=== PATIENT | female | born 1950 | race Caucasian/White ===

== ENCOUNTER → 2017-08-24 | Day surgery (SDC) | payer OTHER ==
[2017-07-20 13:09] VITALS: Ht 154.9 cm; Wt 139.1 kg
[~2017-08-24] VITALS: Ht 154.9 cm; Wt 139.1 kg
[~2017-08-24] MED LIST: 500ML BSS 0.3ML EPI 1:1000PF IRRIG ONE; ACETAMINOPHEN 325 MG TAB PO PRN; AMVISC PLUS 0.8ML SYRINGE INT OCU ONE; ASPI-589 PO; ATOR-54 PO; ATROPINE SULFATE 0.1 MG/ML 5ML SYR IV PRN; BSS FLUSH ONE; CHOL100010 PO; CRG625 PO; EpHEDrine SULFATE INJ 50 MG/ML AMP IV PRN; EpINEphrine INJ 1MG/ML AMP 1 MG/ML AMP ONE; FAMO-103 PO; FENO134C PO; GABA-1219 PO; LACTATED RINGER'S 1000ML 500 ML IV SCH; LEVO100T PO; LIDOCAINE 3.5% OPH GEL PER APPLICATION CHARGE ONE; LIDOCAINE HCL 1% MPF 2 ML VIAL ONE; LISI-461 PO; METF850T10 PO; MIDAZOLAM HCL 1 MG/ML 2ML VIAL ONE; NRV/5 PO; NTRGSL/4 SL; OCUCOAT 1 ML SOLN IO ONE; OXGN; PHENYLEPHRINE HCL 10% OP SOLN PER DROP CHARGE OPL SCH; PIOG1TAB23 PO; POLY150C4 PO; POVIDONE-IODINE OP SOLN 30 ML BTL ONE; PROPARACAINE 0.5% OP SOLN PER DROP CHARGE OPL SCH; TOBRAMYCIN/DEXAMETHASONE OPH OINT PER APPLN CHARGE ONE; TOLT4CAP PO; ZLF/100 PO
[2017-08-24] MEDS: PHENYLEPHRINE HCL 2.5% OP SOLN PER DROP CHARGE OPL SCH ×2 (08:37→08:42)
[2017-08-24] MEDS: TROPICAMIDE 1% OP SOLN PER DROP CHARGE OPL SCH ×2 (08:38→08:43)
[2017-08-24] MEDS: CYCLOPENTOLATE HCL 1% OP SOLN PER DROP CHARGE OPL SCH ×2 (08:39→08:44)
[2017-08-24] MEDS: KETOROLAC 0.5% OP SOLN PER DROP CHARGE OPL SCH ×2 (08:40→08:45)
[2017-08-24] MEDS: GATIFLOXACIN OP SOLN PER DROP CHARGE OPL SCH ×2 (08:41→08:52)
--- NOTE | 2017-08-24 09:04 | History & Physical Bridge - [place] ---
H&P Re-Evaluation Bridge Note: I have examined the patient, reviewed the History & Physical and in the interval since the performance of the History & Physical I have noted the following changes of clinical significance: No changes noted
--- NOTE | 2017-08-24 09:45 | [facility] Operative Report ---
Operative Report Date of Service Aug 24, 2017. Operative Report 1. PREOPERATIVE DIAGNOSIS: Cataract of the left eye. 2. POSTOPERATIVE DIAGNOSIS: Same. 3. PROCEDURE: Phacoemulsification with intraocular lens implantation of the left eye. SURGEON: Dr. Nasir Thomas. ANESTHESIA: Topical Lidocaine gel, 1% Non- Preserved intracameral Lidocaine, and monitored intravenous sedation. INDICATIONS FOR THE PROCEDURE: The patient is a 67 - year-old female with a history of cataract of the left eye causing significant visual impairment. The details of the proposed procedure were explained to the patient who asked appropriate questions and following discussion of all risks, benefits and alternatives agreed to have the procedure done. 4. OPERATION AND FINDINGS: DESCRIPTION OF PROCEDURE: After informed consent was obtained, the patient was brought to the Operating Room at the [facility]. The patient was placed in a supine position and then the left eye was prepped and draped in the usual sterile fashion for intraocular surgery. A drop of topical Lidocaine gel was placed in the operative eye. A wire lid speculum was then placed in the fornices. A corneal paracentesis was then created temporally. The Non-Preserved Lidocaine was then instilled into the anterior chamber. The anterior chamber was then pressurized with viscoelastic. A 2.0 mm clear corneal incision was then created temporally. A cystotome was inserted into the anterior chamber and used to create a tear in the anterior lens capsule. This capsular tear was then used to create a small flap and the flap was dragged in a counterclockwise direction in order to create a continuous curvilinear capsulorrhexis. Hydrodissection was accomplished with balanced salt solution. Phacoemulsification of the lens nucleus was then performed in a standard [id number] technique. The phaco time was 22 seconds with an average power of 12 %. The remaining cortical material was removed using irrigation aspiration. The capsular bag was then filled with viscoelastic. A B[employer]ch [employer] Lomb MI60L +20.5 diopters lens was then loaded into the injector and injected into the capsular bag. The remaining viscoelastic was removed with the irrigation aspiration handpiece. The wound was hydrated and then checked and found to be watertight. The intraocular pressure was checked and found to be adequate. The wire lid speculum was removed and the patient's face was cleaned and dried. TobraDex ointment was placed in the inferior fornix. The patient was discharged to the Recovery Room having tolerated the procedure well. There were no complications. The patient will be seen tomorrow in the office for follow-up. I attest to the content of the Intraoperative Record and any orders documented therein. Any exceptions are noted below.
--- NOTE | 2017-08-24 09:46 | Discharge Instructions-SurgCtr ---
Discharge Instructions Date of Service Aug 24, 2017. Visit Reason for Visit: Cataract Left Eye Discharge Discharge Diagnosis / Problem: cataract Discharge Goals Goal(s): Improve function Medications Stopped Medications Name(s): metformin stopped 2 days ago. Activity Recommendations Activity Limitations: per Instructions/Follow-up section Anesthesia . Post Anesthesia Instructions: If you have had General Anesthesia or IV Sedation: * Do not drive today. * Resume driving when surgeon permits. * Do not make important decisions or sign legal documents today. * Call surgeon for: 1. Temperature elevations greater than 101 degrees F. 2. Uncontrollable pain. 3. Excessive bleeding. 4. Persistent nausea and vomiting. 5. Medication intolerance (nausea, vomiting or rash). * For nausea and vomiting use only clear liquids such as: tea, soda, bouillon until nausea subsides, then gradually increase diet as tolerated. * If you have any concerns or questions, call your surgeon's office. If physician is unavailable and it is an emergency, call 911 or go to the nearest emergency room. . Diet Recommendations Home Diet: resume previous diet Procedures Procedures Performed: Left Cataract Phacoemulsification With Intraocular Lens Implant Pending Studies Studies pending at discharge: no Medical Emergencies . Who to Call and When: Medical Emergencies: If at any time you feel your situation is an emergency, please call 911 immediately. . Non-Emergent Contact Non-Emergency issues call your: Metal Patternmaker . . "Provider Documentation" section prepared by Nasir Thoams. .
[2017-08-24 09:48] VITALS: TEMP 36.6
[2017-08-24 10:11] VITALS: BP 142/84; PULSE 78; O2SAT 96
--- NOTE | 2017-08-24 10:25 | Anesthesiology Progress Note ---
Anesthesia Post Op Note Date & Time Aug 24, 2017 at 10:25 Vital Signs Pain Intensity: 0 Vital Signs Past 12 Hours Date Time Temp Pulse Resp B/P (MAP) Pulse Ox O2 Delivery O2 Flow Rate FiO2 08/24/17 10:11 78 14 142/84 (103) 96 Room Air 08/24/17 09:48 36.6 85 18 144/73 (96) 96 Room Air 08/24/17 08:25 37.0 68 18 170/82 (111) 95 Room Air Notes Mental Status: alert / awake / arousable, participated in evaluation Nausea / Vomiting: adequately controlled Pain: adequately controlled Airway Patency, RR, SpO2: stable & adequate BP & HR: stable & adequate Hydration State: stable & adequate Anesthetic Complications: no major complications apparent
== END | disposition home or self-care (01) ==
LOC: X.SURG 07:42
PROVIDERS: ATTEND Ophthalmology
DX: H25.13 Age-related nuclear cataract, bilateral (principal); I12.9 Hypertensive chronic kidney disease with stage 1 through stage 4 chronic kidney disease, or unspecified chronic kidney disease; N18.3 Chronic kidney disease, stage 3 (moderate); Z68.44 Body mass index [BMI] 60.0-69.9, adult; I25.10 Atherosclerotic heart disease of native coronary artery without angina pectoris; I25.2 Old myocardial infarction; F32.9 Major depressive disorder, single episode, unspecified; E03.9 Hypothyroidism, unspecified; E66.9 Obesity, unspecified; E11.42 Type 2 diabetes mellitus with diabetic polyneuropathy; K21.9 Gastro-esophageal reflux disease without esophagitis; G47.33 Obstructive sleep apnea (adult) (pediatric); Z88.1 Allergy status to other antibiotic agents; Z88.2 Allergy status to sulfonamides; Z87.891 Personal history of nicotine dependence; Z79.82 Long term (current) use of aspirin; Z79.899 Other long term (current) drug therapy; Z79.84 Long term (current) use of oral hypoglycemic drugs; Z97.2 Presence of dental prosthetic device (complete) (partial); Z88.8 Allergy status to other drugs, medicaments and biological substances; Z99.89 Dependence on other enabling machines and devices; Z86.19 Personal history of other infectious and parasitic diseases; Z90.89 Acquired absence of other organs; Z91.041 Radiographic dye allergy status

== ENCOUNTER → 2017-09-21 | Day surgery (SDC) | payer OTHER ==
[2017-09-05 11:10] VITALS: Ht 154.9 cm; Wt 139.1 kg
[~2017-09-21] VITALS: Ht 154.9 cm; Wt 139.1 kg
[~2017-09-21] MED LIST changes: -EpHEDrine SULFATE INJ 50 MG/ML AMP IV PRN; -PHENYLEPHRINE HCL 10% OP SOLN PER DROP CHARGE OPL SCH; +PHENYLEPHRINE HCL 10% OP SOLN PER DROP CHARGE OPR SCH; -PROPARACAINE 0.5% OP SOLN PER DROP CHARGE OPL SCH; +PROPARACAINE 0.5% OP SOLN PER DROP CHARGE OPR SCH
[2017-09-21] MEDS: PHENYLEPHRINE HCL 2.5% OP SOLN PER DROP CHARGE OPR SCH ×2 (08:01→08:07)
[2017-09-21] MEDS: TROPICAMIDE 1% OP SOLN PER DROP CHARGE OPR SCH ×2 (08:02→08:07)
[2017-09-21] MEDS: CYCLOPENTOLATE HCL 1% OP SOLN PER DROP CHARGE OPR SCH ×2 (08:03→08:08)
[2017-09-21] MEDS: KETOROLAC 0.5% OP SOLN PER DROP CHARGE OPR SCH ×2 (08:04→08:09)
[2017-09-21] MEDS: GATIFLOXACIN OP SOLN PER DROP CHARGE OPR SCH ×2 (08:05→08:19)
--- NOTE | 2017-09-21 08:59 | [facility] Operative Report ---
Operative Report Date of Service September 21, 2017. Operative Report 1. PREOPERATIVE DIAGNOSIS: Cataract of the right eye. 2. POSTOPERATIVE DIAGNOSIS: Same. 3. PROCEDURE: Phacoemulsification with intraocular lens implantation of the right eye. SURGEON: Dr. Nasir Thomas. ANESTHESIA: Topical Lidocaine gel, 1% Non- Preserved intracameral Lidocaine, and monitored intravenous sedation. INDICATIONS FOR THE PROCEDURE: The patient is a 67 - year-old female with a history of cataract of the right eye causing significant visual impairment. The details of the proposed procedure were explained to the patient who asked appropriate questions and following discussion of all risks, benefits and alternatives agreed to have the procedure done. 4. OPERATION AND FINDINGS: DESCRIPTION OF PROCEDURE: After informed consent was obtained, the patient was brought to the Operating Room at the [facility]. The patient was placed in a supine position and then the right eye was prepped and draped in the usual sterile fashion for intraocular surgery. A drop of topical Lidocaine gel was placed in the operative eye. A wire lid speculum was then placed in the fornices. A corneal paracentesis was then created temporally. The Non-Preserved Lidocaine was then instilled into the anterior chamber. The anterior chamber was then pressurized with viscoelastic. A 2.0 mm clear corneal incision was then created temporally. A cystotome was inserted into the anterior chamber and used to create a tear in the anterior lens capsule. This capsular tear was then used to create a small flap and the flap was dragged in a counterclockwise direction in order to create a continuous curvilinear capsulorrhexis. Hydrodissection was accomplished with balanced salt solution. Phacoemulsification of the lens nucleus was then performed in a standard nakqry-[id number]-[id number] technique. The phaco time was 26 seconds with an average power of 16 %. The remaining cortical material was removed using irrigation aspiration. The capsular bag was then filled with viscoelastic. A Bausch & Lomb MI60L +21.0 diopters lens was then loaded into the injector and injected into the capsular bag. The remaining viscoelastic was removed with the irrigation aspiration handpiece. The wound was hydrated and then checked and found to be watertight. The intraocular pressure was checked and found to be adequate. The wire lid speculum was removed and the patient's face was cleaned and dried. TobraDex ointment was placed in the inferior fornix. The patient was discharged to the Recovery Room having tolerated the procedure well. There were no complications. The patient will be seen tomorrow in the office for follow-up. I attest to the content of the Intraoperative Record and any orders documented therein. Any exceptions are noted below.
--- NOTE | 2017-09-21 09:00 | Discharge Instructions-SurgCtr ---
Discharge Instructions Date of Service September 21, 2017. Visit Reason for Visit: Cataract Right Eye Discharge Discharge Diagnosis / Problem: cataract Discharge Goals Goal(s): Improve function Medications Stopped Medications Name(s): Metformin Activity Recommendations Activity Limitations: per Instructions/Follow-up section Anesthesia . Post Anesthesia Instructions: If you have had General Anesthesia or IV Sedation: * Do not drive today. * Resume driving when surgeon permits. * Do not make important decisions or sign legal documents today. * Call surgeon for: 1. Temperature elevations greater than 101 degrees F. 2. Uncontrollable pain. 3. Excessive bleeding. 4. Persistent nausea and vomiting. 5. Medication intolerance (nausea, vomiting or rash). * For nausea and vomiting use only clear liquids such as: tea, soda, bouillon until nausea subsides, then gradually increase diet as tolerated. * If you have any concerns or questions, call your surgeon's office. If physician is unavailable and it is an emergency, call 911 or go to the nearest emergency room. . Diet Recommendations Home Diet: resume previous diet Procedures Procedures Performed: Right Cataract Phacoemulsification With Intraocular Lens Implant Pending Studies Studies pending at discharge: no Medical Emergencies . Who to Call and When: Medical Emergencies: If at any time you feel your situation is an emergency, please call 911 immediately. . Non-Emergent Contact Non-Emergency issues call your: Security Flex Utility Officer . . "Provider Documentation" section prepared by Nasir Thomas. .
[2017-09-21 09:01] VITALS: TEMP 36.4
[2017-09-21 09:23] VITALS: BP 132/74; PULSE 76; O2SAT 93
--- NOTE | 2017-09-21 09:48 | Anesthesia Progress Nt - [facility] ---
Anesthesia Post Op Note Date & Time September 21, 2017 at 09:47 Vital Signs Pain Intensity: 0 Vital Signs Past 12 Hours Date Time Temp Pulse Resp B/P (MAP) Pulse Ox O2 Delivery O2 Flow Rate FiO2 09/21/17 09:23 76 18 132/74 (93) 93 Room Air 09/21/17 09:01 36.4 90 16 154/83 (106) 95 Room Air 09/21/17 07:34 37.1 68 18 129/73 (91) 96 Room Air Notes Mental Status: alert / awake / arousable, participated in evaluation Pt Amnestic to Procedure: Yes Nausea / Vomiting: adequately controlled Pain: adequately controlled Airway Patency, RR, SpO2: stable & adequate BP & HR: stable & adequate Hydration State: stable & adequate Anesthetic Complications: no major complications apparent
== END | disposition home or self-care (01) ==
LOC: X.SURG 07:21
PROVIDERS: ATTEND Ophthalmology
DX: H26.9 Unspecified cataract (principal); I12.9 Hypertensive chronic kidney disease with stage 1 through stage 4 chronic kidney disease, or unspecified chronic kidney disease; E11.9 Type 2 diabetes mellitus without complications; N18.3 Chronic kidney disease, stage 3 (moderate); I25.2 Old myocardial infarction; G47.33 Obstructive sleep apnea (adult) (pediatric); I25.10 Atherosclerotic heart disease of native coronary artery without angina pectoris; I10 Essential (primary) hypertension; I50.9 Heart failure, unspecified; E78.5 Hyperlipidemia, unspecified; K21.9 Gastro-esophageal reflux disease without esophagitis; K44.9 Diaphragmatic hernia without obstruction or gangrene; M19.90 Unspecified osteoarthritis, unspecified site; E66.9 Obesity, unspecified; F41.9 Anxiety disorder, unspecified; F32.9 Major depressive disorder, single episode, unspecified; Z91.041 Radiographic dye allergy status; Z88.1 Allergy status to other antibiotic agents; Z99.89 Dependence on other enabling machines and devices; Z88.2 Allergy status to sulfonamides; Z87.891 Personal history of nicotine dependence

== ENCOUNTER 2018-07-05 16:51 | Inpatient (IN) ==
[2018-07-05] MEDS ORDERED: ONDANSETRON INJ 2 MG/ML 2 ML VIAL IV STA (17:02)
[2018-07-05] MEDS ORDERED: GI COCKTAIL ED USE PO ONE (17:02)
[2018-07-05] MEDS ORDERED: SODIUM CHLORIDE 0.9% 1000ML 1,000 ML IV SCH (17:15)
--- NOTE | 2018-07-05 17:26 | XRay Report ---
XR chest 1V portable CLINICAL HISTORY: Atypical chest pain COMPARISON STUDY: 09/16/2014 FINDINGS: The heart is enlarged. There is mild central vascular prominence without evidence of overt failure. There is no lobar consolidation. There are no pleural effusions. Slight haziness of the left lung base remains unchanged and is likely chronic.[ IMPRESSION: 1. Mild cardiomegaly 2. Mild central vascular prominence without evidence of overt failure 3. No evidence of lobar consolidation 4. Slight haziness at the left lung base, a finding which is felt to be chronic Electronically signed by: Prince Reilly M.D. 07/05/2018 5:25 PM
[2018-07-05 17:27] LABS: Basophils # (auto) 0.01 K/uL (0-0.2); Basophils % (auto) 0.1 %; Eosinophils # (auto) 0.16 K/uL (0-0.5); Eosinophils % (auto) 1.5 %; Hematocrit (blood only) 37.3 % (37-47); Hemoglobin 12.1 g/dL (12.0-16.0); Immature Granulocytes # (auto) 0.03 K/uL (0.00-0.02); Immature Granulocytes % (auto) 0.3 %; Lymphocytes # (auto) 1.78 K/uL (1.2-3.4); Lymphocytes % (auto) 16.9 %; Mean Corpuscular Hgb Conc 32.4 g/dL (32-36); Mean Corpuscular Volume 90.8 fL (80-100); Mean Platelet Volume 10.5 fL (7.4-10.4); Monocytes # (auto) 1.03 K/uL (0.11-0.59); Monocytes % (auto) 9.8 %; Neutrophils % (auto) 71.4 %; Platelet Count 220 K/uL (130-400); RDW Coefficient of Variation 14.5 % (11.5-14.5); RDW Standard Deviation 48.4 fL (36.4-46.3); Red Blood Count 4.11 M/uL (4.2-5.4); White Blood Count 10.51 K/uL (4.8-10.8)
[2018-07-05 17:58] LABS: Alanine Aminotransferase 22 U/L (12-78); Albumin Globulin Ratio 0.9 (0.9-2); Albumin Level 3.4 gm/dl (3.4-5.0); Alkaline Phosphatase 36 U/L (45-117); BUN Creatinine Ratio 17.5 (10-20); Bilirubin,Total 0.4 mg/dl (0.2-1); Blood Urea Nitrogen 21 mg/dl (7-18); Calcium 8.7 mg/dl (8.5-10.1); Carbon Dioxide 28 mmol/L (21-32); Chloride 104 mmol/L (98-107); Creatinine Clr Calc Pharmacy 58.6 ml/min; Est GFR (African American) 52.9; Est GFR (Non-African American) 45.6; Glucose 111 mg/dl (70-99); Sodium 137 mmol/L (136-145); Total Protein 7.4 gm/dl (6.4-8.2); Troponin I < 0.015 ng/ml (0-0.045)
--- NOTE | 2018-07-05 18:20 | CT Scan Report ---
ABDOMEN AND PELVIS CT WITHOUT CONTRAST CT DOSE: 1529.68 mGy.cm HISTORY: Acute generalized abdominal pain, most present within the epigastric region. abd pain diffu se epigastric TECHNIQUE: Multiaxial CT images of the abdomen and pelvis were performed without contrast. A dose lo wering technique was utilized adhering to the principles of ALARA. COMPARISON STUDY: CT abdomen and pelvis 02/07/2014. FINDINGS: Pleural thickening with pleural calcifications about the left lung base, unchanged. Mild pleural pare nchymal scarring of left lung base also noted. No pneumatosis or pneumoperitoneum. Imaged inferior ca rdiac chambers are upper limits of normal in size. Coronary arterial calcifications are noted along w ith trace pericardial effusion. Prior cholecystectomy. Mild dilation of the common bile duct likely on a postsurgical basis. The unen hanced liver, spleen, pancreas and adrenal glands appear unremarkable. Kidneys, ureters and urinary b ladder also within normal limits. Air is noted within the vagina and cervix. Uterus and adnexa appear unremarkable. Extensive calcification of the abdominal aorta without aneurysm. IVC is unremarkable. Mildly prominent periaortic and aortocaval lymph nodes measure up to 6 mm in short axis, generally un changed likely benign. Enlarged right inguinal lymph nodes are seen, measuring up to 2.6 x 3.3 cm on image 381 series 3, previously measuring up to 2.6 x 2.2 cm. Mild generalized body wall edema. There is a large duodenal diverticulum. No small bowel obstruction. Scattered air-fluid levels are no felipa throughout mildly dilated loops of small bowel measuring up to 3.6 cm transversely. Extensive col onic diverticulosis without CT evidence of acute diverticulitis. Appendix appears normal. No ascites or mesenteric inflammation. Bones appear to be intact. Multilevel spondylitic spurring with facet art hrosis and intervertebral disc space narrowing. Partial bony fusion of the SI joints. IMPRESSION: 1. No bowel obstruction, pneumatosis or pneumoperitoneum. 2. Mildly dilated loops of small bowel with associated air-fluid levels suggest enteritis or ileus. N o associated bowel wall thickening identified. 3. Extensive colonic diverticulosis without acute diverticulitis. 4. Prior cholecystectomy. 5. Indeterminate enlarged right inguinal lymph node, mildly increased in size from 02/07/2014. 6. Additional findings as above. Electronically signed by: Matti Cerda M.D. 07/05/2018 6:18 PM
[2018-07-05 18:47] LABS: Potassium 3.6 mmol/L (3.5-5.1)
[2018-07-05 18:49] LABS: INR 1.1 (0.9-1.1); Prothrombin Time 11.2 Seconds (9.0-12.0)
--- NOTE | 2018-07-05 19:42 | History & Physical Report ---
Date of Service July 05, 2018 Assessment & Plan (1) Diabetes 1.5, managed as type 2: holding home po meds metformin and actos. Will place on lantus and ISS and monitor. Will Follow hba1c levels (2) Dyslipidemia: on stain and fenofibrate. will follow fasting lipid profile Present on Admission?: Yes (3) Hypothyroidism: on synthyroid. Present on Admission?: Yes (4) Stress incontinence: on detrol LA. Present on Admission?: Yes (5) Chest pain: Hx of CAD s/p stents to LCX and RCA.Recent Lexiscan nuclear stress test in the end of may was abnormal and seen by cardiology on Jun 18 .Discussed medical management vs diagnositic cardiac cath. Currently on medical management. Patient describes pain in epigastric region radiating to throat. sharp pain. Nitro and Gi cocktail didnot relived the pain. EKG shows junctional rhytm but poor quality. Troponin negative. Will place on nitro paste, repeat ekg, serial CE and consult cardiology in am. Close monitor in tele floor. (6) Hypertension: on imdur, coreg, lisinopril,amlodipine. will monitor BP. Present on Admission?: Yes (7) Kidney disease: stage 3.Baseline cr 1.2 to 1.3. Will follow labs Present on Admission?: Yes (8) History of heart artery stent: continue aspirin, coreg,imdur,lipitor Present on Admission?: Yes History of Present Illness Chief Complaint: Chest pain Primary Care Provider: Junior Treadwell MD 67-year-old female with past medical history significant for diabetes type 2 diabetic polyneuropathy, dyslipidemia, hypothyroidism, nocturnal hypoxia, CAD CKD stage III, chronic diastolic dysfunction, hypertension, venous insufficiency , morbid obesity, reflux esophagitis, stress incontinence, arthritis," ankylosing spondylitis, adjustment disorder with depressed mood, presents with chest pain. Patient states that today after taking a bath around noontime she noticed pain in the lower part of the chest radiating to her throat about 6 x 10 in severity, sharp type pain also felt somewhat dizzy. Not associated with any shortness of breath or sweating. Patient took 2 nitros at home without any relief. She also got nitro spray without any relief. Patient also received GI cocktail in the ER which also did not helped. She still has some chest pain somewhat better than in the morning. Patient says recently in the [employer] while climbing steps she needed some help and might haved pulled muscle. No headache. No runny nose. No sore throat. No feeling of hot or cold. No burning micturition or hematuria. Normal bowel movements. Use oxygen while sleeping 3lts. Currently resting comfortably. Recently saw cardiology for chest pain she was status post echocardiogram and Lexiscan nuclear stress testing. Echo showed EF of 50-54%. Lexiscan nuclear stress test was abnormal with moderate size infarct of the inferior lateral myocardium with mild luis- infarct ischemia cardiology discussed about medical management and diagnostic cardiac catheterization. and she was supposed to make a decision. Allergies Allergy/AdvReac Type Severity Reaction Status Date / Time cephalexin Allergy Severe SHORTNESS Verified 07/05/18 17:22 OF BREATH Corticosteroids Allergy Severe "can't Verified 07/05/18 17:22 (Glucocorticoids) breathe" Iodinated Contrast- Oral and Allergy Severe GI Verified 07/05/18 17:22 IV Dye SYMPTOMS/SOB Sulfa (Sulfonamide AdvReac Mild VOMITING Verified 07/05/18 17:22 Antibiotics) Home Medications Home Medications Medication Instructions Recorded Confirmed Type amlodipine 5 mg PO DAILY 07/05/18 07/05/18 History aspirin [Aspirin Low Dose] 81 mg PO DAILY 07/05/18 07/05/18 History atorvastatin 20 mg PO DAILY 07/05/18 07/05/18 History carvedilol 6.25 mg PO BID 07/05/18 07/05/18 History cholecalciferol (vitamin D3) 1,000 unit PO DAILY 07/05/18 07/05/18 History [Vitamin D3] fenofibrate micronized 134 mg PO DAILY 07/05/18 07/05/18 History fluticasone [Flonase Allergy 1 spray INTRANASAL DAILY 07/05/18 07/05/18 History Relief] gabapentin 300 mg PO BID 07/05/18 07/05/18 History iron aspgl,ps complex-vit C-sa 1 tab PO DAILY 07/05/18 07/05/18 History [Ferrex 150 Plus] isosorbide mononitrate 60 mg PO DAILY 07/05/18 07/05/18 History levothyroxine 100 mg PO DAILY 07/05/18 07/05/18 History lisinopril 10 mg PO DAILY 07/05/18 07/05/18 History metformin 850 mg PO BID 07/05/18 07/05/18 History nitroglycerin 0.4 mg SUBLINGUAL DIRECTED 07/05/18 07/05/18 History nystatin 1 applic TOPICAL BID 07/05/18 07/05/18 History nystatin [Nystop] 1 applic TOPICAL TID 07/05/18 07/05/18 History pantoprazole 40 mg PO DAILY 07/05/18 07/05/18 History pioglitazone 30 mg PO DAILY 07/05/18 07/05/18 History sertraline 100 mg PO DAILY 07/05/18 07/05/18 History tolterodine 4 mg PO DAILY 07/05/18 07/05/18 History Past Med/Surg History Social History Current Living Situation: Alone Other Information That Helps Us Care for You: No Feels Safe at Home: Yes Safety Concerns: Feels Safe At This Time Smoking Status: Former smoker Hx Alcohol Use: No Hx Substance Use: No Beliefs That Will Affect Care: None Communication Ability: Effective Review of Systems Constitutional- no fever; no weight loss Eyes- no acute visual changes ENT- no sinus drainage; no pharyngitis Pulmonary- no cough, no shortness of breath Cardiac- no chest pain, no palpitations GI- no nausea, no vomiting, no diarrhea, no melena, no hematochezia - no dysuria, no hematuria Derm- no rashes, Hematologic- no unusual bruising, no unusual bleeding Lymphatics- no adenopathy Endocrine- no heat or cold intolerance Neuro- no headaches, Physical Exam 2 Vital Signs (Past 24 Hours): Last Vital Signs Temp 36.5 C 07/05/18 17:19 Pulse 107 H 07/05/18 18:20 Resp 19 07/05/18 18:20 BP 164/95 H 07/05/18 18:20 Pulse Ox 92 07/05/18 18:20 Physical Exam: General- Not in distress Head- atraumatic Eyes- PERRL, no palor, anicteric ENT- oropharynx clear Neck- supple, no JVD, no adenopathy, carotids, no bruits appreciated Lungs- clear to auscultation and percussion Heart- regular rate and rhythm; no murmur, no gallop, Abdomen- normal bowel sounds, soft, nontender, no masses no distension Extremities- pretibial edema present, No erythema seen Neuro- alert, oriented x 3; PERRL, no facial palsy; no dysarthria; Non focal Skin- warm & dry Results & Data Laboratory Results Laboratory Results - last 24 hr 07/05/18 07/05/18 07/05/18 17:10 17:10 17:10 WBC 10.51 RBC 4.11 L Hgb 12.1 Hct 37.3 MCV 90.8 MCH 29.4 MCHC 32.4 RDW Std Deviation 48.4 H RDW Coeff of Ezequiel 14.5 Plt Count 220 MPV 10.5 H Immature Gran % (Auto) 0.3 Neut % (Auto) 71.4 Lymph % (Auto) 16.9 [place] % (Auto) 9.8 Eos % (Auto) 1.5 Baso % (Auto) 0.1 Immature Gran # (Auto) 0.03 H Neut # (Auto) 7.50 H Lymph # (Auto) 1.78 [place] # (Auto) 1.03 H Eos # (Auto) 0.16 Baso # (Auto) 0.01 PT Cancelled INR Cancelled Sodium 137 Potassium Chloride 104 Carbon Dioxide 28 Anion Gap 5.0 BUN 21 H Creatinine 1.21 H Est Cr Clr Drug Dosing 58.6 Est GFR ( Amer) 52.9 Est GFR (Non-Af Amer) 45.6 BUN/Creatinine Ratio 17.5 Glucose 111 H POC Glucose Calcium 8.7 Total Bilirubin 0.4 AST ALT 22 Alkaline Phosphatase 36 L Troponin I < 0.015 Total Protein 7.4 Albumin 3.4 Globulin 4.0 Albumin/Globulin Ratio 0.9 Lipase 144 Hepatitis C Ab Screen 07/05/18 07/05/18 07/05/18 17:10 18:25 18:25 WBC RBC Hgb Hct MCV MCH MCHC RDW Std Deviation RDW Coeff of Ezequiel Plt Count MPV Immature Gran % (Auto) Neut % (Auto) Lymph % (Auto) [place] % (Auto) Eos % (Auto) Baso % (Auto) Immature Gran # (Auto) Neut # (Auto) Lymph # (Auto) [place] # (Auto) Eos # (Auto) Baso # (Auto) PT 11.2 INR 1.1 Sodium Potassium 3.6 Chloride Carbon Dioxide Anion Gap BUN Creatinine Est Cr Clr Drug Dosing Est GFR ( Amer) Est GFR (Non-Af Amer) BUN/Creatinine Ratio Glucose POC Glucose Calcium Total Bilirubin AST 21 ALT Alkaline Phosphatase Troponin I Total Protein Albumin Globulin Albumin/Globulin Ratio Lipase Hepatitis C Ab Screen Neg 07/05/18 07/05/18 21:43 21:44 WBC RBC Hgb Hct MCV MCH MCHC RDW Std Deviation RDW Coeff of Ezeuqiel Plt Count MPV Immature Gran % (Auto) Neut % (Auto) Lymph % (Auto) [place] % (Auto) Eos % (Auto) Baso % (Auto) Immature Gran # (Auto) Neut # (Auto) Lymph # (Auto) [place] # (Auto) Eos # (Auto) Baso # (Auto) PT INR Sodium Potassium Chloride Carbon Dioxide Anion Gap BUN Creatinine Est Cr Clr Drug Dosing Est GFR ( Amer) Est GFR (Non-Af Amer) BUN/Creatinine Ratio Glucose POC Glucose 140 H Calcium Total Bilirubin AST ALT Alkaline Phosphatase Troponin I < 0.015 Total Protein Albumin Globulin Albumin/Globulin Ratio Lipase Hepatitis C Ab Screen Diagnostic Findings Chest xray: 1. Mild cardiomegaly 2. Mild central vascular prominence without evidence of overt failure 3. No evidence of lobar consolidation 4. Slight haziness at the left lung base, a finding which is felt to be chronic ct abd/pelvis: 1. No bowel obstruction, pneumatosis or pneumoperitoneum. 2. Mildly dilated loops of small bowel with associated air-fluid levels suggest enteritis or ileus. No associated bowel wall thickening identified. 3. Extensive colonic diverticulosis without acute diverticulitis. 4. Prior cholecystectomy. 5. Indeterminate enlarged right inguinal lymph node, mildly increased in size from 02/07/2014. ECG Additional Comments: EKG:Junctional ryhthm? poor quality. QTC 584. Code Status & VTE Plan Code Status full code VTE Prophylaxis Plan VTE Prophylaxis will be ordered: Yes _ (1) Chest pain Chest pain type: Ischemic chest pain type:
[2018-07-05] MEDS ORDERED: ACETAMINOPHEN 325 MG TAB PO PRN (21:35)
[2018-07-05] MEDS ORDERED: NITROGLYCERIN SL 0.4 MG/TAB TAB SL SCH (21:35)
[2018-07-05] MEDS ORDERED: MoRPHine SULFATE 2 MG/ML CARP IV STA (21:35)
[2018-07-05] MEDS ORDERED: ONDANSETRON INJ 2 MG/ML 2 ML VIAL IV PRN (21:35)
[2018-07-05] MEDS ORDERED: NITROGLYCERIN SL 0.4 MG/TAB TAB SL PRN (21:35)
[2018-07-05] MEDS ORDERED: POLYETHYLENE (MIRALAX) 17 GM PACK PO PRN (21:35)
[2018-07-05] MEDS ORDERED: ALUMINUM/MAGNESIUM SUSP 30 ML UDC PO PRN (21:35)
[2018-07-05] MEDS ORDERED: DEXTROSE 50% 50 ML SYRINGE IV PRN (21:44)
[2018-07-05] MEDS ORDERED: CARBOHYDRATES FOR HYPOGLYCEMIA PO PRN (21:44)
[2018-07-05] MEDS ORDERED: GLUCOSE 10 TABS/TUBE PO PRN (21:44)
[2018-07-05] MEDS ORDERED: GLUCAGON FOR INJ 1 MG VIAL IM PRN (21:44)
[2018-07-05] MEDS ORDERED: GLUCOSE 40% GEL 15 GM TUBE PO PRN (21:44)
[2018-07-05] MEDS: INSULIN ASPART 100 UNITS/ML 3 ML PEN SC SCH (22:01)
[2018-07-05] MEDS: NYSTATIN POWDER 15GM BTL EXT SCH (23:09)
[2018-07-05] MEDS: CARVEDILOL 6.25 MG TAB PO SCH (23:09)
[2018-07-05] MEDS: INSULIN GLARGINE SOLOSTAR 100 UNITS/ML 3 ML PEN SC SCH (23:10)
[2018-07-05] MEDS: GABAPENTIN 300 MG CAP PO SCH (23:10)
[2018-07-05] MEDS ORDERED: MoRPHine SULFATE 4 MG/ML 1 ML CARP\\VIAL ONE (23:13)
--- NOTE | 2018-07-06 00:02 | Emergency Department Note ---
Entered by Stefania Cope acting as a scribe for History of Present Illness General Chief complaint: Chest Pain Time Seen by Provider: 07/05/18 16:52 Source: patient Mode of arrival: EMS Limitations: no limitations History of Present Illness Onset (ago): hour(s) 3 Location: abdomen (epigastric) Radiation: other (chest) Pain Consistency: + constant Relieved By: + medication Exacerbated By: + none Associated symptoms: + other (-urinary symptoms, -jaw pain, -shoulder pain); no nausea/vomiting and no shortness of breath Treatments prior to arrival: aspirin and other (Nitro) The patient is a 67 year old female who presents to the Emergency Room with complaints of epigastric abdominal pain that radiates up into her chest. She was brought to the ED via EMS. She states the pain started around 1400 today after she had finished showering. She denies any recent nausea, vomiting or urinary symptoms. She does have a history of previous MN's but states her current pain does not feel similar to her MN's. She was given 4 Aspirin and Nitro in the field and states it provided some relief. She denies any recent shortness of breath, jaw pain or shoulder pain. No other exacerbating or remitting factors. Home Medications Home Medications Medication Instructions Recorded Confirmed Type amlodipine 5 mg PO DAILY 07/05/18 07/05/18 History aspirin [Aspirin Low Dose] 81 mg PO DAILY 07/05/18 07/05/18 History atorvastatin 20 mg PO DAILY 07/05/18 07/05/18 History carvedilol 6.25 mg PO BID 07/05/18 07/05/18 History cholecalciferol (vitamin D3) 1,000 unit PO DAILY 07/05/18 07/05/18 History [Vitamin D3] fenofibrate micronized 134 mg PO DAILY 07/05/18 07/05/18 History fluticasone [Flonase Allergy 1 spray INTRANASAL DAILY 07/05/18 07/05/18 History Relief] gabapentin 300 mg PO BID 07/05/18 07/05/18 History iron aspgl,ps complex-vit C-sa 1 tab PO DAILY 07/05/18 07/05/18 History [Ferrex 150 Plus] isosorbide mononitrate 60 mg PO DAILY 07/05/18 07/05/18 History levothyroxine 100 mg PO DAILY 07/05/18 07/05/18 History lisinopril 10 mg PO DAILY 07/05/18 07/05/18 History metformin 850 mg PO BID 07/05/18 07/05/18 History nitroglycerin 0.4 mg SUBLINGUAL DIRECTED 07/05/18 07/05/18 History nystatin 1 applic TOPICAL BID 07/05/18 07/05/18 History nystatin [Nystop] 1 applic TOPICAL TID 07/05/18 07/05/18 History pantoprazole 40 mg PO DAILY 07/05/18 07/05/18 History pioglitazone 30 mg PO DAILY 07/05/18 07/05/18 History sertraline 100 mg PO DAILY 07/05/18 07/05/18 History tolterodine 4 mg PO DAILY 07/05/18 07/05/18 History Allergies Allergy/AdvReac Type Severity Reaction Status Date / Time cephalexin Allergy Severe SHORTNESS Verified 07/05/18 17:22 OF BREATH Corticosteroids Allergy Severe "can't Verified 07/05/18 17:22 (Glucocorticoids) breathe" Iodinated Contrast- Oral and Allergy Severe GI Verified 07/05/18 17:22 IV Dye SYMPTOMS/SOB Sulfa (Sulfonamide AdvReac Mild VOMITING Verified 07/05/18 17:22 Antibiotics) Past Med/Surg History Medical History Myocardial infarction Social History Current Living Situation: Alone Other Information That Helps Us Care for You: No Feels Safe at Home: Yes Safety Concerns: Feels Safe At This Time Smoking Status: Former smoker Hx Alcohol Use: No Hx Substance Use: No Beliefs That Will Affect Care: None Communication Ability: Effective Review of Systems See HPI for pertinent positives & negatives. and A total of 10 systems reviewed and were otherwise negative Physical Exam Vital Signs Vital Signs - 24 hr 07/05/18 17:19 07/05/18 18:20 07/05/18 19:51 Temperature 36.5 C Temperature Source Oral Sepsis Recent Fever Within 48 Hours No Sepsis Action Taken by Nursing No Action Required Pulse Rate 109 H Pulse Rate [Right Finger] 107 H 109 H Pulse Rhythm Regular Pulse Rhythm [Right Finger] Regular Pulse Strength Normal Pulse Strength [Right Finger] Normal Respiratory Rate 19 Respiratory Effort / Characteristics Non-Labored Respiratory Depth Normal Respiratory Pattern Regular Blood Pressure 162/100 H Blood Pressure [Left Arm] 164/95 H 147/84 H Blood Pressure Mean 120 Blood Pressure Mean [Left Arm] 118 105 Blood Pressure Position Lying Blood Pressure Position [Left Arm] Lying Lying Pulse Oximetry 95 92 90 Oxygen Delivery Method Room Air Room Air Oxygen Flow Rate 07/05/18 21:06 07/05/18 21:25 07/05/18 23:23 Temperature 37.0 C 37.5 C Temperature Source Oral Oral Sepsis Recent Fever Within 48 Hours Sepsis Action Taken by Nursing Pulse Rate 79 Pulse Rate [Right Finger] 85 92 H Pulse Rhythm Pulse Rhythm [Right Finger] Pulse Strength Pulse Strength [Right Finger] Respiratory Rate 19 20 20 Respiratory Effort / Characteristics Respiratory Depth Normal Respiratory Pattern Blood Pressure 166/89 H Blood Pressure [Left Arm] 172/87 H 154/89 H Blood Pressure Mean Blood Pressure Mean [Left Arm] 115 110 Blood Pressure Position Blood Pressure Position [Left Arm] Lying Pulse Oximetry 98 91 96 Oxygen Delivery Method Room Air Nasal Cannula Nasal Cannula Oxygen Flow Rate 2 2 07/05/18 23:39 Temperature Temperature Source Sepsis Recent Fever Within 48 Hours Sepsis Action Taken by Nursing Pulse Rate Pulse Rate [Right Finger] Pulse Rhythm Pulse Rhythm [Right Finger] Pulse Strength Pulse Strength [Right Finger] Respiratory Rate Respiratory Effort / Characteristics Respiratory Depth Normal Respiratory Pattern Blood Pressure Blood Pressure [Left Arm] Blood Pressure Mean Blood Pressure Mean [Left Arm] Blood Pressure Position Blood Pressure Position [Left Arm] Pulse Oximetry Oxygen Delivery Method Nasal Cannula Oxygen Flow Rate 2 GENERAL: Sitting up in bed, alert, well appearing, morbidly obese, no distress, non-toxic EYE EXAM: normal conjunctiva. OROPHARYNX: no exudate, no erythema, lips, buccal mucosa, and tongue normal and mucous membranes are moist NECK: supple, no nuchal rigidity, no adenopathy, non-tender LUNGS: Clear to auscultation. Normal chest wall mechanics HEART: Tachycardic, S1 normal and S2 normal ABDOMEN: abdomen soft, minimal tenderness in the epigastric region, normo- active bowel, sounds, no masses, no rebound or guarding. BACK: Back is symmetrical on inspection and there is no deformity, no midline tenderness, no CVA tenderness. SKIN: no rashes and no bruising UPPER EXTREMITIES: upper extremities are grossly normal. LOWER EXTREMITIES: No pitting edema. NEURO EXAM: Normal sensorium, cranial nerves II-XII grossly intact, normal speech, no gross weakness of arms, no gross weakness of legs. Gross sensation intact. Course ED COURSE: Vital signs were reviewed and showed the patient is hypertensive. The patients medical record was reviewed The above diagnostic studies were performed and reviewed. ED treatments and interventions as stated above. 1658: The patient was evaluated in room C1. A complete history and physical examination was performed. 1720: I reevaluated the patient. She is doing OK. 1900: [facility] The patient will be further evaluated. 190: Upon reevaluation, the patient is resting comfortably. I discussed my findings with the patient and she understands and agrees with the treatment plan. Based on the patients age, coexisting illnesses, exam and lab findings the decision to treat as an inpatient was made. The patient remained stable while under my care. The patient will be evaluated for further management. Consultations Consultation #1: I discussed the patients case with Dr. Dinh [facility]. The patient will be further evaluated. Time: 19:00 Administered Medications Carvedilol (Coreg) 6.25 mg PO BID JEREMY Stop: 08/04/18 21:34 Last Admin: 07/05/18 23:09 Dose: 6.25 mg Gabapentin (Neurontin) 300 mg PO BID JEREMY Stop: 08/04/18 21:34 Last Admin: 07/05/18 23:10 Dose: 300 mg Insulin Aspart (Novolog Flexpen) 0 units SC ACHS JEREMY Stop: 08/04/18 21:34 Last Admin: 07/05/18 22:01 Dose: Not Given Insulin Glargine (Lantus Solostar Pen) 5 units SC HS JEREMY Stop: 08/04/18 21:59 Last Admin: 07/05/18 23:10 Dose: 5 units Nystatin (Mycostatin) 1 appln EXT TID JEREMY Stop: 08/04/18 21:34 Last Admin: 07/05/18 23:09 Dose: 1 appln Discontinued Medications Al Hydrox/Mg Hydrox/Simethicone () 1 dose PO ONE ONE Stop: 07/05/18 17:03 Last Admin: 07/05/18 17:26 Dose: 1 dose Sodium Chloride (Nss 1000ml) 1,000 mls @ 999 mls/hr IV .Q1H1M JEREMY Stop: 07/05/18 18:15 Last Infusion: 07/05/18 18:53 Dose: 0 mls/hr Admin: 07/05/18 17:26 Dose: 999 mls/hr Morphine Sulfate (Morphine Sulfate) 1 mg IV NOW STA Stop: 07/05/18 21:36 Last Admin: 07/05/18 23:17 Dose: Not Given Morphine Sulfate (Morphine Sulfate) Confirm Administered Dose 4 mg .ROUTE .STK- MED ONE Stop: 07/05/18 23:14 Last Admin: 07/05/18 23:17 Dose: 1 mg Ondansetron HCl (Zofran) 4 mg IV NOW STA Stop: 07/05/18 17:03 Last Admin: 07/05/18 17:26 Dose: 4 mg Medical Decision Making Differential Diagnosis Differential diagnoses includes but is not limited to acute coronary syndrome, myocardial infarction, pericarditis, pulmonary embolus, aortic dissection, pneumonia, pneumothorax, musculoskeletal, shingles, esophageal. Medical Records Attestation: I reviewed the patient's medical records. Home Medications Current Medication List: was personally reviewed by me Laboratory Data Attestation: I reviewed the patient's lab results. Result diagrams: 07/05/18 17:10 07/05/18 17:10 Lab Results 07/05/18 07/05/18 07/05/18 Range/Units 17:10 17:10 17:10 WBC 10.51 (4.8-10.8) K/uL RBC 4.11 L (4.2-5.4) M/uL Hgb 12.1 (12.0-16.0) g/dL Hct 37.3 (37-47) % MCV 90.8 (80-100) fL MCH 29.4 (25-34) pg MCHC 32.4 (32-36) g/dL RDW Std Deviation 48.4 H (36.4-46.3) fL RDW Coeff of Ezequiel 14.5 (11.5-14.5) % Plt Count 220 (130-400) K/uL MPV 10.5 H (7.4-10.4) fL Immature Gran % (Auto) 0.3 % Neut % (Auto) 71.4 % Lymph % (Auto) 16.9 % [place] % (Auto) 9.8 % Eos % (Auto) 1.5 % Baso % (Auto) 0.1 % Immature Gran # (Auto) 0.03 H (0.00-0.02) K/uL Neut # (Auto) 7.50 H (1.4-6.5) K/uL Lymph # (Auto) 1.78 (1.2-3.4) K/uL [place] # (Auto) 1.03 H (0.11-0.59) K/uL Eos # (Auto) 0.16 (0-0.5) K/uL Baso # (Auto) 0.01 (0-0.2) K/uL PT Cancelled INR Cancelled Sodium 137 (136-145) mmol/L Potassium (3.5-5.1) mmol/L Chloride 104 (98-107) mmol/L Carbon Dioxide 28 (21-32) mmol/L Anion Gap 5.0 (3-11) BUN 21 H (7-18) mg/dl Creatinine 1.21 H (0.6-1.2) mg/dl Est Cr Clr Drug Dosing 58.6 ml/min Est GFR ( Amer) 52.9 Est GFR (Non-Af Amer) 45.6 BUN/Creatinine Ratio 17.5 (10-20) Glucose 111 H (70-99) mg/dl POC Glucose (70-99) Calcium 8.7 (8.5-10.1) mg/dl Total Bilirubin 0.4 (0.2-1) mg/dl AST (15-37) U/L ALT 22 (12-78) U/L Alkaline Phosphatase 36 L (45-117) U/L Troponin I < 0.015 (0-0.045) ng/ml Total Protein 7.4 (6.4-8.2) gm/dl Albumin 3.4 (3.4-5.0) gm/dl Globulin 4.0 (2.5-4.0) gm/dl Albumin/Globulin Ratio 0.9 (0.9-2) Lipase 144 (73-393) U/L Hepatitis C Ab Screen (Neg) 07/05/18 07/05/18 07/05/18 Range/Units 17:10 18:25 18:25 WBC (4.8-10.8) K/uL RBC (4.2-5.4) M/uL Hgb (12.0-16.0) g/dL Hct (37-47) % MCV (80-100) fL MCH (25-34) pg MCHC (32-36) g/dL RDW Std Deviation (36.4-46.3) fL RDW Coeff of Ezequiel (11.5-14.5) % Plt Count (130-400) K/uL MPV (7.4-10.4) fL Immature Gran % (Auto) % Neut % (Auto) % Lymph % (Auto) % [place] % (Auto) % Eos % (Auto) % Baso % (Auto) % Immature Gran # (Auto) (0.00-0.02) K/uL Neut # (Auto) (1.4-6.5) K/uL Lymph # (Auto) (1.2-3.4) K/uL [place] # (Auto) (0.11-0.59) K/uL Eos # (Auto) (0-0.5) K/uL Baso # (Auto) (0-0.2) K/uL PT 11.2 INR 1.1 Sodium (136-145) mmol/L Potassium 3.6 (3.5-5.1) mmol/L Chloride (98-107) mmol/L Carbon Dioxide (21-32) mmol/L Anion Gap (3-11) BUN (7-18) mg/dl Creatinine (0.6-1.2) mg/dl Est Cr Clr Drug Dosing ml/min Est GFR ( Amer) Est GFR (Non-Af Amer) BUN/Creatinine Ratio (10-20) Glucose (70-99) mg/dl POC Glucose (70-99) Calcium (8.5-10.1) mg/dl Total Bilirubin (0.2-1) mg/dl AST 21 (15-37) U/L ALT (12-78) U/L Alkaline Phosphatase (45-117) U/L Troponin I (0-0.045) ng/ml Total Protein (6.4-8.2) gm/dl Albumin (3.4-5.0) gm/dl Globulin (2.5-4.0) gm/dl Albumin/Globulin Ratio (0.9-2) Lipase (73-393) U/L Hepatitis C Ab Screen Neg (Neg) 07/05/18 07/05/18 Range/Units 21:43 21:44 WBC (4.8-10.8) K/uL RBC (4.2-5.4) M/uL Hgb (12.0-16.0) g/dL Hct (37-47) % MCV (80-100) fL MCH (25-34) pg MCHC (32-36) g/dL RDW Std Deviation (36.4-46.3) fL RDW Coeff of Ezequiel (11.5-14.5) % Plt Count (130-400) K/uL MPV (7.4-10.4) fL Immature Gran % (Auto) % Neut % (Auto) % Lymph % (Auto) % [place] % (Auto) % Eos % (Auto) % Baso % (Auto) % Immature Gran # (Auto) (0.00-0.02) K/uL Neut # (Auto) (1.4-6.5) K/uL Lymph # (Auto) (1.2-3.4) K/uL [place] # (Auto) (0.11-0.59) K/uL Eos # (Auto) (0-0.5) K/uL Baso # (Auto) (0-0.2) K/uL PT INR Sodium (136-145) mmol/L Potassium (3.5-5.1) mmol/L Chloride (98-107) mmol/L Carbon Dioxide (21-32) mmol/L Anion Gap (3-11) BUN (7-18) mg/dl Creatinine (0.6-1.2) mg/dl Est Cr Clr Drug Dosing ml/min Est GFR ( Amer) Est GFR (Non-Af Amer) BUN/Creatinine Ratio (10-20) Glucose (70-99) mg/dl POC Glucose 140 H (70-99) Calcium (8.5-10.1) mg/dl Total Bilirubin (0.2-1) mg/dl AST (15-37) U/L ALT (12-78) U/L Alkaline Phosphatase (45-117) U/L Troponin I < 0.015 (0-0.045) ng/ml Total Protein (6.4-8.2) gm/dl Albumin (3.4-5.0) gm/dl Globulin (2.5-4.0) gm/dl Albumin/Globulin Ratio (0.9-2) Lipase (73-393) U/L Hepatitis C Ab Screen (Neg) Imaging Data Radiologist's Impression: Radiology results as stated below per my review and the radiologist's interpretation: XR chest 1V portable CLINICAL HISTORY: Atypical chest pain COMPARISON STUDY: 09/16/2014 FINDINGS: The heart is enlarged. There is mild central vascular prominence without evidence of overt failure. There is no lobar consolidation. There are no pleural effusions. Slight haziness of the left lung base remains unchanged and is likely chronic. IMPRESSION: 1. Mild cardiomegaly 2. Mild central vascular prominence without evidence of overt failure 3. No evidence of lobar consolidation 4. Slight haziness at the left lung base, a finding which is felt to be chronic Electronically signed by: Prince Reilly M.D. 07/05/2018 5:25 PM ABDOMEN AND PELVIS CT WITHOUT CONTRAST CT DOSE: 1529.68 mGy.cm HISTORY: Acute generalized abdominal pain, most present within the epigastric region. abd pain diffuse epigastric TECHNIQUE: Multiaxial CT images of the abdomen and pelvis were performed without contrast. A dose lowering technique was utilized adhering to the principles of ALARA. COMPARISON STUDY: CT abdomen and pelvis 02/07/2014. FINDINGS: Pleural thickening with pleural calcifications about the left lung base, unchanged. Mild pleural parenchymal scarring of left lung base also noted. No pneumatosis or pneumoperitoneum. Imaged inferior cardiac chambers are upper limits of normal in size. Coronary arterial calcifications are noted along with trace pericardial effusion. Prior cholecystectomy. Mild dilation of the common bile duct likely on a postsurgical basis. The unenhanced liver, spleen, pancreas and adrenal glands appear unremarkable. Kidneys, ureters and urinary bladder also within normal limits. Air is noted within the vagina and cervix. Uterus and adnexa appear unremarkable. Extensive calcification of the abdominal aorta without aneurysm. IVC is unremarkable. Mildly prominent periaortic and aortocaval lymph nodes measure up to 6 mm in short axis, generally unchanged likely benign. Enlarged right inguinal lymph nodes are seen, measuring up to 2.6 x 3.3 cm on image 381 series 3, previously measuring up to 2.6 x 2.2 cm. Mild generalized body wall edema. There is a large duodenal diverticulum. No small bowel obstruction. Scattered air-fluid levels are noted throughout mildly dilated loops of small bowel measuring up to 3.6 cm transversely. Extensive colonic diverticulosis without CT evidence of acute diverticulitis. Appendix appears normal. No ascites or mesenteric inflammation. Bones appear to be intact. Multilevel spondylitic spurring with facet arthrosis and intervertebral disc space narrowing. Partial bony fusion of the SI joints. IMPRESSION: 1. No bowel obstruction, pneumatosis or pneumoperitoneum. 2. Mildly dilated loops of small bowel with associated air-fluid levels suggest enteritis or ileus. No associated bowel wall thickening identified. 3. Extensive colonic diverticulosis without acute diverticulitis. 4. Prior cholecystectomy. 5. Indeterminate enlarged right inguinal lymph node, mildly increased in size from 02/07/2014. 6. Additional findings as above. Electronically signed by: Matti Cerda M.D. 07/05/2018 6:18 PM ECG Data Attestation: I personally reviewed and interpreted this ECG as follows: Indication: chest pain Rate (beats per minute): 80 Rhythm: atrial fibrillation Findings: + other (normal axis, poor baseline); no PVC Additional Comments: 2nd EKG on 07/05/18: Accelerated junctional rhythm, rate of 111, normal axis, no PVC Blood Pressure Blood Pressure Findings: Elevated blood pressure Blood Pressure Disposition: further management by hospitalist MDM Narrative Patient is a 67-year-old female who presents the ER via EMS for chest pain which is been present since around 2 PM. Pain radiates from the epigastric region and under the left breast of the mid sternum. She was given aspirin and nitro. She was hypertensive. Labs show no significant leukocytosis or anemia. INR was unremarkable. BMP with LFTs bilirubin and troponin was negative. Lipase was normal. CT abdomen pelvis shows no acute pathology. Chest x-ray was unremarkable. EKG initially showed A. fib and repeat was regular but difficult to interpret whether there is actually P waves if this is sinus. Patient was given IV fluids and morphine along with a GI cocktail. She had resolution of her symptoms. She was updated bedside discussed with the hospitalist for further observation. Impression & Plan Chest pain, Atrial fibrillation Discharge Plan Visit Data *Final* Discharge Date/Time: 07/05/18 21:06 Chief Complaint: Chest Pain ED Provider: Tono Haji Discharge Problem: Chest pain, Atrial fibrillation Patient Disposition: Admitted As Inpatient Discharge Instructions Interventions: ED Discharge Assessment Last Done: 07/05/18 21:06 The scribe's documentation has been prepared under my direction and personally reviewed by me in its entirety. I confirm that the note above accurately reflects all work, treatment, procedures, and medical decision making performed by me.
[2018-07-06] MEDS: NITROGLYCERIN 2% OINTMENT 30GM TUBE EXT SCH ×4 (00:42→19:20)
[2018-07-06 04:19] LABS: Basophils # (auto) 0.02 K/uL (0-0.2); Basophils % (auto) 0.2 %; Eosinophils # (auto) 0.08 K/uL (0-0.5); Eosinophils % (auto) 0.8 %; Hemoglobin 11.3 g/dL (12.0-16.0); Immature Granulocytes # (auto) 0.02 K/uL (0.00-0.02); Immature Granulocytes % (auto) 0.2 %; Lymphocytes % (auto) 16.5 %; Mean Corpuscular Hgb Conc 32.3 g/dL (32-36); Mean Corpuscular Volume 90.9 fL (80-100); Mean Platelet Volume 9.6 fL (7.4-10.4); Monocytes # (auto) 1.34 K/uL (0.11-0.59); Neutrophils # (auto) 7.14 K/uL (1.4-6.5); Neutrophils % (auto) 69.3 %; Platelet Count 219 K/uL (130-400); RDW Coefficient of Variation 14.4 % (11.5-14.5); RDW Standard Deviation 48.2 fL (36.4-46.3); Red Blood Count 3.85 M/uL (4.2-5.4)
[2018-07-06 04:40] LABS: BUN Creatinine Ratio 16.9 (10-20); Blood Urea Nitrogen 21 mg/dl (7-18); Calcium 8.2 mg/dl (8.5-10.1); Carbon Dioxide 31 mmol/L (21-32); Chloride 108 mmol/L (98-107); Creatinine Clr Calc Pharmacy 57.1 ml/min; Est GFR (African American) 52.3; Est GFR (Non-African American) 45.2; Glucose 119 mg/dl (70-99); Magnesium 1.1 mg/dl (1.8-2.4); Potassium 3.7 mmol/L (3.5-5.1); Sodium 140 mmol/L (136-145)
[2018-07-06 04:45] LABS: Chol HDL Ratio 2; Cholesterol 82 mg/dl (0-200); HDL Cholesterol 34 mg/dl; LDL Cholesterol Calculated 28 mg/dl; Triglycerides 100 mg/dl (0-150); Troponin I < 0.015 ng/ml (0-0.045); VLDL Cholesterol 20 mg/dl
[2018-07-06] MEDS: LEVOTHYROXINE SODIUM 100 MCG TABLET PO SCH (05:51)
[2018-07-06 06:20] LABS: Estimated Average Glucose 128 mg/dl
--- NOTE | 2018-07-06 08:15 | XRay Report ---
XR KUB CLINICAL HISTORY: ileus COMPARISON STUDY: CT scan dated 07/05/2018 FINDINGS: There are surgical clips within the right upper quadrant. There is gas present within colon and small bowel loops. Small bowel loops are the upper limits of normal in size. There is no radiogr aphic evidence of obstruction. There is ankylosis of the spine. IMPRESSION: 1. No evidence of bowel obstruction 2. Ankylosis of the spine. Electronically signed by: Prince Reilly M.D. 07/06/2018 8:14 AM
[2018-07-06] MEDS: INSULIN ASPART 100 UNITS/ML 3 ML PEN SC SCH ×4 (08:55→21:00)
[2018-07-06] MEDS: AMLODIPINE BESYLATE 5 MG TAB PO SCH (08:59)
[2018-07-06] MEDS: CARVEDILOL 6.25 MG TAB PO SCH ×2 (08:59→21:03)
[2018-07-06] MEDS: PANTOprazole 40 MG TAB PO SCH (08:59)
[2018-07-06] MEDS: SERTRALINE HCL 100 MG TABLET PO SCH (08:59)
[2018-07-06] MEDS: ISOSORBIDE MONO EXTENDED REL 60 MG TABCR PO SCH (08:59)
[2018-07-06] MEDS: GABAPENTIN 300 MG CAP PO SCH ×2 (08:59→21:03)
[2018-07-06] MEDS: MAGNESIUM SULFATE / D5W 1 GM/100 ML BAG IV SCH ×4 (08:59→13:05)
[2018-07-06] MEDS: FLUTICASONE PROPIONATE NA SPR 16 GM BTL SCH (12:51)
--- NOTE | 2018-07-06 15:18 | Cardiology Consultation ---
Date of Consultation July 06, 2018 Assessment & Plan (1) Chest pain: The patient had a heart catheterization at [facility] in 2013 which revealed moderate nonobstructive coronary disease. She had a recent pharmacologic nuclear stress test in our office which I read, it indicated an inferior infarct with some luis-infarct ischemia. Her symptoms however, would not correlate with angina or acute coronary syndrome. There is a pleuritic component to them. No imaging study was performed in the emergency department. I will order a d-dimer. Wait for additional cardiac markers. (2) Diabetes 1.5, managed as type 2: (3) Dyslipidemia: History of Present Illness Attending Physician: Fanta Henley, History of Present Illness This is a 67-year-old obese female who was most recently seen in our practice by Heri Bullard. In 2013 she had a cardiac catheterization that was completed at [facility] that showed moderate nonobstructive disease. She has been having atypical chest pain for several months. She had a recent pharmacologic nuclear stress test that revealed a moderate sized infarct of the inferior myocardium with mild luis-infarct ischemia. At the same time that this study was ordered she was switched from Pepcid to Protonix. That resolved the majority of her discomfort and it was decided that she would be treated medically. On the day of admission she had just finished taking a shower. She began to have some left upper quadrant abdominal discomfort which eventually radiated up through her chest to her neck. She describes the discomfort as occurring when she takes a deep breath. It is not reproducible by movements of her upper body. She denies shortness of breath. Cardiac markers after admission have been negative thus far. Allergies Allergy/AdvReac Type Severity Reaction Status Date / Time cephalexin Allergy Severe SHORTNESS Verified 07/05/18 17:22 OF BREATH Corticosteroids Allergy Severe "can't Verified 07/05/18 17:22 (Glucocorticoids) breathe" Iodinated Contrast- Oral and Allergy Severe GI Verified 07/05/18 17:22 IV Dye SYMPTOMS/SOB Sulfa (Sulfonamide AdvReac Mild VOMITING Verified 07/05/18 17:22 Antibiotics) Home Medications Home Medications Medication Instructions Recorded Confirmed Type amlodipine 5 mg PO DAILY 07/05/18 07/05/18 History aspirin [Aspirin Low Dose] 81 mg PO DAILY 07/05/18 07/05/18 History atorvastatin 20 mg PO DAILY 07/05/18 07/05/18 History carvedilol 6.25 mg PO BID 07/05/18 07/05/18 History cholecalciferol (vitamin D3) 1,000 unit PO DAILY 07/05/18 07/05/18 History [Vitamin D3] fenofibrate micronized 134 mg PO DAILY 07/05/18 07/05/18 History fluticasone [Flonase Allergy 1 spray INTRANASAL DAILY 07/05/18 07/05/18 History Relief] gabapentin 300 mg PO BID 07/05/18 07/05/18 History iron aspgl,ps complex-vit C-sa 1 tab PO DAILY 07/05/18 07/05/18 History [Ferrex 150 Plus] isosorbide mononitrate 60 mg PO DAILY 07/05/18 07/05/18 History levothyroxine 100 mg PO DAILY 07/05/18 07/05/18 History lisinopril 10 mg PO DAILY 07/05/18 07/05/18 History metformin 850 mg PO BID 07/05/18 07/05/18 History nitroglycerin 0.4 mg SUBLINGUAL DIRECTED 07/05/18 07/05/18 History nystatin 1 applic TOPICAL BID 07/05/18 07/05/18 History nystatin [Nystop] 1 applic TOPICAL TID 07/05/18 07/05/18 History pantoprazole 40 mg PO DAILY 07/05/18 07/05/18 History pioglitazone 30 mg PO DAILY 07/05/18 07/05/18 History sertraline 100 mg PO DAILY 07/05/18 07/05/18 History tolterodine 4 mg PO DAILY 07/05/18 07/05/18 History Patient History Social History Current Living Situation: Alone Other Information That Helps Us Care for You: No Feels Safe at Home: Yes Safety Concerns: Feels Safe At This Time Smoking Status: Former smoker Hx Alcohol Use: No Hx Substance Use: No Beliefs That Will Affect Care: None Communication Ability: Effective Review of Systems Review of Systems: See HPI for pertinent positives. All other 10 point review of systems are negative. Physical Exam 2 Vital Signs (Past 24 Hours): Last Vital Signs Temp 36.9 C 07/06/18 15:04 Pulse 70 07/06/18 15:04 Resp 19 07/06/18 15:04 BP 108/69 07/06/18 15:04 Pulse Ox 96 07/06/18 15:04 Physical Exam: General: no acute distress and stated age Head: normocephalic, no masses, lesions, tenderness or abnormalities Eyes: conjunctiva are pink and non-injected, sclera clear Neck: supple, no adenopathy, no bruits, normal jugular venous pulse, no hepatojugular reflux Chest: normal shape and normal respiratory effort Lungs: clear to auscultation and percussion Cardiac Exam: - regular rate & rhythm, no murmurs gallops or rubs - normal S1, normal S2 Pulses: 2(+) throughout Abdomen: abdomen soft, non-tender, no abnormal masses and no hepatosplenomegaly Musculoskeletal: no gait disturbance, no joint inflammation, no deforming arthritis Extremities: no edema and no cyanosis Neuro: grossly normal exam Results & Data Laboratory Results Laboratory Results - last 24 hr 07/05/18 07/05/18 07/05/18 17:10 17:10 17:10 WBC 10.51 RBC 4.11 L Hgb 12.1 Hct 37.3 MCV 90.8 MCH 29.4 MCHC 32.4 RDW Std Deviation 48.4 H RDW Coeff of Ezequiel 14.5 Plt Count 220 MPV 10.5 H Immature Gran % (Auto) 0.3 Neut % (Auto) 71.4 Lymph % (Auto) 16.9 York % (Auto) 9.8 Eos % (Auto) 1.5 Baso % (Auto) 0.1 Immature Gran # (Auto) 0.03 H Neut # (Auto) 7.50 H Lymph # (Auto) 1.78 York # (Auto) 1.03 H Eos # (Auto) 0.16 Baso # (Auto) 0.01 PT Cancelled INR Cancelled Sodium 137 Potassium Chloride 104 Carbon Dioxide 28 Anion Gap 5.0 BUN 21 H Creatinine 1.21 H Est Cr Clr Drug Dosing 58.6 Est GFR ( Amer) 52.9 Est GFR (Non-Af Amer) 45.6 BUN/Creatinine Ratio 17.5 Glucose 111 H POC Glucose Estimat Average Glucose Hemoglobin A1c Calcium 8.7 Magnesium Total Bilirubin 0.4 AST ALT 22 Alkaline Phosphatase 36 L Troponin I < 0.015 Total Protein 7.4 Albumin 3.4 Globulin 4.0 Albumin/Globulin Ratio 0.9 Triglycerides Cholesterol LDL Cholesterol, Calc VLDL Cholesterol, Calc HDL Cholesterol Cholesterol/HDL Ratio Lipase 144 Hepatitis C Ab Screen 07/05/18 07/05/18 07/05/18 17:10 18:25 18:25 WBC RBC Hgb Hct MCV MCH MCHC RDW Std Deviation RDW Coeff of Ezequiel Plt Count MPV Immature Gran % (Auto) Neut % (Auto) Lymph % (Auto) York % (Auto) Eos % (Auto) Baso % (Auto) Immature Gran # (Auto) Neut # (Auto) Lymph # (Auto) York # (Auto) Eos # (Auto) Baso # (Auto) PT 11.2 INR 1.1 Sodium Potassium 3.6 Chloride Carbon Dioxide Anion Gap BUN Creatinine Est Cr Clr Drug Dosing Est GFR ( Amer) Est GFR (Non-Af Amer) BUN/Creatinine Ratio Glucose POC Glucose Estimat Average Glucose Hemoglobin A1c Calcium Magnesium Total Bilirubin AST 21 ALT Alkaline Phosphatase Troponin I Total Protein Albumin Globulin Albumin/Globulin Ratio Triglycerides Cholesterol LDL Cholesterol, Calc VLDL Cholesterol, Calc HDL Cholesterol Cholesterol/HDL Ratio Lipase Hepatitis C Ab Screen Neg 07/05/18 07/05/18 07/06/18 21:43 21:44 03:39 WBC 10.30 RBC 3.85 L Hgb 11.3 L Hct 35.0 L MCV 90.9 MCH 29.4 MCHC 32.3 RDW Std Deviation 48.2 H RDW Coeff of Ezequiel 14.4 Plt Count 219 MPV 9.6 Immature Gran % (Auto) 0.2 Neut % (Auto) 69.3 Lymph % (Auto) 16.5 York % (Auto) 13.0 Eos % (Auto) 0.8 Baso % (Auto) 0.2 Immature Gran # (Auto) 0.02 Neut # (Auto) 7.14 H Lymph # (Auto) 1.70 York # (Auto) 1.34 H Eos # (Auto) 0.08 Baso # (Auto) 0.02 PT INR Sodium Potassium Chloride Carbon Dioxide Anion Gap BUN Creatinine Est Cr Clr Drug Dosing Est GFR ( Amer) Est GFR (Non-Af Amer) BUN/Creatinine Ratio Glucose POC Glucose 140 H Estimat Average Glucose Hemoglobin A1c Calcium Magnesium Total Bilirubin AST ALT Alkaline Phosphatase Troponin I < 0.015 Total Protein Albumin Globulin Albumin/Globulin Ratio Triglycerides Cholesterol LDL Cholesterol, Calc VLDL Cholesterol, Calc HDL Cholesterol Cholesterol/HDL Ratio Lipase Hepatitis C Ab Screen 07/06/18 07/06/18 07/06/18 03:39 03:39 07:21 WBC RBC Hgb Hct MCV MCH MCHC RDW Std Deviation RDW Coeff of Ezequiel Plt Count MPV Immature Gran % (Auto) Neut % (Auto) Lymph % (Auto) York % (Auto) Eos % (Auto) Baso % (Auto) Immature Gran # (Auto) Neut # (Auto) Lymph # (Auto) York # (Auto) Eos # (Auto) Baso # (Auto) PT INR Sodium 140 Potassium 3.7 Chloride 108 H Carbon Dioxide 31 Anion Gap 1.0 L BUN 21 H Creatinine 1.22 H Est Cr Clr Drug Dosing 57.1 Est GFR ( Amer) 52.3 Est GFR (Non-Af Amer) 45.2 BUN/Creatinine Ratio 16.9 Glucose 119 H POC Glucose 117 H Estimat Average Glucose 128 Hemoglobin A1c 6.1 H Calcium 8.2 L Magnesium 1.1 L Total Bilirubin AST ALT Alkaline Phosphatase Troponin I < 0.015 Total Protein Albumin Globulin Albumin/Globulin Ratio Triglycerides 100 Cholesterol 82 LDL Cholesterol, Calc 28 VLDL Cholesterol, Calc 20 HDL Cholesterol 34 Cholesterol/HDL Ratio 2 Lipase Hepatitis C Ab Screen 07/06/18 07/06/18 09:49 11:28 WBC RBC Hgb Hct MCV MCH MCHC RDW Std Deviation RDW Coeff of Ezequiel Plt Count MPV Immature Gran % (Auto) Neut % (Auto) Lymph % (Auto) York % (Auto) Eos % (Auto) Baso % (Auto) Immature Gran # (Auto) Neut # (Auto) Lymph # (Auto) York # (Auto) Eos # (Auto) Baso # (Auto) PT INR Sodium Potassium Chloride Carbon Dioxide Anion Gap BUN Creatinine Est Cr Clr Drug Dosing Est GFR ( Amer) Est GFR (Non-Af Amer) BUN/Creatinine Ratio Glucose POC Glucose 131 H Estimat Average Glucose Hemoglobin A1c Calcium Magnesium Total Bilirubin AST ALT Alkaline Phosphatase Troponin I < 0.015 Total Protein Albumin Globulin Albumin/Globulin Ratio Triglycerides Cholesterol LDL Cholesterol, Calc VLDL Cholesterol, Calc HDL Cholesterol Cholesterol/HDL Ratio Lipase Hepatitis C Ab Screen Medications Administered Current Inpatient Medications Acetaminophen (Tylenol) 650 mg PO Q4H PRN PRN Reason: Pain or Fever Stop: 08/04/18 21:34 Al Hydrox/Mg Hydrox/Simethicone (Maalox) 15 ml PO Q4H PRN PRN Reason: Dyspepsia Stop: 08/04/18 21:34 Amlodipine Besylate (Norvasc) 5 mg PO DAILY [facility] Stop: 08/05/18 08:59 Last Admin: 07/06/18 08:59 Dose: 5 mg Aspirin (Ecotrin Ectab) 81 mg PO DAILY [facility] Stop: 08/05/18 08:59 Atorvastatin Calcium (Lipitor) 20 mg PO DAILY [facility] Stop: 08/05/18 08:59 Carvedilol (Coreg) 6.25 mg PO BID [facility] Stop: 08/04/18 21:34 Last Admin: 07/06/18 08:59 Dose: 6.25 mg Dextrose (Dextrose 50%) 25 - 50 ml IV UD PRN; Protocol PRN Reason: Hypoglycemia Protocol Stop: 08/04/18 21:43 Fenofibrate (Fenofibrate) 144 mg PO DAILY [facility] Stop: 08/05/18 08:59 Fluticasone Propionate (Flonase) 1 sprays NA DAILY [facility] Stop: 08/05/18 08:59 Last Admin: 07/06/18 12:51 Dose: Not Given Gabapentin (Neurontin) 300 mg PO BID [facility] Stop: 08/04/18 21:34 Last Admin: 07/06/18 08:59 Dose: 300 mg Glucagon (Glucagen) 1 mg IM UD PRN; Protocol PRN Reason: Hypoglycemia Protocol Stop: 08/04/18 21:43 Glucose (Glucose 40%) 15 - 30 gm PO UD PRN; Protocol PRN Reason: Hypoglycemia Protocol Stop: 08/04/18 21:43 Glucose (Dex4 Glucose) 4 - 8 tabs PO UD PRN; Protocol PRN Reason: Hypoglycemia Protocol Stop: 08/04/18 21:43 Insulin Aspart (Novolog Flexpen) 0 units SC ACHS [facility] Stop: 08/04/18 21:34 Last Admin: 07/06/18 08:55 Dose: Not Given Insulin Glargine (Lantus Solostar Pen) 5 units SC HS [facility] Stop: 08/04/18 21:59 Last Admin: 07/05/18 23:10 Dose: 5 units Isosorbide Mononitrate (Imdur Extended Rel) 60 mg PO DAILY [facility] Stop: 08/05/18 08:59 Last Admin: 07/06/18 08:59 Dose: 60 mg Levothyroxine Sodium (Synthroid) 100 mcg PO DAILYBB [facility] Stop: 08/05/18 06:29 Last Admin: 07/06/18 05:51 Dose: 100 mcg Lisinopril (Zestril) 10 mg PO DAILY [facility] Stop: 08/05/18 08:59 Miscellaneous (Carbohydrates For Hypoglycemia) 15 - 30 gm PO UD PRN PRN Reason: Hypoglycemia Treatment Stop: 08/04/18 21:43 Nitroglycerin (Nitro-Bid 2%) 1 inch EXT Q6 [facility] Stop: 08/05/18 00:00 Last Admin: 07/06/18 05:50 Dose: 1 inch Nitroglycerin (Nitrostat) 0.4 mg SL UD PRN PRN Reason: Chest Pain Stop: 08/04/18 21:34 Nystatin (Mycostatin) 1 appln EXT TID [facility] Stop: 08/04/18 21:34 Last Admin: 07/05/18 23:09 Dose: 1 appln Ondansetron HCl (Zofran) 4 mg IV Q6H PRN PRN Reason: Nausea Stop: 08/04/18 21:34 Pantoprazole Sodium (Protonix) 40 mg PO DAILY [facility] Stop: 08/05/18 08:59 Last Admin: 07/06/18 08:59 Dose: 40 mg Polyethylene Glycol (Miralax Powder Packet) 17 gm PO DAILY PRN PRN Reason: Constipation Stop: 08/04/18 21:34 Sertraline HCl (Zoloft) 100 mg PO DAILY [facility] Stop: 08/05/18 08:59 Last Admin: 07/06/18 08:59 Dose: 100 mg Tolterodine Tartrate (Detrol La) 4 mg PO DAILY [facility] Stop: 08/05/18 08:59 Vitamin D (Vitamin D3) 1,000 units PO DAILY [facility] Stop: 08/05/18 08:59 _ (1) Chest pain Chest pain type: Ischemic chest pain type:
[2018-07-06 16:32] LABS: D Dimer 790 ug/L FEU (0-500)
--- NOTE | 2018-07-06 16:56 | Hospitalist Progress Note ---
Date of Service July 06, 2018 Assessment & Plan (1) Chest pain: History of CAD status post stent to left circumflex and RCA. Recent workup in cardiac clinic revealed an abnormal Lexiscan nuclear stress test. Medical management versus diagnostic cardiac cath was discussed and patient opted for medical management. She has not had a recurrence of her anginal type pain. Current pain is different than this and is centrally located and radiating into her throat, with a pleuritic component, worse with deep breathing. A GI cocktail reportedly relieved her pain and she has been pain- free since admission. Cardiology was consulted and is concerned for PE as opposed to ACS. D-dimer was pulled and is positive. Will plan for CT chest to rule out PE, but will need to prepare her with prednisone and Benadryl for contrast allergy. (2) Diabetes 1.5, managed as type 2: Controlled on Lantus and insulin sliding scale with carb coverage. (3) Hypothyroidism: Continue home Synthroid. (4) Hypertension: At goal. Continue Imdur, Coreg, lisinopril, amlodipine. (5) CKD (chronic kidney disease) stage 3, GFR 30-59 ml/min: At baseline. (6) DVT prophylaxis: Start Lovenox Full Code Dispo-likely to home in 1-2 days. PT/OT consults. Fanta Henley DO [facility] Hospitalist Subjective 67-year-old female with known coronary disease presents with chest pain. Troponins negative serially overnight. She remained chest pain-free after GI cocktail. Pain is not provoked by exertion or with food. She reports this pain is different than her recent anginal pain, for which she was seen as an outpatient in the cardiology clinic recently. Physical Exam 2 Vital Signs (Past 24 Hours): Last Vital Signs Temp 36.9 C 07/06/18 15:04 Pulse 68 07/06/18 16:00 Resp 19 07/06/18 15:04 BP 108/69 07/06/18 15:04 Pulse Ox 96 07/06/18 15:04 CONSTITUTIONAL: obese, vitals as above, generally well-appearing EYES: normal conjuctivae, no scleral icterus ENT: MMM RESPIRATORY: clear to auscultation bilaterally, no crackles, rales or wheezes, normal respiratory effort CARDIOVASCULAR: regular rate and rhythm, S1 and 2 heard without murmurs, gallops or rubs, no JVD, no peripheral edema GASTROINTESTINAL: soft, nontender, nondistended MUSCULOSKELETAL: strength 5/5 throughout, head is normocephalic and atraumatic , neck supple, normal palpation of chest wall without tenderness SKIN: warm and dry NEUROLOGIC: CN 2-12 grossly intact, no gross focal deficit. PSYCHIATRIC: alert cooperative and oriented to person, place and time. Results & Data Laboratory Results Short CBC 07/06/18 Range/Units 03:39 WBC 10.30 (4.8-10.8) K/uL Hgb 11.3 L (12.0-16.0) g/dL Hct 35.0 L (37-47) % Plt Count 219 (130-400) K/uL BMP 07/05/18 07/06/18 18:25 03:39 Sodium 140 Potassium 3.6 3.7 Chloride 108 H Carbon Dioxide 31 BUN 21 H Creatinine 1.22 H Glucose 119 H Calcium 8.2 L Cardiac Enzymes 07/05/18 07/06/18 07/06/18 Range/Units 21:43 03:39 09:49 Troponin I < 0.015 < 0.015 < 0.015 (0-0.045) ng/ml Liver Function 07/05/18 Range/Units 18:25 AST 21 (15-37) U/L Medications Administered Current Inpatient Medications Acetaminophen (Tylenol) 650 mg PO Q4H PRN PRN Reason: Pain or Fever Stop: 08/04/18 21:34 Al Hydrox/Mg Hydrox/Simethicone (Maalox) 15 ml PO Q4H PRN PRN Reason: Dyspepsia Stop: 08/04/18 21:34 Amlodipine Besylate (Norvasc) 5 mg PO DAILY [facility] Stop: 08/05/18 08:59 Last Admin: 07/06/18 08:59 Dose: 5 mg Aspirin (Ecotrin Ectab) 81 mg PO DAILY [facility] Stop: 08/05/18 08:59 Last Admin: 07/06/18 17:58 Dose: 81 mg Atorvastatin Calcium (Lipitor) 20 mg PO DAILY [facility] Stop: 08/05/18 08:59 Last Admin: 07/06/18 17:58 Dose: 20 mg Carvedilol (Coreg) 6.25 mg PO BID [facility] Stop: 08/04/18 21:34 Last Admin: 07/06/18 08:59 Dose: 6.25 mg Dextrose (Dextrose 50%) 25 - 50 ml IV UD PRN; Protocol PRN Reason: Hypoglycemia Protocol Stop: 08/04/18 21:43 Diphenhydramine HCl (Benadryl Capsule) 50 mg PO TODAY@0600 [facility] Stop: 07/07/18 12:00 Enoxaparin Sodium (Lovenox) 40 mg SQ Q24H [facility] Stop: 08/05/18 18:29 Fenofibrate (Fenofibrate) 144 mg PO DAILY [facility] Stop: 08/05/18 08:59 Last Admin: 07/06/18 17:58 Dose: 144 mg Fluticasone Propionate (Flonase) 1 sprays NA DAILY [facility] Stop: 08/05/18 08:59 Last Admin: 07/06/18 12:51 Dose: Not Given Gabapentin (Neurontin) 300 mg PO BID [facility] Stop: 08/04/18 21:34 Last Admin: 07/06/18 08:59 Dose: 300 mg Glucagon (Glucagen) 1 mg IM UD PRN; Protocol PRN Reason: Hypoglycemia Protocol Stop: 08/04/18 21:43 Glucose (Glucose 40%) 15 - 30 gm PO UD PRN; Protocol PRN Reason: Hypoglycemia Protocol Stop: 08/04/18 21:43 Glucose (Dex4 Glucose) 4 - 8 tabs PO UD PRN; Protocol PRN Reason: Hypoglycemia Protocol Stop: 08/04/18 21:43 Insulin Aspart (Novolog Flexpen) 0 units SC ACHS [facility] Stop: 08/04/18 21:34 Last Admin: 07/06/18 18:03 Dose: 3 units Insulin Glargine (Lantus Solostar Pen) 5 units SC HS [facility] Stop: 08/04/18 21:59 Last Admin: 07/05/18 23:10 Dose: 5 units Isosorbide Mononitrate (Imdur Extended Rel) 60 mg PO DAILY [facility] Stop: 08/05/18 08:59 Last Admin: 07/06/18 08:59 Dose: 60 mg Levothyroxine Sodium (Synthroid) 100 mcg PO DAILYBB [facility] Stop: 08/05/18 06:29 Last Admin: 07/06/18 05:51 Dose: 100 mcg Lisinopril (Zestril) 10 mg PO DAILY [facility] Stop: 08/05/18 08:59 Last Admin: 07/06/18 17:58 Dose: 10 mg Miscellaneous (Carbohydrates For Hypoglycemia) 15 - 30 gm PO UD PRN PRN Reason: Hypoglycemia Treatment Stop: 08/04/18 21:43 Nitroglycerin (Nitro-Bid 2%) 1 inch EXT Q6 [facility] Stop: 08/05/18 00:00 Last Admin: 07/06/18 18:00 Dose: Not Given Nitroglycerin (Nitrostat) 0.4 mg SL UD PRN PRN Reason: Chest Pain Stop: 08/04/18 21:34 Nystatin (Mycostatin) 1 appln EXT TID [facility] Stop: 08/04/18 21:34 Last Admin: 07/06/18 17:59 Dose: 1 appln Ondansetron HCl (Zofran) 4 mg IV Q6H PRN PRN Reason: Nausea Stop: 08/04/18 21:34 Pantoprazole Sodium (Protonix) 40 mg PO DAILY [facility] Stop: 08/05/18 08:59 Last Admin: 07/06/18 08:59 Dose: 40 mg Polyethylene Glycol (Miralax Powder Packet) 17 gm PO DAILY PRN PRN Reason: Constipation Stop: 08/04/18 21:34 Prednisone (Prednisone) 50 mg PO DAILY@0000,0600,1800 [facility] Stop: 07/07/18 08:00 Sertraline HCl (Zoloft) 100 mg PO DAILY [facility] Stop: 08/05/18 08:59 Last Admin: 07/06/18 08:59 Dose: 100 mg Tolterodine Tartrate (Detrol La) 4 mg PO DAILY [facility] Stop: 08/05/18 08:59 Last Admin: 07/06/18 17:58 Dose: 4 mg Vitamin D (Vitamin D3) 1,000 units PO DAILY [facility] Stop: 08/05/18 08:59 Last Admin: 07/06/18 17:58 Dose: 1,000 units _ (1) Chest pain Chest pain type: Ischemic chest pain type:
[2018-07-06] MEDS: ASPIRIN 81 MG ECTAB PO SCH (17:58)
[2018-07-06] MEDS: TOLTERODINE TARTRATE LA 4 MG CAPCR PO SCH (17:58)
[2018-07-06] MEDS: FENOFIBRATE NANOCRYSTALLIZED 48 MG TABLET PO SCH (17:58)
[2018-07-06] MEDS: ATORVASTATIN 20 MG TAB PO SCH (17:58)
[2018-07-06] MEDS: CHOLECALCIFEROL 1,000 UNITS TAB PO SCH (17:58)
[2018-07-06] MEDS: LISINOPRIL 10 MG TAB PO SCH (17:58)
[2018-07-06] MEDS: NYSTATIN POWDER 15GM BTL EXT SCH ×3 (17:59→21:03)
[2018-07-06] MEDS ORDERED: ENOXAPARIN INJ 40 MG/0.4 ML SYR SQ SCH (18:30)
[2018-07-06] MEDS: predniSONE 50 MG TAB PO SCH (21:02)
[2018-07-06] MEDS: INSULIN GLARGINE SOLOSTAR 100 UNITS/ML 3 ML PEN SC SCH (21:03)
[2018-07-07] MEDS: NITROGLYCERIN 2% OINTMENT 30GM TUBE EXT SCH ×2 (00:31→05:38)
[2018-07-07] MEDS: predniSONE 50 MG TAB PO SCH ×2 (00:34→06:00)
[2018-07-07] MEDS: LEVOTHYROXINE SODIUM 100 MCG TABLET PO SCH (06:01)
[2018-07-07] MEDS ORDERED: OPTIRAY 320 125ml IV PRN (07:25)
--- NOTE | 2018-07-07 07:56 | CT Scan Report ---
CT angio chest PE protocol CT DOSE: 1367.33 mGy.cm HISTORY: 67 years-old Female with PE. Acute chest pain with shortness of breath TECHNIQUE: Multiple CTA images of the chest were obtained after the intravenous administration of 120 ml Optiray 320. Coronal and sagittal MIPS were obtained from the axial data set and were submitted for review. All measurements were obtained according to NASCET criteria. A dose lowering technique w as utilized adhering to the principles of ALARA. COMPARISON: Chest radiograph 07/05/2018. FINDINGS: CTA: Mild multichamber cardiac enlargement with coronary arterial calcifications. Trace pericardial effusi on. No thoracic aortic aneurysm or dissection. Patency of the imaged great vessels. High-grade stenos is about the right subclavian vein, image 199 series 4 with opacification of multiple collateral veno us structures about the right upper thorax and right shoulder. There is suboptimal opacification of t he pulmonary arterial tree secondary to contrast bolus timing. The segmental and subsegmental branche s are not well opacified. No evidence of central pulmonary thromboembolic disease. Respiratory motion also limits evaluation of the pulmonary arterial tree. CT CHEST: No dominant thyroid nodule or adenopathy by CT size criteria. Multifocal pleural thickening with pleu ral calcifications and trace left pleural effusion. Trace right pleural effusion also noted. There is no pneumothorax. Subsegmental left basilar opacities are suggestive of atelectasis/scarring. Respira tory motion limits evaluation of the lung parenchyma. Central airways appear patent. Mild circumferential wall thickening about the distal esophagus with suggestion of a small sliding-ty pe hiatal hernia. Mild generalized body wall edema. Prior cholecystectomy. Breast parenchyma and soft tissues appear unremarkable. Degenerative changes of the spine. IMPRESSION: 1. Limited evaluation of the pulmonary arterial tree as above. No evidence of central pulmonary embol i. 2. Cardiomegaly with coronary arterial calcifications. 3. Trace pleural effusions. 4. Multifocal pleural thickening with pleural calcifications about the left hemithorax. 5. High-grade stenosis about the right subclavian vein with multiple opacified venous collaterals of the right upper hemithorax. The above report was generated using voice recognition software. It may contain grammatical, syntax o r spelling errors. Electronically signed by: Matti Cerda M.D. 07/07/2018 7:55 AM
[2018-07-07] MEDS: PANTOprazole 40 MG TAB PO SCH (08:01)
[2018-07-07] MEDS: ISOSORBIDE MONO EXTENDED REL 60 MG TABCR PO SCH (08:01)
[2018-07-07] MEDS: CARVEDILOL 6.25 MG TAB PO SCH (08:02)
[2018-07-07] MEDS: FENOFIBRATE NANOCRYSTALLIZED 48 MG TABLET PO SCH (08:02)
[2018-07-07] MEDS: TOLTERODINE TARTRATE LA 4 MG CAPCR PO SCH (08:02)
[2018-07-07] MEDS: LISINOPRIL 10 MG TAB PO SCH (08:02)
[2018-07-07] MEDS: CHOLECALCIFEROL 1,000 UNITS TAB PO SCH (08:02)
[2018-07-07] MEDS: ATORVASTATIN 20 MG TAB PO SCH (08:02)
[2018-07-07] MEDS: ASPIRIN 81 MG ECTAB PO SCH (08:02)
[2018-07-07] MEDS: GABAPENTIN 300 MG CAP PO SCH (08:02)
[2018-07-07] MEDS: SERTRALINE HCL 100 MG TABLET PO SCH (08:02)
[2018-07-07] MEDS: AMLODIPINE BESYLATE 5 MG TAB PO SCH (08:03)
[2018-07-07] MEDS: NYSTATIN POWDER 15GM BTL EXT SCH ×2 (08:03→15:47)
[2018-07-07] MEDS: INSULIN ASPART 100 UNITS/ML 3 ML PEN SC SCH ×2 (08:05→12:13)
[2018-07-07] MEDS: FLUTICASONE PROPIONATE NA SPR 16 GM BTL SCH (08:06)
[2018-07-07 08:57] LABS: Hematocrit (blood only) 37.5 % (37-47); Hemoglobin 12.1 g/dL (12.0-16.0); Mean Corpuscular Hgb Conc 32.3 g/dL (32-36); Mean Corpuscular Volume 90.8 fL (80-100); Mean Platelet Volume 10.1 fL (7.4-10.4); Platelet Count 236 K/uL (130-400); RDW Coefficient of Variation 13.9 % (11.5-14.5); RDW Standard Deviation 46.3 fL (36.4-46.3); Red Blood Count 4.13 M/uL (4.2-5.4); White Blood Count 8.23 K/uL (4.8-10.8)
[2018-07-07 09:38] LABS: BUN Creatinine Ratio 18.1 (10-20); Calcium 8.5 mg/dl (8.5-10.1); Creatinine Clr Calc Pharmacy 46.2 ml/min; Est GFR (African American) 40.8; Est GFR (Non-African American) 35.2; Potassium 4.4 mmol/L (3.5-5.1)
--- NOTE | 2018-07-07 13:28 | Cardiology Progress Note ---
Date of Service July 07, 2018 Assessment & Plan (1) Chest pain: The patient's chest discomfort is atypical for angina. Although she does have a history of underlying coronary heart disease, her EKG tracings have been stable on a serial basis this admission and serial troponin I levels have been negative. Her discomfort had been pleuritic, and radiated to her neck, without aerobic exertion, and also there is a component that is suggestive of GERD. Telemetry reveals stable sinus rhythm in the range of 60-70 bpm with brief episodes of asymptomatic SVT that lasted a few seconds. The patient does not feel these. At present, I believe she is stable from a cardiac perspective for discharge on her prior to hospital regimen. She was found to have hypomagnesemia with magnesium level of 1.1, she received IV magnesium replacement. I discussed this with Dr. Henley and a repeat magnesium level is going to be obtained prior to consideration of discharge. Subjective Chief complaint: Follow-up chest discomfort Subjective: Patient seen and examined with initial consultation having been performed by Dr. Weinstein of our practice yesterday. Her daughters are in the room with her. She feels comfortable, with no additional pleuritic chest discomfort radiating to her neck. She tolerated her a.m. meal today. Since her visit yesterday her d-dimer was elevated and a follow-up CT scan revealed no large vessel central pulmonary artery, the peripheral pulmonary circulation was not well visualized due to motion artifact. Physical Exam 2 Vital Signs (Past 24 Hours): Last Vital Signs Temp 36.3 C L 07/07/18 10:50 Pulse 67 07/07/18 10:50 Resp 19 07/07/18 10:50 BP 119/60 07/07/18 10:50 Pulse Ox 96 07/07/18 10:50 Physical Exam: General: no acute distress and stated age Eyes: conjunctiva are pink and non-injected, sclera clear Neck: normal jugular venous pulse, no hepatojugular reflux Chest: normal shape and normal respiratory effort Lungs: clear to auscultation and percussion Cardiac Exam: - regular heart sounds, no murmurs, rubs, or gallops, no jugular venous distention Abdomen: abdomen soft, non-tender, no abnormal masses and no hepatosplenomegaly Extremities: no edema and no cyanosis Neuro:awake, coversant, follows commands, no focal motor deficits Results & Data Diagnostic Findings EKG performed today 07/07/18 and reviewed independently revealed normal sinus rhythm at 74 bpm with occasional PACs otherwise normal. Medications Administered Current Inpatient Medications Acetaminophen (Tylenol) 650 mg PO Q4H PRN PRN Reason: Pain or Fever Stop: 08/04/18 21:34 Al Hydrox/Mg Hydrox/Simethicone (Maalox) 15 ml PO Q4H PRN PRN Reason: Dyspepsia Stop: 08/04/18 21:34 Amlodipine Besylate (Norvasc) 5 mg PO DAILY JEREMY Stop: 08/05/18 08:59 Last Admin: 07/07/18 08:03 Dose: 5 mg Aspirin (Ecotrin Ectab) 81 mg PO DAILY JEREMY Stop: 08/05/18 08:59 Last Admin: 07/07/18 08:02 Dose: 81 mg Atorvastatin Calcium (Lipitor) 20 mg PO DAILY JEREMY Stop: 08/05/18 08:59 Last Admin: 07/07/18 08:02 Dose: 20 mg Carvedilol (Coreg) 6.25 mg PO BID JEREMY Stop: 08/04/18 21:34 Last Admin: 07/07/18 08:02 Dose: 6.25 mg Dextrose (Dextrose 50%) 25 - 50 ml IV UD PRN; Protocol PRN Reason: Hypoglycemia Protocol Stop: 08/04/18 21:43 Enoxaparin Sodium (Lovenox) 40 mg SQ QPM JEREMY Stop: 08/05/18 18:29 Last Admin: 07/06/18 21:02 Dose: 40 mg Fenofibrate (Fenofibrate) 144 mg PO DAILY JEREMY Stop: 08/05/18 08:59 Last Admin: 07/07/18 08:02 Dose: 144 mg Fluticasone Propionate (Flonase) 1 sprays NA DAILY JEREMY Stop: 08/05/18 08:59 Last Admin: 07/07/18 08:06 Dose: Not Given Gabapentin (Neurontin) 300 mg PO BID JEREMY Stop: 08/04/18 21:34 Last Admin: 07/07/18 08:02 Dose: 300 mg Glucagon (Glucagen) 1 mg IM UD PRN; Protocol PRN Reason: Hypoglycemia Protocol Stop: 08/04/18 21:43 Glucose (Glucose 40%) 15 - 30 gm PO UD PRN; Protocol PRN Reason: Hypoglycemia Protocol Stop: 08/04/18 21:43 Glucose (Dex4 Glucose) 4 - 8 tabs PO UD PRN; Protocol PRN Reason: Hypoglycemia Protocol Stop: 08/04/18 21:43 Insulin Aspart (Novolog Flexpen) 0 units SC ACHS [facility] Stop: 08/04/18 21:34 Last Admin: 07/07/18 12:13 Dose: 6 units Insulin Glargine (Lantus Solostar Pen) 5 units SC HS [facility] Stop: 08/04/18 21:59 Last Admin: 07/06/18 21:03 Dose: 5 units Ioversol (Optiray 320 125ml) 120 ml IV ONCE PRN PRN Reason: Interaction Checking Stop: 07/11/18 07:24 Last Admin: 07/07/18 07:25 Dose: 120 ml Isosorbide Mononitrate (Imdur Extended Rel) 60 mg PO DAILY [facility] Stop: 08/05/18 08:59 Last Admin: 07/07/18 08:01 Dose: 60 mg Levothyroxine Sodium (Synthroid) 100 mcg PO DAILYBB [facility] Stop: 08/05/18 06:29 Last Admin: 07/07/18 06:01 Dose: 100 mcg Lisinopril (Zestril) 10 mg PO DAILY [facility] Stop: 08/05/18 08:59 Last Admin: 07/07/18 08:02 Dose: 10 mg Miscellaneous (Carbohydrates For Hypoglycemia) 15 - 30 gm PO UD PRN PRN Reason: Hypoglycemia Treatment Stop: 08/04/18 21:43 Nitroglycerin (Nitrostat) 0.4 mg SL UD PRN PRN Reason: Chest Pain Stop: 08/04/18 21:34 Nystatin (Mycostatin) 1 appln EXT TID [facility] Stop: 08/04/18 21:34 Last Admin: 07/07/18 08:03 Dose: 1 appln Ondansetron HCl (Zofran) 4 mg IV Q6H PRN PRN Reason: Nausea Stop: 08/04/18 21:34 Pantoprazole Sodium (Protonix) 40 mg PO DAILY [facility] Stop: 08/05/18 08:59 Last Admin: 07/07/18 08:01 Dose: 40 mg Polyethylene Glycol (Miralax Powder Packet) 17 gm PO DAILY PRN PRN Reason: Constipation Stop: 08/04/18 21:34 Sertraline HCl (Zoloft) 100 mg PO DAILY [facility] Stop: 08/05/18 08:59 Last Admin: 07/07/18 08:02 Dose: 100 mg Tolterodine Tartrate (Detrol La) 4 mg PO DAILY [facility] Stop: 08/05/18 08:59 Last Admin: 07/07/18 08:02 Dose: 4 mg Vitamin D (Vitamin D3) 1,000 units PO DAILY [facility] Stop: 08/05/18 08:59 Last Admin: 07/07/18 08:02 Dose: 1,000 units
--- NOTE | 2018-07-07 15:48 | Discharge Summary ---
Date of Service July 07, 2018 Admission HPI Per Admitting Provider 67-year-old female with past medical history significant for diabetes type 2 diabetic polyneuropathy, dyslipidemia, hypothyroidism, nocturnal hypoxia, CAD CKD stage III, chronic diastolic dysfunction, hypertension, venous insufficiency, morbid obesity, reflux esophagitis, stress incontinence, arthritis," ankylosing spondylitis, adjustment disorder with depressed mood, presents with chest pain. Patient states that today after taking a bath around noontime she noticed pain in the lower part of the chest radiating to her throat about 6 x 10 in severity, sharp type pain also felt somewhat dizzy. Not associated with any shortness of breath or sweating. Patient took 2 nitros at home without any relief. She also got nitro spray without any relief. Patient also received GI cocktail in the ER which also did not helped. She still has some chest pain somewhat better than in the morning. Patient says recently in the [place] while climbing steps she needed some help and might haved pulled muscle. No headache. No runny nose. No sore throat. No feeling of hot or cold. No burning micturition or hematuria. Normal bowel movements. Use oxygen while sleeping 3lts. Currently resting comfortably. Recently saw cardiology for chest pain she was status post echocardiogram and Lexiscan nuclear stress testing. Echo showed EF of 50-54%. Lexiscan nuclear stress test was abnormal with moderate size infarct of the inferior lateral myocardium with mild luis- infarct ischemia cardiology discussed about medical management and diagnostic cardiac catheterization. and she was supposed to make a decision. Admission Exam Per Admitting Provider General- Not in distress Head- atraumatic Eyes- PERRL, no palor, anicteric ENT- oropharynx clear Neck- supple, no JVD, no adenopathy, carotids, no bruits appreciated Lungs- clear to auscultation and percussion Heart- regular rate and rhythm; no murmur, no gallop, Abdomen- normal bowel sounds, soft, nontender, no masses no distension Extremities- pretibial edema present, No erythema seen Neuro- alert, oriented x 3; PERRL, no facial palsy; no dysarthria; Non focal Skin- warm & dry Principal Diagnosis Atypical chest pain likely 2/2 GERD Discharge Data Allergies Allergy/AdvReac Type Severity Reaction Status Date / Time cephalexin Allergy Severe SHORTNESS Verified 07/05/18 17:22 OF BREATH Corticosteroids Allergy Severe "can't Verified 07/05/18 17:22 (Glucocorticoids) breathe" Iodinated Contrast- Oral and Allergy Severe GI Verified 07/05/18 17:22 IV Dye SYMPTOMS/SOB Sulfa (Sulfonamide AdvReac Mild VOMITING Verified 07/05/18 17:22 Antibiotics) Consultations 07/05/18 19:01 ED Decision to Admit Stat 07/05/18 21:35 Consult Case Management - Discharge Planning Routine 07/06/18 08:00 Consult Cardiology Routine Ordered Studies 07/05/18 17:02 CT abd pelvis wo con Stat 07/07/18 07:00 CT angio chest PE protocol Routine Hospital Course (1) Chest pain: (2) Diabetes 1.5, managed as type 2: (3) Hypothyroidism: (4) Hypertension: (5) CKD (chronic kidney disease) stage 3, GFR 30-59 ml/min: 67-year-old obese female recently seen in [facility] as [facility] for chronic angina presented to the ER with chest pain. In 2013 she had undergone a cardiac catheterization completed at [facility] revealing moderate nonobstructive disease. She had been having atypical chest pain for se veral months and had a recent pharmacologic nuclear stress test that revealed a moderate-sized infarct in the inferior myocardium with mild luis-infarct ischemia. At the time the study was ordered she had switched from Pepcid to Protonix for acid reflux. That resolved the majority of her discomfort and it was decided she would be treated medically. She was admitted to the hospital and serial cardiac enzymes were negative. Cardiology was consulted, and felt there was a pleuritic component to her pain. A d-dimer was ordered and was elevated. Further investigation with a CT angiogram of the chest revealed no evidence of pulmonary embolus with coronary arterial calcifications. Her chest discomfort was atypical for angina. Although she was noted to have an underlying history of coronary disease, her EKG tracings were stable on a serial basis and there was a component suggestive of GERD. She did improve with a GI cocktail. Telemetry revealed a stable sinus rhythm in the range of 60-70 bpm with brief episodes of asymptomatic SVT that lasted a few seconds. On discharge, she was given Zantac to take for breakthrough heartburn in addition to her Protonix. Physical exam at time of discharge was unremarkable. She was tolerating p.o., mentating and ambulating at baseline. She was hemodynamically stable and afebrile. She was oxygenating well on room air. She was considered stable from a cardiac perspective and after receiving some IV magnesium for a mag level of 1.1 she was discharged in stable condition with close primary care follow-up recommended. Total Time Total Time Spent Total Time Spent (In Minutes): 60 Total Time Includes: Examination of the Patient, Discharge Planning, Medication Reconciliation and Communication With Other Providers Discharge Plan Discharge Items Patient Disposition: Home - Self-Care Reason For Visit: CHEST PAIN Discharge Diagnosis: Atypical chest pain likely 2/2 GERD Condition: Good Discharge Goals: Improve disease control Activity: Resume your previous activity Non-emergency contact: Primary Care Provider Call non-emergency contact if: you have any medication questions, your symptoms worsen, your pain is not controlled, your pain is worsening, your pain is unusual for you, your pain is concerning for you and you have a fever Follow-up/Referrals: Junior Treadwell MD [Primary Care Provider] - Diet: Carb Consistent or DM2 and Heart Healthy Addtl Provider Instructions: Please take all medications as prescribed on discharge list below. It is likely that heartburn was causing your symptoms. Please continue taking the Protonix daily, and you are being given Zantac (ranitidine) to take up to twice daily only if you have breakthorugh heartburn. You do not need to take the ranitidine scheduled, only as needed. Please hold off on taking metformin until (07/10) as you recently had IV contrast and there may be a interaction between these. Restart Metformin on . It is recommended that you follow-up with your primary care physician within one week of discharge. Someone from our staff will contact you on Monday to set up an appointment time and date. It was a pleasure taking care of you! Please call if you have any questions or problems. You can reach a [facility] hospitalist on duty at [facility] 24 hours a day by calling [phone]. Take care of yourself. Fanta Henley, [facility] Hospitalist Prescriptions: New ranitidine HCl 150 mg capsule 150 mg PO BID PRN (Reason: heartburn) Qty: 60 RF: 1 Continued carvedilol 6.25 mg tablet 6.25 mg PO BID RF: 0 atorvastatin 20 mg tablet 20 mg PO DAILY RF: 0 tolterodine 4 mg Capsule,Extended Release 24hr 4 mg PO DAILY RF: 0 sertraline 100 mg tablet 100 mg PO DAILY RF: 0 metformin 850 mg tablet 850 mg PO BID RF: 0 amlodipine 5 mg tablet 5 mg PO DAILY RF: 0 aspirin [Aspirin Low Dose] 81 mg Tablet,Delayed Release (Dr/Ec) 81 mg PO DAILY RF: 0 fenofibrate micronized 134 mg capsule 134 mg PO DAILY RF: 0 levothyroxine 100 mcg tablet 100 mg PO DAILY RF: 0 isosorbide mononitrate 60 mg tablet extended release 24 hr 60 mg PO DAILY RF: 0 pantoprazole 40 mg tablet,delayed release (DR/EC) 40 mg PO DAILY RF: 0 nystatin 100,000 unit/gram Cream 1 applic TOPICAL BID RF: 0 lisinopril 10 mg tablet 10 mg PO DAILY RF: 0 nitroglycerin 0.4 mg Tablet, Sublingual 0.4 mg Sublingual DIRECTED RF: 0 gabapentin 300 mg Capsule 300 mg PO BID RF: 0 nystatin [Nystop] 100,000 unit/gram Powder 1 applic TOPICAL TID RF: 0 pioglitazone 30 mg Tablet 30 mg PO DAILY RF: 0 fluticasone [Flonase Allergy Relief] 50 mcg/actuation [place],Suspension 1 spray INTRANASAL DAILY RF: 0 cholecalciferol (vitamin D3) [Vitamin D3] 1,000 unit Capsule 1,000 unit PO DAILY RF: 0 iron aspgl,ps complex-vit C-sa 150-50-50 mg capsule 1 tab PO DAILY RF: 0 Stand-Alone Forms: Replaced By [facility] Discharge Orders: Discharge Order (Routine); Ordered 07/07/18 Ordered By: Fanta Henley Admission Data Admit Date/Time: 07/06/18 16:54 Attending Provider: Fanta Henley Admit Provider: Damon Dinh Primary Care Provider: Junior Treadwell Other Providers: Jeremiah Weinstein Service: Telemetry Other Interventions: Discharge Summary Assessment (RN) Last Done: 07/07/18 16:43 DC Date/Time DO NOT enter until pt leaves facility: 07/07/18 16:53
== END 2018-07-07 16:53 | disposition home or self-care (01) | DRG 392 ==
LOC: ED 16:51 → 2S 16:51
DX: N18.3 Chronic kidney disease, stage 3 (moderate); Z79.899 Other long term (current) drug therapy; E11.22 Type 2 diabetes mellitus with diabetic chronic kidney disease; E11.42 Type 2 diabetes mellitus with diabetic polyneuropathy; I12.9 Hypertensive chronic kidney disease with stage 1 through stage 4 chronic kidney disease, or unspecified chronic kidney disease; Z79.82 Long term (current) use of aspirin; E03.9 Hypothyroidism, unspecified; E66.01 Morbid (severe) obesity due to excess calories; K21.9 Gastro-esophageal reflux disease without esophagitis; E78.5 Hyperlipidemia, unspecified; Z68.43 Body mass index [BMI] 50.0-59.9, adult; Z79.84 Long term (current) use of oral hypoglycemic drugs

== ENCOUNTER 2018-08-25 20:42 | Inpatient (IN) ==
[2018-08-25 22:29] LABS: Basophils # (auto) 0.01 K/uL (0-0.2); Basophils % (auto) 0.1 %; Eosinophils # (auto) 0.11 K/uL (0-0.5); Eosinophils % (auto) 1.1 %; Hematocrit (blood only) 30.5 % (37-47); Hemoglobin 10.2 g/dL (12.0-16.0); Immature Granulocytes # (auto) 0.02 K/uL (0.00-0.02); Immature Granulocytes % (auto) 0.2 %; Lymphocytes # (auto) 1.07 K/uL (1.2-3.4); Lymphocytes % (auto) 10.3 %; Mean Corpuscular Hgb Conc 33.4 g/dL (32-36); Mean Corpuscular Volume 87.1 fL (80-100); Mean Platelet Volume 9.2 fL (7.4-10.4); Monocytes # (auto) 1.44 K/uL (0.11-0.59); Monocytes % (auto) 13.8 %; Neutrophils # (auto) 7.78 K/uL (1.4-6.5); Neutrophils % (auto) 74.5 %; Platelet Count 329 K/uL (130-400); RDW Coefficient of Variation 13.4 % (11.5-14.5); White Blood Count 10.43 K/uL (4.8-10.8)
[2018-08-25 22:36] LABS: BUN Creatinine Ratio 20.6 (10-20); Blood Urea Nitrogen 31 mg/dl (7-18); Calcium 8.9 mg/dl (8.5-10.1); Carbon Dioxide 28 mmol/L (21-32); Chloride 90 mmol/L (98-107); Creatinine Clr Calc Pharmacy 45.9 ml/min; Est GFR (African American) 40.5; Est GFR (Non-African American) 34.9; Glucose 122 mg/dl (70-99); Potassium 3.8 mmol/L (3.5-5.1); Sodium 127 mmol/L (136-145)
[2018-08-25 22:41] LABS: Alanine Aminotransferase 15 U/L (12-78); Albumin Globulin Ratio 0.7 (0.9-2); Alkaline Phosphatase 41 U/L (45-117); Aspartate Aminotransferase 16 U/L (15-37); Bilirubin,Total 0.6 mg/dl (0.2-1); NT Pro B Type Natriuretic Pept 1627 pg/ml (0-900); Troponin I < 0.015 ng/ml (0-0.045)
[2018-08-25 22:44] LABS: INR 1.3 (0.9-1.1); Partial Thromboplastin Ratio 1.1; Partial Thromboplastin Time 29.9 Seconds (21.0-31.0); Prothrombin Time 13.2 Seconds (9.0-12.0)
[2018-08-25 23:01] LABS: Appearance Urine Clear (Clear); Bacteria Urine Automated Negative (Negative); Bilirubin Urine Negative (Negative); Color Urine Yellow; Glucose Urine UA Negative (Negative); Ketones Urine Negative (Negative); Leukocyte Esterase Urine 1+ (Negative); Nitrite Urine Negative (Negative); Protein Urine Negative (Negative); Specific Gravity Urine 1.015 (1.000-1.030); Urobilinogen Urine Negative (Negative)
--- NOTE | 2018-08-25 23:12 | XRay Report ---
SINGLE VIEW CHEST CLINICAL HISTORY: Dyspnea. FINDINGS: An AP, portable, upright chest radiograph is compared to study dated 07/05/2018 and correlat ed with chest CT dated 07/07/2018. The examination is degraded by portable technique, large body habit us, and patient rotation. The heart is enlarged. The pulmonary vasculature is noncongested. There is increasing consolidation at the left lung base as compared to previous. Small pleural effusions are noted. No pneumothorax is seen. The skeletal structures are osteopenic. The bony thorax is grossly in tact. IMPRESSION: 1. Cardiomegaly without radiographic evidence of congestive failure. 2. Small pleural effusions. 3. There is increasing left basilar airspace consolidation from previous. This could represent worsen ing atelectasis versus pneumonia/aspiration pneumonitis. Clinical correlation will be required. Electronically signed by: Syd Klein M.D. 08/25/2018 11:10 PM
[2018-08-25 23:27] LABS: Influenza A virus by PCR Neg for Influ A (Neg); Influenza B virus by PCR Neg for Influ B (Neg)
[2018-08-25] MEDS ORDERED: VANCOMYCIN HCL 2,750 MG in SODIUM CHLORIDE 0.9% 500 ML IV ONE (23:40)
[2018-08-25] MEDS ORDERED: VANCOMYCIN CONSULT ACTIVE PRN (23:40)
[2018-08-25] MEDS ORDERED: AZTREONAM 2,000 MG in DEXTROSE 5% 100 ML IV STA (23:40)
[2018-08-25] MEDS ORDERED: SODIUM CHLORIDE 0.9% 500 ML IV ONE (23:59)
[2018-08-26] MEDS ORDERED: ALBUT/IPRATROP 3MG/0.5MG NEB 3 ML VIAL NEB STA (00:52)
--- NOTE | 2018-08-26 00:52 | History & Physical Report ---
Date of Service August 26, 2018 Assessment & Plan (1) Acute hypoxemic respiratory failure: Secondary to bronchopneumonia left Failed outpatient treatment Possible aspiration given dry heaving symptoms No sepsis chronic diastolic heart failure EF (50-54%, TTE 2019), patient on the dry side CAD status post stent hypertension, slightly elevated DM 2 on oral meds, well controlled as of recent outpatient hemoglobin A1c of 5.3 Hyponatremia, ARF on CRI secondary to illness, recent increase in diuretic frequency, poor p.o. intake chronic anemia, hemoglobin at new baseline past tobacco abuse Bilateral leg swelling rule DVT Medical telemetry Supplemental O2 Baseline ABG Unasyn, nebs Solu-Medrol 1 dose Monitor creatinine response to gentle IV hydration, appropriate to hold home diuretics for now Careful correction of sodium hyponatremia workup Nephrology consultation if without improvement. ISS BG goal 140-180 PT OT eval DVT prophylaxis. Heparin subcu Full code History of Present Illness Chief Complaint: Cough, S OB Primary Care Provider: Junior Treadwell MD History obtained from patient, family, and records. Medical history significant for chronic diastolic heart failure EF (50-54%, TTE 2019), CAD status post stent, hypertension, hyperlipidemia, mild aortic stenosis, DM 2 on oral meds, CRI baseline creatinine 1.2, chronic anemia (new baseline hemoglobin of 10), past tobacco abuse, nocturnal hypoxemia on home O2 at night. Recent confinement June 2018 for atypical chest pain. Last week patient noted dry cough, S OB, sore throat symptoms. Patient seen at PCPs office. Azithromycin course prescribed for possible bronchitis. No improvement. Diuretic Rx changed to daily dosing by PCP with outpatient BNP elevation, serum crea 1.1 (08/20/18). Patient noted dry heaving symptoms, no belly pain. Worsening shortness of breath on exertion, poor appetite. Achy central chest pain from coughing. Legs more swollen than usual. Outpatient CXR 2 days ago showed pneumonia left. Outpatient Levaquin prescribed. Patient sicker after 1 dose of Levaquin at home. 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 Allergies Allergy/AdvReac Type Severity Reaction Status Date / Time cephalexin Allergy Severe SHORTNESS Verified 08/25/18 21:41 OF BREATH Iodinated Contrast- Oral and Allergy Severe GI Verified 08/25/18 21:41 IV Dye SYMPTOMS/SOB prednisone AdvReac Intermediate chest Verified 08/26/18 00:51 heaviness Sulfa (Sulfonamide AdvReac Mild VOMITING Verified 08/25/18 21:41 Antibiotics) Home Medications Home Medications Medication Instructions Recorded Confirmed Type amlodipine 5 mg PO DAILY 07/05/18 08/25/18 History aspirin [Aspirin Low Dose] 81 mg PO DAILY 07/05/18 08/25/18 History atorvastatin 20 mg PO DAILY 07/05/18 08/25/18 History carvedilol 6.25 mg PO BID 07/05/18 08/25/18 History cholecalciferol (vitamin D3) 1,000 unit PO DAILY 07/05/18 08/25/18 History [Vitamin D3] fenofibrate micronized 134 mg PO DAILY 07/05/18 08/25/18 History fluticasone propionate [Flonase 1 spray INTRANASAL DAILY 07/05/18 08/25/18 History Allergy Relief] gabapentin 300 mg PO BID 07/05/18 08/25/18 History iron aspgl,ps complex-vit C-sa 1 tab PO DAILY 07/05/18 08/25/18 History isosorbide mononitrate 60 mg PO DAILY 07/05/18 08/25/18 History levothyroxine 100 mg PO DAILY 07/05/18 08/25/18 History lisinopril 10 mg PO DAILY 07/05/18 08/25/18 History metformin 850 mg PO BID 07/05/18 08/25/18 History nitroglycerin 0.4 mg SUBLINGUAL DIRECTED 07/05/18 08/25/18 History nystatin 1 applic TOPICAL BID 07/05/18 08/25/18 History nystatin [Nystop] 1 applic TOPICAL TID 07/05/18 08/25/18 History pantoprazole 40 mg PO DAILY 07/05/18 08/25/18 History pioglitazone 30 mg PO DAILY 07/05/18 08/25/18 History sertraline 100 mg PO DAILY 07/05/18 08/25/18 History tolterodine 4 mg PO DAILY 07/05/18 08/25/18 History ranitidine HCl 150 mg PO BID PRN #60 cap 07/07/18 08/25/18 Rx albuterol sulfate 2 puff INHALATION Q4H PRN 08/25/18 08/25/18 History azithromycin 250 mg PO DIRECTED 08/25/18 08/25/18 History levofloxacin 750 mg PO DIRECTED 08/25/18 08/25/18 History ondansetron HCl 4 mg PO Q6H PRN 08/25/18 08/25/18 History torsemide 20 mg PO DIRECTED 08/25/18 08/25/18 History Past Med/Surg History Medical History Heart disease (Chronic) Hypertension (Chronic) on imdur, coreg, lisinopril,amlodipine. will monitor BP. Kidney disease (Chronic) stage 3.Baseline cr 1.2 to 1.3. Will follow labs Surgical History History of cholecystectomy (Resolved) History of tonsillectomy (Resolved) History of heart artery stent (Resolved) continue aspirin, coreg,imdur,lipitor Social History Communication Ability: Effective Beliefs That Will Affect Care: None marital status: / Current Living Situation: Alone Other Information That Helps Us Care for You: No Feels Safe at Home: Yes Safety Concerns: Feels Safe At This Time Smoking Status: Former smoker Hx Alcohol Use: Yes Hx Substance Use: No Review of Systems As per HPI, all 10 systems reviewed, all other ROS negative Physical Exam Vital Signs (Past 24 Hours): Last Vital Signs Temp 37 C 08/25/18 20:45 Pulse 72 08/25/18 22:49 Resp 18 08/25/18 22:49 BP 152/59 H 08/25/18 22:49 Pulse Ox 97 08/25/18 22:49 Physical Exam: GENERAL: Slightly uncomfortable, no respiratory distress, obese SKIN: Pallor, warm HEENT: Bespectacled, pale palpebral conjunctivae, no ptosis, dry buccal mucosa NECK : Supple, short, no tenderness CHEST : Decreased breath sounds, no tenderness HEART : RRR, systolic murmur ABDOMEN: distention, nontender EXTREMITIES : Bilateral LE swelling, no tenderness, no other conspicuous deformities noted NEUROLOGIC : Coherent, no facial asymmetry, no other gross focality Results & Data Laboratory Results Laboratory Results WBC 10.43 K/uL (4.8-10.8) 08/25/18 21:48 RBC 3.50 M/uL (4.2-5.4) L 08/25/18 21:48 Hgb 10.2 g/dL (12.0-16.0) L 08/25/18 21:48 Hct 30.5 % (37-47) L 08/25/18 21:48 MCV 87.1 fL (80-100) 08/25/18 21:48 MCH 29.1 pg (25-34) 08/25/18 21:48 MCHC 33.4 g/dL (32-36) 08/25/18 21:48 RDW Std Deviation 43.0 fL (36.4-46.3) 08/25/18 21:48 RDW Coeff of Ezequiel 13.4 % (11.5-14.5) 08/25/18 21:48 Plt Count 329 K/uL (130-400) 08/25/18 21:48 MPV 9.2 fL (7.4-10.4) 08/25/18 21:48 Immature Gran % (Auto) 0.2 % 08/25/18 21:48 Neut % (Auto) 74.5 % 08/25/18 21:48 Lymph % (Auto) 10.3 % 08/25/18 21:48 [place] % (Auto) 13.8 % 08/25/18 21:48 Eos % (Auto) 1.1 % 08/25/18 21:48 Baso % (Auto) 0.1 % 08/25/18 21:48 Immature Gran # (Auto) 0.02 K/uL (0.00-0.02) 08/25/18 21:48 Neut # (Auto) 7.78 K/uL (1.4-6.5) H 08/25/18 21:48 Lymph # (Auto) 1.07 K/uL (1.2-3.4) L 08/25/18 21:48 [place] # (Auto) 1.44 K/uL (0.11-0.59) H 08/25/18 21:48 Eos # (Auto) 0.11 K/uL (0-0.5) 08/25/18 21:48 Baso # (Auto) 0.01 K/uL (0-0.2) 08/25/18 21:48 PT 13.2 Seconds (9.0-12.0) H 08/25/18 21:48 INR 1.3 (0.9-1.1) H 08/25/18 21:48 APTT 29.9 Seconds (21.0-31.0) 08/25/18 21:48 PTT Ratio 1.1 08/25/18 21:48 Sodium 127 mmol/L (136-145) L 08/25/18 21:48 Potassium 3.8 mmol/L (3.5-5.1) 08/25/18 21:48 Chloride 90 mmol/L (98-107) L 08/25/18 21:48 Carbon Dioxide 28 mmol/L (21-32) 08/25/18 21:48 Anion Gap 9.0 (3-11) 08/25/18 21:48 BUN 31 mg/dl (7-18) H 08/25/18 21:48 Creatinine 1.50 mg/dl (0.6-1.2) H 08/25/18 21:48 Est Cr Clr Drug Dosing 45.9 ml/min 08/25/18 21:48 Est GFR ( Amer) 40.5 08/25/18 21:48 Est GFR (Non-Af Amer) 34.9 08/25/18 21:48 BUN/Creatinine Ratio 20.6 (10-20) H 08/25/18 21:48 Glucose 122 mg/dl (70-99) H 08/25/18 21:48 Osmolality 273 mOsm/kg (280-300) L 08/25/18 21:48 POC Lactic Acid Anthony 1.11 mmol/L (0.90-1.70) 08/25/18 23:34 Calcium 8.9 mg/dl (8.5-10.1) 08/25/18 21:48 Total Bilirubin 0.6 mg/dl (0.2-1) 08/25/18 21:48 AST 16 U/L (15-37) 08/25/18 21:48 ALT 15 U/L (12-78) 08/25/18 21:48 Alkaline Phosphatase 41 U/L (45-117) L 08/25/18 21:48 Troponin I < 0.015 ng/ml (0-0.045) 08/25/18 21:48 NT-Pro-B Natriuret Pep 1627 pg/ml (0-900) H 08/25/18 21:48 Total Protein 7.0 gm/dl (6.4-8.2) 08/25/18 21:48 Albumin 3.0 gm/dl (3.4-5.0) L 08/25/18 21:48 Globulin 4.0 gm/dl (2.5-4.0) 08/25/18 21:48 Albumin/Globulin Ratio 0.7 (0.9-2) L 08/25/18 21:48 TSH 3.260 uIu/ml (0.300-4.500) 08/25/18 21:48 Urine Color Yellow 08/25/18 22:34 Urine Appearance Clear (Clear) 08/25/18 22:34 Urine pH 5.0 (4.5-7.5) 08/25/18 22:34 Ur Specific [place] 1.015 (1.000-1.030) 08/25/18 22:34 Urine Protein Negative (Negative) 08/25/18 22:34 Urine Glucose (UA) Negative (Negative) 08/25/18 22:34 Urine Ketones Negative (Negative) 08/25/18 22:34 Urine Blood Negative (Negative) 08/25/18 22:34 Urine Nitrite Negative (Negative) 08/25/18 22:34 Urine Bilirubin Negative (Negative) 08/25/18 22:34 Urine Urobilinogen Negative (Negative) 08/25/18 22:34 Ur Leukocyte Esterase 1+ (Negative) H 08/25/18 22:34 Urine WBC (Auto) 1-5 /hpf (0-5) 08/25/18 22:34 Urine RBC (Auto) 0-4 /hpf (0-4) 08/25/18 22:34 U Hyaline Cast (Auto) 1-5 /lpf (0-5) 08/25/18 22:34 U Epithel Cells (Auto) 10-20 /lpf (0-5) H 08/25/18 22:34 Urine Bacteria (Auto) Negative (Negative) 08/25/18 22:34 Influenza Type A (PCR) Neg for Influ A (Neg) 08/25/18 21:15 Influenza Type B (PCR) Neg for Influ B (Neg) 08/25/18 21:15 Diagnostic Findings Chest x-ray : 1. Cardiomegaly without radiographic evidence of congestive failure. 2. Small pleural effusions. 3. There is increasing left basilar airspace consolidation from previous. This could represent worsening atelectasis versus pneumonia/aspiration pneumonitis. Clinical correlation will be required. EKG as per my interpretation : Rate 70, NSR, PVCs, low voltage
[2018-08-26] MEDS ORDERED: AMPICILLIN/SULBACTAM SOD 3,000 MG in 0.9 % SODIUM CHLORIDE 100 ML IV STA (00:56)
[2018-08-26] MEDS: guaiFENesin 600 MG TABCR PO SCH ×3 (01:06→20:03)
--- NOTE | 2018-08-26 01:11 | Emergency Department Note ---
Entered by Maile Tejada acting as a scribe for Ruiz Moreno M.D. History of Present Illness General Chief complaint: Respiratory Problems Stated complaint: TROUBLE BREATHING,FEET SWELLING Source: patient and family History of Present Illness Onset (ago): week(s) 1 Location: chest (shortness of breath) Pain Consistency: + other (worsening) Relieved By: + none Associated symptoms: + denies other symptoms (urination problems), + chest pain (intermittent), + nausea/vomiting (positive nausea, negative vomiting) and + other (leg swelling); no cough The patient is a 68 year old F who presents to the Emergency Room with complaints of worsening shortness of breath that started 1 week ago. The majority of the HPI was provided by the patients family. They state that the patient had a cold last week on . They note that the patients breathing problems worsened on Monday. They add that the patient was seen by her PCP on Monday and was given Lasiks for her leg swelling. They state that the Lasiks has not relieved the patients leg swelling. They note that they were called by another doctor yesterday for possible congestive heart failure. They add that the patient was taken to the hospital for follow-up. They note that a chest X-ray was done which discovered that the patient was actually dealing with pneumonia. The patient states that she is currently experiencing nausea and intermittent chest pain. She denies experiencing coughing and urination problem s. The patient notes that she has had a history of CHF in the past. She adds that nobody around her has been sick. Home Medications Home Medications Medication Instructions Recorded Confirmed Type amlodipine 5 mg PO DAILY 07/05/18 08/25/18 History aspirin [Aspirin Low Dose] 81 mg PO DAILY 07/05/18 08/25/18 History atorvastatin 20 mg PO DAILY 07/05/18 08/25/18 History carvedilol 6.25 mg PO BID 07/05/18 08/25/18 History cholecalciferol (vitamin D3) 1,000 unit PO DAILY 07/05/18 08/25/18 History [Vitamin D3] fenofibrate micronized 134 mg PO DAILY 07/05/18 08/25/18 History fluticasone propionate [Flonase 1 spray INTRANASAL DAILY 07/05/18 08/25/18 History Allergy Relief] gabapentin 300 mg PO BID 07/05/18 08/25/18 History iron aspgl,ps complex-vit C-sa 1 tab PO DAILY 07/05/18 08/25/18 History isosorbide mononitrate 60 mg PO DAILY 07/05/18 08/25/18 History levothyroxine 100 mg PO DAILY 07/05/18 08/25/18 History lisinopril 10 mg PO DAILY 07/05/18 08/25/18 History metformin 850 mg PO BID 07/05/18 08/25/18 History nitroglycerin 0.4 mg SUBLINGUAL DIRECTED 07/05/18 08/25/18 History nystatin 1 applic TOPICAL BID 07/05/18 08/25/18 History nystatin [Nystop] 1 applic TOPICAL TID 07/05/18 08/25/18 History pantoprazole 40 mg PO DAILY 07/05/18 08/25/18 History pioglitazone 30 mg PO DAILY 07/05/18 08/25/18 History sertraline 100 mg PO DAILY 07/05/18 08/25/18 History tolterodine 4 mg PO DAILY 07/05/18 08/25/18 History ranitidine HCl 150 mg PO BID PRN #60 cap 07/07/18 08/25/18 Rx albuterol sulfate 2 puff INHALATION Q4H PRN 08/25/18 08/25/18 History azithromycin 250 mg PO DIRECTED 08/25/18 08/25/18 History levofloxacin 750 mg PO DIRECTED 08/25/18 08/25/18 History ondansetron HCl 4 mg PO Q6H PRN 08/25/18 08/25/18 History torsemide 20 mg PO DIRECTED 08/25/18 08/25/18 History Allergies Allergy/AdvReac Type Severity Reaction Status Date / Time cephalexin Allergy Severe SHORTNESS Verified 08/25/18 21:41 OF BREATH Iodinated Contrast- Oral and Allergy Severe GI Verified 08/25/18 21:41 IV Dye SYMPTOMS/SOB prednisone AdvReac Intermediate chest Verified 08/26/18 00:51 heaviness Sulfa (Sulfonamide AdvReac Mild VOMITING Verified 08/25/18 21:41 Antibiotics) Past Med/Surg History Medical History Heart disease (Chronic) Hypertension (Chronic) on imdur, coreg, lisinopril,amlodipine. will monitor BP. Kidney disease (Chronic) stage 3.Baseline cr 1.2 to 1.3. Will follow labs Surgical History History of cholecystectomy (Resolved) History of tonsillectomy (Resolved) History of heart artery stent (Resolved) continue aspirin, coreg,imdur,lipitor Social History Preferred Language: Malian Beliefs That Will Affect Care: None Current Living Situation: Alone Feels Safe at Home: Yes Smoking Status: Former smoker Hx Alcohol Use: No Hx Substance Use: No Review of Systems See HPI for pertinent positives & negatives. and A total of 10 systems reviewed and were otherwise negative Physical Exam Vital Signs Vital Signs - 24 hr 08/25/18 20:45 08/25/18 21:09 08/25/18 22:34 Temperature 37 C Temperature Source Oral Sepsis Recent Fever Within 48 Hours No Sepsis New/Unexplained Change in Mental Status No Sepsis Action Taken by Nursing No Action Required Pulse Rate 77 70 Pulse Rate [Apical] Pulse Rhythm Regular Pulse Strength Normal Respiratory Rate 22 Respiratory Effort / Characteristics Non-Labored Spontaneous Respiratory Depth Normal Respiratory Pattern Regular Blood Pressure 141/79 H Blood Pressure [Right Arm] Blood Pressure Mean 99 Blood Pressure Mean [Right Arm] Blood Pressure Position Sitting Pulse Oximetry 89 L 85 L 98 Oxygen Delivery Method Room Air Room Air Nasal Cannula Oxygen Flow Rate 3 08/25/18 22:49 Temperature Temperature Source Sepsis Recent Fever Within 48 Hours Sepsis New/Unexplained Change in Mental Status Sepsis Action Taken by Nursing Pulse Rate Pulse Rate [Apical] 72 Pulse Rhythm Pulse Strength Respiratory Rate 18 Respiratory Effort / Characteristics Non-Labored Spontaneous Respiratory Depth Normal Respiratory Pattern Blood Pressure Blood Pressure [Right Arm] 152/59 H Blood Pressure Mean Blood Pressure Mean [Right Arm] 90 Blood Pressure Position Pulse Oximetry 97 Oxygen Delivery Method Nasal Cannula Oxygen Flow Rate 3 GENERAL: Awake, alert, fatigued HENT: Normocephalic, atraumatic. Oropharynx unremarkable. EYES: Normal conjunctiva. Sclera non-icteric. NECK: Supple. No nuchal rigidity. RESPIRATORY: Diminished bases. No wheezes. Increased work of breathing. Diminished breath sounds. CARDIAC: Normal rate. Normal rhythm. Extremities warm and well perfused. GI: Soft, non-distended. No tenderness to palpation. No rebound or guarding. No masses. RECTAL: Deferred. MUSCULOSKELETAL: Atraumatic. Chest examination reveals no tenderness. LOWER EXTREMITIES: Calves are equal size bilaterally and non-tender. 1+ bilat eral lower extremity edema. NEURO: Normal sensorium. No sensory or motor deficits noted. No facial droop. SKIN: Warm and dry. No rash or jaundice noted. Course 2206: The patient was evaluated in room B12B, and a complete history and physical examination were performed. 2327: I reviewed the patient's case with Dr. Laci Ruggiero. He will evaluate the patient for further management. Consultations Consultation #1: I reviewed the patient's case with Dr. Laci Ruggiero. He will evaluate the patient for further management. Time: 23:27 Administered Medications Guaifenesin (Mucinex) 600 mg PO Q12 JEREMY Stop: 09/25/18 00:54 Last Admin: 08/26/18 01:06 Dose: 600 mg Documented by: [id number] Discontinued Medications Albuterol (Duoneb) 3 ml NEB NOW STA Stop: 08/26/18 00:53 Last Admin: 08/26/18 01:06 Dose: 3 ml Documented by: [id number] Aztreonam 2,000 mg/ Dextrose 120 mls @ 100 mls/hr IV NOW STA Stop: 08/26/18 00:51 Last Admin: 08/26/18 00:23 Dose: 100 mls/hr Documented by: [id number] Vancomycin HCl 2,750 mg/ (Sodium Chloride) 555 mls @ 200 mls/hr IV NOW ONE Stop: 08/26/18 02:26 Last Admin: 08/26/18 00:58 Dose: Not Given Documented by: [id number] Sodium Chloride (Nss) 500 mls @ 500 mls/hr IV .Q1H ONE Stop: 08/26/18 00:58 Last Admin: 08/26/18 01:06 Dose: 500 mls/hr Documented by: [id number] Methylprednisolone (Solumedrol) 20 mg IV NOW STA Stop: 08/26/18 00:49 Last Admin: 08/26/18 01:06 Dose: 20 mg Documented by: [id number] Medical Decision Making Differential Diagnosis Differential Diagnosis includes: Etiologies such as infections, reactive airway disease, pneumonia, pneumothorax, COPD, CHF, cardiac ischemia, pulmonary embo lism, musculoskeletal, gastrointestinal, as well as others were entertained. Medical Records Attestation: I reviewed the patient's medical records. Home Medications Current Medication List: was personally reviewed by nm Laboratory Data Attestation: I reviewed the patient's lab results. Result diagrams: 08/25/18 21:48 08/25/18 21:48 Lab Results 08/25/18 08/25/18 08/25/18 Range/Units 21:15 21:48 21:48 WBC 10.43 (4.8-10.8) K/uL RBC 3.50 L (4.2-5.4) M/uL Hgb 10.2 L (12.0-16.0) g/dL Hct 30.5 L (37-47) % MCV 87.1 (80-100) fL MCH 29.1 (25-34) pg MCHC 33.4 (32-36) g/dL RDW Std Deviation 43.0 (36.4-46.3) fL RDW Coeff of Ezequiel 13.4 (11.5-14.5) % Plt Count 329 (130-400) K/uL MPV 9.2 (7.4-10.4) fL Immature Gran % (Auto) 0.2 % Neut % (Auto) 74.5 % Lymph % (Auto) 10.3 % [place] % (Auto) 13.8 % Eos % (Auto) 1.1 % Baso % (Auto) 0.1 % Immature Gran # (Auto) 0.02 (0.00-0.02) K/uL Neut # (Auto) 7.78 H (1.4-6.5) K/uL Lymph # (Auto) 1.07 L (1.2-3.4) K/uL [place] # (Auto) 1.44 H (0.11-0.59) K/uL Eos # (Auto) 0.11 (0-0.5) K/uL Baso # (Auto) 0.01 (0-0.2) K/uL PT 13.2 H (9.0-12.0) Seconds INR 1.3 H (0.9-1.1) APTT 29.9 (21.0-31.0) Seconds PTT Ratio 1.1 Sodium (136-145) mmol/L Potassium (3.5-5.1) mmol/L Chloride (98-107) mmol/L Carbon Dioxide (21-32) mmol/L Anion Gap (3-11) BUN (7-18) mg/dl Creatinine (0.6-1.2) mg/dl Est Cr Clr Drug Dosing ml/min Est GFR ( Amer) Est GFR (Non-Af Amer) BUN/Creatinine Ratio (10-20) Glucose (70-99) mg/dl Osmolality (280-300) mOsm/kg POC Lactic Acid Anthony (0.90-1.70) mmol/L Calcium (8.5-10.1) mg/dl Total Bilirubin (0.2-1) mg/dl AST (15-37) U/L ALT (12-78) U/L Alkaline Phosphatase (45-117) U/L Troponin I (0-0.045) ng/ml NT-Pro-B Natriuret Pep (0-900) pg/ml Total Protein (6.4-8.2) gm/dl Albumin (3.4-5.0) gm/dl Globulin (2.5-4.0) gm/dl Albumin/Globulin Ratio (0.9-2) TSH (0.300-4.500) uIu/ml Urine Color Urine Appearance (Clear) Urine pH (4.5-7.5) Ur Specific [place] (1.000-1.030) Urine Protein (Negative) Urine Glucose (UA) (Negative) Urine Ketones (Negative) Urine Blood (Negative) Urine Nitrite (Negative) Urine Bilirubin (Negative) Urine Urobilinogen (Negative) Ur Leukocyte Esterase (Negative) Urine WBC (Auto) (0-5) /hpf Urine RBC (Auto) (0-4) /hpf U Hyaline Cast (Auto) (0-5) /lpf U Epithel Cells (Auto) (0-5) /lpf Urine Bacteria (Auto) (Negative) Influenza Type A (PCR) Neg for Influ A (Neg) Influenza Type B (PCR) Neg for Influ B (Neg) 08/25/18 08/25/18 08/25/18 Range/Units 21:48 21:48 22:34 WBC (4.8-10.8) K/uL RBC (4.2-5.4) M/uL Hgb (12.0-16.0) g/dL Hct (37-47) % MCV (80-100) fL MCH (25-34) pg MCHC (32-36) g/dL RDW Std Deviation (36.4-46.3) fL RDW Coeff of Ezequiel (11.5-14.5) % Plt Count (130-400) K/uL MPV (7.4-10.4) fL Immature Gran % (Auto) % Neut % (Auto) % Lymph % (Auto) % [place] % (Auto) % Eos % (Auto) % Baso % (Auto) % Immature Gran # (Auto) (0.00-0.02) K/uL Neut # (Auto) (1.4-6.5) K/uL Lymph # (Auto) (1.2-3.4) K/uL [place] # (Auto) (0.11-0.59) K/uL Eos # (Auto) (0-0.5) K/uL Baso # (Auto) (0-0.2) K/uL PT (9.0-12.0) Seconds INR (0.9-1.1) APTT (21.0-31.0) Seconds PTT Ratio Sodium 127 L (136-145) mmol/L Potassium 3.8 (3.5-5.1) mmol/L Chloride 90 L (98-107) mmol/L Carbon Dioxide 28 (21-32) mmol/L Anion Gap 9.0 (3-11) BUN 31 H (7-18) mg/dl Creatinine 1.50 H (0.6-1.2) mg/dl Est Cr Clr Drug Dosing 45.9 ml/min Est GFR ( Amer) 40.5 Est GFR (Non-Af Amer) 34.9 BUN/Creatinine Ratio 20.6 H (10-20) Glucose 122 H (70-99) mg/dl Osmolality 273 L (280-300) mOsm/kg POC Lactic Acid Anthony (0.90-1.70) mmol/L Calcium 8.9 (8.5-10.1) mg/dl Total Bilirubin 0.6 (0.2-1) mg/dl AST 16 (15-37) U/L ALT 15 (12-78) U/L Alkaline Phosphatase 41 L (45-117) U/L Troponin I < 0.015 (0-0.045) ng/ml NT-Pro-B Natriuret Pep 1627 H (0-900) pg/ml Total Protein 7.0 (6.4-8.2) gm/dl Albumin 3.0 L (3.4-5.0) gm/dl Globulin 4.0 (2.5-4.0) gm/dl Albumin/Globulin Ratio 0.7 L (0.9-2) TSH 3.260 (0.300-4.500) uIu/ml Urine Color Yellow Urine Appearance Clear (Clear) Urine pH 5.0 (4.5-7.5) Ur Specific [place] 1.015 (1.000-1.030) Urine Protein Negative (Negative) Urine Glucose (UA) Negative (Negative) Urine Ketones Negative (Negative) Urine Blood Negative (Negative) Urine Nitrite Negative (Negative) Urine Bilirubin Negative (Negative) Urine Urobilinogen Negative (Negative) Ur Leukocyte Esterase 1+ H (Negative) Urine WBC (Auto) 1-5 (0-5) /hpf Urine RBC (Auto) 0-4 (0-4) /hpf U Hyaline Cast (Auto) 1-5 (0-5) /lpf U Epithel Cells (Auto) 10-20 H (0-5) /lpf Urine Bacteria (Auto) Negative (Negative) Influenza Type A (PCR) (Neg) Influenza Type B (PCR) (Neg) 08/25/18 Range/Units 23:34 WBC (4.8-10.8) K/uL RBC (4.2-5.4) M/uL Hgb (12.0-16.0) g/dL Hct (37-47) % MCV (80-100) fL MCH (25-34) pg MCHC (32-36) g/dL RDW Std Deviation (36.4-46.3) fL RDW Coeff of Ezequiel (11.5-14.5) % Plt Count (130-400) K/uL MPV (7.4-10.4) fL Immature Gran % (Auto) % Neut % (Auto) % Lymph % (Auto) % [place] % (Auto) % Eos % (Auto) % Baso % (Auto) % Immature Gran # (Auto) (0.00-0.02) K/uL Neut # (Auto) (1.4-6.5) K/uL Lymph # (Auto) (1.2-3.4) K/uL [place] # (Auto) (0.11-0.59) K/uL Eos # (Auto) (0-0.5) K/uL Baso # (Auto) (0-0.2) K/uL PT (9.0-12.0) Seconds INR (0.9-1.1) APTT (21.0-31.0) Seconds PTT Ratio Sodium (136-145) mmol/L Potassium (3.5-5.1) mmol/L Chloride (98-107) mmol/L Carbon Dioxide (21-32) mmol/L Anion Gap (3-11) BUN (7-18) mg/dl Creatinine (0.6-1.2) mg/dl Est Cr Clr Drug Dosing ml/min Est GFR ( Amer) Est GFR (Non-Af Amer) BUN/Creatinine Ratio (10-20) Glucose (70-99) mg/dl Osmolality (280-300) mOsm/kg POC Lactic Acid Anthony 1.11 (0.90-1.70) mmol/L Calcium (8.5-10.1) mg/dl Total Bilirubin (0.2-1) mg/dl AST (15-37) U/L ALT (12-78) U/L Alkaline Phosphatase (45-117) U/L Troponin I (0-0.045) ng/ml NT-Pro-B Natriuret Pep (0-900) pg/ml Total Protein (6.4-8.2) gm/dl Albumin (3.4-5.0) gm/dl Globulin (2.5-4.0) gm/dl Albumin/Globulin Ratio (0.9-2) TSH (0.300-4.500) uIu/ml Urine Color Urine Appearance (Clear) Urine pH (4.5-7.5) Ur Specific [place] (1.000-1.030) Urine Protein (Negative) Urine Glucose (UA) (Negative) Urine Ketones (Negative) Urine Blood (Negative) Urine Nitrite (Negative) Urine Bilirubin (Negative) Urine Urobilinogen (Negative) Ur Leukocyte Esterase (Negative) Urine WBC (Auto) (0-5) /hpf Urine RBC (Auto) (0-4) /hpf U Hyaline Cast (Auto) (0-5) /lpf U Epithel Cells (Auto) (0-5) /lpf Urine Bacteria (Auto) (Negative) Influenza Type A (PCR) (Neg) Influenza Type B (PCR) (Neg) Imaging Data Radiologist's Impression: Radiology results as stated below per my review and the radiologist's interpretation: SINGLE VIEW CHEST CLINICAL HISTORY: Dyspnea. FINDINGS: An AP, portable, upright chest radiograph is compared to study dated 07/05/2018 and correlated with chest CT dated 07/07/2018. The examination is degraded by portable technique, large body habitus, and patient rotation. The heart is enlarged. The pulmonary vasculature is noncongested. There is increasing consolidation at the left lung base as compared to previous. Small pleural effusions are noted. No pneumothorax is seen. The skeletal structures are osteopenic. The bony thorax is grossly intact. IMPRESSION: 1. Cardiomegaly without radiographic evidence of congestive failure. 2. Small pleural effusions. 3. There is increasing left basilar airspace consolidation from previous. This could represent worsening atelectasis versus pneumonia/aspiration pneumonitis. Clinical correlation will be required. Electronically signed by: Syd Klein M.D. 08/25/2018 11:10 PM ECG Data Attestation: I personally reviewed and interpreted this ECG as follows: Indication: SOB/dyspnea Rate (beats per minute): 71 Rhythm: normal sinus Findings: + other (normal intervals); no PVC, no ST depression and no ST elevation Blood Pressure Blood Pressure Findings: Elevated blood pressure Blood Pressure Disposition: further management by hospitalist JEFF Narrative Patient is a 68-year-old female with a past medical history significant for CHF, kidney dysfunction, atrial fibrillation, diabetes presented today complaining of a week of worsening respiratory symptoms. Seen by her outpatient doctor multiple times. Several days of azithromycin and just started Levaquin yesterday. Also started on torsemide for some diuresis. Worsening today now hypoxic on room air. Occasionally wears oxygen at night but not during the day. Patient has evidence of a left basilar consolidation concerning for pneumonia. Laboratory studies here do show slightly elevated proBNP. No significant leukocytosis. I doubt this is acute sepsis. Seems more infectious and lower acute suspicion for PE nicolette will defer testing for this at this time. Influenza testing is negative. Negative troponin I doubt this acute ACS. Her history of azithromycin and Levaquin in the outpatient setting discussed with hospitalist and pharmacy ordered vancomycin and aztreonam. Hospitalist later decided on Unasyn.. Patient also does have some evidence of new hyponatremia. Did not aggressively fluid rehydrate at this juncture. Believe is likely related to her illness. Given that she is failed outpatient treatment discussed with hospitalist for admission. Impression & Plan Pneumonia, Hypoxia Discharge Plan Visit Data Chief Complaint: Respiratory Problems Stated Complaint: TROUBLE BREATHING,FEET SWELLING ED Provider: Ruiz Moreno Discharge Problem: Pneumonia, Hypoxia Patient Disposition: Admitted As Inpatient Forms Stand Alone Forms: [facility] Prescriptions Prescriptions: No Action carvedilol 6.25 mg tablet 6.25 mg PO BID RF: 0 atorvastatin 20 mg tablet 20 mg PO DAILY RF: 0 tolterodine 4 mg Capsule,Extended Release 24hr 4 mg PO DAILY RF: 0 sertraline 100 mg tablet 100 mg PO DAILY RF: 0 metformin 850 mg tablet 850 mg PO BID RF: 0 amlodipine 5 mg tablet 5 mg PO DAILY RF: 0 aspirin [Aspirin Low Dose] 81 mg Tablet,Delayed Release (Dr/Ec) 81 mg PO DAILY RF: 0 fenofibrate micronized 134 mg capsule 134 mg PO DAILY RF: 0 levothyroxine 100 mcg tablet 100 mg PO DAILY RF: 0 isosorbide mononitrate 60 mg tablet extended release 24 hr 60 mg PO DAILY RF: 0 pantoprazole 40 mg tablet,delayed release (DR/EC) 40 mg PO DAILY RF: 0 nystatin 100,000 unit/gram Cream 1 applic TOPICAL BID RF: 0 lisinopril 10 mg tablet 10 mg PO DAILY RF: 0 nitroglycerin 0.4 mg Tablet, Sublingual 0.4 mg Sublingual DIRECTED RF: 0 gabapentin 300 mg Capsule 300 mg PO BID RF: 0 nystatin [Nystop] 100,000 unit/gram Powder 1 applic TOPICAL TID RF: 0 pioglitazone 30 mg Tablet 30 mg PO DAILY RF: 0 fluticasone propionate [Flonase Allergy Relief] 50 mcg/actuation [place],Suspension 1 spray INTRANASAL DAILY RF: 0 cholecalciferol (vitamin D3) [Vitamin D3] 1,000 unit Capsule 1,000 unit PO DAILY RF: 0 iron aspgl,ps complex-vit C-sa 150-50-50 mg capsule 1 tab PO DAILY RF: 0 ranitidine HCl 150 mg capsule 150 mg PO BID PRN (Reason: heartburn) Qty: 60 RF: 1 torsemide 20 mg tablet 20 mg PO DIRECTED RF: 0 azithromycin 250 mg tablet 250 mg PO DIRECTED RF: 0 ondansetron HCl 4 mg tablet 4 mg PO Q6H PRN (Reason: Nausea) RF: 0 levofloxacin 750 mg Tablet 750 mg PO DIRECTED RF: 0 albuterol sulfate 90 mcg/actuation Hfa Aerosol Inhaler 2 puff INHALATION Q4H PRN (Reason: Shortness Of Breath) RF: 0 Referrals Referrals: Junior Treadwell MD [Primary Care Provider] - Discharge Problem: Pneumonia Qualifiers: Pneumonia type: due to unspecified organism Laterality: left Lung location: lower lobe of lung Qualified Code(s): J18.1 - Lobar pneumonia, unspecified organism The scribe's documentation has been prepared under my direction and personally reviewed by me in its entirety. I confirm that the note above accurately reflects all work, treatment, procedures, and medical decision making performed by me.
[2018-08-26 01:25] LABS: Allen Test POS (Pos); HCO3 ABG 27 mmol/L (19-24); Oxygen Saturation ABG 95.8 % (90-95); PCO2 ABG 48 mmHg (35-46); PO2 ABG 88 mm/Hg (80-95); pH ABG 7.38 (7.35-7.45)
[2018-08-26 01:35] LABS: Magnesium 0.8 mg/dl (1.8-2.4)
[2018-08-26] MEDS ORDERED: GLUCAGON FOR INJ 1 MG VIAL SQ PRN (02:11)
[2018-08-26] MEDS ORDERED: NITROGLYCERIN SL 0.4 MG/TAB TAB SL PRN (02:11)
[2018-08-26] MEDS ORDERED: OXYCODONE HCL IR 5 MG TAB (IMMEDIATE RELEASE) PO PRN (02:11)
[2018-08-26] MEDS ORDERED: GLUCOSE 40% GEL 15 GM TUBE PO PRN (02:11)
[2018-08-26] MEDS ORDERED: GLUCOSE 10 TABS/TUBE PO PRN (02:11)
[2018-08-26] MEDS ORDERED: DEXTROSE 50% 50 ML SYRINGE IV PRN (02:11)
[2018-08-26] MEDS ORDERED: PROCHLORPERAZINE 5 MG in SYRINGE 4 ML IV PRN (02:11)
[2018-08-26] MEDS ORDERED: CARBOHYDRATES FOR HYPOGLYCEMIA PO PRN (02:11)
[2018-08-26] MEDS ORDERED: BENZONATATE 100 MG CAPSULE PO PRN (02:11)
[2018-08-26] MEDS ORDERED: AMPICILLIN/SULBACTAM CONSULT ACTIVE PRN (02:36)
[2018-08-26] MEDS: INSULIN ASPART 100 UNITS/ML 3 ML PEN SC SCH ×5 (02:55→21:08)
[2018-08-26] MEDS: ATORVASTATIN 20 MG TAB PO SCH ×2 (03:08→20:03)
[2018-08-26] MEDS: SERTRALINE HCL 100 MG TABLET PO SCH ×2 (03:08→20:02)
[2018-08-26] MEDS: MAGNESIUM SULFATE / D5W 1 GM/100 ML BAG IV SCH ×5 (03:08→08:12)
[2018-08-26] MEDS ORDERED: HEPARIN SOD 5,000 UNIT/0.5 ML VIAL SQ SCH (06:00)
[2018-08-26] MEDS: LEVOTHYROXINE SODIUM 100 MCG TABLET PO SCH (06:14)
[2018-08-26] MEDS: HEPARIN SOD 5,000 UNIT/0.5 ML VIAL SQ SCH ×3 (06:15→21:08)
--- NOTE | 2018-08-26 06:27 | Ultrasound Report ---
US venous doppler LE BI HISTORY: Pain. Edema. leg swelling COMPARISON STUDY: None. FINDINGS: There is normal compressibility, flow, and augmentation within the bilateral lower extremit y deep venous systems. IMPRESSION: No DVT within the right or left lower extremity. The above report was generated using voice recognition software. It may contain grammatical, syntax or spelling errors. Electronically signed by: Heri Lima M.D. 08/26/2018 6:25 AM
[2018-08-26 06:46] LABS: Eosinophils # (auto) 0.02 K/uL (0-0.5); Eosinophils % (auto) 0.2 %; Hematocrit (blood only) 31.8 % (37-47); Hemoglobin 10.8 g/dL (12.0-16.0); Immature Granulocytes # (auto) 0.02 K/uL (0.00-0.02); Immature Granulocytes % (auto) 0.2 %; Lymphocytes # (auto) 0.56 K/uL (1.2-3.4); Lymphocytes % (auto) 6.3 %; Mean Platelet Volume 9.3 fL (7.4-10.4); Monocytes # (auto) 0.54 K/uL (0.11-0.59); Monocytes % (auto) 6.1 %; Neutrophils # (auto) 7.77 K/uL (1.4-6.5); Neutrophils % (auto) 87.2 %; Platelet Count 331 K/uL (130-400); RDW Coefficient of Variation 13.3 % (11.5-14.5); RDW Standard Deviation 41.2 fL (36.4-46.3); Red Blood Count 3.74 M/uL (4.2-5.4); White Blood Count 8.91 K/uL (4.8-10.8)
[2018-08-26 07:03] LABS: Partial Thromboplastin Ratio 1.2; Partial Thromboplastin Time 33.8 Seconds (21.0-31.0)
[2018-08-26] MEDS: LEVALBUTEROL 1.25MG/0.5ML NEB INH SCH ×3 (07:21→19:00)
[2018-08-26 07:22] LABS: BUN Creatinine Ratio 19.7 (10-20); Blood Urea Nitrogen 29 mg/dl (7-18); Calcium 8.8 mg/dl (8.5-10.1); Carbon Dioxide 29 mmol/L (21-32); Chloride 90 mmol/L (98-107); Creatinine Clr Calc Pharmacy 47.1 ml/min; Est GFR (African American) 41.8; Est GFR (Non-African American) 36.1; Glucose 183 mg/dl (70-99); Potassium 4.1 mmol/L (3.5-5.1); Sodium 123 mmol/L (136-145); Troponin I < 0.015 ng/ml (0-0.045)
[2018-08-26] MEDS: IPRATROPIUM BROMIDE NEB SOLN 0.02% 2.5 ML VIAL INH SCH ×3 (07:22→19:00)
[2018-08-26] MEDS ORDERED: XOPENEX/ATROVENT 1.25mg/0.5MG NEB COMBO NEB SCH (08:00)
[2018-08-26] MEDS: FENOFIBRATE~ORDER AWAITING ACTION SCH ×3 (08:13→23:52)
[2018-08-26] MEDS: FLUTICASONE PROPIONATE NA SPR 16 GM BTL NAE SCH (08:24)
[2018-08-26] MEDS: TOLTERODINE TARTRATE LA 4 MG CAPCR PO SCH (08:25)
[2018-08-26] MEDS: CARVEDILOL 6.25 MG TAB PO SCH ×2 (08:25→20:04)
[2018-08-26] MEDS: ISOSORBIDE MONO EXTENDED REL 60 MG TABCR PO SCH (08:25)
[2018-08-26] MEDS: PANTOprazole 40 MG TAB PO SCH (08:25)
[2018-08-26] MEDS: GABAPENTIN 300 MG CAP PO SCH ×2 (08:25→20:02)
[2018-08-26] MEDS: AMLODIPINE BESYLATE 5 MG TAB PO SCH (08:25)
[2018-08-26] MEDS: ASPIRIN 81 MG ECTAB PO SCH (08:25)
[2018-08-26] MEDS: AMPICILLIN/SULBACTAM SOD 3,000 MG in 0.9 % SODIUM CHLORIDE 100 ML IV SCH ×3 (09:19→19:58)
[2018-08-26 12:17] LABS: Magnesium 2.2 mg/dl (1.8-2.4)
[2018-08-26] MEDS ORDERED: SODIUM CHLORIDE 0.9% 1000ML 1,000 ML IV ONE (20:00)
[2018-08-27] MEDS: LEVALBUTEROL 1.25MG/0.5ML NEB INH SCH ×4 (02:06→19:50)
[2018-08-27] MEDS: IPRATROPIUM BROMIDE NEB SOLN 0.02% 2.5 ML VIAL INH SCH ×4 (02:06→19:49)
[2018-08-27] MEDS: AMPICILLIN/SULBACTAM SOD 3,000 MG in 0.9 % SODIUM CHLORIDE 100 ML IV SCH ×4 (02:12→21:39)
[2018-08-27 06:07] LABS: Creatinine Clr Calc Pharmacy 53.8 ml/min; Est GFR (Non-African American) 42.3
[2018-08-27] MEDS: HEPARIN SOD 5,000 UNIT/0.5 ML VIAL SQ SCH ×3 (06:12→21:40)
[2018-08-27] MEDS: LEVOTHYROXINE SODIUM 100 MCG TABLET PO SCH (06:12)
[2018-08-27] MEDS: GABAPENTIN 300 MG CAP PO SCH ×2 (08:40→21:42)
[2018-08-27] MEDS: ASPIRIN 81 MG ECTAB PO SCH (08:40)
[2018-08-27] MEDS: TOLTERODINE TARTRATE LA 4 MG CAPCR PO SCH (08:40)
[2018-08-27] MEDS: CARVEDILOL 6.25 MG TAB PO SCH ×2 (08:41→21:41)
[2018-08-27] MEDS: guaiFENesin 600 MG TABCR PO SCH ×2 (08:41→21:42)
[2018-08-27] MEDS: FENOFIBRATE~ORDER AWAITING ACTION SCH ×3 (08:41→23:38)
[2018-08-27] MEDS: AMLODIPINE BESYLATE 5 MG TAB PO SCH (08:41)
[2018-08-27] MEDS: PANTOprazole 40 MG TAB PO SCH (08:41)
[2018-08-27] MEDS: ISOSORBIDE MONO EXTENDED REL 60 MG TABCR PO SCH (08:41)
[2018-08-27] MEDS: FLUTICASONE PROPIONATE NA SPR 16 GM BTL NAE SCH (08:41)
[2018-08-27] MEDS: INSULIN ASPART 100 UNITS/ML 3 ML PEN SC SCH ×4 (08:57→21:40)
--- NOTE | 2018-08-27 18:02 | Hospitalist Progress Note ---
Date of Service August 27, 2018 Assessment & Plan (1) Acute hypoxemic respiratory failure: resent on admission with worsening SOB associated with dry heaving CXR showed increasing left basilar airspace consolidation from previous Continue Unasyn IV Continue oxygen supplement and neb treatment Blood showed no growth Continue monitor Chronic diastolic heart failure CXR showed cardiomegaly without radiographic evidence of congestive failure. ECHO done in 2019 showed EF 50-54% Continue monitor CAD S/P stent Continue atorvastatin, aspirin and carvedilol Satble Hypertension, BP stable Continue amlodipine and nitrate and carvedilol DM Type 2 Hba1c 5.3 Well controlled Hyponatremia Possible related to diuretic Na on dropped to 123, improved to 129 Monitor BMP Acute on CKD stage 3 Creatinine on admission 1.4 Received IVF Creatinine 1.2 today Avoid nephrotoxic agents Monitor BMP Bilateral leg swelling Doppler of LE showed no evidence for DVT DVT px on heparin subq CODE status Full code Subjective Pt was seen and examined Sitting in chair with no distress Pt said that breathing feels much better She said that cough improves Denies any chest pain, palpitation and fever Physical Exam Vital Signs (Past 24 Hours): Last Vital Signs Temp 36.6 C 08/27/18 14:44 Pulse 83 08/27/18 16:00 Resp 20 08/27/18 14:44 BP 121/69 08/27/18 14:44 Pulse Ox 98 08/27/18 13:40 Physical Exam: General- No acute distress Head- atraumatic Eyes- PERRL, EOMI, ENT- oropharynx clear Neck- supple, no JVD Lungs- Coarse BS Heart- regular rhythm; +murmur Abdomen- normal bowel sounds, soft, nontender Extremities- no calf tenderness Neuro- alert, oriented x 3; PERRL, EOMI; no facial palsy; no dysarthria Skin- warm & dry
[2018-08-27] MEDS: ATORVASTATIN 20 MG TAB PO SCH (21:41)
[2018-08-27] MEDS: SERTRALINE HCL 100 MG TABLET PO SCH (21:43)
[2018-08-27] MEDS: ACETAMINOPHEN 325 MG TAB PO PRN (23:51)
[2018-08-28] MEDS: AMPICILLIN/SULBACTAM SOD 3,000 MG in 0.9 % SODIUM CHLORIDE 100 ML IV SCH ×3 (01:37→13:47)
[2018-08-28] MEDS: LEVALBUTEROL 1.25MG/0.5ML NEB INH SCH ×2 (02:00→07:56)
[2018-08-28] MEDS: IPRATROPIUM BROMIDE NEB SOLN 0.02% 2.5 ML VIAL INH SCH ×2 (02:00→07:56)
[2018-08-28] MEDS: LEVOTHYROXINE SODIUM 100 MCG TABLET PO SCH (06:11)
[2018-08-28] MEDS: HEPARIN SOD 5,000 UNIT/0.5 ML VIAL SQ SCH ×3 (06:12→22:21)
[2018-08-28] MEDS: FENOFIBRATE~ORDER AWAITING ACTION SCH ×2 (07:46→16:33)
[2018-08-28] MEDS: FLUTICASONE PROPIONATE NA SPR 16 GM BTL NAE SCH (07:52)
[2018-08-28] MEDS: PANTOprazole 40 MG TAB PO SCH (07:53)
[2018-08-28] MEDS: TOLTERODINE TARTRATE LA 4 MG CAPCR PO SCH (07:53)
[2018-08-28] MEDS: AMLODIPINE BESYLATE 5 MG TAB PO SCH (07:53)
[2018-08-28] MEDS: ASPIRIN 81 MG ECTAB PO SCH (07:53)
[2018-08-28] MEDS: GABAPENTIN 300 MG CAP PO SCH ×2 (07:54→20:32)
[2018-08-28] MEDS: CARVEDILOL 6.25 MG TAB PO SCH ×2 (07:54→20:32)
[2018-08-28] MEDS: guaiFENesin 600 MG TABCR PO SCH ×2 (07:54→20:32)
[2018-08-28] MEDS: ISOSORBIDE MONO EXTENDED REL 60 MG TABCR PO SCH (07:54)
[2018-08-28] MEDS: INSULIN ASPART 100 UNITS/ML 3 ML PEN SC SCH ×4 (07:55→20:30)
[2018-08-28] MEDS ORDERED: COUGH DROP (SUGAR FREE) LOZ 24 LOZ/1 BOX BUCCAL PRN (08:00)
[2018-08-28 08:43] LABS: Creatinine Clr Calc Pharmacy 51.6 ml/min; Est GFR (Non-African American) 39.7
[2018-08-28 08:56] LABS: BUN Creatinine Ratio 18.2 (10-20); Creatinine Clr Calc Pharmacy 53.6 ml/min; Est GFR (African American) 48.1; Est GFR (Non-African American) 41.5; Potassium 3.8 mmol/L (3.5-5.1)
--- NOTE | 2018-08-28 18:25 | Hospitalist Progress Note ---
Date of Service August 28, 2018 Assessment & Plan (1) Acute hypoxemic respiratory failure: Possible aspiration pneumonia present on admission with worsening SOB associated with dry heaving CXR showed increasing left basilar airspace consolidation from previous On Unasyn IV, will transition to augmentin BID Continue oxygen supplement and neb treatment Blood showed no growth Continue monitor Chronic diastolic heart failure CXR showed cardiomegaly without radiographic evidence of congestive failure. ECHO done in 2019 showed EF 50-54% Continue monitor CAD S/P stent Continue atorvastatin, aspirin and carvedilol Satble Hypertension, BP stable Continue amlodipine and nitrate and carvedilol DM Type 2 Hba1c 5.3 Well controlled Hyponatremia Possible related to diuretic Na on dropped to 123, improved to 129 Monitor BMP Acute on CKD stage 3 Creatinine on admission 1.4 Received IVF Creatinine 1.3 today Avoid nephrotoxic agents Monitor BMP Bilateral leg swelling Doppler of LE showed no evidence for DVT DVT px on heparin subq CODE status Full code Disposition Waiting for placement to rehab Subjective Pt was seen and examined Lying in bed with no distress Pt said that her breathing is much better Denies any chest pain, palpitation, dizziness and SOB Physical Exam Vital Signs (Past 24 Hours): Last Vital Signs Temp 36.7 C 08/28/18 14:51 Pulse 70 08/28/18 15:28 Resp 16 08/28/18 14:51 BP 122/60 08/28/18 14:51 Pulse Ox 98 08/28/18 14:51 Physical Exam: General- No acute distress Head- atraumatic Eyes- PERRL, EOMI, ENT- oropharynx clear Neck- supple, no JVD Lungs-Diminished BS, No wheezing Heart- regular rhythm; +murmur Abdomen- normal bowel sounds, soft, nontender Extremities- no calf tenderness Neuro- alert, oriented x 3; PERRL, EOMI; no facial palsy; no dysarthria Skin- warm & dry
[2018-08-28] MEDS: SERTRALINE HCL 100 MG TABLET PO SCH (20:31)
[2018-08-28] MEDS: AMOXICILLIN/CLAVULANATE 875 MG TAB PO SCH (20:31)
[2018-08-28] MEDS: ATORVASTATIN 20 MG TAB PO SCH (20:32)
[2018-08-28] MEDS: ACETAMINOPHEN 325 MG TAB PO PRN (22:22)
[2018-08-29] MEDS: FENOFIBRATE~ORDER AWAITING ACTION SCH ×4 (00:13→23:22)
[2018-08-29] MEDS: HEPARIN SOD 5,000 UNIT/0.5 ML VIAL SQ SCH ×3 (06:26→21:26)
[2018-08-29] MEDS: LEVOTHYROXINE SODIUM 100 MCG TABLET PO SCH (06:27)
[2018-08-29 07:13] LABS: BUN Creatinine Ratio 19.5 (10-20); Calcium 9.4 mg/dl (8.5-10.1); Creatinine Clr Calc Pharmacy 52.8 ml/min; Est GFR (African American) 46.8; Est GFR (Non-African American) 40.4; Potassium 3.9 mmol/L (3.5-5.1)
[2018-08-29] MEDS: PANTOprazole 40 MG TAB PO SCH (07:45)
[2018-08-29] MEDS: GABAPENTIN 300 MG CAP PO SCH ×2 (07:45→20:31)
[2018-08-29] MEDS: ISOSORBIDE MONO EXTENDED REL 60 MG TABCR PO SCH (07:45)
[2018-08-29] MEDS: TOLTERODINE TARTRATE LA 4 MG CAPCR PO SCH (07:45)
[2018-08-29] MEDS: guaiFENesin 600 MG TABCR PO SCH ×2 (07:45→20:31)
[2018-08-29] MEDS: AMLODIPINE BESYLATE 5 MG TAB PO SCH (07:46)
[2018-08-29] MEDS: INSULIN ASPART 100 UNITS/ML 3 ML PEN SC SCH ×4 (07:46→21:25)
[2018-08-29] MEDS: AMOXICILLIN/CLAVULANATE 875 MG TAB PO SCH ×2 (07:46→20:31)
[2018-08-29] MEDS: ASPIRIN 81 MG ECTAB PO SCH (07:46)
[2018-08-29] MEDS: CARVEDILOL 6.25 MG TAB PO SCH ×2 (07:46→20:31)
[2018-08-29] MEDS: FLUTICASONE PROPIONATE NA SPR 16 GM BTL NAE SCH (07:46)
[2018-08-29] MEDS ORDERED: TORSEMIDE 10 MG TAB PO ONE (11:25)
[2018-08-29] MEDS ORDERED: FUROSEMIDE 40 MG/4 ML VIAL IV ONE (11:25)
[2018-08-29] MEDS ORDERED: FUROSEMIDE 40 MG in SYRINGE 0 ML IV STA (11:59)
--- NOTE | 2018-08-29 18:27 | Hospitalist Progress Note ---
Date of Service August 29, 2018 Assessment & Plan (1) Acute hypoxemic respiratory failure: Possible aspiration pneumonia present on admission with worsening SOB associated with dry heaving CXR showed increasing left basilar airspace consolidation from previous On Unasyn IV, will transition to augmentin BID Continue oxygen supplement and neb treatment Blood showed no growth Continue monitor Chronic diastolic heart failure CXR showed cardiomegaly without radiographic evidence of congestive failure. ECHO done in 2019 showed EF 50-54% Lasix IV 40mg given Continue monitor CAD S/P stent Continue atorvastatin, aspirin and carvedilol Satble Hypertension, BP stable Continue amlodipine and nitrate and carvedilol DM Type 2 Hba1c 5.3 Well controlled Hyponatremia Possible related to diuretic Na on dropped to 127 today Monitor BMP Acute on CKD stage 3 Creatinine on admission 1.4 Received IVF Creatinine 1.3 today Avoid nephrotoxic agents Monitor BMP Bilateral leg swelling Doppler of LE showed no evidence for DVT DVT px on heparin subq CODE status Full code Disposition Waiting for placement to rehab Subjective Pt was seen and examined Sitting in chair with no acute distress Pt said that last she had orthopnea while lying in bed She said that she gained about 8 lbs since admitted Pt said that she takes torsemide daily Torsemide was not given in the last few during admission Her Na continue to drop Denies any chest pain, palpitation and fever Physical Exam Physical Exam: General- No acute distress Head- atraumatic Eyes- PERRL, EOMI, ENT- oropharynx clear Neck- supple, no JVD Lungs-Diminished BS, No wheezing Heart- regular rhythm; +murmur Abdomen- normal bowel sounds, soft, nontender Extremities- no calf tenderness, +edema Neuro- alert, oriented x 3; PERRL, EOMI; no facial palsy; no dysarthria Skin- warm & dry Results & Data Vital Signs (Past 12 Hours) Vital Signs Temp Pulse Pulse Resp BP BP Pulse Ox 08/29/18 16:53 72 08/29/18 15:35 37.1 C 66 18 139/73 95 08/29/18 12:06 72 116/72 08/29/18 11:02 36.8 C 60 20 122/76 97 08/29/18 09:56 97 08/29/18 07:48 63 111/63 08/29/18 07:15 62 08/29/18 07:13 36.9 C 72 18 151/72 H 96
[2018-08-29] MEDS: SERTRALINE HCL 100 MG TABLET PO SCH (20:31)
[2018-08-29] MEDS: ATORVASTATIN 20 MG TAB PO SCH (20:31)
[2018-08-29] MEDS: MICONAZOLE NITRATE POWDER 43 GM EXT PRN (21:35)
[2018-08-29] MEDS: ACETAMINOPHEN 325 MG TAB PO PRN (23:22)
[2018-08-30] MEDS: HEPARIN SOD 5,000 UNIT/0.5 ML VIAL SQ SCH ×3 (05:50→21:12)
[2018-08-30] MEDS: LEVOTHYROXINE SODIUM 100 MCG TABLET PO SCH (05:50)
[2018-08-30] MEDS: INSULIN ASPART 100 UNITS/ML 3 ML PEN SC SCH ×4 (08:08→21:19)
[2018-08-30] MEDS: PANTOprazole 40 MG TAB PO SCH (08:45)
[2018-08-30] MEDS: CARVEDILOL 6.25 MG TAB PO SCH ×2 (08:45→21:12)
[2018-08-30] MEDS: GABAPENTIN 300 MG CAP PO SCH ×2 (08:45→21:12)
[2018-08-30] MEDS: AMLODIPINE BESYLATE 5 MG TAB PO SCH (08:45)
[2018-08-30] MEDS: guaiFENesin 600 MG TABCR PO SCH ×2 (08:45→21:12)
[2018-08-30] MEDS: ISOSORBIDE MONO EXTENDED REL 60 MG TABCR PO SCH (08:45)
[2018-08-30] MEDS: TOLTERODINE TARTRATE LA 4 MG CAPCR PO SCH (08:46)
[2018-08-30] MEDS: ASPIRIN 81 MG ECTAB PO SCH (08:46)
[2018-08-30] MEDS: AMOXICILLIN/CLAVULANATE 875 MG TAB PO SCH ×2 (08:46→21:12)
[2018-08-30] MEDS: FENOFIBRATE~ORDER AWAITING ACTION SCH ×2 (08:47→16:55)
[2018-08-30] MEDS: FLUTICASONE PROPIONATE NA SPR 16 GM BTL NAE SCH (08:47)
[2018-08-30 10:30] LABS: BUN Creatinine Ratio 20.7 (10-20); Calcium 9.5 mg/dl (8.5-10.1); Est GFR (African American) 44.8; Est GFR (Non-African American) 38.6; Potassium 4.1 mmol/L (3.5-5.1)
--- NOTE | 2018-08-30 17:14 | Nephrology Consultation ---
Date of Consultation August 30, 2018 Assessment & Plan (1) Hyponatremia: acute worsening of chronic hypoosmolar hypervolemic hyponatremia w/ value this am of 124; osmolality 275 in serum; BG reasonably controlled; just about a 5 kg wt gain since admission on standing scales -cont daily standing wt -await urine studies > urine osms, urine sodium -given N this evenign and crackles on exam > recheck cxr and repeat bmp ordered; give 20 mg IV lasix x 1 now -limit po fluids to 1.5L and ordered low Na diet Present on Admission?: Yes History of Present Illness Reason for Consultation: hyponatremia Requesting Physician: dr schultz Attending Physician: Luis A Schultz MD History of Present Illness 68 y/o F whom I'm asked to see for hyponatremia w/ sodium today 124. other PMH includes chronic diastolic HF, CAD, DM, ckd3, class 3 obesity. She was admitted here 08/26 w/ acute hypoxic respiratory failure from L bronchopneumonia w/ presenting sNa 127; it dropped as low as 123 in first hours of admission; then had been trending up to peak at129. however past 2 days has been dropping. creatinine 1.4 today and appears to run 1.2-1.5. she has had one dose of IV lasix yesterday at midday 40 mg iv. her wt today is 139.5, w/ steady uptrend since admission from 134.7 all standing scale. urine studies are pending. of note takes no diuretics as OP except prn torsemide which she uses rarely. has N this evening, new for her. Allergies Allergy/AdvReac Type Severity Reaction Status Date / Time cephalexin Allergy Severe SHORTNESS Verified 08/25/18 21:41 OF BREATH Iodinated Contrast- Oral and Allergy Severe GI Verified 08/25/18 21:41 IV Dye SYMPTOMS/SOB prednisone AdvReac Intermediate chest Verified 08/26/18 00:51 heaviness Sulfa (Sulfonamide AdvReac Mild VOMITING Verified 08/25/18 21:41 Antibiotics) Home Medications Home Medications Medication Instructions Recorded Confirmed Type amlodipine 5 mg PO DAILY 07/05/18 08/25/18 History aspirin [Aspirin Low Dose] 81 mg PO DAILY 07/05/18 08/25/18 History atorvastatin 20 mg PO DAILY 07/05/18 08/25/18 History carvedilol 6.25 mg PO BID 07/05/18 08/25/18 History cholecalciferol (vitamin D3) 1,000 unit PO DAILY 07/05/18 08/25/18 History [Vitamin D3] fenofibrate micronized 134 mg PO DAILY 07/05/18 08/25/18 History fluticasone propionate [Flonase 1 spray INTRANASAL DAILY 07/05/18 08/25/18 History Allergy Relief] gabapentin 300 mg PO BID 07/05/18 08/25/18 History iron aspgl,ps complex-vit C-sa 1 tab PO DAILY 07/05/18 08/25/18 History isosorbide mononitrate 60 mg PO DAILY 07/05/18 08/25/18 History levothyroxine 100 mg PO DAILY 07/05/18 08/25/18 History lisinopril 10 mg PO DAILY 07/05/18 08/25/18 History metformin 850 mg PO BID 07/05/18 08/25/18 History nitroglycerin 0.4 mg SUBLINGUAL DIRECTED 07/05/18 08/25/18 History nystatin 1 applic TOPICAL BID 07/05/18 08/25/18 History nystatin [Nystop] 1 applic TOPICAL TID 07/05/18 08/25/18 History pantoprazole 40 mg PO DAILY 07/05/18 08/25/18 History pioglitazone 30 mg PO DAILY 07/05/18 08/25/18 History sertraline 100 mg PO DAILY 07/05/18 08/25/18 History tolterodine 4 mg PO DAILY 07/05/18 08/25/18 History ranitidine HCl 150 mg PO BID PRN #60 cap 07/07/18 08/25/18 Rx albuterol sulfate 2 puff INHALATION Q4H PRN 08/25/18 08/25/18 History azithromycin 250 mg PO DIRECTED 08/25/18 08/25/18 History levofloxacin 750 mg PO DIRECTED 08/25/18 08/25/18 History ondansetron HCl 4 mg PO Q6H PRN 08/25/18 08/25/18 History torsemide 20 mg PO DIRECTED 08/25/18 08/25/18 History Patient History Medical History Heart disease (Chronic) Hypertension (Chronic) on imdur, coreg, lisinopril,amlodipine. will monitor BP. Kidney disease (Chronic) stage 3.Baseline cr 1.2 to 1.3. Will follow labs Surgical History History of cholecystectomy (Resolved) History of tonsillectomy (Resolved) History of heart artery stent (Resolved) continue aspirin, coreg,imdur,lipitor Social History Preferred Language: Upper Sorbian Communication Ability: Effective Beliefs That Will Affect Care: None marital status: / Current Living Situation: Alone Other Information That Helps Us Care for You: No Feels Safe at Home: Yes Safety Concerns: Feels Safe At This Time Smoking Status: Former smoker Do You Dip or Chew Tobacco: No Second Hand Exposure: No Tobacco Cessation Education Requested by Patient: No Hx Alcohol Use: Yes Hx Substance Use: No Review of Systems Review of Systems: All systems reviewed & are unremarkable except as noted in HPI & below Constitutional: + weight gain; no fever and no body aches Respiratory: no cough and no dyspnea Cardiovascular: + dyspnea on exertion and + edema Gastrointestinal: + nausea; no vomiting Genitourinary: no dysuria, no difficulty urinating, no urinary frequency, no urinary hesitancy and no urinary incontinence Musculoskeletal: + swelling and + muscle weakness Physical Exam Constitutional: well developed and well nourished up in chair on 02nc w/ cane bedside, obese Eyes: EOM intact bilaterally ENMT: Ears: no external ear abnormality Nose: no external nose abnormality Mouth: + dry oral mucous membranes Neck: no nuchal rigidity Respiratory: normal respiratory effort Auscultation: + diminished lung sounds and + crackles (bibasilar barney L) Cardiovascular: Rate/Rhythm: regular rate and regular rhythm Extremities: + edema (2+) Gastrointestinal (Abdomen): Inspection/Auscultation: normal bowel sounds Percussion/Palpation: abdomen soft; abdomen nontender Musculoskeletal: Extremities: strength 5/5 throughout Skin: no rashes, warm and dry + skin tightening Neurologic: nielsen, fluent speech, no tremor Psychiatric: A+Ox3, euthymic affect Insight: good insight Judgement: good judgement Results & Data Vital Signs (Past 12 Hours) Vital Signs Temp Pulse Pulse Pulse Resp BP BP 08/30/18 16:00 37.7 C H 75 20 133/74 08/30/18 11:30 37.0 C 67 16 114/64 08/30/18 07:31 69 04/18/19 07:19 36.8 C 62 16 114/68 Pulse Ox 08/30/18 16:00 96 08/30/18 11:30 98 08/30/18 07:31 08/30/18 07:19 95 Laboratory Results Abnormal lab results 08/29/18 08/29/18 08/30/18 Range/Units 16:53 20:31 07:32 Sodium (136-145) mmol/L Chloride (98-107) mmol/L BUN (7-18) mg/dl Creatinine (0.6-1.2) mg/dl BUN/Creatinine Ratio (10-20) Glucose (70-99) mg/dl POC Glucose 118 H 164 H 134 H (70-99) Osmolality (280-300) mOsm/kg 08/30/18 08/30/18 08/30/18 Range/Units 09:23 11:56 12:27 Sodium 124 L (136-145) mmol/L Chloride 90 L (98-107) mmol/L BUN 29 H (7-18) mg/dl Creatinine 1.38 H (0.6-1.2) mg/dl BUN/Creatinine Ratio 20.7 H (10-20) Glucose 190 H (70-99) mg/dl POC Glucose 173 H (70-99) Osmolality 275 L (280-300) mOsm/kg 08/30/18 Range/Units 16:46 Sodium (136-145) mmol/L Chloride (98-107) mmol/L BUN (7-18) mg/dl Creatinine (0.6-1.2) mg/dl BUN/Creatinine Ratio (10-20) Glucose (70-99) mg/dl POC Glucose 160 H (70-99) Osmolality (280-300) mOsm/kg Diagnostic Findings cxr 08/25 1. Cardiomegaly without radiographic evidence of congestive failure. 2. Small pleural effusions. 3. There is increasing left basilar airspace consolidation from previous. This could represent worsening atelectasis versus pneumonia/aspiration pneumonitis. Clinical correlation will be required.
--- NOTE | 2018-08-30 18:59 | XRay Report ---
XR chest 1V portable CLINICAL HISTORY: 10 kg wt gain > bibasilar crackles; suspected volume overload COMPARISON STUDY: 08/25/2018 FINDINGS: The heart remains enlarged. There is radiographic evidence of pulmonary vascular congestion /fluid overload. There is persistent left basilar consolidation with air bronchograms. Small effusion s are suspected.[ IMPRESSION: 1. Persistent cardiomegaly and radiographic evidence of congestive failure/fluid overload 2. Persistent left lower lung zone parenchymal consolidation 3. Small pleural effusions Electronically signed by: Prince Reilly M.D. 08/30/2018 6:58 PM
[2018-08-30] MEDS ORDERED: FUROSEMIDE 20 MG in SYRINGE 0 ML IV ONE (19:00)
[2018-08-30 19:08] LABS: BUN Creatinine Ratio 21.1 (10-20); Calcium 9.7 mg/dl (8.5-10.1); Creatinine Clr Calc Pharmacy 51.8 ml/min; Est GFR (African American) 45.6; Est GFR (Non-African American) 39.3; Potassium 4.6 mmol/L (3.5-5.1)
--- NOTE | 2018-08-30 20:56 | Hospitalist Progress Note ---
Date of Service August 30, 2018 Assessment & Plan (1) Acute hypoxemic respiratory failure: Possible aspiration pneumonia present on admission with worsening SOB associated with dry heaving CXR showed increasing left basilar airspace consolidation from previous On Unasyn IV, will transition to augmentin BID Continue augmentin Continue oxygen supplement and neb treatment Blood showed no growth Continue monitor Chronic diastolic heart failure CXR showed cardiomegaly without radiographic evidence of congestive failure. ECHO done in 2019 showed EF 50-54% Continue monitor CAD S/P stent Continue atorvastatin, aspirin and carvedilol Satble Hypertension, BP stable Continue amlodipine and nitrate and carvedilol DM Type 2 Hba1c 5.3 Well controlled Hyponatremia Possible related to diuretic Na on dropped to 124 Will consult nephrology Check Serum and urine osmolarity and urine Na Monitor BMP Acute on CKD stage 3 Creatinine on admission 1.4 Received IVF Creatinine 1.3 today Avoid nephrotoxic agents Monitor BMP Bilateral leg swelling Doppler of LE showed no evidence for DVT DVT px on heparin subq CODE status Full code Disposition Waiting for placement to rehab Subjective Pt was seen and examined Sitting in chair with no distress Denies any new symptoms Physical Exam Physical Exam: General- No acute distress Head- atraumatic Eyes- PERRL, EOMI, ENT- oropharynx clear Neck- supple, no JVD Lungs-Diminished BS, No wheezing Heart- regular rhythm; +murmur Abdomen- normal bowel sounds, soft, nontender Extremities- no calf tenderness, +edema Neuro- alert, oriented x 3; PERRL, EOMI; no facial palsy; no dysarthria Skin- warm & dry Results & Data Vital Signs (Past 12 Hours) Vital Signs Temp Pulse Pulse Pulse Resp BP BP 08/30/18 20:00 37.3 C 93 H 21 117/60 08/30/18 18:54 79 08/30/18 16:00 37.7 C H 75 20 133/74 08/30/18 11:30 37.0 C 67 16 114/64 Pulse Ox 08/30/18 20:00 95 08/30/18 18:54 08/30/18 16:00 96 08/30/18 11:30 98
[2018-08-30] MEDS: ATORVASTATIN 20 MG TAB PO SCH (21:12)
[2018-08-30] MEDS: SERTRALINE HCL 100 MG TABLET PO SCH (21:12)
[2018-08-30] MEDS: MICONAZOLE NITRATE POWDER 43 GM EXT PRN (21:32)
[2018-08-30] MEDS: ACETAMINOPHEN 325 MG TAB PO PRN (22:07)
[2018-08-31] MEDS: FENOFIBRATE~ORDER AWAITING ACTION SCH ×3 (01:24→16:39)
[2018-08-31] MEDS: LEVOTHYROXINE SODIUM 100 MCG TABLET PO SCH (06:03)
[2018-08-31] MEDS: HEPARIN SOD 5,000 UNIT/0.5 ML VIAL SQ SCH ×3 (06:04→21:30)
[2018-08-31] MEDS: GABAPENTIN 300 MG CAP PO SCH ×2 (08:03→21:09)
[2018-08-31] MEDS: CARVEDILOL 6.25 MG TAB PO SCH ×2 (08:04→21:09)
[2018-08-31] MEDS: PANTOprazole 40 MG TAB PO SCH (08:04)
[2018-08-31] MEDS: AMLODIPINE BESYLATE 5 MG TAB PO SCH (08:04)
[2018-08-31] MEDS: guaiFENesin 600 MG TABCR PO SCH ×2 (08:04→21:09)
[2018-08-31] MEDS: TOLTERODINE TARTRATE LA 4 MG CAPCR PO SCH (08:04)
[2018-08-31] MEDS: ASPIRIN 81 MG ECTAB PO SCH (08:04)
[2018-08-31] MEDS: FLUTICASONE PROPIONATE NA SPR 16 GM BTL NAE SCH (08:05)
[2018-08-31] MEDS: AMOXICILLIN/CLAVULANATE 875 MG TAB PO SCH ×2 (08:05→21:09)
[2018-08-31] MEDS: ISOSORBIDE MONO EXTENDED REL 60 MG TABCR PO SCH (08:05)
[2018-08-31] MEDS: INSULIN ASPART 100 UNITS/ML 3 ML PEN SC SCH ×4 (08:07→21:30)
[2018-08-31] MEDS ORDERED: FUROSEMIDE 20 MG in SYRINGE 0 ML IV SCH (09:00)
[2018-08-31 09:28] LABS: BUN Creatinine Ratio 23.1 (10-20); Creatinine Clr Calc Pharmacy 53.9 ml/min; Est GFR (African American) 47.7; Est GFR (Non-African American) 41.1; Potassium 4.2 mmol/L (3.5-5.1)
--- NOTE | 2018-08-31 10:19 | Nephrology Progress Note ---
Date of Service August 31, 2018 Assessment & Plan (1) Hyponatremia: acute worsening of chronic hypoosmolar hypervolemic hyponatremia w/ value this am of 124; osmolality 275 in serum; BG reasonably controlled; just about a 5 kg wt gain since admission on standing scales -cont daily standing wt -I have increased his Lasix to 40 mg IV twice daily. Monitor input output. -limit po fluids to 1L and ordered low Na diet (2) CKD (chronic kidney disease) stage 3, GFR 30-59 ml/min: Patient with the CKD stage III likely due to diabetic nephropathy. Baseline creatinine between 1.2-1.5. Renal function appears to be at baseline. Will monitor renal function closely in setting of escalating diuresis. Avoid nephrotoxins unless lifesaving. And renally dose medications for current GFR. Subjective Patient seen in follow-up for hyponatremia. She is complaining of shortness of breath especially when she walks to the bathroom. She reports lower extremity swelling. No vomiting or diarrhea. Urine output of 500 yesterday. She has been drinking over 2 L of water in a day. Review of Systems Review of Systems: All systems reviewed & are unremarkable except as noted in HPI & below Physical Exam Physical Exam: General exam: Morbidly obese female, appears comfortable on oxygen. She is sitting up in the chair, no acute distress HEENT: Pupils are equal and reactive to light Neck: No JVD, neck is supple trachea is midline Respiratory system: Clear breath sounds bilaterally. Gastrointestinal: Abdomen is soft, non distended, non tender, bowel sounds are present CVS: Regular rate and rhythm. No murmurs, rubs or gallops Musculoskeletal: No joint or muscle tenderness Extremities: Non tender, 2+ edema, peripheral pulses are present Neuro: Oriented, no tremors, no focal neurological deficits Skin: No rashes Results & Data Vital Signs (Past 12 Hours) Vital Signs Temp Pulse Pulse Resp BP BP Pulse Ox 08/31/18 07:19 37.0 C 71 20 147/89 H 96 08/31/18 03:55 36.5 C 78 18 127/77 96 08/31/18 02:00 08/30/18 23:55 90 08/30/18 23:00 37.0 C 86 18 113/80 92/60 L 95 Pulse Ox 08/31/18 07:19 08/31/18 03:55 08/31/18 02:00 96 08/30/18 23:55 08/30/18 23:00 Laboratory Results Sodium is 124, potassium 4.6, bicarb 27, BUN 27, creatinine 1.36
[2018-08-31] MEDS: FUROSEMIDE 40 MG in SYRINGE 0 ML IV SCH ×2 (11:41→16:41)
[2018-08-31] MEDS: ACETAMINOPHEN 325 MG TAB PO PRN (16:40)
[2018-08-31] MEDS: SERTRALINE HCL 100 MG TABLET PO SCH (21:09)
[2018-08-31] MEDS: ATORVASTATIN 20 MG TAB PO SCH (21:09)
--- NOTE | 2018-08-31 21:29 | Hospitalist Progress Note ---
Date of Service August 31, 2018 Assessment & Plan (1) Acute hypoxemic respiratory failure: Possible aspiration pneumonia present on admission with worsening SOB associated with dry heaving CXR showed increasing left basilar airspace consolidation from previous On Unasyn IV, will transition to augmentin BID Continue oxygen supplement and neb treatment Blood showed no growth Continue monitor Chronic diastolic heart failure CXR showed cardiomegaly without radiographic evidence of congestive failure. ECHO done in 2019 showed EF 50-54% Continue monitor CAD S/P stent Continue atorvastatin, aspirin and carvedilol Satble Hypertension, BP stable Continue amlodipine and nitrate and carvedilol DM Type 2 Hba1c 5.3 Well controlled Hyponatremia Possible related to diuretic Na on dropped to 123 Nephrology on board recommended to increase lasix to 40mg IV BID Fluid restriction to 1L Monitor BMP Acute on CKD stage 3 Creatinine on admission 1.4, baseline btw 1.2-1.5 Received IVF Creatinine stable Avoid nephrotoxic agents Monitor BMP Bilateral leg swelling Doppler of LE showed no evidence for DVT DVT px on heparin subq CODE status Full code Disposition will discharge to rehab once medically stable Subjective Pt was seen and examined Sitting in chair with no distress Pt said that breathing improves She said that she has been urinated more Denies any chest pain, palpitation and dizziness Physical Exam Physical Exam: General- No acute distress Head- atraumatic Eyes- PERRL, EOMI, ENT- oropharynx clear Neck- supple, no JVD Lungs-Diminished BS Heart- regular rhythm; +murmur Abdomen- normal bowel sounds, soft, nontender Extremities- no calf tenderness, +edema Neuro- alert, oriented x 3; PERRL, EOMI; no facial palsy; no dysarthria Skin- warm & dry Results & Data Vital Signs (Past 12 Hours) Vital Signs Temp Pulse Pulse Resp BP BP Pulse Ox 08/31/18 21:03 91 H 123/83 96 08/31/18 19:58 37.2 C 86 20 102/56 L 93 08/31/18 16:00 83 08/31/18 15:01 37.3 C 85 18 124/64 97 08/31/18 11:49 36.4 C L 100 H 22 129/77 97 08/31/18 10:23 74
[2018-09-01] MEDS: FENOFIBRATE~ORDER AWAITING ACTION SCH ×3 (00:28→16:25)
[2018-09-01] MEDS: LEVOTHYROXINE SODIUM 100 MCG TABLET PO SCH (05:43)
[2018-09-01] MEDS: HEPARIN SOD 5,000 UNIT/0.5 ML VIAL SQ SCH ×3 (05:43→20:42)
[2018-09-01] MEDS ORDERED: FUROSEMIDE 80 MG in SYRINGE 0 ML IV SCH (08:15)
[2018-09-01] MEDS: ISOSORBIDE MONO EXTENDED REL 60 MG TABCR PO SCH (08:43)
[2018-09-01] MEDS: guaiFENesin 600 MG TABCR PO SCH ×2 (08:44→20:41)
[2018-09-01] MEDS: AMLODIPINE BESYLATE 5 MG TAB PO SCH (08:44)
[2018-09-01] MEDS: GABAPENTIN 300 MG CAP PO SCH ×2 (08:44→20:41)
[2018-09-01] MEDS: CARVEDILOL 6.25 MG TAB PO SCH ×2 (08:44→20:40)
[2018-09-01] MEDS: ASPIRIN 81 MG ECTAB PO SCH (08:44)
[2018-09-01] MEDS: AMOXICILLIN/CLAVULANATE 875 MG TAB PO SCH ×2 (08:45→20:40)
[2018-09-01] MEDS: PANTOprazole 40 MG TAB PO SCH (08:45)
[2018-09-01] MEDS: INSULIN ASPART 100 UNITS/ML 3 ML PEN SC SCH ×4 (08:46→20:53)
[2018-09-01] MEDS: TOLTERODINE TARTRATE LA 4 MG CAPCR PO SCH (08:46)
[2018-09-01] MEDS: FLUTICASONE PROPIONATE NA SPR 16 GM BTL NAE SCH (08:47)
[2018-09-01 10:43] LABS: BUN Creatinine Ratio 24.4 (10-20); Calcium 9.8 mg/dl (8.5-10.1); Creatinine Clr Calc Pharmacy 52.3 ml/min; Est GFR (Non-African American) 39.7; Potassium 4.2 mmol/L (3.5-5.1)
[2018-09-01] MEDS ORDERED: metOLazone 5 MG TABLET PO ONE (11:32)
--- NOTE | 2018-09-01 12:35 | Progress Note ---
DATE: 09/01/2018 NEPHROLOGY PROGRESS NOTE SUBJECTIVE: The patient does appear to be massively edematous, essentially anasarca at this time. Even though she has been getting 40 IV of Lasix twice daily, she really has not made a whole lot of urine. Serum sodium has also not changed. She has poor baseline health. She does not have a Quintanilla catheter, so I am not sure about the input output charting. OBJECTIVE: VITAL SIGNS: Blood pressure 135/69, 94% on 2-liter nasal cannula, pulse rate 74 per minute, temperature 37 degrees Celsius. HEENT: Mucous membrane is moist. NECK: Supple. Cannot assess jugular venous distention. CHEST: Bilateral decreased breath sounds, very poor inspiratory effort. CARDIOVASCULAR: Very, very distant heart sounds secondary to morbid obesity. Urine output yesterday in a 24-hour time period was only 1000 mL and the day before was 501 mL. ASSESSMENT AND PLAN: 1. Hyponatremia. This is hypervolemic hyponatremia. Since she really has not had any effective diuresis, serum sodium has not really changed. Even with the Lasix of 80 IV this morning at 9:00 in almost 3 hours, she has not had any urine output yet. I did discuss this with the nurse taking care of the patient and we will be doing a bladder scan. After that, we will decide about increasing the Lasix. If she really has not had any urine output, I would increase the Lasix to 100 mg IV q. 8 hours. Unless she has effective diuresis, serum sodium will not be going higher. Continue fluid restriction. MTDD
[2018-09-01] MEDS: FUROSEMIDE 100 MG in SYRINGE 0 ML IV SCH ×3 (13:29→20:40)
--- NOTE | 2018-09-01 19:24 | Hospitalist Progress Note ---
Date of Service September 01, 2018 Assessment & Plan (1) Acute hypoxemic respiratory failure: O2 sats as low as 85%. Possible aspiration pneumonia. Continue supplemental O2. (2) Pneumonia: Chest x-ray showed left basilar density, suspected pneumonia. Possible aspiration pneumonia. Received IV ampicillin / sulbactam --> PO amoxicillin / clavlanic acid. (3) Coronary artery disease: No anginal symptoms. Continue aspirin, carvedilol, amlodipine, nitrates, atorvastatin. (4) Chronic diastolic heart failure: Appears to be compensated. Continue furosemide. (5) Atrial fibrillation: Rate controlled on carvedilol. Not anticoagulated-need to clarify history. (6) Hypertension: Continue carvedilol, amlodipine, nitrates. (7) CKD (chronic kidney disease), stage III: Serum creatinine this morning = 1.35. Follow. (8) Hyponatremia: Serum sodium 127 at time of admission and fell as low as 123. Nephrology consulted. Continue fluid restriction and furosemide. Sodium this morning = 125. Follow. (9) DVT prophylaxis: Receiving SQ heparin. Ambulate as able. (10) Discharge planning issues: Discharge disposition to be determined. Family Medicine follow-up with Dr. Matias. Subjective Recheck for multiple problems. Patient seen in her room around 1650. Tired. No fever. Occasional cough. Dyspnea about the same. No chest pain. No nausea or vomiting. No diarrhea. Has Quintanilla catheter. Review of Systems Review of Systems: As noted above. Physical Exam Constitutional: no acute distress Respiratory: no respiratory distress Auscultation: + rales and + rhonchi (few) Cardiovascular: Rate/Rhythm: + irregularly irregular Heart Sounds: no gallop Vessels: + JVD Extremities: + edema (3+ pretibial); no calf tenderness Gastrointestinal (Abdomen): normal bowel sounds, soft, nontender, no hepatosplenomegaly Skin: no rashes, warm and dry Psychiatric: Orientation: alert and oriented x 3 Results & Data Vital Signs (Past 12 Hours) Vital Signs Temp Pulse Resp BP Pulse Ox 09/01/18 13:32 66 159/87 H 09/01/18 11:47 36.7 C 73 18 109/65 97 Laboratory Results Laboratory Results - last 24 hr 09/01/18 09/01/18 09/01/18 09:52 11:48 16:34 Sodium 125 L Potassium 4.2 Chloride 90 L Carbon Dioxide 28 Anion Gap 7.0 BUN 33 H Creatinine 1.35 H Est Cr Clr Drug Dosing 52.3 Est GFR ( Amer) 46.0 Est GFR (Non-Af Amer) 39.7 BUN/Creatinine Ratio 24.4 H Glucose 210 H POC Glucose 177 H 189 H Calcium 9.8 09/01/18 20:50 Sodium Potassium Chloride Carbon Dioxide Anion Gap BUN Creatinine Est Cr Clr Drug Dosing Est GFR ( Amer) Est GFR (Non-Af Amer) BUN/Creatinine Ratio Glucose POC Glucose 197 H Calcium (1) Pneumonia Laterality: left Lung location: lower lobe of lung Pneumonia type: due to unspecified organism Qualified Code(s): J18.1 - Lobar pneumonia, unspecified organism
[2018-09-01] MEDS: ATORVASTATIN 20 MG TAB PO SCH (20:41)
[2018-09-01] MEDS: SERTRALINE HCL 100 MG TABLET PO SCH (20:42)
[2018-09-01] MEDS: ACETAMINOPHEN 325 MG TAB PO PRN (23:06)
[2018-09-02] MEDS: FENOFIBRATE~ORDER AWAITING ACTION SCH ×3 (01:37→15:26)
[2018-09-02] MEDS: HEPARIN SOD 5,000 UNIT/0.5 ML VIAL SQ SCH ×3 (05:58→21:33)
[2018-09-02] MEDS: LEVOTHYROXINE SODIUM 100 MCG TABLET PO SCH (05:58)
[2018-09-02] MEDS: CARVEDILOL 6.25 MG TAB PO SCH ×2 (07:56→21:27)
[2018-09-02] MEDS: TOLTERODINE TARTRATE LA 4 MG CAPCR PO SCH (07:57)
[2018-09-02] MEDS: AMLODIPINE BESYLATE 5 MG TAB PO SCH (07:57)
[2018-09-02] MEDS: GABAPENTIN 300 MG CAP PO SCH ×2 (07:57→21:26)
[2018-09-02] MEDS: guaiFENesin 600 MG TABCR PO SCH ×2 (07:58→21:27)
[2018-09-02] MEDS: ASPIRIN 81 MG ECTAB PO SCH (07:58)
[2018-09-02] MEDS: ISOSORBIDE MONO EXTENDED REL 60 MG TABCR PO SCH (07:58)
[2018-09-02] MEDS: PANTOprazole 40 MG TAB PO SCH (07:59)
[2018-09-02] MEDS: FLUTICASONE PROPIONATE NA SPR 16 GM BTL NAE SCH (08:06)
[2018-09-02] MEDS: INSULIN ASPART 100 UNITS/ML 3 ML PEN SC SCH ×4 (08:10→21:32)
[2018-09-02] MEDS: FUROSEMIDE 100 MG in SYRINGE 0 ML IV SCH ×3 (08:21→21:40)
[2018-09-02 09:32] LABS: Hematocrit (blood only) 30.6 % (37-47); Hemoglobin 10.1 g/dL (12.0-16.0); Mean Corpuscular Volume 87.9 fL (80-100); Mean Platelet Volume 9.2 fL (7.4-10.4); Platelet Count 292 K/uL (130-400); RDW Coefficient of Variation 13.5 % (11.5-14.5); RDW Standard Deviation 43.8 fL (36.4-46.3); Red Blood Count 3.48 M/uL (4.2-5.4); White Blood Count 13.76 K/uL (4.8-10.8)
[2018-09-02 10:07] LABS: BUN Creatinine Ratio 24.3 (10-20); Calcium 9.8 mg/dl (8.5-10.1); Creatinine Clr Calc Pharmacy 46.7 ml/min; Est GFR (African American) 40.5; Est GFR (Non-African American) 34.9; Potassium 4.1 mmol/L (3.5-5.1)
[2018-09-02] MEDS: ACETAMINOPHEN 325 MG TAB PO PRN (14:39)
--- NOTE | 2018-09-02 15:16 | Progress Note ---
DATE: 09/02/2018 SUBJECTIVE: The patient still appears to be massively edematous even with the highest possible dose of Lasix. She has only had about 1075 mL of urine in a 24-hour time period and about 500 mL overnight. Serum sodium has been relatively stable at around 123-125. She has poor baseline health, now does have a Quintanilla catheter for better monitoring of the input-output. PHYSICAL EXAMINATION: GENERAL: Elderly obese white female who is not in any respiratory distress. VITAL SIGNS: Pulse rate 74 per minute, blood pressure 134/74, 94% on 2 liter nasal cannula, afebrile. CHEST: Bilateral decreased breath sounds, poor inspiratory effort. CARDIOVASCULAR: S1 and S2, regular. ABDOMEN: Soft, nontender, obese. EXTREMITIES: Shows 3+ edema bilaterally with anasarca. LABORATORY TESTS: Reviewed in detail. Blood work from this morning shows sodium 125, potassium 4.1, chloride 87, BUN 36, creatinine is 1.50. ASSESSMENT AND PLAN: Hyponatremia. This is hypervolemic hyponatremia. At this time, she is on a maximum possible dose of Lasix, which I will continue. There has been slight uptake in the serum bicarbonate as well as creatinine, which will be monitored closely. Given the low serum sodium, I am trying to be more careful of using metolazone. Continue the Quintanilla. Continue current dose of Lasix which is 100 mg IV every 8 hours.
--- NOTE | 2018-09-02 21:07 | Hospitalist Progress Note ---
Date of Service September 02, 2018 Assessment & Plan (1) Acute hypoxemic respiratory failure: O2 sats as low as 85%. Possible aspiration pneumonia vs pulmonary edema (or combination of the 2). Continue supplemental O2. (2) Pneumonia: Chest x-ray showed left basilar density, suspected pneumonia. Possible aspiration pneumonia. Received IV ampicillin / sulbactam --> PO amoxicillin / clavlanic acid to complete course of therapy. (3) Coronary artery disease: No anginal symptoms. Continue aspirin, carvedilol, amlodipine, nitrates, atorvastatin. (4) Chronic diastolic heart failure: CXR 08/30 showed cardiomegaly + pulmonary edema. Still has 3+ pretibial edema. Weight fluctuating. Continue IV furosemide. (5) Atrial fibrillation: Rate controlled on carvedilol. Not anticoagulated-need to clarify history. (6) Hypertension: Continue carvedilol, amlodipine, nitrates. (7) CKD (chronic kidney disease), stage III: Serum creatinine this morning = 1.5. Follow. (8) Hyponatremia: Serum sodium 127 at time of admission and fell as low as 123. Nephrology consulted. Continue fluid restriction and furosemide. Sodium this morning = 125. Follow. (9) Diabetes mellitus type 2, controlled: Hold metformin during hospital stay. FBS today = 156. Continue Lantus / NovoLog per protocol. (10) DVT prophylaxis: Receiving SQ heparin. Ambulate as able. (11) Discharge planning issues: Discharge disposition to be determined. Family Medicine follow-up with Dr. Matias. Subjective Recheck for multiple problems. Patient seen in her room around 1820. Family visiting. Still weak. No fever. Occasional cough. Dyspnea about the same. Still orthopneic. Persistent dependent edema. No chest pain. No nausea or vomiting. No diarrhea. Still has Quintanilla catheter. Review of systems as noted above. Physical Exam Constitutional: no acute distress Respiratory: no respiratory distress Auscultation: + rales Cardiovascular: Rate/Rhythm: + irregularly irregular Heart Sounds: no gallop Vessels: + JVD Extremities: + edema (3+ pretibial); no calf tenderness Gastrointestinal (Abdomen): normal bowel sounds, soft, nontender, no hepatosplenomegaly Skin: no rashes, warm and dry Psychiatric: Orientation: alert and oriented x 3 Results & Data Vital Signs (Past 12 Hours) Vital Signs Temp Pulse Resp BP Pulse Ox 09/02/18 16:01 36.7 C 76 18 145/76 H 97 09/02/18 11:28 36.8 C 74 18 134/74 96 Laboratory Results Laboratory Results - last 24 hr 09/01/18 09/02/18 09/02/18 20:50 07:42 09:08 WBC 13.76 H RBC 3.48 L Hgb 10.1 L Hct 30.6 L MCV 87.9 MCH 29.0 MCHC 33.0 RDW Std Deviation 43.8 RDW Coeff of Ezequiel 13.5 Plt Count 292 MPV 9.2 Sodium Potassium Chloride Carbon Dioxide Anion Gap BUN Creatinine Est Cr Clr Drug Dosing Est GFR ( Amer) Est GFR (Non-Af Amer) BUN/Creatinine Ratio Glucose POC Glucose 197 H 156 H Calcium 09/02/18 09/02/18 09/02/18 09:08 11:47 16:50 WBC RBC Hgb Hct MCV MCH MCHC RDW Std Deviation RDW Coeff of Ezequiel Plt Count MPV Sodium 125 L Potassium 4.1 Chloride 87 L Carbon Dioxide 32 Anion Gap 7.0 BUN 36 H Creatinine 1.50 H Est Cr Clr Drug Dosing 46.7 Est GFR ( Amer) 40.5 Est GFR (Non-Af Amer) 34.9 BUN/Creatinine Ratio 24.3 H Glucose 209 H POC Glucose 173 H 185 H Calcium 9.8 09/02/18 20:23 WBC RBC Hgb Hct MCV MCH MCHC RDW Std Deviation RDW Coeff of Ezequiel Plt Count MPV Sodium Potassium Chloride Carbon Dioxide Anion Gap BUN Creatinine Est Cr Clr Drug Dosing Est GFR ( Amer) Est GFR (Non-Af Amer) BUN/Creatinine Ratio Glucose POC Glucose 161 H Calcium (1) Pneumonia Laterality: left Lung location: lower lobe of lung Pneumonia type: due to unspecified organism Qualified Code(s): J18.1 - Lobar pneumonia, unspecified organism
[2018-09-02] MEDS: SERTRALINE HCL 100 MG TABLET PO SCH (21:26)
[2018-09-02] MEDS: ATORVASTATIN 20 MG TAB PO SCH (21:27)
[2018-09-03] MEDS: FENOFIBRATE~ORDER AWAITING ACTION SCH ×4 (00:16→22:55)
[2018-09-03] MEDS: LEVOTHYROXINE SODIUM 100 MCG TABLET PO SCH (06:15)
[2018-09-03] MEDS: HEPARIN SOD 5,000 UNIT/0.5 ML VIAL SQ SCH ×3 (06:16→20:38)
[2018-09-03 06:48] LABS: Hematocrit (blood only) 30.3 % (37-47); Hemoglobin 10.4 g/dL (12.0-16.0); Mean Corpuscular Hgb Conc 34.3 g/dL (32-36); Mean Corpuscular Volume 86.1 fL (80-100); Mean Platelet Volume 9.1 fL (7.4-10.4); Platelet Count 303 K/uL (130-400); RDW Coefficient of Variation 13.6 % (11.5-14.5); Red Blood Count 3.52 M/uL (4.2-5.4); White Blood Count 12.02 K/uL (4.8-10.8)
[2018-09-03 07:18] LABS: BUN Creatinine Ratio 26.7 (10-20); Calcium 9.6 mg/dl (8.5-10.1); Creatinine Clr Calc Pharmacy 45.2 ml/min; Est GFR (African American) 39.2; Est GFR (Non-African American) 33.8; Potassium 3.9 mmol/L (3.5-5.1)
[2018-09-03 07:41] LABS: Estimated Average Glucose 146 mg/dl
[2018-09-03] MEDS: guaiFENesin 600 MG TABCR PO SCH ×2 (08:46→20:39)
[2018-09-03] MEDS: AMLODIPINE BESYLATE 5 MG TAB PO SCH (08:46)
[2018-09-03] MEDS: PANTOprazole 40 MG TAB PO SCH (08:46)
[2018-09-03] MEDS: ASPIRIN 81 MG ECTAB PO SCH (08:47)
[2018-09-03] MEDS: TOLTERODINE TARTRATE LA 4 MG CAPCR PO SCH (08:47)
[2018-09-03] MEDS: FLUTICASONE PROPIONATE NA SPR 16 GM BTL NAE SCH (08:47)
[2018-09-03] MEDS: ISOSORBIDE MONO EXTENDED REL 60 MG TABCR PO SCH (08:47)
[2018-09-03] MEDS: CARVEDILOL 6.25 MG TAB PO SCH ×2 (08:47→20:40)
[2018-09-03] MEDS: FUROSEMIDE 100 MG in SYRINGE 0 ML IV SCH ×3 (08:48→20:39)
[2018-09-03] MEDS: GABAPENTIN 300 MG CAP PO SCH ×2 (08:48→20:39)
[2018-09-03] MEDS: INSULIN ASPART 100 UNITS/ML 3 ML PEN SC SCH ×4 (08:49→20:38)
--- NOTE | 2018-09-03 10:08 | Nephrology Progress Note ---
Date of Service September 03, 2018 Assessment & Plan (1) Hyponatremia: acute worsening of chronic hypoosmolar hypervolemic hyponatremia. Sodium improving to 128 today in setting of diuresis; osmolality 275 in serum; patient was net -1.5 L yesterday. -cont daily standing wt -Continue Lasix 100 mg IV 3 times daily. Monitor input output. -limit po fluids to 1L and low Na diet (2) CKD (chronic kidney disease) stage 3, GFR 30-59 ml/min: Patient with the CKD stage III likely due to diabetic nephropathy. Baseline creatinine between 1.2-1.5. Creatinine up to 1.5 today. Renal function appears to be at baseline. Will monitor renal function closely in setting of escalating diuresis. Avoid nephrotoxins unless lifesaving. And renally dose medications for current GFR. Subjective Patient seen during rounds this morning. She was seated up in the chair just after breakfast. Reports exertional shortness of breath with minimal activity. She still has leg edema. She is limiting fluid intake. Urine output has increased. Sodium is better today at 128. Review of Systems Constitutional: + weight gain; no fever and no body aches Cardiovascular: + dyspnea on exertion and + edema Gastrointestinal: + nausea; no vomiting Musculoskeletal: + swelling and + muscle weakness Physical Exam Physical Exam: General exam: Obese female, appears comfortable, no acute distress HEENT: Pupils are equal and reactive to light Neck: No JVD, neck is supple trachea is midline Respiratory system: Clear breath sounds bilaterally. Gastrointestinal: Abdomen is soft, non distended, non tender, bowel sounds are present CVS: Regular rate and rhythm. No murmurs, rubs or gallops Musculoskeletal: No joint or muscle tenderness Extremities: Non tender, 1+ edema, peripheral pulses are present Neuro: Oriented, no tremors, no focal neurological deficits Skin: No rashes Results & Data Vital Signs (Past 12 Hours) Vital Signs Temp Pulse Resp BP Pulse Ox 09/03/18 08:00 36.6 C 78 18 108/56 L 94 09/03/18 04:49 36.7 C 78 18 124/75 94 09/02/18 22:49 36.5 C 80 18 97/60 L 95 Laboratory Results Sodium 128, potassium 3.9, creatinine 1.5
[2018-09-03] MEDS: ACETAMINOPHEN 325 MG TAB PO PRN (16:58)
[2018-09-03] MEDS: ATORVASTATIN 20 MG TAB PO SCH (20:39)
[2018-09-03] MEDS: SERTRALINE HCL 100 MG TABLET PO SCH (20:39)
--- NOTE | 2018-09-03 21:38 | Hospitalist Progress Note ---
Date of Service September 03, 2018 Assessment & Plan (1) Acute hypoxemic respiratory failure: O2 sats as low as 85%. Possible aspiration pneumonia vs pulmonary edema (or combination of the 2). Continue supplemental O2. (2) Pneumonia: Chest x-ray showed left basilar density, suspected pneumonia. Possible aspiration pneumonia. Received IV ampicillin / sulbactam --> PO amoxicillin / clavlanic acid to complete course of therapy. (3) Coronary artery disease: No anginal symptoms. Continue aspirin, carvedilol, amlodipine, nitrates, atorvastatin. (4) Chronic diastolic heart failure: CXR 08/30 showed cardiomegaly + pulmonary edema. Still has 3+ pretibial edema. Weight fluctuating. Continue IV furosemide. (5) Atrial fibrillation: Rate controlled on carvedilol. Not anticoagulated-need to clarify history. (6) Hypertension: Continue carvedilol, amlodipine, nitrates. (7) CKD (chronic kidney disease), stage III: Serum creatinine this morning = 1.54. Follow. (8) Hyponatremia: Serum sodium 127 at time of admission and fell as low as 123. Nephrology consulted. Continue fluid restriction and furosemide. Sodium this morning = 128. Follow. (9) Diabetes mellitus type 2, controlled: Hold metformin during hospital stay. FBS today = 172. Continue Lantus / NovoLog per protocol. (10) DVT prophylaxis: Receiving SQ heparin. Ambulate as able. (11) Discharge planning issues: Discharge disposition to be determined. Anticipate need for skilled care. Family Medicine follow-up with Dr. Matias. Subjective Recheck for multiple problems. Patient seen in her room around 1030. No fever. Occasional cough. Dyspnea about the same. Orthopnea improved- able to rest in bed last night. Persistent dependent edema. No chest pain. No nausea or vomiting. No diarrhea. Still has Quintanilla catheter. Review of systems as noted above. Physical Exam Constitutional: no acute distress Respiratory: no respiratory distress Auscultation: + rales Cardiovascular: Rate/Rhythm: + irregularly irregular Heart Sounds: no gallop Vessels: + JVD Extremities: + edema (3+ pretibial); no calf tende rness Gastrointestinal (Abdomen): normal bowel sounds, soft, nontender, no hepatosplenomegaly Skin: no rashes, warm and dry Psychiatric: Orientation: alert and oriented x 3 Results & Data Vital Signs (Past 12 Hours) Vital Signs Temp Pulse Pulse Resp BP Pulse Ox 09/03/18 19:00 36.4 C L 73 19 97/60 L 96 09/03/18 15:00 80 09/03/18 13:39 75 102/64 95 09/03/18 12:19 36.7 C 78 20 113/70 96 Laboratory Results Laboratory Results - last 24 hr 09/03/18 09/03/18 09/03/18 06:24 06:24 06:24 WBC 12.02 H RBC 3.52 L Hgb 10.4 L Hct 30.3 L MCV 86.1 MCH 29.5 MCHC 34.3 RDW Std Deviation 43.0 RDW Coeff of Ezequiel 13.6 Plt Count 303 MPV 9.1 Sodium 128 L Potassium 3.9 Chloride 89 L Carbon Dioxide 32 Anion Gap 7.0 BUN 41 H Creatinine 1.54 H Est Cr Clr Drug Dosing 45.2 Est GFR ( Amer) 39.2 Est GFR (Non-Af Amer) 33.8 BUN/Creatinine Ratio 26.7 H Glucose 154 H POC Glucose Estimat Average Glucose 146 Hemoglobin A1c 6.7 H Calcium 9.6 09/03/18 09/03/18 09/03/18 08:11 11:55 20:07 WBC RBC Hgb Hct MCV MCH MCHC RDW Std Deviation RDW Coeff of Ezequiel Plt Count MPV Sodium Potassium Chloride Carbon Dioxide Anion Gap BUN Creatinine Est Cr Clr Drug Dosing Est GFR ( Amer) Est GFR (Non-Af Amer) BUN/Creatinine Ratio Glucose POC Glucose 172 H 179 H 214 H Estimat Average Glucose Hemoglobin A1c Calcium (1) Pneumonia Laterality: left Lung location: lower lobe of lung Pneumonia type: due to unspecified organism Qualified Code(s): J18.1 - Lobar pneumonia, unspecified organism
[2018-09-04] MEDS: ACETAMINOPHEN 325 MG TAB PO PRN (00:26)
[2018-09-04] MEDS: LEVOTHYROXINE SODIUM 100 MCG TABLET PO SCH (05:58)
[2018-09-04] MEDS: HEPARIN SOD 5,000 UNIT/0.5 ML VIAL SQ SCH ×3 (05:58→22:02)
[2018-09-04] MEDS: ISOSORBIDE MONO EXTENDED REL 60 MG TABCR PO SCH (08:07)
[2018-09-04] MEDS: CARVEDILOL 6.25 MG TAB PO SCH ×2 (08:07→22:05)
[2018-09-04] MEDS: PANTOprazole 40 MG TAB PO SCH (08:08)
[2018-09-04] MEDS: ASPIRIN 81 MG ECTAB PO SCH (08:08)
[2018-09-04] MEDS: GABAPENTIN 300 MG CAP PO SCH ×2 (08:08→22:05)
[2018-09-04] MEDS: TOLTERODINE TARTRATE LA 4 MG CAPCR PO SCH (08:08)
[2018-09-04] MEDS: FLUTICASONE PROPIONATE NA SPR 16 GM BTL NAE SCH (08:08)
[2018-09-04] MEDS: AMLODIPINE BESYLATE 5 MG TAB PO SCH (08:09)
[2018-09-04] MEDS: guaiFENesin 600 MG TABCR PO SCH ×2 (08:10→22:05)
[2018-09-04] MEDS: FUROSEMIDE 100 MG in SYRINGE 0 ML IV SCH ×3 (08:10→22:04)
[2018-09-04] MEDS: FENOFIBRATE~ORDER AWAITING ACTION SCH ×2 (08:11→15:53)
[2018-09-04] MEDS: INSULIN ASPART 100 UNITS/ML 3 ML PEN SC SCH ×4 (08:12→22:02)
[2018-09-04 08:22] LABS: BUN Creatinine Ratio 27.9 (10-20); Creatinine Clr Calc Pharmacy 41.6 ml/min; Est GFR (African American) 35.3; Est GFR (Non-African American) 30.5; Potassium 3.9 mmol/L (3.5-5.1)
[2018-09-04] MEDS ORDERED: metOLazone 5 MG TABLET PO ONE (09:25)
--- NOTE | 2018-09-04 16:40 | Nephrology Progress Note ---
Date of Service September 04, 2018 Assessment & Plan (1) Hyponatremia: acute worsening of chronic hypoosmolar hypervolemic hyponatremia. Sodium lower at 127 today in setting of diuresis; osmolality 275 in serum; -Will add metolazone 5mg po once today -cont daily standing wt -Continue Lasix 100 mg IV 3 times daily. Monitor input output. -limit po fluids to 1L and low Na diet (2) CKD (chronic kidney disease) stage 3, GFR 30-59 ml/min: Patient with the CKD stage III likely due to diabetic nephropathy. Baseline creatinine between 1.2-1.5. Creatinine up to 1.68 today. Renal function appears to be worsening. Will monitor renal function closely in setting of escalating diuresis. Avoid nephrotoxins unless lifesaving. And renally dose medications for current GFR. Subjective Patient seen in f/u for hyponatremia and volume overload. She reports SOB with exertion. She was able to walk to BR today with PT. Na is lower at 127 today. Review of Systems Constitutional: + weakness Eyes: no problem reported Respiratory: + dyspnea and + dyspnea on exertion Cardiovascular: + edema Gastrointestinal: no problem reported Neurologic: no headache(s) and no confusion Endocrine: + fatigue Physical Exam Physical Exam: General exam: Obese female, Appears comfortable, no acute distress HEENT: Pupils are equal and reactive to light Neck: No JVD, neck is supple trachea is midline Respiratory system: Clear breath sounds bilaterally. Gastrointestinal: Abdomen is soft, non distended, non tender, bowel sounds are present CVS: Regular rate and rhythm. No murmurs, rubs or gallops Musculoskeletal: No joint or muscle tenderness Extremities: Non tender, 1+ edema, peripheral pulses are present Neuro: Oriented, no tremors, no focal neurological deficits Skin: No rashes Results & Data Vital Signs (Past 12 Hours) Vital Signs Temp Pulse Pulse Pulse Resp BP BP 09/04/18 15:57 37 C 82 20 133/83 09/04/18 11:59 36.9 C 90 20 107/76 09/04/18 07:29 36.4 C L 82 20 122/73 09/04/18 07:08 82 Pulse Ox 09/04/18 15:57 92 09/04/18 11:59 94 09/04/18 07:29 93 09/04/18 07:08 Laboratory Results Na 127, cr 1.68
--- NOTE | 2018-09-04 19:33 | Hospitalist Progress Note ---
Date of Service September 04, 2018 Assessment & Plan (1) Acute hypoxemic respiratory failure: Possible aspiration pneumonia present on admission with worsening SOB associated with dry heaving CXR showed increasing left basilar airspace consolidation from previous Received Unasyn IV, then transition to augmentin BID. Completed the course of Abx with Augmentin Continue oxygen supplement and neb treatment Blood showed no growth Continue monitor Chronic diastolic heart failure CXR showed cardiomegaly without radiographic evidence of congestive failure. ECHO done in 2019 showed EF 50-54% Continue monitor CAD S/P stent Continue atorvastatin, aspirin and carvedilol Satble Hypertension, BP stable Continue amlodipine and nitrate and carvedilol DM Type 2 Hba1c 5.3 Well controlled Hyponatremia Possible related to diuretic Na on dropped to 126 Nephrology on board Continue Lasix 100mg IV TID and Fluid restriction to 1L Monitor BMP Acute on CKD stage 3 Creatinine on admission 1.4, baseline btw 1.2-1.5 Received IVF Creatinine stable Avoid nephrotoxic agents Monitor BMP Bilateral leg swelling Doppler of LE showed no evidence for DVT DVT px on heparin subq CODE status Full code Disposition will discharge to rehab once medically stable Subjective Pt was seen and examined Sitting in chair with no distress Pt said that she feels ok She said that she does have SOB with exertion Denies any chest pain, palpitation and SOB Physical Exam Physical Exam: General- No acute distress Head- atraumatic Eyes- PERRL, EOMI, ENT- oropharynx clear Neck- supple, no JVD Lungs-Diminished BS Heart- regular rhythm; +murmur Abdomen- normal bowel sounds, soft, nontender Extremities- no calf tenderness, +edema Neuro- alert, oriented x 3; PERRL, EOMI; no facial palsy; no dysarthria Skin- warm & dry Results & Data Vital Signs (Past 12 Hours) Vital Signs Temp Pulse Pulse Resp BP BP Pulse Ox 09/04/18 15:57 37 C 82 20 133/83 92 09/04/18 11:59 36.9 C 90 20 107/76 94
[2018-09-04] MEDS: ATORVASTATIN 20 MG TAB PO SCH (22:04)
[2018-09-04] MEDS: SERTRALINE HCL 100 MG TABLET PO SCH (22:06)
[2018-09-05] MEDS: FENOFIBRATE~ORDER AWAITING ACTION SCH ×4 (01:09→23:51)
[2018-09-05] MEDS: LEVOTHYROXINE SODIUM 100 MCG TABLET PO SCH (06:11)
[2018-09-05] MEDS: HEPARIN SOD 5,000 UNIT/0.5 ML VIAL SQ SCH ×3 (06:11→21:22)
[2018-09-05] MEDS: LEVALBUTEROL 1.25MG/0.5ML NEB INH PRN ×2 (06:21→23:41)
[2018-09-05] MEDS: IPRATROPIUM BROMIDE NEB SOLN 0.02% 2.5 ML VIAL INH PRN ×2 (06:21→23:41)
[2018-09-05 07:23] LABS: BUN Creatinine Ratio 31.1 (10-20); Calcium 9.4 mg/dl (8.5-10.1); Creatinine Clr Calc Pharmacy 43.1 ml/min; Est GFR (African American) 36.9; Est GFR (Non-African American) 31.8; Potassium 3.9 mmol/L (3.5-5.1)
[2018-09-05] MEDS: TOLTERODINE TARTRATE LA 4 MG CAPCR PO SCH (08:10)
[2018-09-05] MEDS: guaiFENesin 600 MG TABCR PO SCH ×2 (08:10→21:22)
[2018-09-05] MEDS: ASPIRIN 81 MG ECTAB PO SCH (08:10)
[2018-09-05] MEDS: PANTOprazole 40 MG TAB PO SCH (08:10)
[2018-09-05] MEDS: GABAPENTIN 300 MG CAP PO SCH ×2 (08:10→21:23)
[2018-09-05] MEDS: ISOSORBIDE MONO EXTENDED REL 60 MG TABCR PO SCH (08:10)
[2018-09-05] MEDS: CARVEDILOL 6.25 MG TAB PO SCH ×2 (08:10→21:23)
[2018-09-05] MEDS: AMLODIPINE BESYLATE 5 MG TAB PO SCH (08:10)
[2018-09-05] MEDS: FUROSEMIDE 100 MG in SYRINGE 0 ML IV SCH ×3 (08:11→21:21)
[2018-09-05] MEDS: FLUTICASONE PROPIONATE NA SPR 16 GM BTL NAE SCH (08:11)
[2018-09-05] MEDS: ACETAMINOPHEN 325 MG TAB PO PRN (08:16)
[2018-09-05] MEDS: INSULIN ASPART 100 UNITS/ML 3 ML PEN SC SCH ×4 (08:33→21:21)
--- NOTE | 2018-09-05 10:14 | Nephrology Progress Note ---
Date of Service September 05, 2018 Assessment & Plan (1) Hyponatremia: acute worsening of chronic hypoosmolar hypervolemic hyponatremia. Sodium lower at 126 today in setting of diuresis; osmolality 275 in serum; She is net negative 2litres yesterday after emtolazone -cont daily standing wt -Continue Lasix 100 mg IV 3 times daily. Monitor input output. -limit po fluids to 1L and low Na diet (2) CKD (chronic kidney disease) stage 3, GFR 30-59 ml/min: Patient with the CKD stage III likely due to diabetic nephropathy. Baseline creatinine between 1.2-1.5. Creatinine stable at 1.6 today. Renal function appears to be worsening. Will monitor renal function closely in setting of escalating diuresis. Avoid nephrotoxins unless lifesaving. And renally dose medications for current GFR. Subjective Patient with CKD and hyponatremia due to volume overload. She is seen in follow-up during morning rounds. She is complaining of fatigue. Shortness of breath is slightly better. She walked with PT yesterday. She diuresed well yesterday at -2 L after metolazone. Sodium is down to 126 today. Review of Systems Constitutional: + weakness Eyes: no problem reported Ear, Nose, Mouth, Throat: + problem reported Respiratory: + dyspnea on exertion Cardiovascular: + dyspnea on exertion and + edema Gastrointestinal: no vomiting and no diarrhea/loose stools Genitourinary: patrick Neurologic: + unsteadiness; no headache(s) and no confusion Psychiatric: no problem reported Endocrine: + fatigue Physical Exam Physical Exam: General exam: Obese, Appears comfortable, no acute distress HEENT: Pupils are equal and reactive to light Neck: No JVD, neck is supple trachea is midline Respiratory system: Clear breath sounds bilaterally. Gastrointestinal: Abdomen is soft, non distended, non tender, bowel sounds are present CVS: Regular rate and rhythm. No murmurs, rubs or gallops Musculoskeletal: No joint or muscle tenderness Extremities: Non tender, 2+ edema, peripheral pulses are present Neuro: Oriented, no tremors, no focal neurological deficits Skin: No rashes Results & Data Vital Signs (Past 12 Hours) Vital Signs Temp Pulse Pulse Resp BP Pulse Ox 09/05/18 09:35 95 09/05/18 07:31 66 09/05/18 07:25 36.7 C 61 17 153/70 H 92 09/05/18 06:22 85 18 96 09/05/18 03:35 36.7 C 87 20 119/73 94 09/05/18 00:25 76 09/04/18 23:23 36.6 C 69 18 124/74 94 Laboratory Results Na 126, BUN 50, cr 1.6
--- NOTE | 2018-09-05 19:41 | Hospitalist Progress Note ---
Date of Service September 05, 2018 Assessment & Plan (1) Acute hypoxemic respiratory failure: Possible aspiration pneumonia present on admission with worsening SOB associated with dry heaving CXR showed increasing left basilar airspace consolidation from previous Received Unasyn IV, then transition to augmentin BID. Completed the course of Abx with Augmentin Continue oxygen supplement and neb treatment Blood showed no growth Continue monitor Hyponatremia Possible related to diuretic Na on dropped to 126 Nephrology on board Continue Lasix 100mg IV TID and Received metolazone yesterday Fluid restriction to 1L Monitor BMP Chronic diastolic heart failure CXR showed cardiomegaly without radiographic evidence of congestive failure. ECHO done in 2019 showed EF 50-54% Continue monitor CAD S/P stent Continue atorvastatin, aspirin and carvedilol Satble Hypertension, BP stable Continue amlodipine and nitrate and carvedilol DM Type 2 Hba1c 5.3 Well controlled Acute on CKD stage 3 Creatinine on admission 1.4, baseline btw 1.2-1.5 Creatinine bumped to 1.6 Avoid nephrotoxic agents Monitor BMP Bilateral leg swelling Doppler of LE showed no evidence for DVT DVT px on heparin subq CODE status Full code Disposition will discharge to rehab once medically stable Subjective Pt was seen and examined Lying in bed with no distress Denies any new complaints Physical Exam Physical Exam: General- No acute distress Head- atraumatic Eyes- PERRL, EOMI, ENT- oropharynx clear Neck- supple, no JVD Lungs-Diminished BS Heart- regular rhythm; +murmur Abdomen- normal bowel sounds, soft, nontender Extremities- no calf tenderness, +edema Neuro- alert, oriented x 3; PERRL, EOMI; no facial palsy; no dysarthria Skin- warm & dry Results & Data Vital Signs (Past 12 Hours) Vital Signs Temp Pulse Pulse Resp BP BP Pulse Ox 09/05/18 16:00 36.3 C L 61 18 138/75 96 09/05/18 11:27 36.5 C 60 18 132/72 94 09/05/18 09:35 95
[2018-09-05] MEDS: ATORVASTATIN 20 MG TAB PO SCH (21:23)
[2018-09-05] MEDS: SERTRALINE HCL 100 MG TABLET PO SCH (21:23)
[2018-09-06] MEDS: LEVOTHYROXINE SODIUM 100 MCG TABLET PO SCH (06:12)
[2018-09-06] MEDS: HEPARIN SOD 5,000 UNIT/0.5 ML VIAL SQ SCH ×3 (06:12→20:58)
[2018-09-06] MEDS: IPRATROPIUM BROMIDE NEB SOLN 0.02% 2.5 ML VIAL INH PRN (07:00)
[2018-09-06] MEDS: LEVALBUTEROL 1.25MG/0.5ML NEB INH PRN (07:00)
[2018-09-06] MEDS: GABAPENTIN 300 MG CAP PO SCH ×2 (08:06→20:58)
[2018-09-06] MEDS: FUROSEMIDE 100 MG in SYRINGE 0 ML IV SCH ×3 (08:06→20:55)
[2018-09-06] MEDS: FLUTICASONE PROPIONATE NA SPR 16 GM BTL NAE SCH (08:06)
[2018-09-06] MEDS: FENOFIBRATE~ORDER AWAITING ACTION SCH ×3 (08:07→23:39)
[2018-09-06] MEDS: ISOSORBIDE MONO EXTENDED REL 60 MG TABCR PO SCH (08:07)
[2018-09-06] MEDS: TOLTERODINE TARTRATE LA 4 MG CAPCR PO SCH (08:07)
[2018-09-06] MEDS: PANTOprazole 40 MG TAB PO SCH (08:07)
[2018-09-06] MEDS: CARVEDILOL 6.25 MG TAB PO SCH ×2 (08:07→20:57)
[2018-09-06] MEDS: INSULIN ASPART 100 UNITS/ML 3 ML PEN SC SCH ×4 (08:08→20:58)
[2018-09-06] MEDS: ASPIRIN 81 MG ECTAB PO SCH (08:08)
[2018-09-06] MEDS: guaiFENesin 600 MG TABCR PO SCH ×2 (08:08→20:57)
[2018-09-06] MEDS: AMLODIPINE BESYLATE 5 MG TAB PO SCH (08:08)
[2018-09-06 08:28] LABS: BUN Creatinine Ratio 38.2 (10-20); Calcium 9.9 mg/dl (8.5-10.1); Creatinine Clr Calc Pharmacy 52.1 ml/min; Est GFR (African American) 46.4; Potassium 3.7 mmol/L (3.5-5.1)
--- NOTE | 2018-09-06 09:46 | Nephrology Progress Note ---
Date of Service September 06, 2018 Assessment & Plan (1) Hyponatremia: acute worsening of chronic hypoosmolar hypervolemic hyponatremia. Sodium lower at 129 today in setting of diuresis; osmolality on admission 275 in serum; She is net negative 2.5litres yesterday. -cont daily standing wt -Continue Lasix 100 mg IV 3 times daily. Monitor input output. -limit po fluids to 1L and low Na diet -We will transition to p.o. torsemide 100 mg twice daily towards discharge (2) CKD (chronic kidney disease) stage 3, GFR 30-59 ml/min: Patient with the CKD stage III likely due to diabetic nephropathy. Baseline creatinine between 1.2-1.5. Creatinine stable at 1.3 today. Renal function at baseline. Will monitor renal function closely in setting of escalating diuresis. Avoid nephrotoxins unless lifesaving. And renally dose medications for current GFR. Subjective Patient seen in follow-up for hyponatremia and volume overload. She feels better this morning. She still reports shortness of breath with exertion. She has leg swelling although believes it subsiding. She is diuresing well with net -2.5 L yesterday. She was sitting up in the recliner today Review of Systems Review of Systems: All systems reviewed & are unremarkable except as noted in HPI & below Physical Exam Physical Exam: General exam: Obese female, appears comfortable on oxygen, no acute distress HEENT: Pupils are equal and reactive to light Neck: No JVD, neck is supple trachea is midline Respiratory system: Reduced breath sounds bilaterally. Gastrointestinal: Abdomen is soft, non distended, non tender, bowel sounds are present CVS: Regular rate and rhythm. No murmurs, rubs or gallops Musculoskeletal: No joint or muscle tenderness Extremities: Non tender, 2+ edema, peripheral pulses are present Neuro: Oriented, no tremors, no focal neurological deficits Skin: No rashes Results & Data Vital Signs (Past 12 Hours) Vital Signs Temp Pulse Pulse Resp BP BP Pulse Ox 09/06/18 07:53 36.5 C 63 17 146/76 H 94 09/06/18 07:34 65 09/06/18 07:00 68 18 94 09/06/18 03:26 36.6 C 60 18 105/73 96 09/05/18 23:43 76 18 95 09/05/18 23:10 36.7 C 80 20 98/64 L 95 Laboratory Results Laboratory Results - last 24 hr 09/05/18 09/05/18 09/05/18 11:53 16:24 20:50 Sodium Potassium Chloride Carbon Dioxide Anion Gap BUN Creatinine Est Cr Clr Drug Dosing Est GFR ( Amer) Est GFR (Non-Af Amer) BUN/Creatinine Ratio Glucose POC Glucose 174 H 154 H 177 H Calcium 09/06/18 09/06/18 07:27 07:35 Sodium 129 L Potassium 3.7 Chloride 85 L Carbon Dioxide 37 H Anion Gap 6.0 BUN 51 H Creatinine 1.34 H Est Cr Clr Drug Dosing 52.1 Est GFR ( Amer) 46.4 Est GFR (Non-Af Amer) 40.0 BUN/Creatinine Ratio 38.2 H Glucose 148 H POC Glucose 164 H Calcium 9.9
[2018-09-06] MEDS: MICONAZOLE NITRATE POWDER 43 GM EXT PRN (16:39)
--- NOTE | 2018-09-06 17:15 | Hospitalist Progress Note ---
Date of Service September 06, 2018 Assessment & Plan (1) Acute hypoxemic respiratory failure: Possible aspiration pneumonia present on admission with worsening SOB associated with dry heaving CXR showed increasing left basilar airspace consolidation from previous Received Unasyn IV, then transition to Augmentin BID. Completed the course of Abx with Augmentin Continue oxygen supplement and neb treatment Blood showed no growth Continue monitor Hyponatremia Possible related to diuretic Na improved to 129 today Nephrology on board Continue Lasix 100mg IV TID and Fluid restriction to 1L Plan to transition to oral torsemide 100mg BID on discharge Monitor BMP Chronic diastolic heart failure CXR showed cardiomegaly without radiographic evidence of congestive failure. ECHO done in 2019 showed EF 50-54% Continue diuresis with lasix 100mg TID Continue monitor CAD S/P stent Continue atorvastatin, aspirin and carvedilol Satble Hypertension, BP stable Continue amlodipine and nitrate and carvedilol DM Type 2 Hba1c 5.3 Well controlled Acute on CKD stage 3 Creatinine on admission 1.4, baseline btw 1.2-1.5 Creatinine improved to 1.3 today Avoid nephrotoxic agents Monitor BMP Bilateral leg swelling Doppler of LE showed no evidence for DVT DVT px on heparin subq CODE status Full code Disposition will discharge to rehab once medically stable Subjective Pt was seen and examined Lying in the recliner with no distress Pt said that her breathing feels much better today Denies and chest pain, palpitation, dizziness Physical Exam Physical Exam: General- No acute distress Head- atraumatic Eyes- PERRL, EOMI, ENT- oropharynx clear Neck- supple, no JVD Lungs-Diminished BS Heart- regular rhythm; +murmur Abdomen- normal bowel sounds, soft, nontender Extremities- no calf tenderness, +edema Neuro- alert, oriented x 3; PERRL, EOMI; no facial palsy; no dysarthria Skin- warm & dry Results & Data Vital Signs (Past 12 Hours) Vital Signs Temp Pulse Pulse Resp BP BP Pulse Ox 09/06/18 16:16 36.7 C 59 L 17 132/72 96 09/06/18 13:03 94 09/06/18 12:18 36.5 C 60 17 118/72 95 09/06/18 07:53 36.5 C 63 17 146/76 H 94 09/06/18 07:34 65 09/06/18 07:00 68 18 94
[2018-09-06] MEDS: ATORVASTATIN 20 MG TAB PO SCH (20:57)
[2018-09-06] MEDS: SERTRALINE HCL 100 MG TABLET PO SCH (20:58)
[2018-09-07] MEDS: LEVALBUTEROL 1.25MG/0.5ML NEB INH PRN (04:55)
[2018-09-07] MEDS: IPRATROPIUM BROMIDE NEB SOLN 0.02% 2.5 ML VIAL INH PRN (04:55)
[2018-09-07] MEDS: HEPARIN SOD 5,000 UNIT/0.5 ML VIAL SQ SCH ×3 (06:15→20:57)
[2018-09-07] MEDS: LEVOTHYROXINE SODIUM 100 MCG TABLET PO SCH (06:15)
[2018-09-07 06:28] LABS: BUN Creatinine Ratio 40.5 (10-20); Calcium 9.8 mg/dl (8.5-10.1); Creatinine Clr Calc Pharmacy 60.7 ml/min; Est GFR (African American) 55.8; Est GFR (Non-African American) 48.2; Potassium 3.3 mmol/L (3.5-5.1)
[2018-09-07] MEDS ORDERED: POTASSIUM CHLORIDE 20 MEQ TABCR PO STA (06:32)
[2018-09-07 07:09] LABS: Allen Test Pos (Pos); HCO3 ABG 46 mmol/L (19-24); Oxygen Saturation ABG 93.4 % (90-95); PCO2 ABG 81 mmHg (35-46); PO2 ABG 83 mm/Hg (80-95); pH ABG 7.37 (7.35-7.45)
[2018-09-07] MEDS: INSULIN ASPART 100 UNITS/ML 3 ML PEN SC SCH ×4 (08:17→20:59)
[2018-09-07] MEDS: FENOFIBRATE~ORDER AWAITING ACTION SCH ×3 (08:25→22:45)
[2018-09-07] MEDS: MAGNESIUM SULFATE / D5W 1 GM/100 ML BAG IV SCH ×2 (08:28→09:45)
[2018-09-07] MEDS: GABAPENTIN 300 MG CAP PO SCH ×2 (08:34→20:55)
[2018-09-07] MEDS: TOLTERODINE TARTRATE LA 4 MG CAPCR PO SCH (08:34)
[2018-09-07] MEDS: ISOSORBIDE MONO EXTENDED REL 60 MG TABCR PO SCH (08:34)
[2018-09-07] MEDS: guaiFENesin 600 MG TABCR PO SCH ×2 (08:34→20:55)
[2018-09-07] MEDS: PANTOprazole 40 MG TAB PO SCH (08:34)
[2018-09-07] MEDS: CARVEDILOL 6.25 MG TAB PO SCH ×2 (08:34→20:54)
[2018-09-07] MEDS: AMLODIPINE BESYLATE 5 MG TAB PO SCH (08:34)
[2018-09-07] MEDS: ASPIRIN 81 MG ECTAB PO SCH (08:34)
[2018-09-07] MEDS: FLUTICASONE PROPIONATE NA SPR 16 GM BTL NAE SCH (08:35)
[2018-09-07] MEDS ORDERED: TORSEMIDE 100 MG TAB PO SCH (09:00)
--- NOTE | 2018-09-07 09:23 | Nephrology Progress Note ---
Date of Service September 07, 2018 Assessment & Plan (1) Hyponatremia: acute worsening of chronic hypoosmolar hypervolemic hyponatremia. Sodium stable at 129 today in setting of diuresis; osmolality on admission 275 in serum; She is net negative 2.5litres yesterday. -cont daily standing wt -Start torsemide p.o. 100 mg twice daily. Monitor input output. -limit po fluids to 1L and low Na diet (2) CKD (chronic kidney disease) stage 3, GFR 30-59 ml/min: Patient with the CKD stage III likely due to diabetic nephropathy. Baseline creatinine between 1.2-1.5. Creatinine lower at 1.15 today. Renal function at baseline. Will monitor renal function closely in setting of escalating diuresis. Avoid nephrotoxins unless lifesaving. And renally dose medications for current GFR. (3) Metabolic alkalosis: Likely a contraction alkalosis. Patient also has hypokalemia. We will give potassium chloride 40 mEq daily. Subjective Patient seen in follow-up for hyponatremia and CKD. She still reports exertional dyspnea. Her legs are still swollen but improving. She is now responding to diuretics and was net -4.3 L. She is eating well no vomiting. She is constipated. Review of Systems Review of Systems: All systems reviewed & are unremarkable except as noted in HPI & below Physical Exam Physical Exam: General exam: Morbidly obese lady, appears comfortable, no acute distress HEENT: Pupils are equal and reactive to light Neck: No JVD, neck is supple trachea is midline Respiratory system: Reduced breath sounds bilaterally. Gastrointestinal: Abdomen is soft, non distended, non tender, bowel sounds are present CVS: Regular rate and rhythm. No murmurs, rubs or gallops Musculoskeletal: No joint or muscle tenderness Extremities: Non tender, 2+ edema, peripheral pulses are present Neuro: Oriented, no tremors, no focal neurological deficits Skin: No rashes Results & Data Vital Signs (Past 12 Hours) Vital Signs Temp Pulse Pulse Resp BP BP Pulse Ox 09/07/18 08:24 71 09/07/18 07:30 36.6 C 64 16 133/84 93 09/07/18 04:59 66 16 98 09/07/18 04:21 36.8 C 65 18 139/79 94 09/06/18 23:28 36.8 C 60 20 129/68 95 Laboratory Results Laboratory Results - last 24 hr 09/06/18 09/06/18 09/06/18 11:49 17:05 20:29 ABG pH ABG pCO2 ABG pO2 ABG HCO3 ABG O2 Saturation ABG Base Excess Dayday Test Barometric Pressure Oxygen Given Sodium Potassium Chloride Carbon Dioxide Anion Gap BUN Creatinine Est Cr Clr Drug Dosing Est GFR ( Amer) Est GFR (Non-Af Amer) BUN/Creatinine Ratio Glucose POC Glucose 183 H 158 H 165 H Calcium Magnesium 09/07/18 09/07/18 09/07/18 05:37 05:37 06:53 ABG pH 7.37 ABG pCO2 81 H ABG pO2 83 ABG HCO3 46 H ABG O2 Saturation 93.4 ABG Base Excess 16.8 H Dayday Test Pos Barometric Pressure 721.5 Oxygen Given 3L Sodium 129 L Potassium 3.3 L Chloride 82 L Carbon Dioxide 43 H* Anion Gap 4.0 BUN 47 H Creatinine 1.15 Est Cr Clr Drug Dosing 60.7 Est GFR ( Amer) 55.8 Est GFR (Non-Af Amer) 48.2 BUN/Creatinine Ratio 40.5 H Glucose 142 H POC Glucose Calcium 9.8 Magnesium 1.6 L 09/07/18 07:41 ABG pH ABG pCO2 ABG pO2 ABG HCO3 ABG O2 Saturation ABG Base Excess Dayday Test Barometric Pressure Oxygen Given Sodium Potassium Chloride Carbon Dioxide Anion Gap BUN Creatinine Est Cr Clr Drug Dosing Est GFR ( Amer) Est GFR (Non-Af Amer) BUN/Creatinine Ratio Glucose POC Glucose 147 H Calcium Magnesium
[2018-09-07] MEDS: TORSEMIDE 100 MG TAB PO SCH ×2 (09:45→17:31)
[2018-09-07] MEDS: POTASSIUM CHLORIDE 20 MEQ/15 ML UDC PO SCH (09:46)
--- NOTE | 2018-09-07 11:57 | Hospitalist Progress Note ---
Date of Service September 07, 2018 Assessment & Plan (1) Acute hypoxemic respiratory failure: Possible aspiration pneumonia present on admission with worsening SOB associated with dry heaving CXR showed increasing left basilar airspace consolidation from previous Received Unasyn IV, then transition to Augmentin BID. Completed the course of Abx with Augmentin Continue oxygen supplement and neb treatment Blood showed no growth Continue monitor Hyponatremia Possible related to diuretic Na 129 today (same as yesterday Nephrology on board has been getting Lasix 100mg TID case discussed with Nephrology today Will transition to Torsemide 100mg BID as per nephrology today Continue Fluid restriction to 1L Check BMP in am If Na continue to improves, OK to discharge Chronic diastolic heart failure CXR showed cardiomegaly without radiographic evidence of congestive failure. ECHO done in 2019 showed EF 50-54% Continue diuresis with lasix 100mg TID Continue monitor CAD S/P stent Continue atorvastatin, aspirin and carvedilol Satble Hypertension, BP stable Continue amlodipine and nitrate and carvedilol DM Type 2 Hba1c 5.3 Well controlled Hypokalemia K 3.3 today K replaced Monitor BMP Acute on CKD stage 3 Creatinine on admission 1.4, baseline btw 1.2-1.5 Creatinine improved to 1.15 today Avoid nephrotoxic agents Monitor BMP Bilateral leg swelling Doppler of LE showed no evidence for DVT Improves DVT px on heparin subq CODE status Full code Disposition will discharge to rehab once medically stable Subjective Pt was seen and examined Lying in bed with no distress Pt said that she feels ok She said that her breathing is stable Physical Exam Physical Exam: General- No acute distress Head- atraumatic Eyes- PERRL, EOMI, ENT- oropharynx clear Neck- supple, no JVD Lungs-Diminished BS Heart- regular rhythm; +murmur Abdomen- normal bowel sounds, soft, nontender Extremities- no calf tenderness, +edema Neuro- alert, oriented x 3; PERRL, EOMI; no facial palsy; no dysarthria Skin- warm & dry Results & Data Vital Signs (Past 12 Hours) Vital Signs Temp Pulse Pulse Resp BP BP Pulse Ox 09/07/18 11:34 36.8 C 75 16 116/70 95 09/07/18 08:24 71 09/07/18 07:30 36.6 C 64 16 133/84 93 09/07/18 04:59 66 16 98 09/07/18 04:21 36.8 C 65 18 139/79 94
[2018-09-07] MEDS: SERTRALINE HCL 100 MG TABLET PO SCH (20:55)
[2018-09-07] MEDS: ATORVASTATIN 20 MG TAB PO SCH (20:55)
[2018-09-08] MEDS: IPRATROPIUM BROMIDE NEB SOLN 0.02% 2.5 ML VIAL INH PRN ×2 (05:13→19:04)
[2018-09-08] MEDS: LEVALBUTEROL 1.25MG/0.5ML NEB INH PRN ×2 (05:15→19:04)
[2018-09-08] MEDS: LEVOTHYROXINE SODIUM 100 MCG TABLET PO SCH (06:25)
[2018-09-08] MEDS: HEPARIN SOD 5,000 UNIT/0.5 ML VIAL SQ SCH ×3 (06:25→20:53)
[2018-09-08] MEDS: INSULIN ASPART 100 UNITS/ML 3 ML PEN SC SCH ×4 (08:03→20:51)
[2018-09-08] MEDS: CARVEDILOL 6.25 MG TAB PO SCH ×2 (08:04→20:52)
[2018-09-08] MEDS: AMLODIPINE BESYLATE 5 MG TAB PO SCH (08:04)
[2018-09-08] MEDS: TOLTERODINE TARTRATE LA 4 MG CAPCR PO SCH (08:04)
[2018-09-08] MEDS: FENOFIBRATE~ORDER AWAITING ACTION SCH ×2 (08:04→17:21)
[2018-09-08] MEDS: PANTOprazole 40 MG TAB PO SCH (08:04)
[2018-09-08] MEDS: ASPIRIN 81 MG ECTAB PO SCH (08:05)
[2018-09-08] MEDS: guaiFENesin 600 MG TABCR PO SCH (08:05)
[2018-09-08] MEDS: TORSEMIDE 100 MG TAB PO SCH ×2 (08:05→17:23)
[2018-09-08] MEDS: ISOSORBIDE MONO EXTENDED REL 60 MG TABCR PO SCH (08:05)
[2018-09-08] MEDS: FLUTICASONE PROPIONATE NA SPR 16 GM BTL NAE SCH (08:05)
[2018-09-08] MEDS: GABAPENTIN 300 MG CAP PO SCH ×2 (08:06→20:53)
[2018-09-08] MEDS: POTASSIUM CHLORIDE 20 MEQ/15 ML UDC PO SCH ×2 (08:06→10:24)
[2018-09-08] MEDS: POTASSIUM CHLORIDE 10 MEQ TABCR PO SCH ×2 (11:53→20:52)
[2018-09-08] MEDS ORDERED: POLYETHYLENE (MIRALAX) 17 GM PACK PO ONE (12:36)
--- NOTE | 2018-09-08 15:30 | Hospitalist Progress Note ---
Date of Service September 08, 2018 Assessment & Plan (1) Acute hypoxemic respiratory failure: O2 sats as low as 85%. Possible aspiration pneumonia vs pulmonary edema (or combination of the 2). Now saturating well on 3 L NC. Continue supplemental O2. (2) Pneumonia: Chest x-ray showed left basilar density, suspected pneumonia. Possible aspiration pneumonia. Received IV ampicillin / sulbactam --> PO amoxicillin / clavlanic acid to complete course of therapy. (3) Coronary artery disease: No anginal symptoms. Continue aspirin, carvedilol, amlodipine, nitrates, atorvastatin. (4) Chronic diastolic heart failure: CXR 08/30 showed cardiomegaly + pulmonary edema. Still has 2-3+ pretibial edema. Received IV furosemide. Weights vary from day to day, but seem to be trending downward (135 --> --> 125 kg). Currently receiving torsemide 100 mg BID. (5) Atrial fibrillation: Telemetry data reviewed. NSR with PAC's and PVC's. Continue carvedilol. Not anticoagulated-need to clarify history. (6) Hypertension: Continue carvedilol, amlodipine, nitrates. (7) CKD (chronic kidney disease), stage III: Serum creatinine yesterday = 1.15. Follow. (8) Hyponatremia: Serum sodium 127 at time of admission and fell as low as 123. Nephrology consulted. Continue fluid restriction and furosemide. Sodium yesterday = 129. Recheck labs tomorrow. Follow. (9) Diabetes mellitus type 2, controlled: Hold metformin during hospital stay. Hgb A1C = 6.7. FBS today = 140. Continue Lantus / NovoLog per protocol. (10) Constipation: MiraLax. (11) DVT prophylaxis: Receiving SQ heparin. Ambulate as able. (12) Discharge planning issues: Needs skilled care. Anticipated transfer to [facility] when stable. Family Medicine follow-up with Dr. Matias. Subjective Recheck for multiple problems. Patient seen in their room around 0955. Generally doing better. Cough improved. Less SOB. Dependent edema improved. No chest pain. Constipated. Review of Systems: Constitutional- no fever. Cardiac- as noted above Pulmonary- as noted above GI- no nausea, vomiting, diarrhea, melena, hematochezia. - Quintanilla cath. Otherwise, as noted above. Physical Exam Constitutional: no acute distress Respiratory: no respiratory distress Auscultation: + rales (few bibasilar) Cardiovascular: Rate/Rhythm: + irregularly irregular Heart Sounds: no gallop Vessels: + JVD Extremities: + edema (2-3+ pretibial); no calf tenderness Gastrointestinal (Abdomen): normal bowel sounds, soft, nontender, no hepatosplenomegaly Skin: no rashes, warm and dry Psychiatric: Orientation: alert and oriented x 3 Results & Data Vital Signs (Past 12 Hours) Vital Signs Temp Pulse Pulse Resp BP BP Pulse Ox 09/08/18 11:46 36.5 C 73 18 133/90 96 09/08/18 07:17 36.4 C L 77 18 154/75 H 94 09/08/18 05:15 75 16 97 09/08/18 04:00 36.7 C 78 18 144/72 H 93 (1) Pneumonia Laterality: left Lung location: lower lobe of lung Pneumonia type: due to unspecified organism Qualified Code(s): J18.1 - Lobar pneumonia, unspecified organism
--- NOTE | 2018-09-08 16:27 | Nephrology Progress Note ---
Date of Service September 08, 2018 Assessment & Plan (1) Hyponatremia: acute worsening of chronic hypoosmolar hypervolemic hyponatremia. Sodium improving in setting of diuresis; osmolality on admission 275 in serum; She is net negative 2.4litres yesterday. -cont daily standing wt -Continue torsemide p.o. 100 mg twice daily. Monitor input output. -limit po fluids to 1L and low Na diet (2) CKD (chronic kidney disease) stage 3, GFR 30-59 ml/min: Patient with the CKD stage III likely due to diabetic nephropathy. Baseline creatinine between 1.2-1.5. Creatinine at baseline. Renal function at baseline. Will monitor renal function closely in setting of escalating diuresis. Avoid nephrotoxins unless lifesaving. And renally dose medications for current GFR. (3) Metabolic alkalosis: Likely a contraction alkalosis. Patient also has hypokalemia. We will give potassium chloride 40 mEq daily. Subjective Patient seen in f/u for ALISTAIR and volume overload. She continues to diurese well on torsemide, net negative 2.4 litres yesterday. Breathing is slightly better. Still swollen legs. She was sitting up in chair. No vomiting or diarrhoea Review of Systems Review of Systems: All systems reviewed & are unremarkable except as noted in HPI & below Physical Exam Physical Exam: General exam: Appears comfortable, no acute distress HEENT: Pupils are equal and reactive to light Neck: No JVD, neck is supple trachea is midline Respiratory system: Reduced breath sounds bilaterally. Gastrointestinal: Abdomen is soft, non distended, non tender, bowel sounds are present CVS: Regular rate and rhythm. No murmurs, rubs or gallops Musculoskeletal: No joint or muscle tenderness Extremities: Non tender, 2+ edema, peripheral pulses are present Neuro: Oriented, no tremors, no focal neurological deficits Skin: No rashes Results & Data Vital Signs (Past 12 Hours) Vital Signs Temp Pulse Resp BP BP Pulse Ox 09/08/18 15:21 36.8 C 78 18 128/76 95 09/08/18 11:46 36.5 C 73 18 133/90 96 09/08/18 07:17 36.4 C L 77 18 154/75 H 94 09/08/18 05:15 75 16 97 Laboratory Results Laboratory Results - last 24 hr 09/07/18 09/07/18 09/08/18 16:54 20:25 07:35 POC Glucose 148 H 157 H 140 H 09/08/18 11:45 POC Glucose 175 H
[2018-09-08] MEDS: MICONAZOLE NITRATE POWDER 43 GM EXT PRN (20:49)
[2018-09-08] MEDS: INSULIN GLARGINE SOLOSTAR 100 UNITS/ML 3 ML PEN SC SCH (20:51)
[2018-09-08] MEDS: ATORVASTATIN 20 MG TAB PO SCH (20:52)
[2018-09-08] MEDS: SERTRALINE HCL 100 MG TABLET PO SCH (20:53)
[2018-09-09] MEDS: FENOFIBRATE~ORDER AWAITING ACTION SCH ×3 (00:32→17:09)
[2018-09-09] MEDS: LEVOTHYROXINE SODIUM 100 MCG TABLET PO SCH (06:12)
[2018-09-09] MEDS: HEPARIN SOD 5,000 UNIT/0.5 ML VIAL SQ SCH ×3 (06:12→21:52)
[2018-09-09 06:18] LABS: Calcium 9.7 mg/dl (8.5-10.1); Creatinine Clr Calc Pharmacy 57.1 ml/min; Est GFR (African American) 55.8; Est GFR (Non-African American) 48.2; Magnesium 1.5 mg/dl (1.8-2.4); Potassium 4.2 mmol/L (3.5-5.1)
[2018-09-09 07:23] LABS: HCO3 ABG 50 mmol/L (19-24); Oxygen Saturation ABG 95.3 % (90-95); PCO2 ABG 77 mmHg (35-46); PO2 ABG 83 mm/Hg (80-95); pH ABG 7.43 (7.35-7.45)
[2018-09-09 07:24] LABS: Allen Test Pos (Pos)
[2018-09-09] MEDS: GABAPENTIN 300 MG CAP PO SCH ×2 (08:55→20:56)
[2018-09-09] MEDS: INSULIN ASPART 100 UNITS/ML 3 ML PEN SC SCH ×4 (08:55→21:52)
[2018-09-09] MEDS: ISOSORBIDE MONO EXTENDED REL 60 MG TABCR PO SCH (08:56)
[2018-09-09] MEDS: TOLTERODINE TARTRATE LA 4 MG CAPCR PO SCH (08:56)
[2018-09-09] MEDS: PANTOprazole 40 MG TAB PO SCH (08:56)
[2018-09-09] MEDS: CARVEDILOL 6.25 MG TAB PO SCH ×2 (08:56→20:55)
[2018-09-09] MEDS: AMLODIPINE BESYLATE 5 MG TAB PO SCH (08:57)
[2018-09-09] MEDS: POLYETHYLENE (MIRALAX) 17 GM PACK PO SCH (08:57)
[2018-09-09] MEDS: INSULIN GLARGINE SOLOSTAR 100 UNITS/ML 3 ML PEN SC SCH ×2 (08:58→21:52)
[2018-09-09] MEDS: ASPIRIN 81 MG ECTAB PO SCH (08:59)
[2018-09-09] MEDS: POTASSIUM CHLORIDE 10 MEQ TABCR PO SCH ×2 (08:59→20:56)
[2018-09-09] MEDS: FLUTICASONE PROPIONATE NA SPR 16 GM BTL NAE SCH (08:59)
[2018-09-09] MEDS ORDERED: acetaZOLAMIDE 500 MG in SYRINGE 0 ML IV SCH (09:00)
[2018-09-09] MEDS: LEVALBUTEROL 1.25MG/0.5ML NEB INH PRN (13:25)
[2018-09-09] MEDS: IPRATROPIUM BROMIDE NEB SOLN 0.02% 2.5 ML VIAL INH PRN (13:25)
--- NOTE | 2018-09-09 14:15 | Nephrology Progress Note ---
Date of Service September 09, 2018 Assessment & Plan (1) Hyponatremia: acute worsening of chronic hypoosmolar hypervolemic hyponatremia. Sodium improving in setting of diuresis; osmolality on admission 275 in serum; She is net negative 1.7litres yesterday. -cont daily standing wt -Hold torsemide today in setting of worsening alkalosis. Monitor input output. -limit po fluids to 1L and low Na diet (2) CKD (chronic kidney disease) stage 3, GFR 30-59 ml/min: Patient with the CKD stage III likely due to diabetic nephropathy. Baseline creatinine between 1.2-1.5. Creatinine at baseline. Renal function at baseline. Will monitor renal function closely in setting of escalating diuresis. Avoid nephrotoxins unless lifesaving. And renally dose medications for current GFR. (3) Metabolic alkalosis: Likely a contraction alkalosis. Hold torsemide. Give diamox 500mg today. Continue potassium chloride 40 mEq daily. Subjective Patient seen in f/u for ALISTAIR and fluid overload. She feels better this morning. SOB is improving. No vomiting or diarrhoea. She has leg edema Review of Systems Review of Systems: All systems reviewed & are unremarkable except as noted in HPI & below Physical Exam Physical Exam: General exam: Obese, Appears comfortable, no acute distress HEENT: Pupils are equal and reactive to light Neck: No JVD, neck is supple trachea is midline Respiratory system: Clear breath sounds bilaterally. Gastrointestinal: Abdomen is soft, non distended, non tender, bowel sounds are present CVS: Regular rate and rhythm. No murmurs, rubs or gallops Musculoskeletal: No joint or muscle tenderness Extremities: Non tender, 2+ edema, peripheral pulses are present Neuro: Oriented, no tremors, no focal neurological deficits Skin: No rashes Results & Data Vital Signs (Past 12 Hours) Vital Signs Temp Pulse Resp BP BP Pulse Ox 09/09/18 13:25 82 16 96 09/09/18 11:47 36.6 C 75 18 94/63 L 95 09/09/18 07:00 36.5 C 69 18 126/84 96 09/09/18 04:00 36.4 C L 62 20 126/75 93 Laboratory Results Laboratory Results - last 24 hr 09/08/18 09/09/18 09/09/18 20:15 05:08 07:11 ABG pH 7.43 ABG pCO2 77 H ABG pO2 83 ABG HCO3 50 H ABG O2 Saturation 95.3 H ABG Base Excess 21.9 H Dayday Test Pos Barometric Pressure 728.2 Oxygen Given 3 L Sodium 129 L Potassium 4.2 D Chloride 81 L Carbon Dioxide 52 H* Anion Gap -4.0 L BUN 43 H Creatinine 1.15 Est Cr Clr Drug Dosing 57.1 Est GFR ( Amer) 55.8 Est GFR (Non-Af Amer) 48.2 BUN/Creatinine Ratio 37.0 H Glucose 145 H POC Glucose 142 H Calcium 9.7 Magnesium 1.5 L 09/09/18 09/09/18 09/09/18 07:46 11:44 16:44 ABG pH ABG pCO2 ABG pO2 ABG HCO3 ABG O2 Saturation ABG Base Excess Dayday Test Barometric Pressure Oxygen Given Sodium Potassium Chloride Carbon Dioxide Anion Gap BUN Creatinine Est Cr Clr Drug Dosing Est GFR ( Amer) Est GFR (Non-Af Amer) BUN/Creatinine Ratio Glucose POC Glucose 148 H 169 H 148 H Calcium Magnesium
[2018-09-09] MEDS ORDERED: BISACODYL 5 MG TABEC PO ONE (19:00)
--- NOTE | 2018-09-09 19:37 | Hospitalist Progress Note ---
Date of Service September 09, 2018 Assessment & Plan (1) Acute hypoxemic respiratory failure: O2 sats as low as 85%. Possible aspiration pneumonia vs pulmonary edema (or combination of the 2). Now saturating well on 3 L NC. Titrate FIO2 to O2 sat of around 90 due to CO2 retention. (2) Hypercapnia with mixed acid-base disorder: Rising pCO2 and total CO2 / bicarb. Mixed acid base disorder with respiratory acidosis and metabolic alkalosis. Underlying obesity hypoventilation syndrome. Titrate O2 to maintain sats around 90. Try BiPAP. Has been aggressively diuresed. Torsemide held. Acetazolamide initiated by Nephrology. Follow. (3) Pneumonia: Chest x-ray showed left basilar density, suspected pneumonia. Possible aspiration pneumonia. Received IV ampicillin / sulbactam --> PO amoxicillin / clavlanic acid to complete course of therapy. (4) Coronary artery disease: No anginal symptoms. Continue aspirin, carvedilol, amlodipine, nitrates, atorvastatin. (5) Chronic diastolic heart failure: CXR 08/30 showed cardiomegaly + pulmonary edema. Still has 2-3+ pretibial edema. Received IV furosemide. Weights vary from day to day, but seem to be trending downward (135 --> --> 125 kg). Currently receiving torsemide 100 mg BID. (6) Atrial fibrillation: Continue carvedilol. Not anticoagulated-need to clarify history. (7) Hypertension: Continue carvedilol, amlodipine, nitrates. (8) CKD (chronic kidney disease), stage III: Serum creatinine today = 1.15. Follow. (9) Hyponatremia: Serum sodium 127 at time of admission and fell as low as 123. Nephrology consulted. Continue fluid restriction and furosemide. Sodium today = 129. Follow. (10) Diabetes mellitus type 2, controlled: Hold metformin during hospital stay. Hgb A1C = 6.7. FBS today = 148. Continue Lantus / NovoLog per protocol. (11) Constipation: MiraLax. (12) DVT prophylaxis: Receiving SQ heparin. Ambulate as able. (13) Discharge planning issues: Needs skilled care. Anticipated transfer to [facility] when stable. Family Medicine follow-up with Dr. Matias. Subjective Recheck for multiple problems. Patient seen in their room around 1600. Cough improved. Less SOB. Dependent edema improved. No chest pain. Still constipated. Review of Systems: Constitutional- no fever. Cardiac- as noted above Pulmonary- as noted above GI- no nausea, vomiting, diarrhea, melena, hematochezia. - Quintanilla cath. Otherwise, as noted above. Physical Exam Constitutional: no acute distress Respiratory: no respiratory distress Auscultation: + rales (few bibasilar) Cardiovascular: Rate/Rhythm: + irregularly irregular Heart Sounds: no gallop Vessels: + JVD Extremities: + edema (2-3+ pretibial); no calf tenderness Gastrointestinal (Abdomen): normal bowel sounds, soft, nontender, no he patosplenomegaly Skin: no rashes, warm and dry Psychiatric: Orientation: alert and oriented x 3 Results & Data Vital Signs (Past 12 Hours) Vital Signs Temp Pulse Pulse Resp BP Pulse Ox 09/09/18 16:07 80 09/09/18 15:14 36.5 C 78 20 115/74 94 09/09/18 13:25 82 16 96 09/09/18 11:47 36.6 C 75 18 94/63 L 95 (1) Pneumonia Laterality: left Lung location: lower lobe of lung Pneumonia type: due to unspecified organism Qualified Code(s): J18.1 - Lobar pneumonia, unspecified organism
[2018-09-09] MEDS ORDERED: MAGNESIUM SULFATE / D5W 1 GM/100 ML BAG IV ONE (20:15)
[2018-09-09] MEDS: ATORVASTATIN 20 MG TAB PO SCH (20:56)
[2018-09-09] MEDS: SERTRALINE HCL 100 MG TABLET PO SCH (20:56)
[2018-09-09] MEDS: MAGNESIUM OXIDE 400 MG TAB PO SCH (21:12)
[2018-09-10] MEDS: FENOFIBRATE~ORDER AWAITING ACTION SCH ×2 (01:10→07:58)
[2018-09-10 06:02] LABS: Base Excess VBG 19.7 mEq/L; Oxygen Saturation VBG 82.8 %; pH VBG 7.44 (7.36-7.41)
[2018-09-10] MEDS: HEPARIN SOD 5,000 UNIT/0.5 ML VIAL SQ SCH ×3 (06:26→21:10)
[2018-09-10] MEDS: LEVOTHYROXINE SODIUM 100 MCG TABLET PO SCH (06:26)
[2018-09-10 06:51] LABS: Calcium 9.9 mg/dl (8.5-10.1); Creatinine Clr Calc Pharmacy 45.9 ml/min; Est GFR (African American) 43.3; Est GFR (Non-African American) 37.3; Potassium 4.2 mmol/L (3.5-5.1)
[2018-09-10 06:52] LABS: BUN Creatinine Ratio 31.5 (10-20)
[2018-09-10] MEDS: INSULIN ASPART 100 UNITS/ML 3 ML PEN SC SCH ×4 (08:04→21:10)
[2018-09-10] MEDS: INSULIN GLARGINE SOLOSTAR 100 UNITS/ML 3 ML PEN SC SCH ×2 (08:04→21:10)
[2018-09-10] MEDS: MAGNESIUM OXIDE 400 MG TAB PO SCH ×2 (08:05→20:44)
[2018-09-10] MEDS: TOLTERODINE TARTRATE LA 4 MG CAPCR PO SCH (08:05)
[2018-09-10] MEDS: POTASSIUM CHLORIDE 10 MEQ TABCR PO SCH ×2 (08:05→20:43)
[2018-09-10] MEDS: FLUTICASONE PROPIONATE NA SPR 16 GM BTL NAE SCH (08:05)
[2018-09-10] MEDS: CARVEDILOL 6.25 MG TAB PO SCH ×2 (08:06→20:43)
[2018-09-10] MEDS: ISOSORBIDE MONO EXTENDED REL 60 MG TABCR PO SCH (08:06)
[2018-09-10] MEDS: AMLODIPINE BESYLATE 5 MG TAB PO SCH (08:06)
[2018-09-10] MEDS: POLYETHYLENE (MIRALAX) 17 GM PACK PO SCH (08:06)
[2018-09-10] MEDS: GABAPENTIN 300 MG CAP PO SCH ×2 (08:06→20:44)
[2018-09-10] MEDS: PANTOprazole 40 MG TAB PO SCH (08:06)
[2018-09-10] MEDS: ASPIRIN 81 MG ECTAB PO SCH (08:06)
--- NOTE | 2018-09-10 09:33 | Nephrology Progress Note ---
Date of Service September 10, 2018 Assessment & Plan (1) Hyponatremia: acute worsening of chronic hypoosmolar hypervolemic hyponatremia. Sodium improving in setting of diuresis; osmolality on admission 275 in serum; She is net negative 0.7litres yesterday. -cont daily standing wt -Continue holding torsemide in setting of worsening alkalosis. Monitor input output. -limit po fluids to 1L and low Na diet (2) CKD (chronic kidney disease) stage 3, GFR 30-59 ml/min: Patient with the CKD stage III likely due to diabetic nephropathy. Baseline creatinine between 1.2-1.5. Creatinine at 1.4 today creatinine at baseline. Renal function at baseline. Will monitor renal function closely in setting of escalating diuresis. Avoid nephrotoxins unless lifesaving. And renally dose medications for current GFR. (3) Metabolic alkalosis: Likely a contraction alkalosis. Bicarb is slightly better at 46 today. Continue potassium chloride 40 mEq daily. Subjective Patient seen in follow-up for hyponatremia and volume overload. She feels slightly better today. She continues to have leg weakness on ambulating. Shortness of breath is mild. Her leg swelling is subsiding. She was seated up in the chair during my visit. Sodium was better at 1.01 today. Creatinine is up to 1.4 Review of Systems Review of Systems: All systems reviewed & are unremarkable except as noted in HPI & below Physical Exam Physical Exam: General exam: Morbidly obese female, appears comfortable, no acute distress HEENT: Pupils are equal and reactive to light Neck: No JVD, neck is supple trachea is midline Respiratory system: Reduced breath sounds bilaterally. Gastrointestinal: Abdomen is soft, non distended, non tender, bowel sounds are present CVS: Regular rate and rhythm. No murmurs, rubs or gallops Musculoskeletal: No joint or muscle tenderness Extremities: Non tender, 1+ edema, peripheral pulses are present Neuro: Oriented, no tremors, no focal neurological deficits Skin: No rashes Results & Data Vital Signs (Past 12 Hours) Vital Signs Temp Pulse Pulse Resp BP Pulse Ox 09/10/18 08:00 77 09/10/18 04:35 36.9 C 76 20 107/70 94 09/10/18 00:20 88 09/09/18 22:38 36.8 C 79 20 125/73 96 Laboratory Results Laboratory Results - last 24 hr 0409/09/18 09/09/18 11:44 16:44 21:20 VBG pH VBG pCO2 VBG pO2 VBG HCO3 VBG O2 Saturation VBG Base Excess Barometric Pressure Sodium Potassium Chloride Carbon Dioxide Anion Gap BUN Creatinine Est Cr Clr Drug Dosing Est GFR ( Amer) Est GFR (Non-Af Amer) BUN/Creatinine Ratio Glucose POC Glucose 169 H 148 H 156 H Calcium Magnesium 09/10/18 09/10/18 09/10/18 05:53 05:53 07:42 VBG pH 7.44 H VBG pCO2 72 H VBG pO2 48 VBG HCO3 48 VBG O2 Saturation 82.8 VBG Base Excess 19.7 Barometric Pressure 740.4 Sodium 131 L Potassium 4.2 Chloride 86 L Carbon Dioxide 46 H* Anion Gap -1.0 L BUN 45 H Creatinine 1.42 H Est Cr Clr Drug Dosing 45.9 Est GFR ( Amer) 43.3 Est GFR (Non-Af Amer) 37.3 BUN/Creatinine Ratio 31.5 H Glucose 128 H POC Glucose 136 H Calcium 9.9 Magnesium 2.0
--- NOTE | 2018-09-10 11:35 | Hospitalist Progress Note ---
Date of Service September 10, 2018 Assessment & Plan (1) Acute hypoxemic respiratory failure: O2 sats as low as 85%. Possible aspiration pneumonia vs pulmonary edema (or combination of the 2). Now saturating well on 3 L NC. Titrate FIO2 to O2 sat of around 90 due to CO2 retention. (2) Hypercapnia with mixed acid-base disorder: Rising pCO2 and total CO2 / bicarb. Mixed acid base disorder with respiratory acidosis and metabolic alkalosis. Underlying obesity hypoventilation syndrome. Titrate O2 to maintain sats around 90. Has been aggressively diuresed. Torsemide held. Acetazolamide initiated by Nephrology. Total CO2 improved on chem profile. Follow. (3) Pneumonia: Chest x-ray showed left basilar density, suspected pneumonia. Possible aspiration pneumonia. Received IV ampicillin / sulbactam --> PO amoxicillin / clavulanic acid to complete course of therapy. (4) Coronary artery disease: No anginal symptoms. Continue aspirin, carvedilol, amlodipine, nitrates, atorvastatin. (5) Chronic diastolic heart failure: CXR 08/30 showed cardiomegaly + pulmonary edema. Still has 2-3+ pretibial edema. Received IV furosemide. Weights vary from day to day, but seem to be trending downward (135 --> --> 123 kg). Diuretic dosing per Nephrology. (6) Atrial fibrillation: Paroxysmal atrial fibrillation. Noted to be in AF in clinic May 2016; subsequent EKG's there showed NSR. Intermittent AF during this hospital stay. Continue carvedilol. [id number] score = 6 with ~ 10% annual risk of thromboembolism. Not anticoagulated. No apparent contraindication. Not good candidate for DOAC due to BMI of 50. Start warfarin. (7) Hypertension: Continue carvedilol, amlodipine, nitrates. (8) CKD (chronic kidney disease), stage III: Serum creatinine today = 1.42. Follow. (9) Hyponatremia: Serum sodium 127 at time of admission and fell as low as 123. Nephrology consulted. Continue fluid restriction and furosemide. Sodium today = 131. Follow. (10) Hypomagnesemia: Mg as low as 0.8. Replace. Mg today = 2.0. Follow. (11) Diabetes mellitus type 2, controlled: Hold metformin during hospital stay. Hgb A1C = 6.7. FBS today = 136. Continue Lantus / NovoLog per protocol. (12) Constipation: Bowel regimen as ordered. (13) DVT prophylaxis: Receiving SQ heparin. Start warfarin for PAF. Ambulate as able. (14) Discharge planning issues: Needs skilled care. Anticipated transfer to [facility] when stable. Family Medicine follow-up with Dr. Matias. Subjective Recheck for multiple problems. Patient seen in their room around 1120. Cough improved. Less SOB. Dependent edema improved. No anginal symptoms. Still constipated. Review of Systems: Constitutional- no fever. Cardiac- as noted above Pulmonary- as noted above GI- no nausea, vomiting, diarrhea, melena, hematochezia. - voiding without difficulty Otherwise, as noted above. Physical Exam Constitutional: no acute distress Respiratory: no respiratory distress Auscultation: + rales (few bibasilar) Cardiovascular: Rate/Rhythm: + irregularly irregular Heart Sounds: no gal lop Vessels: + JVD Extremities: + edema (2-3+ pretibial); no calf tenderness Gastrointestinal (Abdomen): normal bowel sounds, soft, nontender, no hepatosplenomegaly Skin: no rashes, warm and dry Psychiatric: Orientation: alert and oriented x 3 Results & Data Vital Signs (Past 12 Hours) Vital Signs Temp Pulse Pulse Resp BP Pulse Ox 09/10/18 08:00 77 09/10/18 04:35 36.9 C 76 20 107/70 94 09/10/18 00:20 88 Laboratory Results Laboratory Results - last 24 hr 09/09/18 09/09/18 09/09/18 11:44 16:44 21:20 VBG pH VBG pCO2 VBG pO2 VBG HCO3 VBG O2 Saturation VBG Base Excess Barometric Pressure Sodium Potassium Chloride Carbon Dioxide Anion Gap BUN Creatinine Est Cr Clr Drug Dosing Est GFR ( Amer) Est GFR (Non-Af Amer) BUN/Creatinine Ratio Glucose POC Glucose 169 H 148 H 156 H Calcium Magnesium 09/10/18 09/10/18 09/10/18 05:53 05:53 07:42 VBG pH 7.44 H VBG pCO2 72 H VBG pO2 48 VBG HCO3 48 VBG O2 Saturation 82.8 VBG Base Excess 19.7 Barometric Pressure 740.4 Sodium 131 L Potassium 4.2 Chloride 86 L Carbon Dioxide 46 H* Anion Gap -1.0 L BUN 45 H Creatinine 1.42 H Est Cr Clr Drug Dosing 45.9 Est GFR ( Amer) 43.3 Est GFR (Non-Af Amer) 37.3 BUN/Creatinine Ratio 31.5 H Glucose 128 H POC Glucose 136 H Calcium 9.9 Magnesium 2.0 (1) Pneumonia Laterality: left Lung location: lower lobe of lung Pneumonia type: due to unspecified organism Qualified Code(s): J18.1 - Lobar pneumonia, unspecified organism
[2018-09-10] MEDS ORDERED: MAGNESIUM HYDROXIDE SUSP 30 ML UDC PO SCH (13:00)
[2018-09-10] MEDS: DOCUSATE SODIUM/SENNA 50/8.6MG TAB PO SCH ×2 (14:00→20:44)
[2018-09-10] MEDS: ATORVASTATIN 20 MG TAB PO SCH (20:43)
[2018-09-10] MEDS: SERTRALINE HCL 100 MG TABLET PO SCH (20:44)
[2018-09-11] MEDS: HEPARIN SOD 5,000 UNIT/0.5 ML VIAL SQ SCH ×3 (05:09→21:00)
[2018-09-11] MEDS: LEVOTHYROXINE SODIUM 100 MCG TABLET PO SCH (05:09)
[2018-09-11 06:20] LABS: INR 1.1 (0.9-1.1); Prothrombin Time 11.5 Seconds (9.0-12.0)
[2018-09-11 06:27] LABS: BUN Creatinine Ratio 29.2 (10-20); Calcium 9.9 mg/dl (8.5-10.1); Est GFR (African American) 38.9; Est GFR (Non-African American) 33.6; Potassium 4.6 mmol/L (3.5-5.1)
[2018-09-11] MEDS: INSULIN ASPART 100 UNITS/ML 3 ML PEN SC SCH ×4 (08:00→20:59)
[2018-09-11] MEDS: INSULIN GLARGINE SOLOSTAR 100 UNITS/ML 3 ML PEN SC SCH ×2 (08:00→20:58)
[2018-09-11] MEDS: GABAPENTIN 300 MG CAP PO SCH ×2 (08:01→20:58)
[2018-09-11] MEDS: ISOSORBIDE MONO EXTENDED REL 60 MG TABCR PO SCH (08:01)
[2018-09-11] MEDS: PANTOprazole 40 MG TAB PO SCH (08:01)
[2018-09-11] MEDS: CARVEDILOL 6.25 MG TAB PO SCH ×2 (08:01→20:57)
[2018-09-11] MEDS: POLYETHYLENE (MIRALAX) 17 GM PACK PO SCH (08:02)
[2018-09-11] MEDS: POTASSIUM CHLORIDE 10 MEQ TABCR PO SCH ×2 (08:02→20:57)
[2018-09-11] MEDS: MAGNESIUM OXIDE 400 MG TAB PO SCH ×2 (08:02→20:58)
[2018-09-11] MEDS: TOLTERODINE TARTRATE LA 4 MG CAPCR PO SCH (08:02)
[2018-09-11] MEDS: ASPIRIN 81 MG ECTAB PO SCH (08:02)
[2018-09-11] MEDS: DOCUSATE SODIUM/SENNA 50/8.6MG TAB PO SCH ×2 (08:02→20:59)
[2018-09-11] MEDS: AMLODIPINE BESYLATE 5 MG TAB PO SCH (08:02)
[2018-09-11] MEDS: FENOFIBRATE 134MG PO SCH (08:03)
[2018-09-11] MEDS: FLUTICASONE PROPIONATE NA SPR 16 GM BTL NAE SCH (08:04)
[2018-09-11 08:58] LABS: Base Excess VBG 15.9 mEq/L; HCO3 VBG 44 mmol/L; PCO2 VBG 75 mmHg (38-50); PO2 VBG 22 mmHg; pH VBG 7.39 (7.36-7.41)
[2018-09-11 09:00] LABS: Oxygen Saturation VBG < 60.0 %
--- NOTE | 2018-09-11 10:02 | Nephrology Progress Note ---
Date of Service September 11, 2018 Assessment & Plan (1) Hyponatremia: acute worsening of chronic hypoosmolar hypervolemic hyponatremia. Sodium improving in setting of diuresis; osmolality on admission 275 in serum; She is about even for fluid balance yesterday. -cont daily standing wt -Continue holding torsemide in setting of worsening alkalosis. Monitor input output. -limit po fluids to 1L and low Na diet -If electrolytes and renal function are stable, patient can be discharged. She will likely need to take torsemide 40 mg daily as an outpatient. (2) CKD (chronic kidney disease) stage 3, GFR 30-59 ml/min: Patient with the CKD stage III likely due to diabetic nephropathy. Baseline creatinine between 1.2-1.5. Creatinine is up trending to 1.55 today. Will monitor renal function closely in setting of escalating diuresis. Avoid nephrotoxins unless lifesaving. And renally dose medications for current GFR. (3) Metabolic alkalosis: Likely a contraction alkalosis. Bicarb is slightly better at 45 today. k is normal at 4.6. Continue potassium chloride 40 mEq daily. Subjective Patient seen in follow-up for volume overload and CKD. She is sitting up in the chair. She reports improvement in her breathing. Her leg edema is subsiding. She is able to ambulate to the toilet with a walker. Diuretics on hold in setting of metabolic alkalosis. Creatinine slightly up to 1.5 today. Review of Systems Review of Systems: All systems reviewed & are unremarkable except as noted in HPI & below Physical Exam Physical Exam: General exam: Morbidly obese lady, appears comfortable, no acute distress HEENT: Pupils are equal and reactive to light Neck: No JVD, neck is supple trachea is midline Respiratory system: Reduced breath sounds the bases bilaterally. Gastrointestinal: Abdomen is soft, non distended, non tender, bowel sounds are present CVS: Regular rate and rhythm. No murmurs, rubs or gallops Musculoskeletal: No joint or muscle tenderness Extremities: Non tender, 1+ edema, peripheral pulses are present Neuro: Oriented, no tremors, no focal neurological deficits Skin: No rashes Results & Data Vital Signs (Past 12 Hours) Vital Signs Temp Pulse Pulse Pulse Resp BP Pulse Ox 09/11/18 07:10 36.4 C L 60 18 111/55 L 94 09/11/18 07:00 78 09/11/18 04:43 36.3 C L 60 16 101/62 93 09/10/18 23:25 36.5 C 63 18 109/61 94 Laboratory Results Laboratory Results - last 24 hr 09/10/18 09/10/18 09/10/18 11:35 16:28 20:52 PT INR VBG pH VBG pCO2 VBG pO2 VBG HCO3 VBG O2 Saturation VBG Base Excess Barometric Pressure Sodium Potassium Chloride Carbon Dioxide Anion Gap BUN Creatinine Est Cr Clr Drug Dosing Est GFR ( Amer) Est GFR (Non-Af Amer) BUN/Creatinine Ratio Glucose POC Glucose 157 H 150 H 153 H Calcium 09/11/18 09/11/18 09/11/18 05:21 05:21 07:44 PT 11.5 INR 1.1 VBG pH VBG pCO2 VBG pO2 VBG HCO3 VBG O2 Saturation VBG Base Excess Barometric Pressure Sodium 133 L Potassium 4.6 Chloride 87 L Carbon Dioxide 45 H* Anion Gap 2.0 L BUN 45 H Creatinine 1.55 H Est Cr Clr Drug Dosing 42.0 Est GFR ( Amer) 38.9 Est GFR (Non-Af Amer) 33.6 BUN/Creatinine Ratio 29.2 H Glucose 123 H POC Glucose 143 H Calcium 9.9 09/11/18 08:49 PT INR VBG pH 7.39 VBG pCO2 75 H VBG pO2 22 VBG HCO3 44 VBG O2 Saturation < 60.0 VBG Base Excess 15.9 Barometric Pressure 736.5 Sodium Potassium Chloride Carbon Dioxide Anion Gap BUN Creatinine Est Cr Clr Drug Dosing Est GFR ( Amer) Est GFR (Non-Af Amer) BUN/Creatinine Ratio Glucose POC Glucose Calcium
[2018-09-11] MEDS ORDERED: WARFARIN SOD 5 MG TAB PO SCH (16:00)
--- NOTE | 2018-09-11 19:59 | Hospitalist Progress Note ---
Date of Service September 11, 2018 Assessment & Plan (1) Acute hypoxemic respiratory failure: O2 sats as low as 85%. Possible aspiration pneumonia vs pulmonary edema (or combination of the 2). Now saturating well on 3 L NC. Titrate FIO2 to O2 sat of around 90 due to CO2 retention. (2) Hypercapnia with mixed acid-base disorder: Rising pCO2 and total CO2 / bicarb 09/07 - 09/09.. Mixed acid base disorder with respiratory acidosis and metabolic alkalosis. Underlying obesity hypoventilation syndrome. Titrate O2 to maintain sats around 90. Has been aggressively diuresed. Torsemide held. Received IV acetazolamide. Total CO2 improved on chem profile. Follow. (3) Pneumonia: Chest x-ray showed left basilar density, suspected pneumonia. Possible aspiration pneumonia. Received IV ampicillin / sulbactam --> PO amoxicillin / clavulanic acid to complete course of therapy. (4) Coronary artery disease: No anginal symptoms. Continue aspirin, carvedilol, amlodipine, nitrates, atorvastatin. (5) Chronic diastolic heart failure: CXR 08/30 showed cardiomegaly + pulmonary edema. Still has 2+ pretibial edema. Received IV diuretics, now on hold due to contraction alkalosis. Weights vary from day to day, but seem to be trending downward (135 --> --> 126 kg). Diuretic dosing per Nephrology. (6) Arrhythmia: Cardiac rhythm irregular at times. Atrial fibrillation was noted on problem list. Clinic and hospital EKG's from 2016 to present were reviewed. EKG's hard to interpret at times due to baseline artifact, but no tracings were convincing for AF. Underlying rhythm appears to be NSR with PAC's. Therefore, no need for anticoagulation. (7) Hypertension: Continue carvedilol, amlodipine, nitrates. (8) CKD (chronic kidney disease), stage III: Serum creatinine today = 1.55. Follow. (9) Hyponatremia: Serum sodium 127 at time of admission and fell as low as 123. Nephrology consulted. Continue fluid restriction and furosemide. Sodium today = 133. Follow. (10) Hypomagnesemia: Mg as low as 0.8. Replace. Mg 2.0 on 09/10. Follow. (11) Constipation: Improved. Continue bowel regimen as ordered. (12) Diabetes mellitus type 2, controlled: Hold metformin during hospital stay. Hgb A1C = 6.7. FBS today = 143. Continue Lantus / NovoLog per protocol. (13) DVT prophylaxis: Receiving SQ heparin. Ambulate as able. (14) Discharge planning issues: Needs skilled care. Anticipated transfer to [facility] when stable. Family Medicine follow-up with Dr. Matias. Subjective Recheck for multiple problems. Patient seen in their room around 1420. No cough or SOB. Dependent edema improved. No anginal symptoms. Having bowel movements after several doses of laxatives. Review of Systems: Constitutional- no fever. Cardiac- as noted above Pulmonary- as noted above GI- no nausea, vomiting, diarrhea, melena, hematochezia. - voiding without difficulty Otherwise, as noted above. Physical Exam Constitutional: no acute distress Respiratory: no respiratory distress Auscultation: + rales (few bibasilar) Cardiovascular: Rate/Rhythm: regular rate (with occasional ectopy) Heart Sounds: no gallop Vessels: + JVD Extremities: + edema (2+ pretibial); no calf tenderness Gastrointestinal (Abdomen): normal bowel sounds, soft, nontender, no hepatosplenomegaly Skin: no rashes, warm and dry Psychiatric: Orientation: alert and oriented x 3 Results & Data Vital Signs (Past 12 Hours) Vital Signs Temp Pulse Pulse Resp BP BP Pulse Ox 09/11/18 19:29 36.5 C 67 20 136/79 95 09/11/18 16:51 69 09/11/18 15:19 36.5 C 64 18 122/76 97 09/11/18 12:31 36.6 C 62 18 98/56 L 97 Laboratory Results Laboratory Results - last 24 hr 09/10/18 09/11/18 09/11/18 20:52 05:21 05:21 PT 11.5 INR 1.1 VBG pH VBG pCO2 VBG pO2 VBG HCO3 VBG O2 Saturation VBG Base Excess Barometric Pressure Sodium 133 L Potassium 4.6 Chloride 87 L Carbon Dioxide 45 H* Anion Gap 2.0 L BUN 45 H Creatinine 1.55 H Est Cr Clr Drug Dosing 42.0 Est GFR ( Amer) 38.9 Est GFR (Non-Af Amer) 33.6 BUN/Creatinine Ratio 29.2 H Glucose 123 H POC Glucose 153 H Calcium 9.9 04/09/11/18 09/11/18 07:44 08:49 11:23 PT INR VBG pH 7.39 VBG pCO2 75 H VBG pO2 22 VBG HCO3 44 VBG O2 Saturation < 60.0 VBG Base Excess 15.9 Barometric Pressure 736.5 Sodium Potassium Chloride Carbon Dioxide Anion Gap BUN Creatinine Est Cr Clr Drug Dosing Est GFR ( Amer) Est GFR (Non-Af Amer) BUN/Creatinine Ratio Glucose POC Glucose 143 H 136 H Calcium 09/11/18 16:23 PT INR VBG pH VBG pCO2 VBG pO2 VBG HCO3 VBG O2 Saturation VBG Base Excess Barometric Pressure Sodium Potassium Chloride Carbon Dioxide Anion Gap BUN Creatinine Est Cr Clr Drug Dosing Est GFR ( Amer) Est GFR (Non-Af Amer) BUN/Creatinine Ratio Glucose POC Glucose 161 H Calcium (1) Pneumonia Laterality: left Lung location: lower lobe of lung Pneumonia type: due to unspecified organism Qualified Code(s): J18.1 - Lobar pneumonia, unspecified organism
[2018-09-11] MEDS: ATORVASTATIN 20 MG TAB PO SCH (20:58)
[2018-09-11] MEDS: SERTRALINE HCL 100 MG TABLET PO SCH (20:59)
[2018-09-11] MEDS: MICONAZOLE NITRATE POWDER 43 GM EXT PRN (21:39)
[2018-09-12] MEDS: HEPARIN SOD 5,000 UNIT/0.5 ML VIAL SQ SCH ×2 (05:51→15:24)
[2018-09-12] MEDS: LEVOTHYROXINE SODIUM 100 MCG TABLET PO SCH (05:51)
[2018-09-12 07:15] LABS: BUN Creatinine Ratio 27.6 (10-20); Calcium 9.5 mg/dl (8.5-10.1); Creatinine Clr Calc Pharmacy 45.5 ml/min; Est GFR (African American) 42.2; Est GFR (Non-African American) 36.4; Potassium 4.3 mmol/L (3.5-5.1)
[2018-09-12] MEDS: INSULIN ASPART 100 UNITS/ML 3 ML PEN SC SCH ×3 (08:46→17:32)
[2018-09-12] MEDS: TOLTERODINE TARTRATE LA 4 MG CAPCR PO SCH (08:48)
[2018-09-12] MEDS: CARVEDILOL 6.25 MG TAB PO SCH (08:48)
[2018-09-12] MEDS: ASPIRIN 81 MG ECTAB PO SCH (08:49)
[2018-09-12] MEDS: FENOFIBRATE 134MG PO SCH (08:49)
[2018-09-12] MEDS: POTASSIUM CHLORIDE 10 MEQ TABCR PO SCH (08:50)
[2018-09-12] MEDS: FLUTICASONE PROPIONATE NA SPR 16 GM BTL NAE SCH (08:50)
[2018-09-12] MEDS: ISOSORBIDE MONO EXTENDED REL 60 MG TABCR PO SCH (08:50)
[2018-09-12] MEDS: INSULIN GLARGINE SOLOSTAR 100 UNITS/ML 3 ML PEN SC SCH (08:51)
[2018-09-12] MEDS: GABAPENTIN 300 MG CAP PO SCH (08:52)
[2018-09-12] MEDS: POLYETHYLENE (MIRALAX) 17 GM PACK PO SCH (08:52)
[2018-09-12] MEDS: MAGNESIUM OXIDE 400 MG TAB PO SCH (08:52)
[2018-09-12] MEDS: AMLODIPINE BESYLATE 5 MG TAB PO SCH (08:53)
[2018-09-12] MEDS: DOCUSATE SODIUM/SENNA 50/8.6MG TAB PO SCH (08:54)
[2018-09-12] MEDS: PANTOprazole 40 MG TAB PO SCH (08:54)
--- NOTE | 2018-09-12 09:36 | Hospitalist Progress Note ---
Date of Service September 12, 2018 Assessment & Plan (1) Acute hypoxemic respiratory failure: O2 sats in the 90s. Possible aspiration pneumonia vs pulmonary edema (or combination of the 2). Now saturating well on RA. Titrate FIO2 to O2 sat of around 90 due to CO2 retention. (2) Hypercapnia with mixed acid-base disorder: Rising pCO2 and total CO2 / bicarb 09/07 - 09/09.. Mixed acid base disorder with respiratory acidosis and metabolic alkalosis. Underlying obesity hypoventilation syndrome. Titrate O2 to maintain sats around 90. Has been aggressively diuresed. Torsemide held. Received IV acetazolamide. Total CO2 improved on chem profile. Follow. (3) Pneumonia: Chest x-ray showed left basilar density, suspected pneumonia. Possible aspiration pneumonia. Received IV ampicillin / sulbactam --> PO amoxicillin / clavulanic acid to complete course of therapy. (4) Coronary artery disease: No anginal symptoms. Continue aspirin, carvedilol, amlodipine, nitrates, atorvastatin. (5) Chronic diastolic heart failure: CXR 08/30 showed cardiomegaly + pulmonary edema. Still has pretibial edema. Received IV diuretics, now on hold due to contraction alkalosis. Weights vary from day to day, but seem to be trending downward (135 --> --> 126 kg). Diuretic dosing per Nephrology. (6) Arrhythmia: Cardiac rhythm irregular at times. Atrial fibrillation was noted on problem list. Clinic and hospital EKG's from 2016 to present were reviewed. EKG's hard to interpret at times due to baseline artifact, but no tracings were convincing for AF. Underlying rhythm appears to be NSR with PAC's. Therefore, no need for anticoagulation. (7) Hypertension: Continue carvedilol, amlodipine, nitrates. (8) CKD (chronic kidney disease), stage III: Serum creatinine today = 1.45. Follow. (9) Hyponatremia: Serum sodium 127 at time of admission and fell as low as 123. Nephrology on case. Continue fluid restriction Torsemide held. Sodium today = 133. Follow. (10) Hypomagnesemia: Mg as low as 0.8. Replace. Mg 2.0 on 09/10. Follow. (11) Constipation: Improved. Continue bowel regimen as ordered. (12) Diabetes mellitus type 2, controlled: Hold metformin during hospital stay. Hgb A1C = 6.7. Continue Lantus / NovoLog per protocol. (13) DVT prophylaxis: Receiving SQ heparin. Ambulate as able. (14) Discharge planning issues: Needs skilled care. Anticipated transfer to [facility] when stable. Family Medicine follow-up with Dr. Matias. Subjective Feeling markedly better, looking forward to [facility] on DC ROS-No Headache, No Visual Changes, No Nausea, No Vomiting, No Fever, No Chills, No Neck Pain or Stiffness, No Chest Pain, No Palpitations, No SOB, No [place], No Cough, No Sputum, No Wheezing, No Abdominal Pain, No Diarrhea, No Hematemesis, No Hemoptysis, No Unexpected Weight Loss, No Flank pain, No Melena, No Hematochezia, No Frequency, No Urgency, No Burning, No Hematuria, No Rashes, No Diaphoresis. Appetite is Normal, weak Physical Exam Gen-AAO x 3, NAD, Afebrile Head-NCAT, EOMI, PERRLA, Anicteric Sclera, No Posterior Pharyngeal Erythema Neck-Supple, No JVD, No Thyromegaly, No Masses, No LAD, No Bruits Lungs-Clear to Auscultation Bilaterally, No Rales, No Rhonchi, No Wheezing, No Crepitus Chest-No S4, +S1, +S2, No S3, No Murmurs, No Rubs, No Gallops, No Ectopy Abdomen-Soft, Bowel Sounds Present, Non Tender, Non Distended, No Hepatomegaly, No Splenomegaly, No Palpable Masses, No Rebound, No Rigidity, No Guarding Musculoskeletal-Full Range of Motion Bilaterally, No CVAT Extremities-No Cyanosis, No Clubbing, No Edema Nuero-Cranial Nerves II-XII grossly intact, Motor WNL, DTRs WNL, Strength WNL, Non Focal Psych-Normal Mood Results & Data Vital Signs (Past 12 Hours) Vital Signs Temp Pulse Pulse Resp BP Pulse Ox 09/12/18 07:20 36.6 C 72 18 129/79 93 09/12/18 04:00 36.6 C 67 18 126/64 93 09/12/18 00:38 36.5 C 65 20 124/68 93 09/11/18 23:50 68 Current Diagnoses Type 2 diabetes mellitus without complications (08/26/18) Hypomagnesemia (08/26/18) Hypo-osmolality and hyponatremia (08/26/18) Alkalosis (08/26/18) Mixed disorder of acid-base balance (08/26/18) Essential (primary) hypertension (08/26/18) Atherosclerotic heart disease of [place] coronary artery without angina pectoris (08/26/18) Unspecified atrial fibrillation (08/26/18) Cardiac arrhythmia, unspecified (08/26/18) Chronic diastolic (congestive) heart failure (08/26/18) Lobar pneumonia, unspecified organism (08/26/18) Acute respiratory failure with hypoxia (08/26/18) Constipation, unspecified (08/26/18) Chronic kidney disease, stage 3 (moderate) (08/26/18) Encounter for administrative examinations, unspecified (08/26/18) Allergies cephalexin Allergy (Severe, Verified 08/25/18 21:41) SHORTNESS OF BREATH Iodinated Contrast- Oral and IV Dye Allergy (Severe, Verified 08/25/18 21:41) GI SYMPTOMS/SOB prednisone Adverse Reaction (Intermediate, Verified 08/26/18 00:51) chest heaviness Sulfa (Sulfonamide Antibiotics) Adverse Reaction (Mild, Verified 08/25/18 21:41) VOMITING Height/Weight/Isolation Height 5 ft 1.5 in Weight 126 kg Chemistry 09/11/18 09/12/18 05:21 06:27 Sodium 133 L 133 L Potassium 4.6 4.3 Chloride 87 L 92 L Carbon Dioxide 45 H* 38 H Anion Gap 2.0 L 3.0 BUN 45 H 40 H Creatinine 1.55 H 1.45 H Glucose 123 H 111 H (1) Pneumonia Laterality: left Lung location: lower lobe of lung Pneumonia type: due to unspecified organism Qualified Code(s): J18.1 - Lobar pneumonia, unspecified organism
--- NOTE | 2018-09-12 10:28 | Discharge Summary ---
Date of Service September 12, 2018 Admission HPI Per Admitting Provider History obtained from patient, family, and records. Medical history significant for chronic diastolic heart failure EF (50-54%, TTE 2018), CAD status post stent, hypertension, hyperlipidemia, mild aortic stenosis, DM 2 on oral meds, CRI baseline creatinine 1.2, chronic anemia (new baseline hemoglobin of 10), past tobacco abuse, nocturnal hypoxemia on home O2 at night. Recent confinement June 2018 for atypical chest pain. Last week patient noted dry cough, S OB, sore throat symptoms. Patient seen at PCPs office. Azithromycin course prescribed for possible bronchitis. No improvement. Diuretic Rx changed to daily dosing by PCP with outpatient BNP elevation, serum crea 1.1 (08/20/18). Patient noted dry heaving symptoms, no belly pain. Worsening shortness of breath on exertion, poor appetite. Achy central chest pain from coughing. Legs more swollen than usual. Outpatient CXR 2 days ago showed pneumonia left. Outpatient Levaquin prescribed. Patient sicker after 1 dose of Levaquin at home. 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 Admission Exam Per Admitting Provider Temp 37 C 08/25/18 20:45 Pulse 72 08/25/18 22:49 Resp 18 08/25/18 22:49 BP 152/59 H 08/25/18 22:49 Pulse Ox 97 08/25/18 22:49 Physical Exam: GENERAL: Slightly uncomfortable, no respiratory distress, obese SKIN: Pallor, warm HEENT: Bespectacled, pale palpebral conjunctivae, no ptosis, dry buccal mucosa NECK : Supple, short, no tenderness CHEST : Decreased breath sounds, no tenderness HEART : RRR, systolic murmur ABDOMEN: distention, nontender EXTREMITIES : Bilateral LE swelling, no tenderness, no other conspicuous deformities noted NEUROLOGIC : Coherent, no facial asymmetry, no other gross focality Principal Diagnosis Assessment & Plan (1) Acute hypoxemic respiratory failure: O2 sats in the 90s. Possible aspiration pneumonia vs pulmonary edema (or combination of the 2). Now saturating well on RA. Titrate FIO2 to O2 sat of around 90 due to CO2 retention. (2) Hypercapnia with mixed acid-base disorder: Rising pCO2 and total CO2 / bicarb 09/07 - 09/09.. Mixed acid base disorder with respiratory acidosis and metabolic alkalosis. Underlying obesity hypoventilation syndrome. Titrate O2 to maintain sats around 90. Has been aggressively diuresed. Torsemide held. Received IV acetazolamide. Total CO2 improved on chem profile. Follow. (3) Pneumonia: Chest x-ray showed left basilar density, suspected pneumonia. Possible aspiration pneumonia. Received IV ampicillin / sulbactam --> PO amoxicillin / clavulanic acid to complete course of therapy. (4) Coronary artery disease: No anginal symptoms. Continue aspirin, carvedilol, amlodipine, nitrates, atorvastatin. (5) Chronic diastolic heart failure: CXR 08/30 showed cardiomegaly + pulmonary edema. Still has pretibial edema. Received IV diuretics, now on hold due to contraction alkalosis. Weights vary from day to day, but seem to be trending downward (135 --> --> 126 kg). Diuretic dosing per Nephrology. (6) Arrhythmia: Cardiac rhythm irregular at times. Atrial fibrillation was noted on problem list. Clinic and hospital EKG's from 2017 to present were reviewed. EKG's hard to interpret at times due to baseline artifact, but no tracings were convincing for AF. Underlying rhythm appears to be NSR with PAC's. Therefore, no need for anticoagulation. (7) Hypertension: Continue carvedilol, amlodipine, nitrates. (8) CKD (chronic kidney disease), stage III: Serum creatinine today = 1.45. Follow. (9) Hyponatremia: Serum sodium 127 at time of admission and fell as low as 123. Nephrology on case. Continue fluid restriction Torsemide held. Sodium today = 133. Follow. (10) Hypomagnesemia: Mg as low as 0.8. Replace. Mg 2.0 on 09/10. Follow. (11) Constipation: Improved. Continue bowel regimen as ordered. (12) Diabetes mellitus type 2, controlled: Hold metformin during hospital stay. Hgb A1C = 6.7. Continue Lantus / NovoLog per protocol. (13) DVT prophylaxis: Receiving SQ heparin. Ambulate as able. (14) Discharge planning issues: Needs skilled care. Anticipated transfer to [facility] when stable. Family Medicine follow-up with Dr. Matias. Discharge Exam Feeling markedly better, looking forward to [facility] on DC ROS-No Headache, No Visual Changes, No Nausea, No Vomiting, No Fever, No Chills, No Neck Pain or Stiffness, No Chest Pain, No Palpitations, No SOB, No [place], No Cough, No Sputum, No Wheezing, No Abdominal Pain, No Diarrhea, No Hematemesis, No Hemoptysis, No Unexpected Weight Loss, No Flank pain, No Melena, No Hematochezia, No Frequency, No Urgency, No Burning, No Hematuria, No Rashes, No Diaphoresis. Appetite is Normal, weak Physical Exam Gen-AAO x 3, NAD, Afebrile Head-NCAT, EOMI, PERRLA, Anicteric Sclera, No Posterior Pharyngeal Erythema Neck-Supple, No JVD, No Thyromegaly, No Masses, No LAD, No Bruits Lungs-Clear to Auscultation Bilaterally, No Rales, No Rhonchi, No Wheezing, No Crepitus Chest-No S4, +S1, +S2, No S3, No Murmurs, No Rubs, No Gallops, No Ectopy Abdomen-Soft, Bowel Sounds Present, Non Tender, Non Distended, No Hepatomegaly, No Splenomegaly, No Palpable Masses, No Rebound, No Rigidity, No Guarding Musculoskeletal-Full Range of Motion Bilaterally, No CVAT Extremities-No Cyanosis, No Clubbing, No Edema Nuero-Cranial Nerves II-XII grossly intact, Motor WNL, DTRs WNL, Strength WNL, Non Focal Psych-Normal Mood Discharge Data Allergies Allergy/AdvReac Type Severity Reaction Status Date / Time cephalexin Allergy Severe SHORTNESS Verified 08/25/18 21:41 OF BREATH Iodinated Contrast- Oral and Allergy Severe GI Verified 08/25/18 21:41 IV Dye SYMPTOMS/SOB prednisone AdvReac Intermediate chest Verified 08/26/18 00:51 heaviness Sulfa (Sulfonamide AdvReac Mild VOMITING Verified 08/25/18 21:41 Antibiotics) Consultations 08/25/18 23:38 ED Decision to Admit Stat 08/26/18 02:11 Consult Case Management - Discharge Planning Routine 08/30/18 12:18 Consult Nephrology Routine Ordered Studies 08/26/18 00:48 US venous doppler LE BI Urgent Current Diagnoses Type 2 diabetes mellitus without complications (08/26/18) Hypomagnesemia (08/26/18) Hypo-osmolality and hyponatremia (08/26/18) Alkalosis (08/26/18) Mixed disorder of acid-base balance (08/26/18) Essential (primary) hypertension (08/26/18) Atherosclerotic heart disease of [place] coronary artery without angina pectoris (08/26/18) Unspecified atrial fibrillation (08/26/18) Cardiac arrhythmia, unspecified (08/26/18) Chronic diastolic (congestive) heart failure (08/26/18) Lobar pneumonia, unspecified organism (08/26/18) Acute respiratory failure with hypoxia (08/26/18) Constipation, unspecified (08/26/18) Chronic kidney disease, stage 3 (moderate) (08/26/18) Encounter for administrative examinations, unspecified (08/26/18) Allergies cephalexin Allergy (Severe, Verified 08/25/18 21:41) SHORTNESS OF BREATH Iodinated Contrast- Oral and IV Dye Allergy (Severe, Verified 08/25/18 21:41) GI SYMPTOMS/SOB prednisone Adverse Reaction (Intermediate, Verified 08/26/18 00:51) chest heaviness Sulfa (Sulfonamide Antibiotics) Adverse Reaction (Mild, Verified 08/25/18 21:41) VOMITING Height/Weight/Isolation Height 5 ft 1.5 in Weight 126 kg Chemistry 09/11/18 09/12/18 05:21 06:27 Sodium 133 L 133 L Potassium 4.6 4.3 Chloride 87 L 92 L Carbon Dioxide 45 H* 38 H Anion Gap 2.0 L 3.0 BUN 45 H 40 H Creatinine 1.55 H 1.45 H Glucose 123 H 111 H Hospital Course (1) Acute hypoxemic respiratory failure: O2 sats in the 90s. Possible aspiration pneumonia vs pulmonary edema (or combination of the 2). Now saturating well on RA. Titrate FIO2 to O2 sat of around 90 due to CO2 retention. (2) Hypercapnia with mixed acid-base disorder: Rising pCO2 and total CO2 / bicarb 09/07 - 09/09.. Mixed acid base disorder with respiratory acidosis and metabolic alkalosis. Underlying obesity hypoventilation syndrome. Titrate O2 to maintain sats around 90. Has been aggressively diuresed. Torsemide held. Received IV acetazolamide. Total CO2 improved on chem profile. Follow. (3) Pneumonia: Chest x-ray showed left basilar density, suspected pneumonia. Possible aspiration pneumonia. Received IV ampicillin / sulbactam --> PO amoxicillin / clavulanic acid to complete course of therapy. (4) Coronary artery disease: No anginal symptoms. Continue aspirin, carvedilol, amlodipine, nitrates, atorvastatin. (5) Chronic diastolic heart failure: CXR 08/30 showed cardiomegaly + pulmonary edema. Still has pretibial edema. Received IV diuretics, now on hold due to contraction alkalosis. Weights vary from day to day, but seem to be trending downward (135 --> --> 126 kg). Diuretic dosing per Nephrology. (6) Arrhythmia: Cardiac rhythm irregular at times. Atrial fibrillation was noted on problem list. Clinic and hospital EKG's from 2017 to present were reviewed. EKG's hard to interpret at times due to baseline artifact, but no tracings were convincing for AF. Underlying rhythm appears to be NSR with PAC's. Therefore, no need for anticoagulation. (7) Hypertension: Continue carvedilol, amlodipine, nitrates. (8) CKD (chronic kidney disease), stage III: Serum creatinine today = 1.45. Follow. (9) Hyponatremia: Serum sodium 127 at time of admission and fell as low as 123. Nephrology on case. Continue fluid restriction Torsemide held. Sodium today = 133. Follow. (10) Hypomagnesemia: Mg as low as 0.8. Replace. Mg 2.0 on 09/10. Follow. (11) Constipation: Improved. Continue bowel regimen as ordered. (12) Diabetes mellitus type 2, controlled: Hold metformin during hospital stay. Hgb A1C = 6.7. Continue Lantus / NovoLog per protocol. (13) DVT prophylaxis: Receiving SQ heparin. Ambulate as able. (14) Discharge planning issues: Needs skilled care. Anticipated transfer to [facility] when stable. Family Medicine follow-up with Dr. Matias. Total Time Total Time Spent Total Time Spent (In Minutes): 50 mins Total Time Includes: Examination of the Patient, Discharge Planning, Medication Reconciliation and Communication With Other Providers Discharge Plan Discharge Items Patient Disposition: Transfer Halfway Fac Reason For Visit: RESP FAILURE, HYPONATREMIA Discharge Diagnosis: Respiratory Failure c Hypercarbia Hyponatremia DM II CAD Chronic Diastolic CHF Pneumonia Metabolic Acidemia HTN CKD 3 Condition: Good Discharge Goals: Decrease discomfort and Improve nutritional status Activity: Per 'Additional Instructions' section Activity Comment: Per PT/OT Lifting: Gradually increase as tolerated Bathing: No limitations Exercise/Sports: None Weightbearing: Left weightbearing and Right weightbearing Non-emergency contact: Primary Care Provider and [employer]ching [employer] Operator Call non-emergency contact if: you have any medication questions and your symptoms worsen Follow-up/Referrals: Lizeth Guerrier MD, PhD [Physician] - (1-2 weeks) Junior Treadwell MD [Primary Care Provider] - Diet: Carb Consistent or DM2 and Heart Healthy Fluids: 1200ml (5 cups) Addtl Provider Instructions: Monitor CMP weekly Prescriptions: New ipratropium bromide 0.02 % Solution 0.5 mg inhalation Q6R PRN (Reason: shortness of breath or wheezing) Qty: 200 RF: 0 levalbuterol HCl 1.25 mg/0.5 mL Solution For Nebulization 1.25 mg inhalation Q6R PRN (Reason: shortness of breath or wheezing) Qty: 200 RF: 0 acetaminophen [Mapap (acetaminophen)] 325 mg Tablet 650 mg PO Q4H PRN (Reason: fever or pain) Qty: 90 RF: 0 polyethylene glycol 3350 [Miralax] 17 gram Powder In Packet 17 g PO DAILY PRN (Reason: constipation) Qty: 20 RF: 0 magnesium oxide 400 mg (241.3 mg magnesium) Tablet 400 mg PO BID Qty: 10 RF: 0 potassium chloride [Klor-Con M10] 10 mEq Tablet,Er Particles/Crystals 20 meq PO BID Qty: 60 RF: 0 sennosides-docusate sodium [Senna with Docusate Sodium] 8.6-50 mg Tablet 2 tab PO HS Qty: 60 RF: 0 Continued carvedilol 6.25 mg tablet 6.25 mg PO BID RF: 0 atorvastatin 20 mg tablet 20 mg PO DAILY RF: 0 sertraline 100 mg tablet 100 mg PO DAILY RF: 0 metformin 850 mg tablet 850 mg PO BID RF: 0 amlodipine 5 mg tablet 5 mg PO DAILY RF: 0 aspirin [Aspirin Low Dose] 81 mg Tablet,Delayed Release (Dr/Ec) 81 mg PO DAILY RF: 0 fenofibrate micronized 134 mg capsule 134 mg PO DAILY RF: 0 levothyroxine 100 mcg tablet 100 mg PO DAILY RF: 0 isosorbide mononitrate 60 mg tablet extended release 24 hr 60 mg PO DAILY RF: 0 pantoprazole 40 mg tablet,delayed release (DR/EC) 40 mg PO DAILY RF: 0 nystatin 100,000 unit/gram Cream 1 applic TOPICAL BID RF: 0 nitroglycerin 0.4 mg Tablet, Sublingual 0.4 mg Sublingual DIRECTED RF: 0 gabapentin 300 mg Capsule 300 mg PO BID RF: 0 nystatin [Nystop] 100,000 unit/gram Powder 1 applic TOPICAL TID RF: 0 pioglitazone 30 mg Tablet 30 mg PO DAILY RF: 0 fluticasone propionate [Flonase Allergy Relief] 50 mcg/actuation [place],Suspension 1 spray INTRANASAL DAILY RF: 0 cholecalciferol (vitamin D3) [Vitamin D3] 1,000 unit Capsule 1,000 unit PO DAILY RF: 0 ranitidine HCl 150 mg capsule 150 mg PO BID PRN (Reason: heartburn) Qty: 60 RF: 1 albuterol sulfate 90 mcg/actuation Hfa Aerosol Inhaler 2 puff INHALATION Q4H PRN (Reason: Shortness Of Breath) RF: 0 Changed torsemide 20 mg tablet 40 mg PO QAM Qty: 30 RF: 0 Discontinued tolterodine 4 mg Capsule,Extended Release 24hr 4 mg PO DAILY RF: 0 lisinopril 10 mg tablet 10 mg PO DAILY RF: 0 iron aspgl,ps complex-vit C-sa 150-50-50 mg capsule 1 tab PO DAILY RF: 0 azithromycin 250 mg tablet 250 mg PO DIRECTED RF: 0 ondansetron HCl 4 mg tablet 4 mg PO Q6H PRN (Reason: Nausea) RF: 0 levofloxacin 750 mg Tablet 750 mg PO DIRECTED RF: 0 Stand-Alone Forms: [facility] Discharge Orders: Discharge Order (Routine); Ordered 09/12/18 Ordered By: Arnel Watson Skilled Items Patient informed of condition?: Yes DNR: No Discharge Level of Care: Skilled Communicable Disease: No Discharge Prognosis: Improving Admission Data Admit Date/Time: 08/26/18 00:56 Attending Provider: Arnel Watson Admit Provider: Brandon Ruggiero Primary Care Provider: Junior Treadwell Other Providers: Brandon Ruggiero ; Lizeth Guerrier ; Luis A Schultz ; Peter Vilchis Service: Telemetry Medical
--- NOTE | 2018-09-12 19:42 | Nephrology Progress Note ---
Date of Service September 12, 2018 Assessment & Plan (1) Hyponatremia: acute worsening of chronic hypoosmolar hypervolemic hyponatremia. Sodium improving in setting of diuresis; osmolality on admission 275 in serum; She is about even for fluid balance yesterday. Na 133 today -cont daily standing wt -Continue holding torsemide in setting of worsening alkalosis. Monitor input output. -limit po fluids to 1L and low Na diet -If electrolytes and renal function are stable, patient can be discharged. She will likely need to take torsemide 40 mg daily. We can start tomorrow and to continue as an outpatient. (2) CKD (chronic kidney disease) stage 3, GFR 30-59 ml/min: Patient with the CKD stage III likely due to diabetic nephropathy. Baseline creatinine between 1.2-1.5. Creatinine is up trending to 1.45 today. Will monitor renal function closely in setting of diuresis. Avoid nephrotoxins unless lifesaving. And renally dose medications for current GFR. (3) Metabolic alkalosis: Likely a contraction alkalosis. Bicarb is slightly better at 38 today. k is normal at 4.3. Continue potassium chloride 40 mEq daily. Subjective Seen this morning on rounds. She feels better with breathing less labored. Last night she was SOB while ambulating to toilet. Legs are less swollen. Review of Systems Review of Systems: All systems reviewed & are unremarkable except as noted in HPI & below Physical Exam Physical Exam: General exam: Obese, Appears comfortable, no acute distress HEENT: Pupils are equal and reactive to light Neck: No JVD, neck is supple trachea is midline Respiratory system: Clear breath sounds bilaterally. Gastrointestinal: Abdomen is soft, non distended, non tender, bowel sounds are present CVS: Regular rate and rhythm. No murmurs, rubs or gallops Musculoskeletal: No joint or muscle tenderness Extremities: Non tender, 1+ edema, peripheral pulses are present Neuro: Oriented, no tremors, no focal neurological deficits Skin: No rashes Results & Data Vital Signs (Past 12 Hours) Vital Signs Temp Pulse Pulse Pulse Resp BP BP 09/12/18 15:10 36.7 C 65 60 78 18 143/68 H 114/71 09/12/18 11:52 36.7 C 65 18 114/71 09/12/18 10:38 36.6 C 72 60 78 18 143/68 H 129/79 Pulse Ox 09/12/18 15:10 93 09/12/18 11:52 93 09/12/18 10:38 93 Laboratory Results Laboratory Results - last 24 hr 09/11/18 09/12/18 09/12/18 19:53 06:27 07:35 Sodium 133 L Potassium 4.3 Chloride 92 L Carbon Dioxide 38 H Anion Gap 3.0 BUN 40 H Creatinine 1.45 H Est Cr Clr Drug Dosing 45.5 Est GFR ( Amer) 42.2 Est GFR (Non-Af Amer) 36.4 BUN/Creatinine Ratio 27.6 H Glucose 111 H POC Glucose 159 H 104 H Calcium 9.5 09/12/18 09/12/18 11:27 16:14 Sodium Potassium Chloride Carbon Dioxide Anion Gap BUN Creatinine Est Cr Clr Drug Dosing Est GFR ( Amer) Est GFR (Non-Af Amer) BUN/Creatinine Ratio Glucose POC Glucose 149 H 145 H Calcium
== END 2018-09-12 19:53 | DRG 177 ==
LOC: ED 20:42 → SUATTDRO 08-26 00:56 → 2N 08-26 00:56

== ENCOUNTER 2019-01-08 20:13 | Inpatient (IN) ==
[2019-01-08] MEDS ORDERED: ACETAMINOPHEN 500 MG TAB PO STA (22:12)
[2019-01-08] MEDS ORDERED: SODIUM CHLORIDE 0.9% 500 ML IV SCH (22:15)
[2019-01-08] MEDS ORDERED: SODIUM CHLORIDE 0.9% 1000ML 1,000 ML IV SCH (22:15)
--- NOTE | 2019-01-08 22:55 | XRay Report ---
XR chest 1V portable HISTORY: 68 years-old Female weakness acute weakness COMPARISON: Chest radiograph 08/30/2018 TECHNIQUE: Portable AP view of the chest FINDINGS: Cardiac silhouette is enlarged, unchanged. Trace left and moderate right pleural effusions with bibas ilar and right midlung opacities. Pulmonary vascular congestion with mild interstitial coarsening. No pneumothorax. Degenerative changes of the shoulders and spine. IMPRESSION: 1. Cardiomegaly with suggestion of mild pulmonary edema. 2. Trace left and moderate right pleural effusions with bibasilar opacities. The above report was generated using voice recognition software. It may contain grammatical, syntax o r spelling errors. Electronically signed by: Matti Cerda M.D. 01/08/2019 10:53 PM
--- NOTE | 2019-01-08 22:57 | XRay Report ---
XR pelvis 1-2V routine HISTORY: 68 years-old Female fall acute pelvic pain status post fall COMPARISON: CT abdomen and pelvis 07/05/2018 TECHNIQUE: Portable AP view of the pelvis FINDINGS: Limited exam secondary to patient body habitus. Demineralized appearance of the bones limited evaluat ion for subtle acute fractures. No acute fracture, dislocation or avascular necrosis identified. 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 Degenerative changes of the spine. Cholecystectomy. IMPRESSION: Limited exam without acute fracture or dislocation. The above report was generated using voice recognition software. It may contain grammatical, syntax o r spelling errors. Electronically signed by: Matti Cerda M.D. 01/08/2019 10:55 PM
[2019-01-08 23:08] LABS: Basophils # (auto) 0.01 K/uL (0-0.2); Basophils % (auto) 0.2 %; Eosinophils # (auto) 0.07 K/uL (0-0.5); Eosinophils % (auto) 1.1 %; Hematocrit (blood only) 28.7 % (37-47); Hemoglobin 8.8 g/dL (12.0-16.0); Immature Granulocytes # (auto) 0.02 K/uL (0.00-0.02); Immature Granulocytes % (auto) 0.3 %; Lymphocytes # (auto) 1.16 K/uL (1.2-3.4); Lymphocytes % (auto) 17.4 %; Mean Corpuscular Hemoglobin 27.8 pg (25-34); Mean Corpuscular Hgb Conc 30.7 g/dL (32-36); Mean Corpuscular Volume 90.8 fL (80-100); Monocytes % (auto) 10.5 %; Neutrophils # (auto) 4.69 K/uL (1.4-6.5); Neutrophils % (auto) 70.5 %; Platelet Count 174 K/uL (130-400); RDW Standard Deviation 56.5 fL (36.4-46.3); Red Blood Count 3.16 M/uL (4.2-5.4); White Blood Count 6.65 K/uL (4.8-10.8)
[2019-01-08 23:35] LABS: Alanine Aminotransferase 20 U/L (12-78); Aspartate Aminotransferase 31 U/L (15-37); BUN Creatinine Ratio 19.8 (10-20); Blood Urea Nitrogen 48 mg/dl (7-18); Calcium 9.4 mg/dl (8.5-10.1); Carbon Dioxide 42 mmol/L (21-32); Chloride 98 mmol/L (98-107); Creatinine Clr Calc Pharmacy 26.4 ml/min; Est GFR (African American) 22.6; Est GFR (Non-African American) 19.5; Glucose 119 mg/dl (70-99); Magnesium 1.8 mg/dl (1.8-2.4); Potassium 2.9 mmol/L (3.5-5.1); Sodium 141 mmol/L (136-145)
[2019-01-08 23:39] LABS: Albumin Globulin Ratio 0.8 (0.9-2); Alkaline Phosphatase 40 U/L (45-117); Bilirubin,Total 0.8 mg/dl (0.2-1); Globulin 3.9 gm/dl (2.5-4.0); Total Protein 6.9 gm/dl (6.4-8.2); Troponin I < 0.015 ng/ml (0-0.045)
[2019-01-08] MEDS ORDERED: LEVOFLOXACIN/D5W 750 MG/150 ML BAG IV STA (23:40)
[2019-01-08] MEDS ORDERED: POTASSIUM CHLORIDE / WTR 10 MEQ/100 ML PLCT IV ONE (23:40)
[2019-01-08 23:57] LABS: T4 Free Thyroxine 0.93 ng/dl (0.8-1.6)
[2019-01-09] MEDS ORDERED: POTASSIUM CHLORIDE 20 MEQ TABCR PO STA (01:24)
[2019-01-09] MEDS ORDERED: ONDANSETRON INJ 2 MG/ML 2 ML VIAL IV PRN (02:32)
[2019-01-09] MEDS ORDERED: POLYETHYLENE (MIRALAX) 17 GM PACK PO PRN (02:32)
[2019-01-09] MEDS ORDERED: IPRATROPIUM BROMIDE NEB SOLN 0.02% 2.5 ML VIAL INH PRN (02:32)
[2019-01-09] MEDS ORDERED: NITROGLYCERIN SL 0.4 MG/TAB TAB SL SCH (02:32)
[2019-01-09] MEDS ORDERED: LEVALBUTEROL 1.25MG/0.5ML NEB INH PRN (02:32)
[2019-01-09] MEDS ORDERED: NITROGLYCERIN SL 0.4 MG/TAB TAB SL PRN (02:32)
[2019-01-09] MEDS: SODIUM CHLORIDE 0.9% 1000ML 1,000 ML IV SCH ×2 (02:44→15:34)
[2019-01-09] MEDS ORDERED: CARBOHYDRATES FOR HYPOGLYCEMIA PO PRN (02:45)
[2019-01-09] MEDS ORDERED: DEXTROSE 50% 50 ML SYRINGE IV PRN (02:45)
[2019-01-09] MEDS ORDERED: GLUCAGON FOR INJ 1 MG VIAL IM PRN (02:45)
[2019-01-09] MEDS ORDERED: GLUCOSE 40% GEL 15 GM TUBE PO PRN (02:45)
[2019-01-09] MEDS ORDERED: GLUCOSE 10 TABS/TUBE PO PRN (02:45)
--- NOTE | 2019-01-09 03:10 | Emergency Department Note ---
Entered by Lea Huynh acting as a scribe for Peter Sands MD ED Provider Note CHIEF COMPLAINT: Weakness/Fall HISTORY OF PRESENT ILLNESS: The patient is a 68 year old female who presents to the Emergency Room with complaints of a fall caused by general weakness that started a few weeks ago. The patient was getting out of the shower and fell, and was too weak to pull herself up. She states that she has not hit her head, and that she has still been able to walk with the use of her walker. She reports that she has a large bruise on her buttocks and back from the fall. Other symptoms the patient notes is some swelling in her ankles and trouble sleeping. Pt denies LOC, headache, fevers, chills, diaphoresis, visual changes, neck pain, chest pain, breathing difficulties, nausea, vomiting, abdominal pain, back pain, melena, hematochezia, urinary symptoms, numbness, weakness, lymphadenopathy, rash, or other complaints. REVIEW OF SYSTEMS: See HPI for pertinent positives and negatives. A total of ten systems were reviewed and were otherwise negative. PMHx/PSHx: CAD CKD Pneumonia SOCIAL HISTORY: Patient lives at home. PHYSICAL EXAM: GENERAL: Awake, alert, well-appearing, in no distress HENT: Normocephalic, atraumatic. Oropharynx unremarkable. EYES: PERRL. Normal conjunctiva. Sclera non-icteric. NECK: Inspection normal. Non-tender. Supple. No nuchal rigidity. FROM. No masses. RESPIRATORY: Clear to auscultation. No wheezes. No rales. Normal respiratory effort. CARDIAC: Normal rate. Normal rhythm. No murmurs. No rubs. Extremities warm and well perfused. Pulses equal. No JVD. GI: Soft, non-distended. No tenderness to palpation. No rebound or guarding. No masses. RECTAL: Deferred. MUSCULOSKELETAL: Atraumatic. Chest examination reveals no tenderness. The back is symmetrical on inspection without obvious abnormality. There is no CVA tenderness to palpation. No joint edema. LOWER EXTREMITIES: 2+ swelling in legs. Left leg larger than right, chronic for patient. No discoloration. NEURO: Normal sensorium. No sensory or motor deficits noted. SKIN: Bruising to both buttock, left much greater than right. Mildly tender on left. No rash or jaundice noted. EMERGENCY DEPARTMENT COURSE: 2210: Past medical records reviewed. The patient was evaluated in room B12B, and a complete history and physical examination were performed. 2310: I updated the patient and family on her lab and imaging results. 2424: I spoke with Dr. Dinh, [facility] Hospitalist, who agreed to further evaluate the patient MEDICAL DECISION MAKING: B12 Prior records/ancillary studies reviewed. Nursing notes reviewed and agree them. Additional history obtained from family. The patient's history was concerning for weakness, a fall and chronic respiratory issues. Differential diagnosis: Etiologies such as metabolic, infection, hypo/hyperglycemia, electrolyte abnormalities, cardiac sources, intracerebral event, toxicologic, neurologic, as well as others were entertained. Physical examination: As above. The patient had hematomas to both buttocks, left greater than right. ER treatment provided: IV Lock Oral Tylenol Saline hydration IV Levaquin IV potassium On reassessment the patient felt better. Diagnostics interpretation by me: ECG: No acute ischemia. The labs revealed a moderate anemia on CBC with a hemoglobin that dropped from 10.4-8.8. Chemistry panel revealed hypokalemia. Troponin negative. Type and screen performed. Imaging studies: Chest x-ray concerning for right pleural effusion and bilateral opacities. Patient does note increased respiratory issues and cough despite her chronic home O2 use. Concerning as she has a history of pneumonia. I did discuss further management in the hospital. Patient and family were in agreement. Consultation: A consultation was placed with the hospitalist. The case was discussed and diagnostics were reviewed. The patient was evaluated in the ER for further treatment. IMPRESSION: Generalized weakness Anemia Pneumonia Hypokalemia PLAN: Admit The scribe's documentation has been prepared under my direction and personally reviewed by me in its entirety. I confirm that the note above accurately reflects all work, treatment, procedures, and medical decision making performed by me. Impression & Plan Generalized weakness, Pneumonia, Anemia, Hypokalemia Past Med/Surg History Medical History Arrhythmia (Chronic) Diabetes mellitus type 2, controlled (Chronic) Chronic diastolic heart failure (Chronic) CKD (chronic kidney disease), stage III (Chronic) Coronary artery disease (Chronic) Hypothyroidism (Chronic) on synthyroid. Dyslipidemia (Chronic) on stain and fenofibrate. will follow fasting lipid profile Heart disease (Chronic) Hypertension (Chronic) on imdur, coreg, lisinopril,amlodipine. will monitor BP. Kidney disease (Chronic) stage 3.Baseline cr 1.2 to 1.3. Will follow labs Surgical History History of cholecystectomy (Chronic) History of tonsillectomy (Chronic) History of heart artery stent (Chronic) continue aspirin, coreg,imdur,lipitor Family History Other No significant family history Social History Preferred Language: Dutch Communication Ability: Effective Beliefs That Will Affect Care: None marital status: / Current Living Situation: Alone Feels Safe at Home: Yes Smoking Status: Former smoker Second Hand Exposure: No ; Hx Alcohol Use: Yes Hx Substance Use: No Results & Data Vital Signs Vital Signs - 24 hr 01/08/19 20:49 01/08/19 21:36 01/08/19 22:44 Temperature 36.8 C Temperature Source Oral Sepsis Recent Fever Within 48 Hours No Sepsis New/Unexplained Change in Mental Status No Sepsis Action Taken by Nursing No Action Required Pulse Rate 69 Pulse Rate [Apical] 58 L Pulse Rhythm Regular Pulse Rhythm [Apical] Regular Pulse Strength Normal Pulse Strength [Apical] Normal Respiratory Rate 20 20 Respiratory Effort / Characteristics Non-Labored Non-Labored Respiratory Depth Normal Normal Respiratory Pattern Regular Blood Pressure 129/52 L Blood Pressure [Right Arm] 100/40 L Blood Pressure Mean 77 Blood Pressure Mean [Right Arm] 60 Blood Pressure Position [Right Arm] Pulse Oximetry 91 98 96 Oxygen Delivery Method Nasal Cannula Nasal Cannula Nasal Cannula Oxygen Flow Rate 2 2 2 01/08/19 22:56 01/09/19 00:00 Temperature Temperature Source Sepsis Recent Fever Within 48 Hours Sepsis New/Unexplained Change in Mental Status Sepsis Action Taken by Nursing Pulse Rate Pulse Rate [Apical] 60 62 Pulse Rhythm Pulse Rhythm [Apical] Regular Regular Pulse Strength Pulse Strength [Apical] Normal Normal Respiratory Rate 18 20 Respiratory Effort / Characteristics Non-Labored Non-Labored Respiratory Depth Normal Normal Respiratory Pattern Blood Pressure Blood Pressure [Right Arm] 124/63 115/48 L Blood Pressure Mean Blood Pressure Mean [Right Arm] 83 70 Blood Pressure Position [Right Arm] Sitting Pulse Oximetry 95 Oxygen Delivery Method Nasal Cannula Oxygen Flow Rate 2 Home Medications Current Medication List: was personally reviewed by me Laboratory Data Attestation: I reviewed the patient's lab results. Result diagrams: 01/08/19 22:49 01/08/19 22:49 Lab Results 01/08/19 01/08/19 01/08/19 Range/Units 22:49 22:49 23:51 WBC 6.65 (4.8-10.8) K/uL RBC 3.16 L (4.2-5.4) M/uL Hgb 8.8 L (12.0-16.0) g/dL Hct 28.7 L (37-47) % MCV 90.8 (80-100) fL MCH 27.8 (25-34) pg MCHC 30.7 L (32-36) g/dL RDW Std Deviation 56.5 H (36.4-46.3) fL RDW Coeff of Ezequiel 17.0 H (11.5-14.5) % Plt Count 174 (130-400) K/uL MPV 10.0 (7.4-10.4) fL Immature Gran % (Auto) 0.3 % Neut % (Auto) 70.5 % Lymph % (Auto) 17.4 % [place] % (Auto) 10.5 % Eos % (Auto) 1.1 % Baso % (Auto) 0.2 % Immature Gran # (Auto) 0.02 (0.00-0.02) K/uL Neut # (Auto) 4.69 (1.4-6.5) K/uL Lymph # (Auto) 1.16 L (1.2-3.4) K/uL Highland # (Auto) 0.70 H (0.11-0.59) K/uL Eos # (Auto) 0.07 (0-0.5) K/uL Baso # (Auto) 0.01 (0-0.2) K/uL Sodium 141 (136-145) mmol/L Potassium 2.9 L (3.5-5.1) mmol/L Chloride 98 (98-107) mmol/L Carbon Dioxide 42 H* (21-32) mmol/L Anion Gap 1.0 L (3-11) BUN 48 H (7-18) mg/dl Creatinine 2.43 H (0.6-1.2) mg/dl Est Cr Clr Drug Dosing 26.4 ml/min Est GFR ( Amer) 22.6 Est GFR (Non-Af Amer) 19.5 BUN/Creatinine Ratio 19.8 (10-20) Glucose 119 H (70-99) mg/dl Calcium 9.4 (8.5-10.1) mg/dl Magnesium 1.8 (1.8-2.4) mg/dl Total Bilirubin 0.8 (0.2-1) mg/dl AST 31 (15-37) U/L ALT 20 (12-78) U/L Alkaline Phosphatase 40 L (45-117) U/L Troponin I < 0.015 (0-0.045) ng/ml Total Protein 6.9 (6.4-8.2) gm/dl Albumin 3.0 L (3.4-5.0) gm/dl Globulin 3.9 (2.5-4.0) gm/dl Albumin/Globulin Ratio 0.8 L (0.9-2) TSH 5.170 H (0.300-4.500) uIu/ml Free T4 0.93 (0.8-1.6) ng/dl Blood Type A Positive Antibody Screen NEGATIVE Administered Medications Sodium Chloride (Nss 1000ml) 1,000 mls @ 80 mls/hr IV .[id number] [facility] Stop: 02/08/19 16:00 Last Admin: 01/09/19 02:44 Dose: 80 mls/hr Documented by: [id number] Discontinued Medications Acetaminophen (Tylenol) 1,000 mg PO NOW STA Stop: 01/08/19 22:13 Last Admin: 01/08/19 22:52 Dose: 1,000 mg Documented by: [id number] Sodium Chloride (Nss) 500 mls @ 999 mls/hr IV .Q31M [facility] Stop: 01/08/19 22:45 Last Infusion: 01/08/19 23:43 Dose: 0 mls/hr Documented by: [id number] Admin: 01/08/19 22:49 Dose: 999 mls/hr Documented by: [id number] Sodium Chloride (Nss 1000ml) 1,000 mls @ 125 mls/hr IV .Q8H [facility] Stop: 01/09/19 06:14 Last Infusion: 01/09/19 02:54 Dose: 0 mls/hr Documented by: [id number] Admin: 01/08/19 23:25 Dose: 125 mls/hr Documented by: [id number] Levofloxacin/Dextrose (Levaquin/D5w) 750 mg in 150 mls @ 100 mls/hr IV NOW STA Stop: 01/09/19 01:09 Last Infusion: 01/09/19 01:34 Dose: 0 mls/hr Documented by: [id number] Admin: 01/08/19 23:51 Dose: 100 mls/hr Documented by: [id number] Potassium Chloride (K Enrico / Wtr) 10 meq in 100 mls @ 100 mls/hr IV ONE ONE Stop: 01/09/19 00:39 Last Infusion: 01/09/19 00:54 Dose: 0 mls/hr Documented by: [id number] Admin: 01/08/19 23:51 Dose: 100 mls/hr Documented by: [id number] Imaging Data Radiologist's Impression: Radiology results as stated below per my review and the radiologist's interpretation: XR pelvis 1-2V routine HISTORY: 68 years-old Female fall acute pelvic pain status post fall COMPARISON: CT abdomen and pelvis 07/05/2018 TECHNIQUE: Portable AP view of the pelvis FINDINGS: Limited exam secondary to patient body habitus. Demineralized appearance of the bones limited evaluation for subtle acute fractures. No acute fracture, dislocation or avascular necrosis identified. 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 Degenerative changes of the spine. Cholecystectomy. IMPRESSION: Limited exam without acute fracture or dislocation. The above report was generated using voice recognition software. It may contain grammatical, syntax or spelling errors. Electronically signed by: Matti Cerda M.D. 01/08/2019 10:55 PM XR chest 1V portable HISTORY: 68 years-old Female weakness acute weakness COMPARISON: Chest radiograph 08/30/2018 TECHNIQUE: Portable AP view of the chest FINDINGS: Cardiac silhouette is enlarged, unchanged. Trace left and moderate right pleural effusions with bibasilar and right midlung opacities. Pulmonary vascular congestion with mild interstitial coarsening. No pneumothorax. Degenerative changes of the shoulders and spine. IMPRESSION: 1. Cardiomegaly with suggestion of mild pulmonary edema. 2. Trace left and moderate right pleural effusions with bibasilar opacities. The above report was generated using voice recognition software. It may contain grammatical, syntax or spelling errors. Electronically signed by: Matti Cerda M.D. 01/08/2019 10:53 PM ECG Data Attestation: I personally reviewed and interpreted this ECG as follows: Indication: bradycardia Rate (beats per minute): 59 Findings: + LBBB (incomplete), + nonspecific-ST abn and + prolonged QT; no ST depression and no ST elevation Comparison ECG Date: from (08/25/2018) Change: the following changes noted (QT has shortened. Otherwise no significant changes) Blood Pressure Blood Pressure Findings: Low blood pressure Blood Pressure Disposition: further management by hospitalist Discharge Plan Visit Data *Final* Discharge Date/Time: 01/09/19 01:56 Chief Complaint: Weakness Stated Complaint: HEMATOMA TO BUTTOCKS & LEGS FROM PREV. FALL ED Provider: Peter Sands Discharge Problem: Generalized weakness, Pneumonia, Anemia, Hypokalemia Patient Disposition: Admitted As Inpatient Discharge Instructions Interventions: ED Discharge Assessment Last Done: 01/09/19 01:56 Discharge Problem: Pneumonia Qualifiers: Pneumonia type: due to unspecified organism Laterality: unspecified laterality Lung location: unspecified part of lung Qualified Code(s): J18.9 - Pneumonia, unspecified organism Anemia Qualifiers: Anemia type: unspecified type Qualified Code(s): D64.9 - Anemia, unspecified The scribe's documentation has been prepared under my direction and personally reviewed by me in its entirety. I confirm that the note above accurately reflects all work, treatment, procedures, and medical decision making performed by me.
[2019-01-09] MEDS ORDERED: MICONAZOLE NITRATE POWDER 43 GM EXT PRN (04:10)
[2019-01-09] MEDS: ACETAMINOPHEN 325 MG TAB PO PRN ×2 (04:23→18:32)
--- NOTE | 2019-01-09 05:29 | History and Physical Report ---
DATE OF ADMISSION: 01/09/2019 CHIEF COMPLAINT: Fall and weakness. HISTORY OF PRESENT ILLNESS: This is a 68-year-old female with past medical history significant for type 2 diabetes, chronic kidney disease stage III, hyperlipidemia, history of hyponatremia, history of metabolic acidemia, chronic respiratory failure, used to be only on oxygen at nighttime in the past, but since last admission in September with pneumonia she is on oxygen 24/7 2 liters, diastolic CHF, CAD, hypertension, venous insufficiency, morbid obesity, reflux esophagitis, stress incontinence female, arthritis, ankylosing spondylitis, depression who lives alone, presents with fall. The patient says she generally walks with a cane but since last one week, she has become weak and walks using a walker. She lives alone but one of the daughter lives close by, a block away.Last Monday she was getting out of the shower, adjacent to the shower she has a sitting table. The table was little far away and she could not properly sit on the chair, she was sitting on the edge and instead of falling down she slowly lowered herself to the floor. When she could not get up, she tried to crawl to the phone, but she was not successful and she lay on the floor for five and half hours. Her younger daughter usually calls after her work and when she did not pickling drum operator the phone, she called her other daughter who is close by and she came to check on the patient who had fallen on the floor and she took the neighbor's help to get her up. After getting up, she could not ambulate, but she was not hurting so she did not come to hospital.. The next day she could ambulate okay, but she had bruises on the back and buttock region and it started to get sore on the buttock region and she is not sleeping properly with the soreness. Her home health nurse came in and checked on her and because of ongoing symptoms and bruises on the buttock, she was advised to come to the ER to check her up. In the ER her hemoglobin is 8.8, baseline is around 10. Her potassium was 2.9. She is also having cough for 1 week, once in a while bringing whitish phlegm and getting short of breath on exertion. There is question of pneumonia. The patient denies any fever, chills, no headache, no dizziness, no blurred vision, no earache. She has some runny nose going on since she is on oxygen. No sore throat. She says she swallows okay except for some certain foods like meat and she drinks water to push it down. Her appetite is good. Denies any chest pain, no nausea, no vomiting, no abdominal pain. She says her bowel movements are like mucus but no blood in stools or black stools, not micturating much because she is not eating much, but no dysuria or hematuria. Has rash in her abdominal folds and uses nystatin. Currently, resting comfortable and hemodynamically stable. ALLERGIES: IVP DYE, KEFLEX, PREDNISONE, SULFA ANTIBIOTICS. PAST MEDICAL HISTORY: As mentioned above. PAST SURGICAL HISTORY: Colonoscopy with biopsy, right and left heart catheterization, coronary artery dilatation and stent placement, cholecystectomy, tonsillectomy, adenoidectomy, treatment of incomplete , umbilical hernia repair. MEDICATIONS: The patient is on Lipitor 20 mg p.o. daily, Coreg 6.25 mg p.o. b.i.d., vitamin D 1000 units p.o. daily, gabapentin 300 mg p.o. b.i.d., Imdur 60 mg p.o. daily, Zoloft 150 mg p.o. daily, nystatin apply topically 3 times a day, fenofibrate micronized 134 mg p.o. daily, torsemide 40 mg p.o. daily, Protonix 40 mg p.o. daily, levothyroxine 100 mcg p.o. daily, Actos 30 mg p.o. daily, ferrous sulfate 325 mg p.o. daily, oxygen 2 liters continuous, aspirin 81 mg p.o. daily, nitroglycerin 0.4 mg sublingual. FAMILY HISTORY: Significant for father had prostate cancer, diabetes, and heart disorder. Mother has hypertension, CABG. Brother has diabetes. Sister has hypertension. Maternal grandmother had heart disorder. Maternal grandfather had heart disorder. Paternal grandfather had diabetes. SOCIAL HISTORY: , currently lives alone. Quit smoking in 1980. Alcohol rarely. No drug use. REVIEW OF SYMPTOMS: As per HPI. Rest of review of symptoms are negative. PHYSICAL EXAMINATION: GENERAL: The patient is morbidly obese, not in acute distress. VITAL SIGNS: Temperature 36.8, pulse 62, respiratory rate 20, blood pressure 115/48, oxygen 94% on 2 liters. HEENT: No pallor, no icterus. Pupils equal, round, reactive to light. NECK: No JVD, no neck masses, no carotid bruits. CARDIOVASCULAR: S1, S2 heard, regular rate and rhythm, no murmur, no gallop. RESPIRATORY SYSTEM: Normal AP diameter. No thyromegaly. No wheezing, no crackles. ABDOMEN: Soft, bowel sounds present, nontender. No distention. CENTRAL NERVOUS SYSTEM: Cranial nerves II-XII grossly intact, nonfocal. EXTREMITIES: Lower extremity edema present, no erythema seen. SKIN: Ecchymosis seen on the buttock region and also on the back, erythematous rash seen in abdominal folds, small tears in the coccyx region, stage I to II pressure ulcer. LABORATORY DATA: WBC 6.6, hemoglobin 8.8, hematocrit 28.7, platelets 174. Sodium 141, potassium 2.9, chloride 98, bicarbonate 42, BUN 42, creatinine 2.4, serum glucose 119, calcium 9.4, magnesium 1.8, total bilirubin 0.8, AST 31, ALT 20, alkaline phosphatase is 40. Troponin I less than 0.015. TSH 5.17, free T4 0.93. Pelvic x-ray, limited exam without acute fracture or dislocation. Chest x-ray, cardiomegaly with mild pulmonary edema, trace left and moderate right pleural effusion with bibasilar opacities. EKG: Sinus bradycardia with occasional PVCs with a rate of 59, incomplete left bundle branch block, nonspecific T-wave abnormality, prolonged QT at 489. ASSESSMENT AND PLAN: This is a 68-year-old female who lives alone, presents with fall and bruise in her buttock region and back region. 1. Fall: It was a mechanical fall. The patient was trying to sit in a chair, could not reach it and she lowered herself down, but could not get up and stayed on the floor for five and half hours. We will check CPK levels. Currently, getting some fluids. We will continue fluids, hold her home diuretics. PT and OT, the patient may need placement. Lately she has been getting weaker and she usually walks with a cane but using walker since last week and the patient lives alone. 2. Hypokalemia: Potassium of 2.9, we are holding the diuretics, torsemide. We will replace potassium and follow the labs in a.m. EKG is okay. 3. Anemia: Baseline hemoglobin around 10, down to 8.8, possible hematoma in the buttock region. We will follow repeat labs in a.m. If any concerns, we will get an ultrasound and Surgical consult. We are going to check iron studies during B12 and folate levels and stool Hemoccult. 4. Acute kidney injury on chronic kidney disease stage III: Baseline creatinine around 1.2, current creatinine of 2.4. Holding the diuretics. Getting gentle fluids, with stop order. We will follow the labs in a.m. 5. Diabetes: Hold her home p.o. medication, place insulin sliding scale and Lantus. Monitor her blood sugars. Follow the HbA1c levels. 6. History of coronary artery disease, status post stents: Continue her home aspirin, Imdur, Coreg and statin. Currently stable. 7. Chronic respiratory failure: On 2 liters oxygen all the time. Used to be on oxygen at nighttime in the past with nocturnal hypoxemia but since diagnosed with pneumonia since last September she is using oxygen 05/12. 8. Chronic diastolic congestive heart failure: On torsemide 40 mg daily, which is currently on hold . Currently on gentle fluids and we will monitor for volume overload. 9. History of hypertension: Continue Imdur and Coreg with holding parameters. Holding diuretics. Question of being on amlodipine versus lisinopril, last admission seems lisinopril was stopped and started on amlodipine, but the patient's blood pressure is on the lower side, restart one of those medications if the blood pressure is high. 10. Depression. Continue Zoloft. 11. Hypothyroidism: Continue Synthroid. 12. Hyperlipidemia: Continue statin. 13. Gastroesophageal reflux disease: Continue Protonix. 14. History of hyponatremia: Currently stable. 15. Question of pneumonia: The patient had cough going for 1 week and also some shortness of breath. History of pneumonia in the past. Chest x-ray showed some pleural effusion, pulmonary edema?. Currently getting fluids. We will follow closely.A dose of Levaquin given in ER. Will follow the CT chest. 16. Deep venous thrombosis prophylaxis: Sequential compression devices for now. 17. Disposition: Close monitoring in the Med/Surg tele. Level 1 full code. Expect to discharge the patient home vs rehab. PT and OT prior to discharge. Social Service to help with discharge planning and may need placement. GENEVA
[2019-01-09] MEDS: LEVOTHYROXINE SODIUM 100 MCG TABLET PO SCH (05:56)
--- NOTE | 2019-01-09 06:34 | CT Scan Report ---
CT chest wo con CT DOSE: 938.13 mGy.cm HISTORY: Dyspnea pneumonia TECHNIQUE: Multiaxial CT images of the chest were performed without contrast. A dose lowering techni que was utilized adhering to the principles of ALARA. COMPARISON: 07/07/2018 FINDINGS: Interval development of a large right effusion. There are components of right lower lobe at electasis and volume loss. Similar but less prominent findings identified involving the right middle lobe. Left lung is grossly clear. Pulmonary vasculature is prominent. Mild cardiomegaly. Calcification of the thoracic arterial vascula ture. IMPRESSION: 1. Large right effusion. 2. Compressive atelectasis of components of the right lower and right middle lobes. 3. Prominent pulmonary vasculature suggesting a component of pulmonary arterial hypertension. 4. Moderate Cardiomegaly. The above report was generated using voice recognition software. It may contain grammatical, syntax or spelling errors. Electronically signed by: Heri Lima M.D. 01/09/2019 6:32 AM
[2019-01-09 07:13] LABS: Eosinophils # (auto) 0.11 K/uL (0-0.5); Eosinophils % (auto) 1.8 %; Hematocrit (blood only) 28.8 % (37-47); Hemoglobin 8.9 g/dL (12.0-16.0); Immature Granulocytes # (auto) 0.01 K/uL (0.00-0.02); Immature Granulocytes % (auto) 0.2 %; Lymphocytes # (auto) 1.02 K/uL (1.2-3.4); Mean Corpuscular Hemoglobin 27.8 pg (25-34); Mean Corpuscular Hgb Conc 30.9 g/dL (32-36); Mean Platelet Volume 9.9 fL (7.4-10.4); Monocytes # (auto) 0.67 K/uL (0.11-0.59); Monocytes % (auto) 11.1 %; Neutrophils % (auto) 69.9 %; Platelet Count 147 K/uL (130-400); RDW Coefficient of Variation 17.1 % (11.5-14.5); RDW Standard Deviation 56.3 fL (36.4-46.3); White Blood Count 6.01 K/uL (4.8-10.8)
[2019-01-09 07:50] LABS: BUN Creatinine Ratio 20.6 (10-20); Calcium 8.6 mg/dl (8.5-10.1); Creatinine Clr Calc Pharmacy 28.3 ml/min; Est GFR (African American) 24.8; Est GFR (Non-African American) 21.4; Magnesium 1.7 mg/dl (1.8-2.4); Potassium 3.2 mmol/L (3.5-5.1)
[2019-01-09 08:02] LABS: Estimated Average Glucose 117 mg/dl; Hemoglobin A1C 5.7 % (4.5-5.6)
[2019-01-09] MEDS ORDERED: POTASSIUM CHLORIDE 20 MEQ TABCR PO ONE (08:15)
[2019-01-09] MEDS ORDERED: MAGNESIUM SULFATE / D5W 1 GM/100 ML BAG IV ONE (08:15)
[2019-01-09] MEDS: FLUTICASONE PROPIONATE NA SPR 16 GM BTL SCH (08:20)
[2019-01-09] MEDS: PANTOprazole 40 MG TAB PO SCH (08:21)
[2019-01-09] MEDS: ISOSORBIDE MONO EXTENDED REL 60 MG TABCR PO SCH (08:21)
[2019-01-09] MEDS: ASPIRIN 81 MG ECTAB PO SCH (08:21)
[2019-01-09] MEDS: CHOLECALCIFEROL 1,000 UNITS TAB PO SCH (08:21)
[2019-01-09] MEDS: NYSTATIN POWDER 15GM BTL EXT SCH ×2 (08:21→20:32)
[2019-01-09] MEDS: ATORVASTATIN 20 MG TAB PO SCH (08:22)
[2019-01-09] MEDS: GABAPENTIN 300 MG CAP PO SCH ×2 (08:22→20:34)
[2019-01-09] MEDS: FENOFIBRATE NANOCRYSTALLIZED 145 MG TABLET PO SCH (08:22)
[2019-01-09] MEDS: carvediloL 6.25 MG TAB PO SCH ×2 (08:22→20:33)
[2019-01-09] MEDS: INSULIN GLARGINE SOLOSTAR 100 UNITS/ML 3 ML PEN SC SCH ×2 (08:23→20:34)
[2019-01-09] MEDS: INSULIN ASPART 100 UNITS/ML 3 ML PEN SC SCH ×4 (08:25→20:36)
[2019-01-09] MEDS ORDERED: SERTRALINE HCL 100 MG TABLET PO SCH (09:00)
[2019-01-09 09:05] LABS: Ferritin 224.2 ng/ml (8-388)
[2019-01-09 09:23] LABS: Folate (Folic Acid) 7.61 ng/ml (>5.38)
--- NOTE | 2019-01-09 10:48 | Ultrasound Report ---
US renal/blad retro comp CLINICAL HISTORY: 68 years-old Female presenting with ALISTAIR. TECHNIQUE: Real-time grayscale and limited color Doppler ultrasound imaging of the kidneys and bladde r was performed. COMPARISON: CT from 07/05/2018. FINDINGS: Right kidney: Increased echogenicity of renal parenchyma with decreased corticomedullary differentiat ion. Right kidney measures 10.1 cm. No hydronephrosis. No convincing evidence of calculus or mass. Left kidney: Poorly visualized due to shadowing. Left kidney measures 11.2 cm. No gross hydronephrosi s. Bladder: Not visualized due to underdistention. Bilateral ureteral jets not visualized. Other: Hepatomegaly with the liver measuring 20.9 cm in maximal sagittal dimension as on prior CT. IMPRESSION: 1. Limited visualization of the left kidney. 2. No hydronephrosis. 3. Echogenicity of the right kidney suggests medical renal disease. 4. Nonvisualization of the bladder. 5. Hepatomegaly as on prior CT. Electronically signed by: Ace Dacosta M.D. 01/09/2019 10:47 AM
[2019-01-09 13:32] LABS: INR 1.2 (0.9-1.1); Partial Thromboplastin Ratio 1.1; Partial Thromboplastin Time 30.9 Seconds (21.0-31.0); Prothrombin Time 12.2 Seconds (9.0-12.0)
[2019-01-09] MEDS ORDERED: LIDOCAINE HCL 1% 20 ML VIAL ONE (13:41)
[2019-01-09] MEDS ORDERED: LIDOCAINE HCL 1% 20 ML VIAL INJ ONE (13:58)
--- NOTE | 2019-01-09 14:20 | XRay Report ---
XR chest 1V portable CLINICAL HISTORY: 68 years-old Female presenting with S/P right Thoracentesis. TECHNIQUE: Portable upright AP view of the chest was obtained. COMPARISON: 01/08/2019. FINDINGS: Atherosclerosis of the aortic arch. Cardiac silhouette enlarged. Mild pulmonary vascular prominence o f bronchial wall cuffing. Interval decreased size of the now small right pleural effusion status post reported thoracentesis. Slightly improved aeration of the right lung base. No pneumothorax is eviden t allowing for portable technique. Anterior left shoulder dislocation is suggested by the configurati on of the humeral head. IMPRESSION: 1. No pneumothorax status post thoracentesis. Persistent small right pleural effusion. 2. Slightly improved aeration of the right lung base. 3. Cardiomegaly with volume overload as on prior. Electronically signed by: Ace Dacosta M.D. 01/09/2019 2:18 PM
[2019-01-09 14:36] LABS: Glucose Pleural Fluid 112 mg/dl
[2019-01-09 14:45] LABS: Amylase Pleural Fluid 22 U/L; LDH Pleural Fluid 137 U/L; Total Protein Pleural Fluid 4.1 g/dl
--- NOTE | 2019-01-09 14:46 | Hospitalist Progress Note ---
Date of Service January 09, 2019 Assessment & Plan (1) ALISTAIR (acute kidney injury): Patient is a 68 yr female who presents with fall and bruise in her buttock region and back region. 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 No hydronephrosis. Echogenicity of the right kidney suggests medical renal disease. Nonvisualization of the bladder. Hepatomegaly as on prior CT. Baseline Cr ~1.5 Cr:2.25 Hold Torsemide Nephrology consulted for Input Continue IV fluids for now Normocytic Anemia: Baseline Hb around 10 Monitor Hb Possible hematoma in buttock region Anemia work up negative so far Monitor CBC FOBT pending DM: A1C: 5.7 Hold p.o. medication Continue ISS monitor BGs H/O CAD S/P stents Continue aspirin, Imdur, Coreg, statin Chronic respiratory failure On 2 liters of Supplemental oxygen Chronic diastolic congestive heart failure: Diuretic held due to ALISTAIR Monitor Volume status HTN: Continue Imdur, Coreg Monitor BP Depression Continue Zoloft Hypothyroidism: Continue Levothyroxine Hyperlipidemia: Continue statin GERD: Continue Protonix. H/O hyponatremia: Currently stable. Monitor sodium levels DVT Px: SCDs for now Code Status Full Code Disposition: To be determined PT/OT prior to DC Subjective Patient is seen and examined at bedside Complaints of upper back pain, and at buttock region Denies any chest pain, SOB, dizziness,nausea, abd pain today Offers no other complaints Review of Systems Review of Systems: All systems reviewed & are unremarkable except as noted in HPI & below Physical Exam Physical Exam: ` Physical Exam: Vitals signs as noted above General Appearance:Obese, no apparent distress Head: normocephalic, Atraumatic Eyes: normal inspection, EOMI Neck: supple, Trachea midline Respiratory/Chest: Decreased Right sided breath sounds, CTA Cardiovascular: S1, S2, No murmur Abdomen/GI:Soft, Non tender, Bowel sounds present Extremities/Musculoskelatal:normal inspection, 1+ B/L LE edema Neurologic/Psych:AAOX3, grossly no focal neurological deficits Skin: normal color, warm Results & Data Vital Signs (Past 12 Hours) Vital Signs Temp Pulse Pulse Resp BP Pulse Ox 01/09/19 11:50 36.8 C 68 18 129/70 95 01/09/19 07:22 54 L 01/09/19 06:50 36.4 C L 55 L 21 105/65 96 01/09/19 04:32 57 L Laboratory Results Short CBC 01/08/19 01/09/19 Range/Units 22:49 07:02 WBC 6.65 6.01 (4.8-10.8) K/uL Hgb 8.8 L 8.9 L (12.0-16.0) g/dL Hct 28.7 L 28.8 L (37-47) % Plt Count 174 147 (130-400) K/uL BMP 01/08/19 01/09/19 22:49 07:02 Sodium 141 142 Potassium 2.9 L 3.2 L Chloride 98 100 Carbon Dioxide 42 H* 37 H BUN 48 H 46 H Creatinine 2.43 H 2.25 H Glucose 119 H 102 H Calcium 9.4 8.6 Cardiac Enzymes 01/08/19 01/09/19 Range/Units 22:49 07:02 Total Creatine Kinase 85 (26-192) U/L Troponin I < 0.015 (0-0.045) ng/ml Liver Function 01/08/19 Range/Units 22:49 Total Bilirubin 0.8 (0.2-1) mg/dl AST 31 (15-37) U/L ALT 20 (12-78) U/L Alkaline Phosphatase 40 L (45-117) U/L Albumin 3.0 L (3.4-5.0) gm/dl
[2019-01-09 14:47] LABS: Appearance Pleural Fluid CLEAR; Color Pleural Fluid YELLOW; RBC Pleural Fluid (A) < 3000 /uL; Source Pleural Fluid RIGHT LUNG; WBC Pleural Fluid (A) 376 /uL
[2019-01-09 14:48] LABS: Mononuclear WBC Pleural 69.2 %; Polynuclear WBC Pleural 30.8 %
--- NOTE | 2019-01-09 16:49 | Consultation Report ---
DATE OF CONSULTATION: 01/09/2019 REASON FOR CONSULT: Right pleural effusion. HISTORY OF PRESENT ILLNESS: 1. A 68-year-old white female with complex medical history that includes type 2 diabetes mellitus, chronic renal disease stage III, dyslipidemia, history of hyponatremia with metabolic acidemia, acute on chronic respiratory failure with hypoxemia. 2. Bronchopneumonia. 3. Acute on chronic diastolic heart failure, CAD and hypertension, morbid obesity and history of ankylosing spondylitis. The patient was admitted on the . She states she came out of the shower and has a chair that sits just outside the tub, but was unable to land on it successfully as her legs gave out and she had a soft landing on the floor, but then tried to crawl to get to the phone in the hallway and her daughter who had called previously and not received an response came to get her and she was brought to the Emergency Room. She states she has been progressively more dyspneic over the past 10-14 days. She has had multiple admissions to the hospital, was last discharged on 09/12/2018 with chronic diastolic heart failure. She has had a previous echo that shows an LVEF of 54% and is status post stenting with coronary artery disease, hypertensive cardiovascular disease, mild aortic stenosis and chronic anemia. She does have a past remote smoking history, having quit 20 years ago after approximately [id number] history and has had a history of nocturnal hypoxemia with O2 supplementation. She is unaware whether she is a snorer and has had witnessed apneic episodes, but does have symptoms of daytime hypersomnolence. She has not been on CPAP or BiPAP therapy. She was brought to the Emergency Room and unable to walk and extremely weak as well as dyspneic and chest x-ray showed a moderate to large right pleural effusion with respective basilar right lower lobe consolidation and/or atelectasis. No obvious mass was seen. The patient was treated with azithromycin for possible bronchitis last admission and apparently in June 2008 was admitted with atypical chest pain. She was then sent home on Levaquin, but in the past in June, Levaquin was used and it made her feel ill. She has not used the oxygen during the day. Last chest x-ray in September suspected left basilar pneumonia and at that time, the patient was placed on IV Zosyn and discharged on Augmentin therapy. She has had no anginal symptoms. She is on chronic diuretics and lost 9 kilograms of water weight during the hospital stay. She has been on carvedilol, amlodipine and nitrates. Serum creatinine has ranged in the 1.4 range. She has had hyponatremia, on torsemide therapy. Fluid restriction helped to treat her hyponatremia. I was asked to see patient in consultation because of the right pleural effusion and her dyspnea. For details of past surgical and medical history, I refer you to current and past record of voluminous old records. PHYSICAL EXAMINATION: GENERAL: Reveals a well-developed, friendly white female, stable at rest. CURRENT VITAL SIGNS: Blood pressure 129/70, pulse 68 and regular, respiratory rate 18, temperature 36.8, O2 sat 95% on 2 liters. SKIN: Showing ecchymoses on the buttocks and posterior thorax. HEENT: Atraumatic, normocephalic. PERRLA. LUNGS: Markedly decreased breath sounds two-thirds the way up the right base. CARDIAC: Regular rhythm. I do not appreciate a gallop. Grade 2/6 systolic murmur heard in the aortic region. Soft S4. ABDOMEN: Soft, protuberant. EXTREMITIES: 2-3+ pitting edema with chronic venous stasis changes. NEUROLOGICAL: Intact. No obvious lateralizing signs. LABORATORY DATA: Chest CT on admission shows large right pleural effusion with compressive atelectasis right middle and lower lobe. No obvious mass. White count 6,000, H&H 8.9 and 28.8 down from 11.3 and 35.0 from 07/06/2018. Hypochromic microcytic indices noted. EKG on admission shows sinus bradycardia, rate of 59 with PVCs, prolonged QT. PT, PTT within normal limits. ABGs on 09/09/2018, pH 7.43, pCO2 of 77, pO2 of 83. Serum iron and TIBC would suggest iron deficiency anemia. Vitamin B12 and folate levels within normal limits. Pleural fluid pH 7.33. The rest are pending. OVERALL ASSESSMENT: A 68-year-old morbidly obese white female with diabetes mellitus, hypertensive and ischemic cardiomyopathy with previous history of pneumonia and chronic obstructive pulmonary disease, presents with acute on chronic hypoxic hypercarbic respiratory failure and a large right pleural effusion with right middle and lower lobe compressive atelectasis. The rest of her x-ray and exam are compatible with acute on chronic diastolic heart failure. I performed a thoracentesis later on this afternoon and we removed close to 1400 mL of what looked like clear yellow fluid (probably transudative). Suspect all secondary to congestive heart failure though a bronchopneumonia cannot be ruled out. I doubt patient has right middle or lower lobe obstruction nor is there anything that would remotely suggest a neoplasm. Cannot rule out entirely but that diagnosis would seem remote. Would continue to diurese and treat aggressively for congestive heart failure.(concerned about rising creatinine and would get Nephrology involved) I would have patient placed on BiPAP therapy or at least noninvasive positive pressure ventilation at night and p.r.n. during the day along with continuous O2 supplementation. We will follow along with you. GENEVA
--- NOTE | 2019-01-09 17:00 | Operative Report ---
DATE OF OPERATION: 01/09/2019 TIME: 1400. PROCEDURE: Thoracentesis. INDICATIONS: Moderate to large right pleural effusion in the face of acute on chronic hypoxic hypercarbic respiratory failure. ANESTHESIA PREOPERATIVELY: None. ANESTHESIA DURING PROCEDURE: 20 mL of 1% Xylocaine subcutaneously. DESCRIPTION OF PROCEDURE: The right posterior 10th to 11th intercostal space was prepped and draped in usual sterile fashion. Ultrasonographic guidance suggested a large pocket of fluid with a window amenable to drainage without significant atelectatic lung visible. A 25-gauge needle was inserted subcutaneously and the skin and subcutaneous tissue was anesthetized. Clear yellow fluid was obtained. The needle was removed. An Arrow catheter needle thoracentesis kit was used. A small incision was made in subcutaneous tissue and the needle/catheter apparatus was inserted into the right pleural space without difficulty. The catheter was advanced over the needle hub into position and initially 30 mL of fluid was obtained and sent for appropriate analysis. Additionally approximately 1350 mL of a relatively clear yellow fluid was obtained without difficulty. The patient did experience right shoulder and chest discomfort and the procedure was terminated with the catheter removed intact. The patient tolerated the procedure well and a post-thoracentesis chest x-ray showed no evidence for pneumothorax with only a small residual right pleural effusion and a suggestion of volume overload. Fluid was sent for appropriate analysis. I attest to the content of the Intraoperative Record and any orders documented therein. Any exceptions are noted below. MTDD
[2019-01-10] MEDS: SODIUM CHLORIDE 0.9% 1000ML 1,000 ML IV SCH (03:27)
[2019-01-10] MEDS: LEVOTHYROXINE SODIUM 100 MCG TABLET PO SCH (06:06)
[2019-01-10 07:05] LABS: Hematocrit (blood only) 28.9 % (37-47); Hemoglobin 8.9 g/dL (12.0-16.0); Mean Corpuscular Hemoglobin 27.9 pg (25-34); Mean Corpuscular Hgb Conc 30.8 g/dL (32-36); Mean Corpuscular Volume 90.6 fL (80-100); Platelet Count 202 K/uL (130-400); RDW Coefficient of Variation 17.1 % (11.5-14.5); RDW Standard Deviation 56.8 fL (36.4-46.3); Red Blood Count 3.19 M/uL (4.2-5.4); White Blood Count 6.68 K/uL (4.8-10.8)
[2019-01-10 07:49] LABS: BUN Creatinine Ratio 21.4 (10-20); Calcium 8.7 mg/dl (8.5-10.1); Creatinine Clr Calc Pharmacy 30.1 ml/min; Est GFR (African American) 26.5; Est GFR (Non-African American) 22.9
[2019-01-10] MEDS: carvediloL 6.25 MG TAB PO SCH ×2 (08:03→21:20)
[2019-01-10] MEDS: FLUTICASONE PROPIONATE NA SPR 16 GM BTL SCH (08:04)
[2019-01-10] MEDS: CHOLECALCIFEROL 1,000 UNITS TAB PO SCH (08:04)
[2019-01-10] MEDS: ASPIRIN 81 MG ECTAB PO SCH (08:05)
[2019-01-10] MEDS: ISOSORBIDE MONO EXTENDED REL 60 MG TABCR PO SCH (08:05)
[2019-01-10] MEDS: PANTOprazole 40 MG TAB PO SCH (08:05)
[2019-01-10] MEDS: ATORVASTATIN 20 MG TAB PO SCH (08:05)
[2019-01-10] MEDS: FENOFIBRATE NANOCRYSTALLIZED 145 MG TABLET PO SCH (08:05)
[2019-01-10] MEDS: INSULIN GLARGINE SOLOSTAR 100 UNITS/ML 3 ML PEN SC SCH ×2 (08:06→21:21)
[2019-01-10] MEDS: GABAPENTIN 300 MG CAP PO SCH ×2 (08:06→21:23)
[2019-01-10] MEDS: NYSTATIN POWDER 15GM BTL EXT SCH ×2 (08:08→21:22)
[2019-01-10] MEDS: INSULIN ASPART 100 UNITS/ML 3 ML PEN SC SCH ×4 (08:14→21:23)
[2019-01-10 08:44] LABS: Magnesium 1.9 mg/dl (1.8-2.4); Potassium 3.8 mmol/L (3.5-5.1)
--- NOTE | 2019-01-10 12:06 | Progress Note ---
DATE: 01/10/2019 PULMONARY MEDICINE PROGRESS NOTE TIME: 1000 hours. Chart reviewed, the patient examined. SUBJECTIVE: The patient was undergoing echocardiogram evaluation when I came in to see her. She states she received significant relief following the thoracentesis that was performed yesterday. I removed 1400 mL of what looked like transudative fluid. Initially she brought up some yellow colored phlegm, but now it is clear and she denies pleuritic pain. I brought up the subject of noninvasive positive pressure ventilation in the form of either BiPAP or a Trilogy unit. She states she has been tried on this in the past and cannot tolerate a full face mask as she feels claustrophobic. She is tolerating her O2 therapy with adequate sats. OBJECTIVE: CURRENT VITAL SIGNS: Blood pressure 117/70, pulse 73 and regular, respiratory rate 16, temperature 36.9, O2 sat 93% on 2 liters. SKIN: Without lesion. HEENT: Atraumatic, normocephalic, PERRLA, EOMI. Conjunctivae pale. Sclerae nonicteric. Fundi poorly visualized. NECK: Neck veins are not distended at 45 degrees. LUNGS: Improved aeration in right base, but still with diminished breath sounds. CARDIAC: Regular rate and rhythm. I do not appreciate a gallop. ABDOMEN: Soft, protuberant. No evidence of hepatosplenomegaly. EXTREMITIES: 2+ pitting edema with chronic stasis changes noted. NEUROLOGICAL: Cranial nerves II-XII grossly intact. No lateralizing signs. LABORATORY DATA: Today's laboratory shows a normal white count of 6600, H and H 8.9 and 28.9 with hypochromic microcytic indices with a suggestion of iron deficiency by lab studies and looking at the indices. Chest x-ray post thoracentesis showed residual small right pleural effusion with atelectasis at the right base and a suggestion of volume overload. Renal ultrasound done yesterday shows no evidence of hydronephrosis. Cultures to date from the pleural fluid negative. The pleural fluid pH was 7.33. White count 376 cells. Preponderance of mononuclear cells. Total protein 4.1. LDH 137, amylase 22. Fluid appears to be borderline transudate/exudate which one can see with chronic CHF. The BUN was 46, creatinine 2.13, which is somewhat improved from admission when patient received IV hydration. OVERALL ASSESSMENT AND PLAN: A 68-year-old with complex medical history as outlined in my consultation note yesterday. I believe she has presented with [id number] diastolic heart failure with a right pleural effusion that is a borderline transudate/exudate and is sterile. Will be very careful with IV hydration as she has significant right-sided heart failure and cor pulmonale and certainly would diurese fairly aggressively with careful attention to patient's creatinine clearance and renal status. The patient is not a candidate by her own admission for noninvasive positive pressure ventilation and refuses to consider another attempt at this. Will continue to follow on a daily basis. Thank you very much for this consultation.
--- NOTE | 2019-01-10 14:51 | Hospitalist Progress Note ---
Date of Service January 10, 2019 Assessment & Plan (1) ALISTAIR (acute kidney injury): Patient is a 68 yr female who presents with fall and bruise in her buttock region and back region. 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 No hydronephrosis. Echogenicity of the right kidney suggests medical renal disease. Nonvisualization of the bladder. Hepatomegaly as on prior CT. Baseline Cr ~1.5 Cr:2.25>>2.13 Hold Torsemide for now Nephrology consulted for Input Received gentle IV fluids Monitor renal function Normocytic Anemia: Baseline Hb around 10 Monitor Hb Possible hematoma in buttock region Anemia work up--normal vitamin B12, folate levels, serum iron, ferritin Monitor CBC DM: A1C: 5.7 Hold p.o. medication Continue ISS monitor BGs H/O CAD S/P stents Continue aspirin, Imdur, Coreg, statin Chronic respiratory failure On 2 liters of Supplemental oxygen Chronic diastolic congestive heart failure: Diuretic held due to ALISTAIR Monitor Volume status Resume diuretics as able HTN: Continue Imdur, Coreg Monitor BP Depression Continue Zoloft Hypothyroidism: Continue Levothyroxine Hyperlipidemia: Continue statin GERD: Continue Protonix. H/O hyponatremia: Currently stable. Monitor sodium levels DVT Px: Heparin SQ Code Status Full Code Disposition: PT/OT: Recommends SNF Subjective Patient is seen and examined at bedside Feels a lot better after having thoracentesis yesterday Reports mild cough with expectoration Denies any chest pain, SOB, dizziness,nausea, abd pain Renal function only slightly improved with IV fluids Offers no other complaints ECHO suggestive of grade 2 diastolic dysfunction Review of Systems Review of Systems: All systems reviewed & are unremarkable except as noted in HPI & below Physical Exam Physical Exam: Physical Exam: Vitals signs as noted above General Appearance:Obese, no apparent distress Head: normocephalic, Atraumatic Eyes: normal inspection, EOMI Neck: supple, Trachea midline Respiratory/Chest: Decreased breath sounds, scattered crackles Cardiovascular: S1, S2, No murmur Abdomen/GI:Soft, Non tender, Bowel sounds present Extremities/Musculoskelatal:normal inspection, Trace LE edema Neurologic/Psych:AAOX3, grossly no focal neurological deficits Skin: normal color, warm Results & Data Vital Signs (Past 12 Hours) Vital Signs Temp Pulse Pulse Resp BP Pulse Ox 01/10/19 11:19 36.7 C 66 16 105/61 96 01/10/19 07:39 73 01/10/19 07:09 36.9 C 79 16 117/70 93 01/10/19 03:45 36.9 C 66 21 103/80 98 Laboratory Results Short CBC 01/10/19 Range/Units 06:39 WBC 6.68 (4.8-10.8) K/uL Hgb 8.9 L (12.0-16.0) g/dL Hct 28.9 L (37-47) % Plt Count 202 (130-400) K/uL BMP 01/10/19 01/10/19 06:39 08:16 Sodium 141 Potassium 3.8 D Chloride 103 Carbon Dioxide 35 H BUN 46 H Creatinine 2.13 H Glucose 80 Calcium 8.7
--- NOTE | 2019-01-10 17:01 | Nephrology Consultation ---
Date of Consultation January 10, 2019 Assessment & Plan (1) ALISTAIR (acute kidney injury): Patient with acute kidney injury on CKD. She has CKD stage III from diabetic nephropathy with baseline creatinine of 1.5. Admission creatinine of 2.4 now down to 2.1 after holding diuretics and IV normal saline. Etiology of acute kidney injury is likely hemodynamically mediated in setting of diuresis. Agree with holding diuretics today. She appears euvolemic today at least as evidenced by normal IVC on echocardiogram. I have stopped to the normal saline. We should resume her torsemide tomorrow. Monitor renal function with daily BMP and avoid nephrotoxins such as contrast unless lifesaving. (2) Anemia: Due to CKD. Hemoglobin today of 8.9. Monitor and transfuse as needed. She will likely need Procrit as an outpatient (3) Chronic diastolic heart failure: Echo today showing EF of 60% with grade 2 diastolic dysfunction. We will resume her torsemide 40 mg daily starting tomorrow. She should be on fluid restriction of 1.5 L and 2 g of salt. Monitor daily weight History of Present Illness Reason for Consultation: Acute kidney injury on CKD Requesting Physician: Lavell Omalley MD Attending Physician: Jamel Joseph MD History of Present Illness This is 68-year-old female with history of hypertension, CKD stage III with baseline creatinine of 1.5 under my care outpatient, type 2 diabetes, diastolic CHF and obesity who was admitted on 01/09/2019 with the weakness and inability to get up. Patient apparently was getting out of the shower then had a soft landing and was unable to get up. She she could not get to the phone. Her daughter called the ambulance and she was brought to the ER. She was found to have a creatinine of 2.4. Her diuretics were held due to rising creatinine. She received normal saline. She was also found to have pleural effusion on the right on chest x-ray and status post thoracentesis for 1.3 L of pleural fluid. This morning she feels better reports breathing is at baseline. No vomiting or diarrhea. She has mild leg swelling. Of been asked to evaluate her for ALISTAIR on CKD. Patient with history of recurrent admissions for CHF exacerbation and fluctuations in renal function in setting of diuresis. She normally takes torsemide 40 mg daily. Allergies Allergy/AdvReac Type Severity Reaction Status Date / Time cephalexin Allergy Severe SHORTNESS Verified 01/08/19 22:53 OF BREATH Iodinated Contrast- Oral and Allergy Severe GI Verified 01/08/19 22:53 IV Dye SYMPTOMS/SOB prednisone AdvReac Intermediate chest Verified 01/08/19 22:53 heaviness Sulfa (Sulfonamide AdvReac Mild VOMITING Verified 01/08/19 22:53 Antibiotics) Home Medications Home Medications Medication Instructions Recorded Confirmed Type aspirin [Aspirin Low Dose] 81 mg PO DAILY 07/05/18 01/08/19 History atorvastatin 20 mg PO DAILY 07/05/18 01/08/19 History carvedilol 6.25 mg PO BID 07/05/18 01/08/19 History cholecalciferol (vitamin D3) 1,000 unit PO DAILY 07/05/18 01/08/19 History [Vitamin D3] fenofibrate micronized 134 mg PO DAILY 07/05/18 01/08/19 History fluticasone propionate [Flonase 1 spray INTRANASAL DAILY 07/05/18 01/08/19 History Allergy Relief] gabapentin 300 mg PO BID 07/05/18 01/08/19 History isosorbide mononitrate 60 mg PO DAILY 07/05/18 01/08/19 History levothyroxine 100 mg PO DAILY 07/05/18 01/08/19 History nitroglycerin 0.4 mg SUBLINGUAL DIRECTED 07/05/18 01/08/19 History nystatin [Nystop] 1 applic TOPICAL BID 07/05/18 01/08/19 History pantoprazole 40 mg PO DAILY 07/05/18 01/08/19 History pioglitazone 30 mg PO DAILY 07/05/18 01/08/19 History sertraline 150 mg PO DAILY 07/05/18 01/08/19 History ranitidine HCl 150 mg PO BID PRN #60 cap 07/07/18 01/08/19 Rx ipratropium bromide 0.5 mg INHALATION Q6R PRN #200 ml 09/12/18 01/08/19 Rx levalbuterol HCl 1.25 mg INHALATION Q6R PRN #200 ea 09/12/18 01/08/19 Rx polyethylene glycol 3350 [Miralax] 17 g PO DAILY PRN #20 ea 09/12/18 01/08/19 Rx torsemide 40 mg PO QAM #30 tab 09/12/18 01/08/19 Rx Patient History Medical History Arrhythmia (Chronic) Diabetes mellitus type 2, controlled (Chronic) Chronic diastolic heart failure (Chronic) CKD (chronic kidney disease), stage III (Chronic) Coronary artery disease (Chronic) Hypothyroidism (Chronic) on synthyroid. Dyslipidemia (Chronic) on stain and fenofibrate. will follow fasting lipid profile Heart disease (Chronic) Hypertension (Chronic) on imdur, coreg, lisinopril,amlodipine. will monitor BP. Kidney disease (Chronic) stage 3.Baseline cr 1.2 to 1.3. 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 Beliefs That Will Affect Care: None marital status: / Current Living Situation: Alone Feels Safe at Home: Yes Safety Concerns: Feels Safe At This Time Smoking Status: Former smoker Second Hand Exposure: No ; Hx Alcohol Use: Yes Hx Substance Use: No Review of Systems Review of Systems: All systems reviewed & are unremarkable except as noted in HPI & below Physical Exam Physical Exam: General exam: Obese lady, appears comfortable, no acute distress HEENT: Pupils are equal and reactive to light Neck: No JVD, neck is supple trachea is midline Respiratory system: Reduced breath sounds in the bases bilaterally. Gastrointestinal: Abdomen is soft, non distended, non tender, bowel sounds are present CVS: Regular rate and rhythm. No murmurs, rubs or gallops Musculoskeletal: No joint or muscle tenderness Extremities: Non tender, 1+ edema, peripheral pulses are present Neuro: Oriented, no tremors, no focal neurological deficits Skin: No rashes Results & Data Vital Signs (Past 12 Hours) Vital Signs Temp Pulse Pulse Resp BP BP Pulse Ox 01/10/19 15:21 36.7 C 62 18 110/66 99 01/10/19 14:41 92 01/10/19 11:19 36.7 C 66 16 105/61 96 01/10/19 07:39 73 01/10/19 07:09 36.9 C 79 16 117/70 93 Laboratory Results Laboratory Results - last 24 hr 01/09/19 01/09/19 01/10/19 16:35 19:44 06:39 WBC RBC Hgb Hct MCV MCH MCHC RDW Std Deviation RDW Coeff of Ezequiel Plt Count MPV Sodium 141 Potassium Chloride 103 Carbon Dioxide 35 H Anion Gap 3.0 BUN 46 H Creatinine 2.13 H Est Cr Clr Drug Dosing 30.1 Est GFR ( Amer) 26.5 Est GFR (Non-Af Amer) 22.9 BUN/Creatinine Ratio 21.4 H Glucose 80 POC Glucose 86 102 H Calcium 8.7 Magnesium 01/10/19 01/10/19 01/10/19 06:39 07:32 08:16 WBC 6.68 RBC 3.19 L Hgb 8.9 L Hct 28.9 L MCV 90.6 MCH 27.9 MCHC 30.8 L RDW Std Deviation 56.8 H RDW Coeff of Ezequiel 17.1 H Plt Count 202 MPV 10.0 Sodium Potassium 3.8 D Chloride Carbon Dioxide Anion Gap BUN Creatinine Est Cr Clr Drug Dosing Est GFR ( Amer) Est GFR (Non-Af Amer) BUN/Creatinine Ratio Glucose POC Glucose 88 Calcium Magnesium 1.9 01/10/19 01/10/19 11:34 16:17 WBC RBC Hgb Hct MCV MCH MCHC RDW Std Deviation RDW Coeff of Ezequiel Plt Count MPV Sodium Potassium Chloride Carbon Dioxide Anion Gap BUN Creatinine Est Cr Clr Drug Dosing Est GFR ( Amer) Est GFR (Non-Af Amer) BUN/Creatinine Ratio Glucose POC Glucose 91 86 Calcium Magnesium Diagnostic Findings Echocardiogram showing normal IVC with normal variation (1) Anemia Anemia type: unspecified type Qualified Code(s): D64.9 - Anemia, unspecified
[2019-01-10] MEDS: HEPARIN SOD 5,000 UNIT/0.5 ML VIAL SQ SCH (21:10)
[2019-01-10] MEDS: SERTRALINE HCL 50 MG TABLET PO SCH (21:24)
[2019-01-11] MEDS: LEVOTHYROXINE SODIUM 100 MCG TABLET PO SCH (05:45)
[2019-01-11 07:16] LABS: BUN Creatinine Ratio 23.6 (10-20); Calcium 9.3 mg/dl (8.5-10.1); Creatinine Clr Calc Pharmacy 28.5 ml/min; Est GFR (African American) 24.3; Est GFR (Non-African American) 20.9; Potassium 3.8 mmol/L (3.5-5.1)
[2019-01-11] MEDS: INSULIN ASPART 100 UNITS/ML 3 ML PEN SC SCH ×4 (08:19→20:25)
[2019-01-11] MEDS: PANTOprazole 40 MG TAB PO SCH (08:20)
[2019-01-11] MEDS: FENOFIBRATE NANOCRYSTALLIZED 145 MG TABLET PO SCH (08:21)
[2019-01-11] MEDS: ISOSORBIDE MONO EXTENDED REL 60 MG TABCR PO SCH (08:21)
[2019-01-11] MEDS: ATORVASTATIN 20 MG TAB PO SCH (08:21)
[2019-01-11] MEDS: GABAPENTIN 300 MG CAP PO SCH ×2 (08:21→20:27)
[2019-01-11] MEDS: HEPARIN SOD 5,000 UNIT/0.5 ML VIAL SQ SCH ×2 (08:22→20:25)
[2019-01-11] MEDS: carvediloL 6.25 MG TAB PO SCH (08:23)
[2019-01-11] MEDS: CHOLECALCIFEROL 1,000 UNITS TAB PO SCH (08:23)
[2019-01-11] MEDS: NYSTATIN POWDER 15GM BTL EXT SCH ×2 (08:23→20:28)
[2019-01-11] MEDS: ASPIRIN 81 MG ECTAB PO SCH (08:23)
[2019-01-11] MEDS: FLUTICASONE PROPIONATE NA SPR 16 GM BTL SCH (08:24)
[2019-01-11] MEDS: INSULIN GLARGINE SOLOSTAR 100 UNITS/ML 3 ML PEN SC SCH ×2 (08:24→20:24)
[2019-01-11] MEDS ORDERED: TORSEMIDE 10 MG TAB PO SCH (09:00)
--- NOTE | 2019-01-11 17:46 | Nephrology Progress Note ---
Date of Service January 11, 2019 Assessment & Plan (1) ALISTAIR (acute kidney injury): Patient with acute kidney injury on CKD. She has CKD stage III from diabetic nephropathy with baseline creatinine of 1.5. Admission creatinine of 2.4 now down to 2.2 after holding diuretics and IV normal saline. Etiology of acute kidney injury is likely hemodynamically mediated in setting of diuresis. Patient started torsemide at home dose today 40 mg daily. Monitor daily standing weight. Monitor input output. Monitor renal function with daily BMP and avoid nephrotoxins such as contrast unless lifesaving. (2) Anemia: Due to CKD. Hemoglobin recently of 8.9. Monitor and transfuse as needed. She will likely need Procrit as an outpatient (3) Chronic diastolic heart failure: Echo today showing EF of 60% with grade 2 diastolic dysfunction. Continue torsemide 40 mg daily. She should be on fluid restriction of 1.5 L and 2 g of salt. Monitor daily weight Subjective Patient seen in follow-up for ALISTAIR on CKD. She feels well and reports breathing to be at baseline. She was seated up in the chair eating breakfast at the time of my visit. She has mild leg edema. Creatinine at 2.2 today Review of Systems Review of Systems: All systems reviewed & are unremarkable except as noted in HPI & below Physical Exam Physical Exam: General exam: Appears comfortable on oxygen by nasal cannula, no acute distress HEENT: Pupils are equal and reactive to light Neck: No JVD, neck is supple trachea is midline Respiratory system: Clear breath sounds bilaterally. Gastrointestinal: Abdomen is soft, non distended, non tender, bowel sounds are present CVS: Regular rate and rhythm. No murmurs, rubs or gallops Musculoskeletal: No joint or muscle tenderness Extremities: Non tender, 1+ edema, peripheral pulses are present Neuro: Oriented, no tremors, no focal neurological deficits Skin: No rashes Results & Data Vital Signs (Past 12 Hours) Vital Signs Temp Pulse Pulse Resp BP BP Pulse Ox 01/11/19 16:31 58 L 01/11/19 15:30 36.8 C 59 L 98/62 L 99 01/11/19 15:00 36.9 C 59 L 18 93/50 L 100 01/11/19 11:48 36.8 C 91 H 18 99/61 L 100 01/11/19 07:37 68 01/11/19 06:35 36.8 C 67 21 110/67 95 Laboratory Results Laboratory Results - last 24 hr 01/10/19 01/11/19 01/11/19 20:00 06:19 07:34 Sodium 139 Potassium 3.8 Chloride 102 Carbon Dioxide 35 H Anion Gap 3.0 BUN 54 H Creatinine 2.29 H Est Cr Clr Drug Dosing 28.5 Est GFR ( Amer) 24.3 Est GFR (Non-Af Amer) 20.9 BUN/Creatinine Ratio 23.6 H Glucose 96 POC Glucose 110 H 98 Calcium 9.3 01/11/19 01/11/19 01/11/19 11:55 15:21 16:45 Sodium Potassium Chloride Carbon Dioxide Anion Gap BUN Creatinine Est Cr Clr Drug Dosing Est GFR ( Amer) Est GFR (Non-Af Amer) BUN/Creatinine Ratio Glucose POC Glucose 117 H 95 92 Calcium (1) Anemia Anemia type: unspecified type Qualified Code(s): D64.9 - Anemia, unspecified
--- NOTE | 2019-01-11 19:07 | Hospitalist Progress Note ---
Date of Service January 11, 2019 Assessment & Plan (1) ALISTAIR (acute kidney injury): Patient is a 68 yr female who presents with fall and bruise in her buttock region and back region. 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 No hydronephrosis. Echogenicity of the right kidney suggests medical renal disease. Nonvisualization of the bladder. Hepatomegaly as on prior CT. Baseline Cr ~1.5 Cr:2.4>>2.2 Resume Torsemide today Appreciate Nephrology Input Received gentle IV fluids Monitor renal function Normocytic Anemia: Baseline Hb around 10 Monitor Hb Possible hematoma in buttock region Anemia work up--normal vitamin B12, folate levels, serum iron, ferritin Monitor CBC DM: A1C: 5.7 Hold p.o. medication Continue ISS monitor BGs H/O CAD S/P stents Continue aspirin, Imdur, Coreg, statin Chronic respiratory failure On 2 liters of Supplemental oxygen Acute on Chronic diastolic congestive heart failure: Management as above Monitor Volume status HTN: Continue Imdur, Coreg Monitor BP Depression Continue Zoloft Hypothyroidism: Continue Levothyroxine Hyperlipidemia: Continue statin GERD: Continue Protonix. H/O hyponatremia: Currently stable. Monitor sodium levels DVT Px: Heparin SQ Code Status Full Code Disposition: PT/OT: Recommends SNF Subjective Patient is seen and examined at bedside States having transient nausea this morning Shortness of breath slowly improving Discussed with nephrology today Creatinine at 2.2 today Plan to be restarted on diuretics today Discussed with family at bedside Denies chest pain, dizziness, abd pain Review of Systems Review of Systems: All systems reviewed & are unremarkable except as noted in HPI & below Physical Exam Physical Exam: Physical Exam: Vitals signs as noted above General Appearance:Obese, no apparent distress Head: normocephalic, Atraumatic Eyes: normal inspection, EOMI Neck: supple, Trachea midline Respiratory/Chest: Decreased breath sounds, basal crackles Cardiovascular: S1, S2, No murmur Abdomen/GI:Soft, Non tender, Bowel sounds present Extremities/Musculoskelatal:normal inspection, Trace LE edema Neurologic/Psych:AAOX3, grossly no focal neurological deficits Skin: normal color, warm Results & Data Vital Signs (Past 12 Hours) Vital Signs Temp Pulse Pulse Resp BP BP Pulse Ox 01/11/19 16:31 58 L 01/11/19 15:30 36.8 C 59 L 98/62 L 99 01/11/19 15:00 36.9 C 59 L 18 93/50 L 100 01/11/19 11:48 36.8 C 91 H 18 99/61 L 100 01/11/19 07:37 68 Laboratory Results BMP 01/11/19 06:19 Sodium 139 Potassium 3.8 Chloride 102 Carbon Dioxide 35 H BUN 54 H Creatinine 2.29 H Glucose 96 Calcium 9.3
[2019-01-11] MEDS: carvediloL 3.125 MG TAB PO SCH (20:23)
[2019-01-11] MEDS: ACETAMINOPHEN 325 MG TAB PO PRN (20:23)
[2019-01-11] MEDS: SERTRALINE HCL 50 MG TABLET PO SCH (20:27)
[2019-01-12] MEDS: LEVOTHYROXINE SODIUM 100 MCG TABLET PO SCH (05:33)
[2019-01-12 07:16] LABS: Hematocrit (blood only) 30.1 % (37-47)
[2019-01-12 07:44] LABS: BUN Creatinine Ratio 22.7 (10-20); Calcium 9.6 mg/dl (8.5-10.1); Est GFR (African American) 20.7; Est GFR (Non-African American) 17.9; Magnesium 2.1 mg/dl (1.8-2.4); Potassium 3.9 mmol/L (3.5-5.1)
[2019-01-12] MEDS: INSULIN ASPART 100 UNITS/ML 3 ML PEN SC SCH ×4 (08:05→20:34)
[2019-01-12] MEDS: carvediloL 3.125 MG TAB PO SCH ×2 (08:06→20:33)
[2019-01-12] MEDS: ASPIRIN 81 MG ECTAB PO SCH (08:06)
[2019-01-12] MEDS: GABAPENTIN 300 MG CAP PO SCH ×2 (08:06→20:33)
[2019-01-12] MEDS: HEPARIN SOD 5,000 UNIT/0.5 ML VIAL SQ SCH ×2 (08:06→20:33)
[2019-01-12] MEDS: PANTOprazole 40 MG TAB PO SCH (08:06)
[2019-01-12] MEDS: FENOFIBRATE NANOCRYSTALLIZED 145 MG TABLET PO SCH (08:06)
[2019-01-12] MEDS: ISOSORBIDE MONO EXTENDED REL 60 MG TABCR PO SCH (08:06)
[2019-01-12] MEDS: CHOLECALCIFEROL 1,000 UNITS TAB PO SCH (08:07)
[2019-01-12] MEDS: ATORVASTATIN 20 MG TAB PO SCH (08:07)
[2019-01-12] MEDS: INSULIN GLARGINE SOLOSTAR 100 UNITS/ML 3 ML PEN SC SCH ×2 (08:07→20:33)
[2019-01-12] MEDS: FLUTICASONE PROPIONATE NA SPR 16 GM BTL SCH (08:07)
[2019-01-12] MEDS: NYSTATIN POWDER 15GM BTL EXT SCH ×2 (08:08→20:34)
--- NOTE | 2019-01-12 09:29 | XRay Report ---
XR chest 2V routine CLINICAL HISTORY: 68 years-old Female presenting with r pleural effusion/chf. TECHNIQUE: Portable upright AP view of the chest was obtained. COMPARISON: 01/09/2019. FINDINGS: Atherosclerosis of the aortic arch. Cardiac silhouette enlarged. Increasing right pleural effusion wi th decreased aeration of the right mid to lower lung. Increasing interstitial prominence of the left lung. No pneumothorax. Degenerative changes of the thoracic spine. Upper abdomen normal. IMPRESSION: 1. Increasing right pleural effusion with slight worsening of right lung aeration. 2. Increasing congestive changes in the left lung in the setting of cardiomegaly. No edith pulmonary edema at this time. Electronically signed by: Ace Dacosta M.D. 01/12/2019 9:27 AM
--- NOTE | 2019-01-12 09:55 | Pulmonology Progress Note ---
Date of Service January 12, 2019 68-year-old morbidly obese white female with chronic renal insufficiency and hypertensive cardiovascular disease along with chronic alveolar hypoventilation and cor pulmonale admitted with progressive dyspnea and significant bilateral right greater than left pleural effusion with resultant right middle and lower lobe atelectasis. Status post thoracentesis for borderline transudate/X today and worsening renal failure. Initially hydrated then placed back on torsemide and followed by Nephrology. Fluid restriction noted. Patient denies increased symptoms of dyspnea but unfortunately chest x-ray showing reaccumulation of the right pleural effusion with atelectasis and congestive changes. Patient has taken a few steps in the room trying to ambulate but extremely weak. She refuses to consider BiPAP and/or CPAP therapy with her O2 supplementation as she has tried this in the past and could not tolerate this form of therapy. Assessment & Plan (1) ALISTAIR (acute kidney injury): (2) Pneumonia: Laterality: unspecified laterality Lung location: unspecified part of lung Pneumonia type: due to unspecified organism Qualified Code(s): J18.9 - Pneumonia, unspecified organism (3) Hypercapnia with mixed acid-base disorder: (4) Chronic diastolic heart failure: (5) CKD (chronic kidney disease), stage III: (6) Coronary artery disease: (7) Acute hypoxemic respiratory failure: (8) Pleural effusion due to CHF (congestive heart failure): The patient is starting to Re QA the right pleural effusion with congestive changes that is multifactorial in nature. Patient restarted back on torsemide with fluid restriction but refuses noninvasive positive-pressure ventilation for what most certainly constitutes a degree of chronic alveolar hypoventilation with cor pulmonale now and biventricular failure. Review of Systems Review of Systems: All systems reviewed & are unremarkable except as noted in HPI & below Physical Exam Respiratory: normal respiratory effort Auscultation: + diminished lung sounds (Decreased breath sounds right base with dullness to percussion) Results & Data Vital Signs (Past 12 Hours) Vital Signs Temp Pulse Pulse Resp BP BP Pulse Ox 01/12/19 08:30 63 01/12/19 07:24 36.9 C 64 18 143/68 H 97 01/12/19 04:17 37.0 C 62 18 103/58 L 97 01/12/19 00:37 58 L 01/11/19 23:30 36.7 C 60 20 96/58 L 97 PG Care Time/CCT Total # of Minutes Spent Total Time Spent with Patient: Total time spent is greater than 50% in coordination of care (as documented) at patient's floor/unit and/or counseling patient:
--- NOTE | 2019-01-12 12:05 | Nephrology Progress Note ---
Date of Service January 12, 2019 Assessment & Plan (1) ALISTAIR (acute kidney injury): Patient with acute kidney injury on CKD. She has CKD stage III from diabetic nephropathy with baseline creatinine of 1.5. Admission creatinine of 2.4 and got down to 2.2 after holding diuretics and IV normal saline; however back up to mid 2's w/ diuresis which she clearly needs. Etiology of acute kidney injury is likely hemodynamically mediated in setting of obligate diuresis for vol OL from cor pulmonale, pneumonia, chronic hypercapnic respiratory faiure. pulmonary folowing; she has not tolerated cpap/bipap in past or here. Patient has since May been on torsemide at home dose 40 mg daily, resumed this dose yesterday. >continue to Monitor daily standing weight: went up from 122 on 01/10 to 125.7. -very important to log as accuately as possible input output. -trial of lasix IV 20 mg bid17, first dose now and hold torsemide -resume/cont 1.5L daily FR and <2 gm daily Na diet -Monitor renal function with daily BMP and avoid nephrotoxins such as contrast unless lifesaving. (2) Anemia: Due to CKD. Hemoglobin 8.1 today. Monitor and transfuse as needed. She will likely need Procrit as an outpatient (3) Chronic diastolic heart failure: Echo today showing EF of 60% with grade 2 diastolic dysfunction. change diuretics as above. She should be on fluid restriction of 1.5 L and 2 g of salt. Monitor daily weight Present on Admission?: Yes Subjective seen on rounds this am at about 0930; feels a bit better - does state it's hard to get moving/ balanced at first in am. ate full breakfast; denies worsened dyspnea. mild dependent edema; denies voiding issues Review of Systems Review of Systems: All systems reviewed & are unremarkable except as noted in HPI & below Physical Exam Constitutional: well developed, well nourished, + morbidly obese and cooperative on 02NC at my eval Eyes: EOM intact bilaterally ENMT: Ears: no external ear abnormality Nose: no external nose abnormality Mouth: + dry oral mucous membranes Neck: no nuchal rigidity Respiratory: normal respiratory effort Auscultation: + diminished lung sounds and + crackles (BL bases) Cardiovascular: Rate/Rhythm: regular rate and regular rhythm Extremities: + edema (1+ BL ankles) Gastrointestinal (Abdomen): Inspection/Auscultation: normal bowel sounds Percussion/Palpation: abdomen soft; abdomen nontender Musculoskeletal: Extremities: strength 5/5 throughout Skin: no rashes, warm and dry Neurologic: nielsen, fluent speech, no tremor Psychiatric: A+Ox3, euthymic affect Genitourinary: no patrick Results & Data Vital Signs (Past 12 Hours) Vital Signs Temp Pulse Pulse Resp BP BP Pulse Ox 01/12/19 08:30 63 01/12/19 07:24 36.9 C 64 18 143/68 H 97 01/12/19 04:17 37.0 C 62 18 103/58 L 97 01/12/19 00:37 58 L Laboratory Results Abnormal lab results 01/11/19 01/12/19 01/12/19 Range/Units 11:55 06:50 06:50 Hgb 9.0 L (12.0-16.0) g/dL Hct 30.1 L (37-47) % Carbon Dioxide 35 H (21-32) mmol/L Anion Gap 2.0 L (3-11) BUN 59 H (7-18) mg/dl Creatinine 2.61 H D (0.6-1.2) mg/dl BUN/Creatinine Ratio 22.7 H (10-20) POC Glucose 117 H (70-99) 01/12/19 01/12/19 Range/Units 07:35 11:41 Hgb (12.0-16.0) g/dL Hct (37-47) % Carbon Dioxide (21-32) mmol/L Anion Gap (3-11) BUN (7-18) mg/dl Creatinine (0.6-1.2) mg/dl BUN/Creatinine Ratio (10-20) POC Glucose 123 H 102 H (70-99) (1) Anemia Anemia type: unspecified type Qualified Code(s): D64.9 - Anemia, unspecified
[2019-01-12] MEDS ORDERED: FUROSEMIDE 40 MG/4 ML VIAL IV STA (12:58)
[2019-01-12] MEDS ORDERED: FUROSEMIDE 40 MG in SYRINGE 0 ML IV SCH (14:00)
--- NOTE | 2019-01-12 16:24 | Hospitalist Progress Note ---
Date of Service January 12, 2019 Assessment & Plan (1) ALISTAIR (acute kidney injury): Patient is a 68 yr female who presents with fall and bruise in her buttock region and back region. 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 torsemide Started on IV Lasix 20 mg twice daily Monitor volume status and renal function ALISTAIR on CKD III: Renal USD:Limited visualization of the left kidney. No hydronephrosis. Echogenicity of the right kidney suggests medical renal disease. Nonvisualization of the bladder. Hepatomegaly as on prior CT. Baseline Cr ~1.5 Cr:2.4>>2.2>>>2.6 Appreciate Nephrology Input Received gentle IV fluids Monitor renal function while on IV diuretics Normocytic Anemia: Baseline Hb around 10 Monitor Hb Possible hematoma in buttock region Anemia work up--normal vitamin B12, folate levels, serum iron, ferritin Monitor CBC DM: A1C: 5.7 Hold p.o. medication Continue ISS monitor BGs H/O CAD S/P stents Continue aspirin, Imdur, Coreg, statin Chronic respiratory failure On 2 liters of Supplemental oxygen HTN: Continue Imdur, Coreg Monitor BP Depression Continue Zoloft Hypothyroidism: Continue Levothyroxine Hyperlipidemia: Continue statin GERD: Continue Protonix. H/O hyponatremia: Currently stable. Monitor sodium levels DVT Px: Heparin SQ Code Status Full Code Disposition: PT/OT: Recommends SNF Subjective Patient is seen and examined at bedside Chest x-ray today suggestive of worsening congestion, pleural effusion Subjectively feels slightly better Had difficulty with ambulation/balance this morning States having minimal dizziness Discussed with nephrology treatment Denies chest pain, SOB, cough, nausea, abd pain Review of Systems Review of Systems: All systems reviewed & are unremarkable except as noted in HPI & below Physical Exam Physical Exam: Physical Exam: Vitals signs as noted above General Appearance:Obese, no apparent distress Head: normocephalic, Atraumatic Eyes: normal inspection, EOMI Neck: supple, Trachea midline Respiratory/Chest: Decreased breath sounds, basal crackles Cardiovascular: S1, S2, No murmur Abdomen/GI:Soft, Non tender, Bowel sounds present Extremities/Musculoskelatal:normal inspection, LE edema Neurologic/Psych:AAOX3, grossly no focal neurological deficits Skin: normal color, warm Results & Data Vital Signs (Past 12 Hours) Vital Signs Temp Pulse Pulse Resp BP BP Pulse Ox 01/12/19 16:05 36.8 C 61 18 103/56 L 98 01/12/19 15:00 61 01/12/19 08:30 63 01/12/19 07:24 36.9 C 64 18 143/68 H 97 Laboratory Results Short CBC 01/12/19 Range/Units 06:50 Hgb 9.0 L (12.0-16.0) g/dL Hct 30.1 L (37-47) % BMP 01/12/19 06:50 Sodium 138 Potassium 3.9 Chloride 101 Carbon Dioxide 35 H BUN 59 H Creatinine 2.61 H D Glucose 98 Calcium 9.6
[2019-01-12] MEDS: FUROSEMIDE 20 MG in SYRINGE 0 ML IV SCH (20:32)
[2019-01-12] MEDS: SERTRALINE HCL 50 MG TABLET PO SCH (20:33)
[2019-01-13] MEDS: LEVOTHYROXINE SODIUM 100 MCG TABLET PO SCH (06:13)
[2019-01-13 06:57] LABS: Hematocrit (blood only) 30.8 % (37-47); Hemoglobin 9.4 g/dL (12.0-16.0)
[2019-01-13 07:41] LABS: BUN Creatinine Ratio 22.7 (10-20); Calcium 9.4 mg/dl (8.5-10.1); Est GFR (African American) 17.7; Est GFR (Non-African American) 15.3; Potassium 4.1 mmol/L (3.5-5.1)
[2019-01-13] MEDS: INSULIN ASPART 100 UNITS/ML 3 ML PEN SC SCH ×3 (08:01→18:34)
[2019-01-13] MEDS: INSULIN GLARGINE SOLOSTAR 100 UNITS/ML 3 ML PEN SC SCH ×2 (08:02→19:01)
[2019-01-13] MEDS: HEPARIN SOD 5,000 UNIT/0.5 ML VIAL SQ SCH ×3 (08:02→21:45)
[2019-01-13] MEDS: CHOLECALCIFEROL 1,000 UNITS TAB PO SCH (08:02)
[2019-01-13] MEDS: ISOSORBIDE MONO EXTENDED REL 60 MG TABCR PO SCH (08:03)
[2019-01-13] MEDS: ASPIRIN 81 MG ECTAB PO SCH (08:03)
[2019-01-13] MEDS: NYSTATIN POWDER 15GM BTL EXT SCH ×2 (08:03→21:44)
[2019-01-13] MEDS: carvediloL 3.125 MG TAB PO SCH ×2 (08:03→21:16)
[2019-01-13] MEDS: GABAPENTIN 300 MG CAP PO SCH (08:03)
[2019-01-13] MEDS: ATORVASTATIN 20 MG TAB PO SCH (08:03)
[2019-01-13] MEDS: FENOFIBRATE NANOCRYSTALLIZED 145 MG TABLET PO SCH (08:03)
[2019-01-13] MEDS: FLUTICASONE PROPIONATE NA SPR 16 GM BTL SCH (08:03)
[2019-01-13] MEDS: PANTOprazole 40 MG TAB PO SCH (08:03)
[2019-01-13] MEDS: FUROSEMIDE 20 MG in SYRINGE 0 ML IV SCH (08:11)
--- NOTE | 2019-01-13 08:32 | XRay Report ---
XR chest 1V portable HISTORY: Follow-up right pleural effusion. COMPARISON: Chest 01/12/2019. FINDINGS: No pneumothorax. There are low lung volumes. The heart remains enlarged. Mild interstitial and vascular thickening has slightly progressed. Interval increase in size in the moderate right pleu ral effusion. Right basilar densities persist and may represent compressive atelectasis from the effu roney. IMPRESSION: Interval progression of the pulmonary edema and moderate right pleural effusion. Electronically signed by: Quinn Valerio M.D. 01/13/2019 8:30 AM
[2019-01-13 12:08] LABS: Base Excess VBG 3.2 mEq/L; Oxygen Saturation VBG 84.7 %; pH VBG 7.23 (7.36-7.41)
--- NOTE | 2019-01-13 12:32 | Neurology Consultation ---
Date of Consultation January 13, 2019 Assessment & Plan (1) Encephalopathy: Ms. Morgan is a 68 year old woman with multiple medical comorbidities admitted for a fall and generalized weakness in the setting of anemia, plearural effusion, and multiple electrolyte abnormalities. She certainly has multiple medical issues going on which could be contributing to her confusion CPK was normal which would certainly rule out any inflammatory myopathy. I agree that her asthenia is likely multifactioral (deconditioning / sarcopenia, anemia, hypokalemia, obesity, chronic respiratory failure). On examine this morning I did not see any obvious focal findings to suggest an acute stroke. Patient is encephalopathic with decreased awareness and given the timing of the increased confusion and hospital admission date certainly concerning for hospital aquired delirium. I agree with checking UA which I review and does not suggest a UTI. Would consider rechecking blood cultures. Agree with correcting electrolytes and maximizing respiratory and renal functions. I would recommend to continue her home Aspirin. History of Present Illness Attending Physician: Jamel Joseph MD History of Present Illness A 68 year old woman with multiple medical comorbidities including history of CAD s/p stents on ASA and Statin, CKD, diabetes, CHF, COPD on O2, HLD, HTN hyponatremia, hypokalemia, hypomagnesia, and right sided pleural effusion s/p thoracentesis admitted on 01/09/2019 for a mechanical fall and generalized weakness. SHe has baseline ambulatory difficulty but lives at home per daughter and takes care of herself. On admission she was found to have anemia worse then baseline with multiple electrolyte abnormalities. Chest Xray was concerning for posisble pneumonia. Thoracentesis was performed for a pleural effusion. CPK was checked and was normal. PAtient noted to be more confused on 01/13/2019 and neurology was consulted. Patient has orders to be transferred to the ICU with a CT head. Allergies Allergy/AdvReac Type Severity Reaction Status Date / Time cephalexin Allergy Severe SHORTNESS Verified 01/08/19 22:53 OF BREATH Iodinated Contrast- Oral and Allergy Severe GI Verified 01/08/19 22:53 IV Dye SYMPTOMS/SOB prednisone AdvReac Intermediate chest Verified 01/08/19 22:53 heaviness Sulfa (Sulfonamide AdvReac Mild VOMITING Verified 01/08/19 22:53 Antibiotics) Home Medications Home Medications Medication Instructions Recorded Confirmed Type aspirin [Aspirin Low Dose] 81 mg PO DAILY 07/05/18 01/08/19 History atorvastatin 20 mg PO DAILY 07/05/18 01/08/19 History carvedilol 6.25 mg PO BID 07/05/18 01/08/19 History cholecalciferol (vitamin D3) 1,000 unit PO DAILY 07/05/18 01/08/19 History [Vitamin D3] fenofibrate micronized 134 mg PO DAILY 07/05/18 01/08/19 History fluticasone propionate [Flonase 1 spray INTRANASAL DAILY 07/05/18 01/08/19 History Allergy Relief] gabapentin 300 mg PO BID 07/05/18 01/08/19 History isosorbide mononitrate 60 mg PO DAILY 07/05/18 01/08/19 History levothyroxine 100 mg PO DAILY 07/05/18 01/08/19 History nitroglycerin 0.4 mg SUBLINGUAL DIRECTED 07/05/18 01/08/19 History nystatin [Nystop] 1 applic TOPICAL BID 07/05/18 01/08/19 History pantoprazole 40 mg PO DAILY 07/05/18 01/08/19 History pioglitazone 30 mg PO DAILY 07/05/18 01/08/19 History sertraline 150 mg PO DAILY 07/05/18 01/08/19 History ranitidine HCl 150 mg PO BID PRN #60 cap 07/07/18 01/08/19 Rx ipratropium bromide 0.5 mg INHALATION Q6R PRN #200 ml 09/12/18 01/08/19 Rx levalbuterol HCl 1.25 mg INHALATION Q6R PRN #200 ea 09/12/18 01/08/19 Rx polyethylene glycol 3350 [Miralax] 17 g PO DAILY PRN #20 ea 09/12/18 01/08/19 Rx torsemide 40 mg PO QAM #30 tab 09/12/18 01/08/19 Rx Patient History Medical History Arrhythmia (Chronic) Diabetes mellitus type 2, controlled (Chronic) Chronic diastolic heart failure (Chronic) CKD (chronic kidney disease), stage III (Chronic) Coronary artery disease (Chronic) Hypothyroidism (Chronic) on synthyroid. Dyslipidemia (Chronic) on stain and fenofibrate. will follow fasting lipid profile Heart disease (Chronic) Hypertension (Chronic) on imdur, coreg, lisinopril,amlodipine. will monitor BP. Kidney disease (Chronic) stage 3.Baseline cr 1.2 to 1.3. 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: No Beliefs That Will Affect Care: None marital status: / Current Living Situation: Alone Feels Safe at Home: Yes Safety Concerns: Feels Safe At This Time Smoking Status: Former smoker Second Hand Exposure: No ; Hx Alcohol Use: Yes Hx Substance Use: No Physical Exam Physical Exam: EXAM: Constitutional: appears chronically ill, obese Head and Face: normocephalic and atraumatic Eyes: normal lids, normal conjunctiva Neck: supple Respiratory: normal effort Cardiovascular: normal pulses Abdomen: non distended Skin: no rashes, lesions, or ulcers noted Extremities: bilateral lower extremity edema Psychiatric: depressed NEUROLOGIC EXAMINATION: Appearance: no acute distress Orientation: disoriented to month, oriented to age and year Mental Status: lethargic Memory: poor Attention: decreased Knowledge: Poor Language: following simple commands, Speech: no dysarthria Cranial Nerves: CN 2 - no visual defect on confrontation and pupils round, equal CN 3, 4, 6 - extra-ocular movements intact , no gaze preference CN 5 - facial sensation intact CN 7 - no facial asymmetry CN 8 - intact hearing CN 9, 10 - palate symmetric CN 11 - good shoulder shrug CN 12 - tongue midline Gait: unable to ambulate Coordination: no ataxia with finger to nose testing, no tremor Sensory: intact to light touch in both feet Muscle Tone: normal Muscle exam: Moving all 4 extremities, dorsiflexion appears strong all though patient giving poor effort, does not lift either leg to gravity, upper extremities appears strong and symmetric Reflexes: No clonus, toes down Results & Data Vital Signs (Past 12 Hours) Vital Signs Temp Pulse Pulse Resp BP Pulse Ox 01/13/19 11:42 36.9 C 79 22 112/65 95 01/13/19 08:27 92 H 01/13/19 07:00 36.9 C 89 18 116/70 97 01/13/19 03:22 36.8 C 66 19 111/[address] head non contrast on 01/13/2019: Motion degrade. No acute intracranial abnorma lity.
--- NOTE | 2019-01-13 12:40 | Pulmonology Progress Note ---
Date of Service Chart reviewed and patient examined January 13, 2019 Subjective 68-year-old white female with complex medical history with acute on chronic renal insufficiency and normocytic anemia as well as a history of ischemic and hypertensive cardiomyopathy, diabetes mellitus and presentation of acute on chronic hypoxic and hypercapnic respiratory failure. There also was appears to be a degree of chronic obstructive pulmonary disease. Patient was admitted on 01/09/2019 and showed a moderate right pleural effusion with compressive atelectasis and pulmonary edema. She underwent a diagnostic and therapeutic thoracentesis with removal of close to 0.5 liters of a borderline transudate/exudate that was sterile and not malignant. Initially she was hydrated because of the degree of pre renal azotemia had then diuresed. Her renal status has worsened and Nephrology has been consulted. She could not tolerate CPAP and/or BiPAP therapy in the past and refused to try this hospitalization. She was supplemented with oxygen but unfortunately chest x-ray showed progressive reaccumulation of the right pleural fluid along with interstitial edema. She is becoming more disoriented and hypersomnolent. I had a discussion with patient's hospitalist Dr Joseph along with the patient's daughter and son-in-law. She does not have a living will. They have never discussed end of life care or how aggressive to be medically I the mechanical ventilator assistance and/or dialysis or both. I tried to discuss the issue with the patient but she was hypersomnolent and minimally conversant. Review of Systems Review of Systems: All systems reviewed & are unremarkable except as noted in HPI & below Constitutional: no problem reported Eyes: no problem reported Ear, Nose, Mouth, Throat: no problem reported Respiratory: no problem reported Cardiovascular: no problem reported Gastrointestinal: no problem reported Genitourinary: no problem reported Musculoskeletal: no problem reported Integumentary: no problem reported Neurologic: no problem reported Psychiatric: no problem reported Endocrine: no problem reported Hematologic / Lymphatic: no problem reported Allergy / Immunological: no problem reported Physical Exam Constitutional: well developed and well nourished; no acute distress Eyes: PERRL, conjunctivae normal, anicteric sclerae ENMT: external ear and nose normal, oropharynx normal Neck: trachea midline, no thyromegaly Respiratory: normal respiratory effort, + respiratory distress (Mild respiratory distress), + dullness to percussion (Right base), + abnormal respiratory pattern and + tachypneic Auscultation: lungs clear to auscultation bilaterally, + diminished lung sounds (Diminished breath sounds at both bases right greater than left) and + rales Cardiovascular: RRR, no murmur, no edema Rate/Rhythm: + bradycardic Palpation: normal PMI; no thrill Extremities: + edema (Chronic stasis changes with 2+ pitting edema bilateral) Gastrointestinal (Abdomen): normal bowel sounds, soft, nontender, no hepatosplenomegaly Musculoskeletal: no cyanosis or clubbing, extremities motor strength 5/5 Gait: normal gait Skin: no rashes, warm and dry Neurologic: PERRL, EOMI, accommodation nl, no face palsy, no dysarthria Psychiatric: A+Ox3, euthymic affect Lymphatic: no cervical or axillary lymphadenopathy Results & Data Vital Signs (Past 12 Hours) Vital Signs Temp Pulse Pulse Resp BP Pulse Ox 01/13/19 11:42 36.9 C 79 22 112/65 95 01/13/19 08:27 92 H 01/13/19 07:00 36.9 C 89 18 116/70 97 01/13/19 03:22 36.8 C 66 19 111/73 96 PG Care Time/CCT Total # of Minutes Spent Total Time Spent with Patient: Total time spent is greater than 50% in coordination of care (as documented) at patient's floor/unit and/or counseling patient:
--- NOTE | 2019-01-13 12:51 | Pulmonology Progress Note ---
Date of Service January 13, 2019 Assessment & Plan (1) Pleural effusion due to CHF (congestive heart failure): (2) ALISTAIR (acute kidney injury): (3) Pneumonia: Laterality: unspecified laterality Lung location: unspecified part of lung Pneumonia type: due to unspecified organism Qualified Code(s): J18.9 - Pneumonia, unspecified organism (4) Anemia: Anemia type: unspecified type Qualified Code(s): D64.9 - Anemia, unspecified (5) Hypercapnia with mixed acid-base disorder: 68-year-old white female with complex medical history clearly showing signs of acute on chronic hypoxic and hypercapnic respiratory failure with altered sensorium and increased hypersomnolence. Chest x-ray despite recent thoracentesis could shows rapid reaccumulation of the right pleural effusion with interstitial edema and worsening renal failure. I had a lengthy discussion with patient's daughter and son-in-law as well as . Patient does not have a living will and has apparently not discussed her clinical situation with her daughter or family members. In the absence of a clear directive feel patient should be transferred to the ICU and may require mechanical ventilator assistance if her acute renal failure and respiratory status worsens over the next 24-48 hours. A follow-up therapeutic thoracentesis can be carried out or even the placement of a PleurX catheter for chronic effusion may be indicated. (6) Respiratory acidosis: (7) Chronic diastolic heart failure: (8) Coronary artery disease: (9) CKD (chronic kidney disease), stage III: (10) Acute hypoxemic respiratory failure: Results & Data Vital Signs (Past 12 Hours) Vital Signs Temp Pulse Pulse Resp BP Pulse Ox 01/13/19 11:42 36.9 C 79 22 112/65 95 01/13/19 08:27 92 H 01/13/19 07:00 36.9 C 89 18 116/70 97 01/13/19 03:22 36.8 C 66 19 111/73 96 PG Care Time/CCT Total # of Minutes Spent Total Time Spent with Patient: Total time spent is greater than 50% in coordination of care (as documented) at patient's floor/unit and/or counseling patient:
--- NOTE | 2019-01-13 13:21 | CT Scan Report ---
HEAD CT NONCONTRAST CT DOSE: 1612.45 mGy.cm HISTORY: Altered mental status TECHNIQUE: Multiaxial CT images of the head were performed without the use of intravenous contrast. A utomated exposure control was utilized for this study. A dose lowering technique was utilized adheri ng to the principles of ALARA. Comparison: None. Findings: Motion artifact The paranasal sinuses and mastoid air cells are clear. The calvarium and sk ull base are intact. The ventricles and sulci are within normal limits. There is no mass, hematoma, m idline shift, or acute infarct. Impression: Motion artifact. No definite acute intracranial abnormality. Electronically signed by: Quinn Valerio M.D. 01/13/2019 1:20 PM
--- NOTE | 2019-01-13 13:51 | Nephrology Progress Note ---
Date of Service January 13, 2019 Assessment & Plan (1) ALISTAIR (acute kidney injury): Patient with acute kidney injury on CKD. She has CKD stage III from diabetic nephropathy with baseline creatinine of 1.5. Admission creatinine of 2.4 and got down to 2.2 after holding diuretics and IV normal saline; however back up to mid 2's w/ diuresis which she clearly needs. Etiology of acute kidney injury is likely hemodynamically mediated in setting of obligate diuresis for vol OL from cor pulmonale, pneumonia, chronic hypercapnic respiratory failure. pulmonary following; she has not tolerated cpap/bipap in past or here. Patient has since May been on torsemide at home dose 40 mg daily, resumed this dose yesterday. >continue to Monitor daily standing weight: went up from 122 on 01/10 to 125.7. unable to stand for wt today -very important to log as accuately as possible input output > agree w/ patrick -increase lasix now that she has patrick to 40 mg IV tid -follow critical care/ primary service/ pulmonary goals of care; pt unable to have discussion of goals of care currently; daugther wants other sib to be present for this >cannot rule out need for dialysis if fluid issues/ volume overload/worsening creatinine progress. -resume/cont 1.5L daily FR and <2 gm daily Na diet -Monitor renal function with daily BMP and avoid nephrotoxins such as contrast unless lifesaving. (2) Anemia: Due to CKD. Hemoglobin 9.4 (increasing) today. Monitor and transfuse as needed. She may need Procrit as an outpatient (3) Chronic diastolic heart failure: Echo showing EF of 60% with grade 2 diastolic dysfunction > some of her HF also undoubtedly cor pulmonale. diuretics as above. She should be on fluid restriction of 1.5 L and 2 g of salt. Monitor daily weight Subjective pt more confused and somnolent today and w/ concern for worsening/recurrent R pl effusion; moved to ICU; oldest daughter at bedside; Review of Systems Review of Systems: ROS markedly limited by cognitive status Respiratory: no dyspnea Cardiovascular: no chest pain Gastrointestinal: no abdominal pain Physical Exam Constitutional: well developed, well nourished, + morbidly obese and cooperative interactive but weak, restless; unable to answer more than 1-2 simple questions Eyes: EOM intact bilaterally ENMT: Ears: no external ear abnormality Nose: no external nose abnormality Mouth: + dry oral mucous membranes Neck: no nuchal rigidity Respiratory: normal respiratory effort Auscultation: + diminished lung sounds and + crackles (BL bases) Cardiovascular: Extremities: + edema (1+ BL ankles) distant HS, RRR Gastrointestinal (Abdomen): Inspection/Auscultation: normal bowel sounds Percussion/Palpation: abdomen soft; abdomen nontender Musculoskeletal: Extremities: strength 5/5 throughout Skin: no rashes, warm and dry Psychiatric: minimal speech, impaired judgment/insight, restless / fidgeting/ distracted Genitourinary: patrick w/ ample dark yellow uop Results & Data Vital Signs (Past 12 Hours) Vital Signs Temp Pulse Pulse Resp BP Pulse Ox 01/13/19 11:42 36.9 C 79 22 112/65 95 01/13/19 08:27 92 H 01/13/19 07:00 36.9 C 89 18 116/70 97 01/13/19 03:22 36.8 C 66 19 111/73 96 Laboratory Results Abnormal lab results 01/12/19 01/13/19 01/13/19 Range/Units 20:04 06:26 06:26 Hgb 9.4 L (12.0-16.0) g/dL Hct 30.8 L (37-47) % VBG pH (7.36-7.41) VBG pCO2 (38-50) mmHg Carbon Dioxide 34 H (21-32) mmol/L BUN 67 H (7-18) mg/dl Creatinine 2.97 H D (0.6-1.2) mg/dl BUN/Creatinine Ratio 22.7 H (10-20) POC Glucose 137 H (70-99) 01/13/19 Range/Units 11:57 Hgb (12.0-16.0) g/dL Hct (37-47) % VBG pH 7.23 L (7.36-7.41) VBG pCO2 79 H (38-50) mmHg Carbon Dioxide (21-32) mmol/L BUN (7-18) mg/dl Creatinine (0.6-1.2) mg/dl BUN/Creatinine Ratio (10-20) POC Glucose (70-99) (1) Anemia Anemia type: unspecified type Qualified Code(s): D64.9 - Anemia, unspecified
--- NOTE | 2019-01-13 13:58 | Critical Care Consultation ---
Date of Consultation January 13, 2019 Assessment & Plan (1) Acute metabolic encephalopathy: Reason Critically Ill: 68-year-old female with acute on chronic respiratory failure hypercapnic and hypoxic. PLAN: Neuro: Acute metabolic encephalopathy -Likely multifactorial: Uremia, CO2 narcosis, -Holding gabapentin at this time Resp: Acute on chronic hypercapnic hypoxic respiratory failure -Supplemental oxygen to keep saturation between 88-92 Right-sided pleural effusion -Recurrent -Significant volume and right chest, she is maintaining adequate oxygen saturation on 2.5 L oxygen -Discussed with family, given that we have fluid analysis and patient maintaining adequate saturations this time will defer drainage until tomorrow at what time the ICU attending may place Pleurx catheter versus thoracentesis. CV: Chronic diastolic heart failure -Echo reviewed Known coronary artery disease -On statin -Repeat EKG pending prior EKG QTc 489 -Holding significantly QT prolonging meds Fluids/Renal: Acute kidney injury in the setting of chronic kidney disease -Reviewed nephrology notes, aggressive diuresis -Approaching significant volume overload ID: No growth and blood cultures nor pleural fluid cultures GI/Nutrition: Morbid obesity: BMI 52 N.p.o. -At risk for possible aspiration Heme: Anemia: Stable near baseline DVT prophylaxis: Heparin 5000 3 times daily Endocrine: ICU hyperglycemia protocol Known diabetes -On basal with sliding scale may need adjustment while n.p.o. Vascular access: Peripheral IVs Code Status: Full I discussed CODE STATUS with the patient's daughters. Patient does not appear to have capacity and cannot teach back concerns of CODE STATUS. I have personally spent 45 minutes of critical care time in the direct management of this patient. This is a life/limb threatening event. This includes time spent evaluating patient, direct bedside care, chart review, placing orders, interpretation of diagnostic studies, discussion with consultants, patient, and/or family members regarding treatment decisions, as well as other required patient management activities. This time is exclusive of all separately billable procedures, and teaching time and separate from and in addition to any other critical care service time. Present on Admission?: No (2) Pleural effusion due to CHF (congestive heart failure): Present on Admission?: Yes (3) ALISTAIR (acute kidney injury): (4) Hypercapnia with mixed acid-base disorder: (5) Anemia: (6) Chronic diastolic heart failure: (7) CKD (chronic kidney disease), stage III: (8) Coronary artery disease: (9) Respiratory acidosis: (10) Dyslipidemia: (11) Hypothyroidism: (12) Morbid obesity with BMI of 50.0-59.9, adult: History of Present Illness Attending Physician: Since her admission Valery Joseph MD Patient is a 68-year-old female who to [facility] 5 days ago for a fall at home. Noted she walks with a walker and lives alone with her daughter living 1 block away who checks on her. The fall is reported to be mechanical in origin. Since her admission her renal function has declined after initial periods of recovery. They have been holding diuretics however it appears that she is eating increasing in total body volume. She also has aspects of chronic hypercarbia, chronic respiratory acidosis. In review of prior records it appears she has not tolerated noninvasive mechanical ventilation. Goals of care were recently discussed with pulmonology and hospitalist medicine and family did not have advanced directives nor knowledge of significant previous discussions with her and she is transferred to the ICU for further evaluation and treatment of impending acute respiratory failure of worsening acute on chronic hypoxic hypercarbic respiratory failure. Allergies Allergy/AdvReac Type Severity Reaction Status Date / Time cephalexin Allergy Severe SHORTNESS Verified 01/08/19 22:53 OF BREATH Iodinated Contrast- Oral and Allergy Severe GI Verified 01/08/19 22:53 IV Dye SYMPTOMS/SOB prednisone AdvReac Intermediate chest Verified 01/08/19 22:53 heaviness Sulfa (Sulfonamide AdvReac Mild VOMITING Verified 01/08/19 22:53 Antibiotics) Home Medications Home Medications Medication Instructions Recorded Confirmed Type aspirin [Aspirin Low Dose] 81 mg PO DAILY 07/05/18 01/08/19 History atorvastatin 20 mg PO DAILY 07/05/18 01/08/19 History carvedilol 6.25 mg PO BID 07/05/18 01/08/19 History cholecalciferol (vitamin D3) 1,000 unit PO DAILY 07/05/18 01/08/19 History [Vitamin D3] fenofibrate micronized 134 mg PO DAILY 07/05/18 01/08/19 History fluticasone propionate [Flonase 1 spray INTRANASAL DAILY 07/05/18 01/08/19 History Allergy Relief] gabapentin 300 mg PO BID 07/05/18 01/08/19 History isosorbide mononitrate 60 mg PO DAILY 07/05/18 01/08/19 History levothyroxine 100 mg PO DAILY 07/05/18 01/08/19 History nitroglycerin 0.4 mg SUBLINGUAL DIRECTED 07/05/18 01/08/19 History nystatin [Nystop] 1 applic TOPICAL BID 07/05/18 01/08/19 History pantoprazole 40 mg PO DAILY 07/05/18 01/08/19 History pioglitazone 30 mg PO DAILY 07/05/18 01/08/19 History sertraline 150 mg PO DAILY 07/05/18 01/08/19 History ranitidine HCl 150 mg PO BID PRN #60 cap 07/07/18 01/08/19 Rx ipratropium bromide 0.5 mg INHALATION Q6R PRN #200 ml 09/12/18 01/08/19 Rx levalbuterol HCl 1.25 mg INHALATION Q6R PRN #200 ea 09/12/18 01/08/19 Rx polyethylene glycol 3350 [Miralax] 17 g PO DAILY PRN #20 ea 09/12/18 01/08/19 Rx torsemide 40 mg PO QAM #30 tab 09/12/18 01/08/19 Rx Patient History Medical History Arrhythmia (Chronic) Diabetes mellitus type 2, controlled (Chronic) Chronic diastolic heart failure (Chronic) CKD (chronic kidney disease), stage III (Chronic) Coronary artery disease (Chronic) Hypothyroidism (Chronic) on synthyroid. Dyslipidemia (Chronic) on stain and fenofibrate. will follow fasting lipid profile Heart disease (Chronic) Hypertension (Chronic) on imdur, coreg, lisinopril,amlodipine. will monitor BP. Kidney disease (Chronic) stage 3.Baseline cr 1.2 to 1.3. Will follow labs Surgical History History of cholecystectomy (Chronic) History of tonsillectomy (Chronic) History of heart artery stent (Chronic) continue aspirin, coreg,imdur,lipitor Family History Other No significant family history Social History Preferred Language: Irish Communication Ability: Effective Spiral Weaver Required: No Beliefs That Will Affect Care: None marital status: / Current Living Situation: Alone Feels Safe at Home: Yes Safety Concerns: Feels Safe At This Time Smoking Status: Former smoker Second Hand Exposure: No ; Hx Alcohol Use: Yes Hx Substance Use: No Review of Systems Review of Systems: Unobtainable due to reduced consciousness Physical Exam Physical Exam: General: Elderly female I have reviewed the recorded vital signs Neurological: RASS score: -1, Moves all 4 extremities, Psychological: GCS 13 not following complex commands however able to pantomime Eyes: Pupils are equal, round and reactive to light, anicteric sclera. Symmetrical lids. HENT: Oropharynx Clear, moist Mucous Membranes. Neck: Supple. Symmetric. trachea midline. No thyromegaly. Cardiovascular: Normal peripheral perfusion. Distal pulses and capillary refill intact. No JVD. Respiratory: Rales bilaterally posterior chest Gastrointestinal: Soft. Non-distended. Lymphatic: No cervical lymphadenopathy. Musculoskeletal: No deformity. 3+ pitting edema, obvious volume overload Results & Data Vital Signs (Past 12 Hours) Vital Signs Temp Pulse Pulse Resp BP Pulse Ox 01/13/19 11:42 36.9 C 79 22 112/65 95 01/13/19 08:27 92 H 01/13/19 07:00 36.9 C 89 18 116/70 97 01/13/19 03:22 36.8 C 66 19 111/73 96 01/13/19 01/13/19 01/13/19 Range/Units 13:45 13:30 11:57 Hgb (12.0-16.0) g/dL Hct (37-47) % VBG pH 7.23 L (7.36-7.41) VBG pCO2 79 H (38-50) mmHg VBG pO2 54 mmHg VBG HCO3 32 mmol/L VBG O2 Saturation 84.7 % VBG Base Excess 3.2 mEq/L Barometric Pressure 739.4 mm/Hg Sodium (136-145) mmol/L Potassium (3.5-5.1) mmol/L Chloride (98-107) mmol/L Carbon Dioxide (21-32) mmol/L Anion Gap (3-11) BUN (7-18) mg/dl Creatinine (0.6-1.2) mg/dl Est Cr Clr Drug Dosing ml/min Est GFR ( Amer) Est GFR (Non-Af Amer) BUN/Creatinine Ratio (10-20) Glucose (70-99) mg/dl POC Glucose (70-99) Calcium (8.5-10.1) mg/dl Specimen Hemolysis Urine Color Pending Urine Appearance Pending Urine pH Pending Ur Specific [place] Pending Urine Protein Pending Urine Glucose (UA) Pending Urine Ketones Pending Urine Blood Pending Urine Nitrite Pending Urine Bilirubin Pending Urine Urobilinogen Pending Ur Leukocyte Esterase Pending Nasal Screen MRSA (PCR) Pending 01/13/19 01/13/19 01/13/19 Range/Units 11:54 07:20 06:26 Hgb (12.0-16.0) g/dL Hct (37-47) % VBG pH (7.36-7.41) VBG pCO2 (38-50) mmHg VBG pO2 mmHg VBG HCO3 mmol/L VBG O2 Saturation % VBG Base Excess mEq/L Barometric Pressure mm/Hg Sodium 138 (136-145) mmol/L Potassium 4.1 (3.5-5.1) mmol/L Chloride 99 (98-107) mmol/L Carbon Dioxide 34 H (21-32) mmol/L Anion Gap 5.0 (3-11) BUN 67 H (7-18) mg/dl Creatinine 2.97 H D (0.6-1.2) mg/dl Est Cr Clr Drug Dosing 22.0 ml/min Est GFR ( Amer) 17.7 Est GFR (Non-Af Amer) 15.3 BUN/Creatinine Ratio 22.7 H (10-20) Glucose 83 (70-99) mg/dl POC Glucose 86 88 (70-99) Calcium 9.4 (8.5-10.1) mg/dl Specimen Hemolysis Urine Color Urine Appearance Urine pH Ur Specific [place] Urine Protein Urine Glucose (UA) Urine Ketones Urine Blood Urine Nitrite Urine Bilirubin Urine Urobilinogen Ur Leukocyte Esterase Nasal Screen MRSA (PCR) 01/13/19 01/12/19 01/12/19 Range/Units 06:26 20:04 16:46 Hgb 9.4 L (12.0-16.0) g/dL Hct 30.8 L (37-47) % VBG pH (7.36-7.41) VBG pCO2 (38-50) mmHg VBG pO2 mmHg VBG HCO3 mmol/L VBG O2 Saturation % VBG Base Excess mEq/L Barometric Pressure mm/Hg Sodium (136-145) mmol/L Potassium (3.5-5.1) mmol/L Chloride (98-107) mmol/L Carbon Dioxide (21-32) mmol/L Anion Gap (3-11) BUN (7-18) mg/dl Creatinine (0.6-1.2) mg/dl Est Cr Clr Drug Dosing ml/min Est GFR ( Amer) Est GFR (Non-Af Amer) BUN/Creatinine Ratio (10-20) Glucose (70-99) mg/dl POC Glucose 137 H 83 (70-99) Calcium (8.5-10.1) mg/dl Specimen Hemolysis Urine Color Urine Appearance Urine pH Ur Specific [place] Urine Protein Urine Glucose (UA) Urine Ketones Urine Blood Urine Nitrite Urine Bilirubin Urine Urobilinogen Ur Leukocyte Esterase Nasal Screen MRSA (PCR) Laboratory Results 01/13/19 01/13/19 01/13/19 Range/Units 13:45 13:30 11:57 Hgb (12.0-16.0) g/dL Hct (37-47) % VBG pH 7.23 L (7.36-7.41) VBG pCO2 79 H (38-50) mmHg VBG pO2 54 mmHg VBG HCO3 32 mmol/L VBG O2 Saturation 84.7 % VBG Base Excess 3.2 mEq/L Barometric Pressure 739.4 mm/Hg Sodium (136-145) mmol/L Potassium (3.5-5.1) mmol/L Chloride (98-107) mmol/L Carbon Dioxide (21-32) mmol/L Anion Gap (3-11) BUN (7-18) mg/dl Creatinine (0.6-1.2) mg/dl Est Cr Clr Drug Dosing ml/min Est GFR ( Amer) Est GFR (Non-Af Amer) BUN/Creatinine Ratio (10-20) Glucose (70-99) mg/dl POC Glucose (70-99) Calcium (8.5-10.1) mg/dl Specimen Hemolysis Urine Color Pending Urine Appearance Pending Urine pH Pending Ur Specific [place] Pending Urine Protein Pending Urine Glucose (UA) Pending Urine Ketones Pending Urine Blood Pending Urine Nitrite Pending Urine Bilirubin Pending Urine Urobilinogen Pending Ur Leukocyte Esterase Pending Nasal Screen MRSA (PCR) Pending 01/13/19 01/13/19 01/13/19 Range/Units 11:54 07:20 06:26 Hgb (12.0-16.0) g/dL Hct (37-47) % VBG pH (7.36-7.41) VBG pCO2 (38-50) mmHg VBG pO2 mmHg VBG HCO3 mmol/L VBG O2 Saturation % VBG Base Excess mEq/L Barometric Pressure mm/Hg Sodium 138 (136-145) mmol/L Potassium 4.1 (3.5-5.1) mmol/L Chloride 99 (98-107) mmol/L Carbon Dioxide 34 H (21-32) mmol/L Anion Gap 5.0 (3-11) BUN 67 H (7-18) mg/dl Creatinine 2.97 H D (0.6-1.2) mg/dl Est Cr Clr Drug Dosing 22.0 ml/min Est GFR ( Amer) 17.7 Est GFR (Non-Af Amer) 15.3 BUN/Creatinine Ratio 22.7 H (10-20) Glucose 83 (70-99) mg/dl POC Glucose 86 88 (70-99) Calcium 9.4 (8.5-10.1) mg/dl Specimen Hemolysis Urine Color Urine Appearance Urine pH Ur Specific [place] Urine Protein Urine Glucose (UA) Urine Ketones Urine Blood Urine Nitrite Urine Bilirubin Urine Urobilinogen Ur Leukocyte Esterase Nasal Screen MRSA (PCR) 01/13/19 01/12/19 01/12/19 Range/Units 06:26 20:04 16:46 Hgb 9.4 L (12.0-16.0) g/dL Hct 30.8 L (37-47) % VBG pH (7.36-7.41) VBG pCO2 (38-50) mmHg VBG pO2 mmHg VBG HCO3 mmol/L VBG O2 Saturation % VBG Base Excess mEq/L Barometric Pressure mm/Hg Sodium (136-145) mmol/L Potassium (3.5-5.1) mmol/L Chloride (98-107) mmol/L Carbon Dioxide (21-32) mmol/L Anion Gap (3-11) BUN (7-18) mg/dl Creatinine (0.6-1.2) mg/dl Est Cr Clr Drug Dosing ml/min Est GFR ( Amer) Est GFR (Non-Af Amer) BUN/Creatinine Ratio (10-20) Glucose (70-99) mg/dl POC Glucose 137 H 83 (70-99) Calcium (8.5-10.1) mg/dl Specimen Hemolysis Urine Color Urine Appearance Urine pH Ur Specific [place] Urine Protein Urine Glucose (UA) Urine Ketones Urine Blood Urine Nitrite Urine Bilirubin Urine Urobilinogen Ur Leukocyte Esterase Nasal Screen MRSA (PCR) PG Care Time/CCT Total # of Minutes Spent Total Time Spent with Patient: Total time spent is greater than 50% in coordination of care (as documented) at patient's floor/unit and/or counseling patient: (1) Anemia Anemia type: unspecified type Qualified Code(s): D64.9 - Anemia, unspecified
[2019-01-13 14:03] LABS: Appearance Urine Cloudy (Clear); Bacteria Urine Automated Negative (Negative); Blood Urine Negative (Negative); Color Urine Dark Yellow; Epithelial Cell Urine Auto 20-30 /lpf (0-5); Glucose Urine UA Negative (Negative); Ketones Urine Negative (Negative); Leukocyte Esterase Urine Negative (Negative); Nitrite Urine Negative (Negative); Protein Urine Negative (Negative); RBC Urine Automated 0-4 /hpf (0-4); Specific Gravity Urine 1.022 (1.000-1.030); Urobilinogen Urine Negative (Negative)
[2019-01-13 14:24] LABS: Bilirubin Urine Negative (Negative); Ictotest Urine Negative (Negative)
--- NOTE | 2019-01-13 14:36 | Procedure Note ---
Procedure Note Date of Service January 13, 2019 Procedure Date: Noted above Critical Care Medicine Point of Care Bedside Ultrasound Procedure: Limited Bedside Lung Ultrasound Indication: Acute on chronic worsening hypoxic and hypercapnic respiratory failure, worse in the last 24 to 48 hours Attending: Lili Jernigan DO Resident/Physician Soft Shoe Dancer: Not applicable Organs Examined: Lung BLUE point (upper), BLUE point (lower), Phrenic Point (axillary), PLAPS point (posterior) A lines visualized: Absent, Hemithorax: Bilateral B lines visualized: Present, Hemithorax: Left posterior Lung Sliding: Present, Hemithorax: Bilateral Tissue-like Sign: Present, Hemithorax: Bilateral Shred Sign: Absent, Hemithorax: Bilateral Quad Sign: Present, Hemithorax: Total right long Sinusoid Sign: Present, Hemithorax: Total right long Type of effusions: Simple appearing, Hemithorax: Right Interpleural distance: Greater than 2 cm Impression: Significant pleural effusion on right with interpleural distance greater than 2 cm Images obtained are saved for permanent record Coding
[2019-01-13 15:34] LABS: Albumin Level 2.6 gm/dl (3.4-5.0); Bilirubin Direct 0.5 mg/dl (0-0.2); Bilirubin,Total 0.8 mg/dl (0.2-1); INR 1.1 (0.9-1.1); Partial Thromboplastin Ratio 1.2; Partial Thromboplastin Time 32.5 Seconds (21.0-31.0); Prothrombin Time 11.4 Seconds (9.0-12.0); Total Protein 6.7 gm/dl (6.4-8.2)
--- NOTE | 2019-01-13 16:51 | Hospitalist Progress Note ---
Date of Service January 13, 2019 Assessment & Plan (1) ALISTAIR (acute kidney injury): Patient is a 68 yr female who presents with fall and bruise in her buttock region and back region. Acute on Chronic Hypoxic/Hypercapnic respiratory failure Right Pleural Effusion Pulmonary edema Acute on chronic diastolic CHF--POA S/P Thoracentesis ECHO reviewed Appreciate Educational Aid/Pulmonology/Nephrology Input Monitor I/Os, daily weight, fluid restriction Hold p.o. torsemide Continue diuresis--Increased to Lasix 40mg TID Monitor volume status and renal function Hold sedative meds Likely needs repeat Thoracentesis and Pleurx Catheter placement Aspiration precautions Acute Metabolic encephalopathy CT head: No acute intracranial abnormality Likely multifactorial--Hypercapnia, renal failure, elevated ammonia levels UA not suggestive of UTI Neurology Consulted Hypokalemia: Hypomagnesemia In setting of chronic Torsemide use Replace electrolytes as needed monitor Stuffed Casing Tier Fall Ambulatory dysfunction Normal CPK levels Imaging studies negative for fractures PT/OT ALISTAIR on CKD III: Renal USD:Limited visualization of the left kidney. No hydronephrosis. Echogenicity of the right kidney suggests medical renal disease. Nonvisualization of the bladder. Hepatomegaly as on prior CT. Baseline Cr ~1.5 Cr:2.4>2.2>2.6>2.9 Appreciate Nephrology Input Monitor renal function while on IV diuretics May need dialysis if continues to deteriorate Normocytic Anemia: Baseline Hb around 10 Monitor Hb Possible hematoma in buttock region Anemia work up--normal vitamin B12, folate levels, serum iron, ferritin Monitor CBC DM: A1C: 5.7 Hold p.o. medication Continue ISS monitor BGs H/O CAD S/P stents Continue aspirin, Imdur, Coreg, statin Chronic respiratory failure On 2 liters of Supplemental oxygen HTN: Continue Imdur, Coreg Monitor BP Depression Continue Zoloft Hypothyroidism: Continue Levothyroxine Hyperlipidemia: Continue statin GERD: Continue Protonix. H/O hyponatremia: Currently stable. Monitor sodium levels DVT Px: Heparin SQ Code Status Full Code Disposition: PT/OT: Recommends SNF Subjective Patient is seen and examined at bedside Very lethargic this morning Feels tired and has generalized weakness CXR suggestive of worsening Pulmonary edema, R pleural effusion CT head showed no acute abnormality Discussed with family, ICU team and Pulmonology Blood gas suggestive of hypercapnic respiratory failure Planned to be transferred to ICU for further management Denies chest pain, SOB Review of Systems 2 Review of Systems: All systems reviewed & are unremarkable except as noted in HPI & below Physical Exam Physical Exam: Physical Exam: Vitals signs as noted above General Appearance:Obese, no apparent distress Head: normocephalic, Atraumatic Eyes: normal inspection, EOMI Neck: supple, Trachea midline Respiratory/Chest: Decreased breath sounds, Right sided crackles Cardiovascular: S1, S2, No murmur Abdomen/GI:Soft, Non tender, Bowel sounds present Extremities/Musculoskelatal:normal inspection, LE edema Neurologic/Psych:AAOX3, grossly no focal neurological deficits, lethargic Skin: normal color, warm Results & Data Vital Signs (Past 12 Hours) Vital Signs Temp Pulse Pulse Resp BP BP Pulse Ox 01/13/19 14:05 81 16 108/59 L 96 01/13/19 13:15 84 01/13/19 13:10 36.8 C 84 31 H 123/73 94 01/13/19 11:42 36.9 C 79 22 112/65 95 01/13/19 08:27 92 H 01/13/19 07:00 36.9 C 89 18 116/70 97 Laboratory Results Short CBC 01/13/19 Range/Units 06:26 Hgb 9.4 L (12.0-16.0) g/dL Hct 30.8 L (37-47) % BMP 01/13/19 06:26 Sodium 138 Potassium 4.1 Chloride 99 Carbon Dioxide 34 H BUN 67 H Creatinine 2.97 H D Glucose 83 Calcium 9.4 Liver Function 01/13/19 Range/Units 14:59 Total Bilirubin 0.8 (0.2-1) mg/dl Direct Bilirubin 0.5 H (0-0.2) mg/dl AST 25 (15-37) U/L ALT 16 (12-78) U/L Alkaline Phosphatase 40 L (45-117) U/L Albumin 2.6 L (3.4-5.0) gm/dl Urine 01/13/19 Range/Units 13:45 Urine Color Dark Yellow Urine Appearance Cloudy A (Clear) Urine pH 5.0 (4.5-7.5) Ur Specific [place] 1.022 (1.000-1.030) Urine Protein Negative (Negative) Urine Glucose (UA) Negative (Negative)
[2019-01-13] MEDS ORDERED: FUROSEMIDE 40 MG in SYRINGE 0 ML IV SCH (17:00)
[2019-01-13] MEDS: SERTRALINE HCL 50 MG TABLET PO SCH (21:16)
[2019-01-13] MEDS: FUROSEMIDE 40 MG in SYRINGE 0 ML IV SCH (21:43)
[2019-01-14] MEDS: INSULIN ASPART 100 UNITS/ML 3 ML PEN SC SCH ×5 (00:57→17:40)
[2019-01-14 04:47] LABS: Basophils # (auto) 0.01 K/uL (0-0.2); Basophils % (auto) 0.2 %; Eosinophils # (auto) 0.07 K/uL (0-0.5); Eosinophils % (auto) 1.2 %; Hemoglobin 8.4 g/dL (12.0-16.0); Immature Granulocytes # (auto) 0.02 K/uL (0.00-0.02); Immature Granulocytes % (auto) 0.3 %; Lymphocytes # (auto) 0.91 K/uL (1.2-3.4); Mean Corpuscular Hemoglobin 28.2 pg (25-34); Mean Corpuscular Hgb Conc 31.1 g/dL (32-36); Mean Corpuscular Volume 90.6 fL (80-100); Mean Platelet Volume 9.4 fL (7.4-10.4); Monocytes % (auto) 14.9 %; Neutrophils # (auto) 4.15 K/uL (1.4-6.5); Neutrophils % (auto) 68.4 %; Platelet Count 224 K/uL (130-400); RDW Coefficient of Variation 16.9 % (11.5-14.5); RDW Standard Deviation 56.2 fL (36.4-46.3); Red Blood Count 2.98 M/uL (4.2-5.4); White Blood Count 6.06 K/uL (4.8-10.8)
[2019-01-14 05:07] LABS: BUN Creatinine Ratio 24.6 (10-20); Calcium 8.9 mg/dl (8.5-10.1); Creatinine Clr Calc Pharmacy 22.3 ml/min; Est GFR (Non-African American) 15.5; Potassium 3.9 mmol/L (3.5-5.1)
--- NOTE | 2019-01-14 05:31 | Critical Care Progress Note ---
Date of Service January 14, 2019 Assessment & Plan (1) Admitted to intensive care unit: Reason Critically Ill: 68yo female with a PMHx of T2DM, CKD, CAD, hypothyroidism, HLD, HTN, and arrythmia admitted to [facility] 5 days ago following a fall in the setting of anemia. and was admitted to ICU for acute respiratory failure with poor tolerance to BiPaP in the past. 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 - s/p thoracentesis with .5cc nonmalignant effusion removed - Interval XR 01/13 shows increased pulmonary edema and R pleural effusion - BiPap 09/21 - It is critically important that patient be compliant with BiPAP to prevent readmission. The difference between CO2 buildup and oxygen-carrying was discussed with the family, and that checking a pulse ox will not necessarily tell them whether she is ventilating adequately. Discussed that where she to continue to decline clinically and retain CO2 she will ultimately require intubation, but even that was not a long-term option. Patient education around the nature of BiPAP daily was provided, and that intensification to tracheostomy would be both invasive and have multiple drawbacks. Family expressed that they understand this. We will continue have this conversation with the patient as her mental status improves. VBG tonight and tomorrow morning Soft minutes required as patient is still altered and somnolent and attempts to remove BiPAP GI - NPO 2/ AMS Protonix 40 mg p.o. daily PPX RENAL/LYTES - ALISTAIR on CKD - Na 138, K 3.9, Cr 2.93 (downtrending from 2.97) - Mg 2.1 01/12, - Continue lasix 40mg TID - Nephro consulted Replace lytes as needed. - No concerns at this time. - UA negative 01/13 ENDO - T2DM - Hold Glargine 5u BID in setting of hypoclycemia and NPO - Lows to 60's overnight - Aspari SSI, ICU hyperglycemia protocol - BSG AC/HS + BMP daily Levothyroxine P.o. Synthroid held for 1 day due to n.p.o. HEME - Hgb 8.4 from 9.4. Trend daily. ID - BC ngtd Afebrile No leukocytosis Monitor fever curve. INTEGUMENTARY - No acute concerns LINES/IV ACCESS - PIVs intact. DVT PROPHYLAXIS - Heparin 5000 TID Thank you for allowing us to be part of this patient's care. Please refer to Dr. Galicia's documentation for any further recommendations. (2) Encephalopathy: (3) Pleural effusion due to CHF (congestive heart failure): (4) ALISTAIR (acute kidney injury): (5) Generalized weakness: (6) Pneumonia: (7) Anemia: (8) Hypokalemia: (9) Arrhythmia: Supervising Physician Co-Signing Physician Notes Patient seen and examined independently. Electronic medical record extensively reviewed. Family was updated at the bedside. I discussed the case with the family practice resident on rounds. Agree with his assessment and plan the following additions. 68-year-old female with likely obesity hypoventilation syndrome and history of noncompliance with positive airway pressure. She was admitted with hypercarbic respiratory failure. She is apparently declined positive airway pressure in the past but after talking with her about the possibility of this extending her life she has agreed to attempt a trial of BiPAP. This has been successful in significantly reducing her PCO2 during the day. She also likely has diastolic dysfunction fluid overload. Continue diuretics and aggressive blood pressure control are being initiated. I did discuss the case with the cook helper meat who agreed with continued diuretics and following renal function closely. We will see how she does overnight. If she is able to tolerate BiPAP and we have improvement in blood gas, consideration for return to the floor under the care of the hospitalist in the morning may be appropriate. I did extensively discuss CODE STATUS and goals of therapy with patient's daughters at the bedside. They have not really considered this previously. They would like to have their mother more awake and alert to be able to participate in the discussions. 47 minutes critical care time including end-of-life discussion. Subjective Subjective is limited by somnolence. Amanda reports she has not tolerated BiPaP in the past, and vides sno tlike wearing it. She has a CPAP she is supposed to wear at home. She has refused bipap in the hospital, but reports she would wear it if she had to. She endorses fatigue and general weakness this morning. Denies cough, shortness of breath, difficulty breathing, chest pain, chest pressure, headache, nausea, vomiting, diarrhea. Denies fevers, chills, sweats, abdominal pain, dysuria. Review of Systems Review of Systems: 10 point RoS negative except as noted in HPI Physical Exam Physical Exam: General: A&Ox1. Not oriented to date or place. Appears somnolent, follows 1 step commands but falls asleep and does not follow 2 step commands. HEENT: Atraumatic, normocephalic. Pulm: Bilateral dependent crackles, upper lobes clear bilaterally. Diminished breath sounds globally. Symmetrical chest rise. Cardiac: RRR, -mrg. Radial pulses intact and symmetrical. Abdominal: Nontender, nondistended, soft. BS present. Extremities: Warm, dry. Pitting edema through the lower extremity bilaterally. Results & Data Vital Signs (Past 12 Hours) Vital Signs Temp Pulse Resp BP Pulse Ox 01/14/19 05:00 87 21 160/73 H 92 01/14/19 04:01 78 21 130/61 97 01/14/19 03:01 76 18 151/50 H 96 01/14/19 02:00 74 18 148/61 H 95 01/14/19 01:00 74 17 134/56 L 95 01/14/19 00:00 37 C 76 20 128/49 L 96 01/13/19 23:00 86 20 126/67 97 01/13/19 22:00 86 17 132/72 96 01/13/19 21:00 36.8 C 84 19 146/67 H 96 01/13/19 20:50 84 01/13/19 19:00 83 15 114/49 L 97 01/13/19 18:01 84 18 150/75 H 95 PG Care Time/CCT Total # of Minutes Spent Total Time Spent with Patient: Total time spent is greater than 50% in coordination of care (as documented) at patient's floor/unit and/or counseling patient: Critical Care Time: Yes Total Critical Care Time: 47 Resident Activity Tracking Resident Involvement: Resident Care Provided Care Provided: Adult Hospital Medicine (1) Anemia Anemia type: unspecified type Qualified Code(s): D64.9 - Anemia, unspecified (2) Pneumonia Laterality: unspecified laterality Lung location: unspecified part of lung Pneumonia type: due to unspecified organism Qualified Code(s): J18.9 - Pneumonia, unspecified organism
[2019-01-14] MEDS: LEVOTHYROXINE SODIUM 100 MCG TABLET PO SCH (06:16)
[2019-01-14] MEDS: HEPARIN SOD 5,000 UNIT/0.5 ML VIAL SQ SCH ×3 (06:16→21:21)
--- NOTE | 2019-01-14 09:12 | Nephrology Progress Note ---
Date of Service January 14, 2019 Assessment & Plan (1) ALISTAIR (acute kidney injury): Patient with acute kidney injury on CKD. She has CKD stage III from diabetic nephropathy with past baseline creatinine of mid-high ones spring/summer 2018. Admission creatinine of 2.4 and got down to 2.2 after holding diuretics and IV normal saline; however back up to high 2's w/ diuresis which she clearly needs. Etiology of acute kidney injury is likely hemodynamically mediated in setting of obligate diuresis for vol OL from cor pulmonale, pneumonia, chronic hypercapnic respiratory failure. moved to ICU 01/13 d/t metabolic encephalopathy from hypercapnea. pulmonary following; she has not tolerated cpap/bipap in past or here. >continue to Monitor daily weight -very important to log as accurately as possible input output -cont increased lasix now that she has patrick>> lasix 40 mg IV tid -follow critical care/ primary service/ pulmonary goals of care; pt unable to have discussion of goals of care currently >cannot rule out need for dialysis if fluid issues/ volume overload/worsening creatinine progress; however dialysis not appropriate if not doing bipap/cpap consistently -cont 1.5L daily FR and <2 gm daily Na diet -Monitor renal function with daily BMP and avoid nephrotoxins such as contrast unless lifesaving. (2) Anemia: Due to CKD. Hemoglobin in 8s today. Monitor and transfuse as needed. She may need Procrit as an outpatient (3) Acute metabolic encephalopathy: from hypercapnic and hypoxic respiratory failure + /- uremia -continue lasix -agree w/ holding gabapentin/avoiding MS changing meds -cont to discuss goals of care Present on Admission?: No (4) Pleural effusion due to CHF (congestive heart failure): per pulmonary and critical care; reaccumulated quickly after recent thoracentesis d/t vol OL Present on Admission?: Yes Subjective seen on rounds at about 1030 am; pt on bipap, remains confused, in mits so device not removed Review of Systems Review of Systems: Unobtainable due to reduced consciousness Physical Exam Constitutional: well developed, well nourished and + morbidly obese on bipap, tracks but not answering simple questions, restless Eyes: EOM intact bilaterally ENMT: Ears: no external ear abnormality Nose: no external nose abnormality Mouth: + dry oral mucous membranes Neck: no nuchal rigidity Respiratory: normal respiratory effort Auscultation: + diminished lung sounds Cardiovascular: Rate/Rhythm: regular rhythm and + tachycardic Extremities: + edema (1+ BL ankles) Gastrointestinal (Abdomen): Inspection/Auscultation: normal bowel sounds Percussion/Palpation: abdomen soft; abdomen nontender Musculoskeletal: Extremities: strength 5/5 throughout Skin: no rashes, warm and dry Neurologic: moves all extremities, awake and + confused Psychiatric: Insight: + impaired insight Judgement: + limited judgement Genitourinary: patrick w/ ample yellow urine Results & Data Vital Signs (Past 12 Hours) Vital Signs Temp Pulse Resp BP Pulse Ox 01/14/19 06:04 88 18 159/70 H 95 01/14/19 05:00 87 21 160/73 H 92 01/14/19 04:01 78 21 130/61 97 01/14/19 03:01 76 18 151/50 H 96 01/14/19 02:00 74 18 148/61 H 95 01/14/19 01:00 74 17 134/56 L 95 01/14/19 00:00 37 C 76 20 128/49 L 96 01/13/19 23:00 86 20 126/67 97 01/13/19 22:00 86 17 132/72 96 Laboratory Results Abnormal lab results 01/13/19 01/13/19 01/13/19 Range/Units 11:57 13:45 14:59 RBC (4.2-5.4) M/uL Hgb (12.0-16.0) g/dL Hct (37-47) % MCHC (32-36) g/dL RDW Std Deviation (36.4-46.3) fL RDW Coeff of Ezequiel (11.5-14.5) % Lymph # (Auto) (1.2-3.4) K/uL [place] # (Auto) (0.11-0.59) K/uL APTT 32.5 H (21.0-31.0) Seconds VBG pH 7.23 L (7.36-7.41) VBG pCO2 79 H (38-50) mmHg BUN (7-18) mg/dl Creatinine (0.6-1.2) mg/dl BUN/Creatinine Ratio (10-20) Glucose (70-99) mg/dl POC Glucose (70-99) Direct Bilirubin (0-0.2) mg/dl Alkaline Phosphatase (45-117) U/L Ammonia (11-32) umol/L Albumin (3.4-5.0) gm/dl Urine Appearance Cloudy A (Clear) U Hyaline Cast (Auto) 5-10 H (0-5) /lpf U Epithel Cells (Auto) 20-30 H (0-5) /lpf Granular Casts 1-5 H (0) /lpf 01/13/19 01/13/19 01/13/19 Range/Units 14:59 14:59 18:26 RBC (4.2-5.4) M/uL Hgb (12.0-16.0) g/dL Hct (37-47) % MCHC (32-36) g/dL RDW Std Deviation (36.4-46.3) fL RDW Coeff of Ezequiel (11.5-14.5) % Lymph # (Auto) (1.2-3.4) K/uL [place] # (Auto) (0.11-0.59) K/uL APTT (21.0-31.0) Seconds VBG pH (7.36-7.41) VBG pCO2 (38-50) mmHg BUN (7-18) mg/dl Creatinine (0.6-1.2) mg/dl BUN/Creatinine Ratio (10-20) Glucose (70-99) mg/dl POC Glucose 66 L* (70-99) Direct Bilirubin 0.5 H (0-0.2) mg/dl Alkaline Phosphatase 40 L (45-117) U/L Ammonia 38.0 H (11-32) umol/L Albumin 2.6 L (3.4-5.0) gm/dl Urine Appearance (Clear) U Hyaline Cast (Auto) (0-5) /lpf U Epithel Cells (Auto) (0-5) /lpf Granular Casts (0) /lpf 01/14/19 01/14/19 Range/Units 04:21 04:21 RBC 2.98 L (4.2-5.4) M/uL Hgb 8.4 L (12.0-16.0) g/dL Hct 27.0 L (37-47) % MCHC 31.1 L (32-36) g/dL RDW Std Deviation 56.2 H (36.4-46.3) fL RDW Coeff of Ezequiel 16.9 H (11.5-14.5) % Lymph # (Auto) 0.91 L (1.2-3.4) K/uL [place] # (Auto) 0.90 H (0.11-0.59) K/uL APTT (21.0-31.0) Seconds VBG pH (7.36-7.41) VBG pCO2 (38-50) mmHg BUN 72 H (7-18) mg/dl Creatinine 2.93 H (0.6-1.2) mg/dl BUN/Creatinine Ratio 24.6 H (10-20) Glucose 66 L (70-99) mg/dl POC Glucose (70-99) Direct Bilirubin (0-0.2) mg/dl Alkaline Phosphatase (45-117) U/L Ammonia (11-32) umol/L Albumin (3.4-5.0) gm/dl Urine Appearance (Clear) U Hyaline Cast (Auto) (0-5) /lpf U Epithel Cells (Auto) (0-5) /lpf Granular Casts (0) /lpf (1) Anemia Anemia type: unspecified type Qualified Code(s): D64.9 - Anemia, unspecified
[2019-01-14] MEDS ORDERED: HydrALAZINE HCL 20 MG/ML VIAL IV PRN (09:35)
[2019-01-14] MEDS: ASPIRIN 81 MG ECTAB PO SCH (10:43)
[2019-01-14] MEDS: carvediloL 3.125 MG TAB PO SCH ×2 (10:43→20:41)
[2019-01-14] MEDS: FLUTICASONE PROPIONATE NA SPR 16 GM BTL SCH (10:44)
[2019-01-14] MEDS: ISOSORBIDE MONO EXTENDED REL 60 MG TABCR PO SCH (10:44)
[2019-01-14] MEDS: INSULIN GLARGINE SOLOSTAR 100 UNITS/ML 3 ML PEN SC SCH (10:45)
[2019-01-14] MEDS: CHOLECALCIFEROL 1,000 UNITS TAB PO SCH (10:46)
[2019-01-14] MEDS: ATORVASTATIN 20 MG TAB PO SCH (10:46)
[2019-01-14] MEDS: FENOFIBRATE NANOCRYSTALLIZED 145 MG TABLET PO SCH (10:46)
[2019-01-14] MEDS: PANTOprazole 40 MG TAB PO SCH (10:46)
[2019-01-14] MEDS: FUROSEMIDE 40 MG in SYRINGE 0 ML IV SCH ×3 (10:48→21:21)
[2019-01-14 12:17] LABS: Base Excess VBG 1.9 mEq/L; pH VBG 7.34 (7.36-7.41)
[2019-01-14] MEDS: NYSTATIN POWDER 15GM BTL EXT SCH ×2 (13:28→21:21)
[2019-01-14] MEDS ORDERED: LABETALOL HCL IV 5 MG/ML 20ML IV PRN (14:13)
--- NOTE | 2019-01-14 17:47 | Hospitalist Progress Note ---
Date of Service January 14, 2019 Assessment & Plan (1) ALISTAIR (acute kidney injury): Patient is a 68 yr female who presents with fall and bruise in her buttock region and back region. Acute on Chronic Hypoxic/Hypercapnic respiratory failure Right Pleural Effusion Pulmonary edema Acute on chronic diastolic CHF--POA S/P Thoracentesis ECHO reviewed Appreciate Post Doctoral Fellow/Pulmonology/Nephrology Input Monitor I/Os, daily weight, fluid restriction Hold p.o. torsemide Continue IV diuresis--Lasix 40mg TID Monitor volume status and renal function Hold gabapentin Aspiration precautions Continue BiPAP as tolerated VBG in AM Acute Metabolic encephalopathy CT head: No acute intracranial abnormality Likely multifactorial--Hypercapnia, renal failure, elevated ammonia levels UA not suggestive of UTI Appreciate Neurology Input Reorient frequently to avoid delirium Hypokalemia: Hypomagnesemia In setting of chronic Torsemide use Replace electrolytes as needed monitor Pillow Agent Fall Ambulatory dysfunction Normal CPK levels Imaging studies negative for fractures PT/OT ALISTAIR on CKD III: Renal USD:Limited visualization of the left kidney. No hydronephrosis. Echogenicity of the right kidney suggests medical renal disease. Nonvisualization of the bladder. Hepatomegaly as on prior CT. Baseline Cr ~1.5 Cr:2.4>2.2>2.6>2.9 Appreciate Nephrology Input Monitor renal function while on IV diuretics May need dialysis if continues to deteriorate Normocytic Anemia: Baseline Hb around 10 Monitor Hb Possible hematoma in buttock region Anemia work up--normal vitamin B12, folate levels, serum iron, ferritin Monitor CBC DM II: A1C: 5.7 Hold p.o. medication Continue ISS monitor BGs H/O CAD S/P stents Continue aspirin, Imdur, Coreg, statin Chronic respiratory failure On 2 liters of Supplemental oxygen HTN: Continue Imdur, Coreg Monitor BP Depression Continue Zoloft Hypothyroidism: Continue Levothyroxine Hyperlipidemia: Continue statin GERD: Continue Protonix. H/O hyponatremia: Currently stable. Monitor sodium levels DVT Px: Heparin SQ Code Status Full Code Disposition: PT/OT: Recommends SNF Subjective Patient is seen and examined at bedside History is limited as patient lethargic Currently on BiPAP Family at bedside Discussed with ICU team today CO2 levels improving Denies chest pain, SOB Review of Systems Review of Systems: Unobtainable due to reduced consciousness Physical Exam Physical Exam: Physical Exam: Vitals signs as noted above General Appearance:Obese, no apparent distress, lethargic Head: normocephalic, Atraumatic Eyes: normal inspection, EOMI Neck: supple, Trachea midline Respiratory/Chest: Decreased breath sounds, Right sided crackles Cardiovascular: S1, S2, No murmur Abdomen/GI:Soft, Non tender, Bowel sounds present Extremities/Musculoskelatal:normal inspection, LE edema Neurologic/Psych:AAOX3, grossly no focal neurological deficits Skin: normal color, warm Results & Data Vital Signs (Past 12 Hours) Vital Signs Temp Pulse Resp BP Pulse Ox 01/14/19 13:52 81 24 96 01/14/19 12:00 37.1 C 82 21 133/51 L 95 01/14/19 11:31 81 28 H 94 01/14/19 11:01 83 21 125/65 96 01/14/19 10:00 82 18 148/49 H 93 01/14/19 09:55 112 H 18 93 01/14/19 08:01 37.1 C 81 17 152/70 H 97 01/14/19 07:01 75 15 110/43 L 98 01/14/19 06:04 88 18 159/70 H 95 Laboratory Results Short CBC 01/14/19 Range/Units 04:21 WBC 6.06 (4.8-10.8) K/uL Hgb 8.4 L (12.0-16.0) g/dL Hct 27.0 L (37-47) % Plt Count 224 (130-400) K/uL BMP 01/14/19 04:21 Sodium 138 Potassium 3.9 Chloride 100 Carbon Dioxide 31 BUN 72 H Creatinine 2.93 H Glucose 66 L Calcium 8.9
[2019-01-14 20:04] LABS: BUN Creatinine Ratio 27.9 (10-20); Creatinine Clr Calc Pharmacy 22.1 ml/min; Est GFR (African American) 18.2; Est GFR (Non-African American) 15.7; Phosphorus 4.2 mg/dl (2.5-4.9)
[2019-01-14 20:40] LABS: Base Excess VBG -3.1 mEq/L; Oxygen Saturation VBG 79.2 %; pH VBG 7.33 (7.36-7.41)
[2019-01-14] MEDS: SERTRALINE HCL 50 MG TABLET PO SCH (20:41)
[2019-01-15] MEDS: INSULIN ASPART 100 UNITS/ML 3 ML PEN SC SCH ×4 (00:25→18:20)
[2019-01-15 04:59] LABS: Base Excess VBG 0.6 mEq/L; HCO3 VBG 28 mmol/L; Oxygen Saturation VBG 86.6 %; PCO2 VBG 61 mmHg (38-50); PO2 VBG 59 mmHg; pH VBG 7.28 (7.36-7.41)
[2019-01-15 05:08] LABS: BUN Creatinine Ratio 28.4 (10-20); Calcium 8.5 mg/dl (8.5-10.1); Creatinine Clr Calc Pharmacy 22.2 ml/min; Est GFR (African American) 18.3; Est GFR (Non-African American) 15.8; Potassium 3.8 mmol/L (3.5-5.1)
--- NOTE | 2019-01-15 05:15 | Critical Care Progress Note ---
Date of Service January 15, 2019 Assessment & Plan (1) Admitted to intensive care unit: Reason Critically Ill: 68yo female with a PMHx of T2DM, CKD, CAD, hypothyroidism, HLD, HTN, and arrythmia admitted to [facility] 5 days ago following a fall in the setting of anemia. and was admitted to ICU for acute respiratory failure with poor BiPaP compliance in the past. Neuro - [facility] ICU: POSITIVE Acute Metabolic Encephalopathy 2/2 respiratory acidosis -VBG improved yesterday to seven-point // but worsened overnight to 7.2 // -Arouses to voice physical stimulation before falling back asleep - Gabapentin held - Able to swallow meds with bedside swallow this AM - CT-H with motion artifact, no naf oberved Cardiac - Chronic Diastolic Heart Failure - ECHO: 60% X2zphanuopy dysfunction & suspect cor pulmonale - Fluid restrict 1.5L, 2g salt daily - Lasix as below - I: 0, out 1211 cc per 24-hour total, 600 overnight. 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 GI - NPO 2/2 AMS Protonix 40 mg p.o. daily PPX RENAL/LYTES - ALISTAIR on CKD - Na 140, K 3.8, - Creating stable 2.89 from 2.9, bl ~1.3 - Continue lasix 40mg TID - Nephro consulted - Replace lytes as needed. - No concerns at this time. - UA negative 01/13 ENDO - T2DM - Hold Glargine 5u BID in setting of hypoclycemia and NPO - 70-80s overnight - Aspari SSI, ICU hyperglycemia protocol - BSG AC/HS + BMP daily Hypothyroidism P.o. 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 INTEGUMENTARY - No acute concerns LINES/IV ACCESS - PIVs intact. DVT PROPHYLAXIS - Heparin 5000 TID Thank you for allowing us to be part of this patient's care. Please refer to Dr. Galicia's documentation for any further recommendations. Supervising Physician Co-Signing Physician Notes Patient was seen and examined. I independently before the exam and evaluate the patient. Discussed with family members at bedside. Patient was reviewed on multidisciplinary rounds. Images were independently reviewed. This 68-year-old female with diastolic heart failure and obesity hypoventilation syndrome remains in the ICU. Unfortunately we have been unable to make significant progress in improving her encephalopathy which is likely secondary to hypercarbic respiratory failure. She tolerates only brief periods of time off of noninvasive positive pressure ventilation. We have been successful in diuresing to some degree without significantly worsening her kidney function. I met with patient's family members at bedside. Her daughter is CALEB. We disc ussed her current status and reviewed interventions to include full supportive care which would involve potential intubation mechanical ventilation and would include CPR in the event of a cardiovascular collapse versus transition to complete comfort care measures. They state that they would like the patient to be made DO NOT RESUSCITATE which I think is wholly reasonable. They do not want her maintained on machines including mechanical ventilators. They are leaning towards more of a palliative approach if the patient cannot show significant improvement but they would like to continue attempts at noninvasive positive pressure ventilation for now to see if the patient can tolerate it. She tolerates it when her CO2 level climbs however when she is in a more normal state, she becomes increasingly agitated and has to be restrained to keep the BiPAP mask in place. For now we will continue attempts at optimization of fluid status, diuresis, and positive airway pressure as tolerated. If she fails to make any significant improvement over the next 24 to 48 hours, transition to full comfort care measures would be appropriate. We did remove some fluid today with an ultrasound-guided thoracentesis. Fluid was sent for analysis. I suspect it will rapidly reaccumulate. I do not suspect the pleural effusion is contributing to her hypercarbic respiratory failure but may be related to some degree of hypoxemic respiratory failure. I would be reluctant to consider a Pleurx catheter unless it were purely palliative in this morbidly obese patient. The above recommendations and plan were extensively discussed with family members at the bedside. Questions were answered the best my ability. They expressed understanding and agreement with plan as outlined. Monty Long is seen at the bedside this morning. She arouses to voice and attempts to follow simple one-step commands (squeeze my hand), but falls asleep before following complex one-step commands (raise your right hand) or two-step commands. History limited by mental status. Review of Systems Review of Systems: Unobtainable due to cognitive status Physical Exam Physical Exam: General: A&Ox1. Not oriented to date or place. Appears somnolent, follows 1 step commands but falls asleep and does not follow 2 step commands. HEENT: Atraumatic, normocephalic. Pulm: Bilateral dependent rales, upper lobes cut but diminished bilaterally. Symmetrical chest rise. Cardiac: RRR, -mrg. Radial pulses intact and symmetrical. Abdominal: Obese, nontender, nondistended, soft. BS present. Extremities: Warm, dry. Pitting edema through the lower extremity bilaterally. Results & Data Vital Signs (Past 12 Hours) Vital Signs Temp Pulse Resp BP Pulse Ox 01/15/19 02:17 76 19 96 01/15/19 00:01 80 16 96 01/15/19 00:00 37.0 C 80 18 113/50 L 97 01/14/19 23:04 80 22 96 01/14/19 23:00 79 17 111/47 L 95 01/14/19 22:00 89 31 H 124/58 L 91 01/14/19 21:01 91 H 23 95 01/14/19 21:00 87 28 H 137/63 90 01/14/19 20:01 89 22 96 01/14/19 20:00 37.2 C 106 H 25 H 118/67 96 01/14/19 19:01 84 21 96 01/14/19 19:00 84 23 114/49 L 96 01/14/19 18:54 83 23 97 01/14/19 18:00 82 24 111/44 L 96 PG Care Time/CCT Total # of Minutes Spent Total Time Spent with Patient: Total time spent is greater than 50% in coordination of care (as documented) at patient's floor/unit and/or counseling patient: Critical Care Time: Yes Total Critical Care Time: 45 Resident Activity Tracking Resident Involvement: Resident Care Provided Care Provided: Adult Hospital Medicine
[2019-01-15] MEDS: HEPARIN SOD 5,000 UNIT/0.5 ML VIAL SQ SCH ×3 (05:28→22:02)
[2019-01-15] MEDS: LEVOTHYROXINE SODIUM 100 MCG TABLET PO SCH ×2 (05:30→09:20)
--- NOTE | 2019-01-15 06:59 | XRay Report ---
XR chest 1V portable CLINICAL HISTORY: worsening hypercarbia on BiPaP, known effusion COMPARISON STUDY: 01/13/2019 FINDINGS: The heart is enlarged. There is a persistent moderate right pleural effusion with associate d right basilar lung zone airspace opacities. Mild pulmonary vascular congestion is suspected. There is no focal left lung consolidation IMPRESSION: 1. Borderline cardiomegaly and slight improvement in the congestive failure/pulmonary edema pattern 2. Moderate right pleural effusion with associated right mid and lower lung zone airspace opacities, likely atelectatic Electronically signed by: Prince Reilly M.D. 01/15/2019 6:58 AM
--- NOTE | 2019-01-15 07:36 | Nephrology Progress Note ---
Date of Service January 15, 2019 Assessment & Plan (1) ALISTAIR (acute kidney injury): Patient with acute kidney injury on CKD. She has CKD stage III from diabetic nephropathy with past baseline creatinine of mid-high ones spring/summer 2018. Admission creatinine of 2.4 and got down to 2.2 after holding diuretics and IV normal saline; however back up to high 2's w/ diuresis which she clearly needs. Etiology of acute kidney injury is likely hemodynamically mediated in setting of obligate diuresis for vol OL from cor pulmonale, pneumonia, chronic hypercapnic respiratory failure. moved to ICU 01/13 d/t metabolic encephalopathy from hypercapnea. pulmonary following; she has not tolerated cpap/bipap in past or here. >continue to Monitor daily weight -very important to log as accurately as possible input output -cont increased lasix 40 mg IV tid -follow critical care/ primary service/ pulmonary goals of care; pt unable to have discussion of goals of care currently >cannot rule out need for dialysis if fluid issues/ volume overload/worsening creatinine progress; however dialysis not appropriate if not doing bipap/cpap consistently -cont 1.5L daily FR and <2 gm daily Na diet -Monitor renal function with daily BMP and avoid nephrotoxins such as contrast unless lifesaving. (2) Anemia: Due to CKD. Hemoglobin in 8s yesterday. Monitor and transfuse as needed. She may need Procrit as an outpatient (3) Acute metabolic encephalopathy: from hypercapnic and hypoxic respiratory failure + /- uremia -continue lasix -agree w/ holding gabapentin/avoiding MS changing meds -cont to discuss goals of care (4) Pleural effusion due to CHF (congestive heart failure): per pulmonary and critical care; reaccumulated quickly after recent thoracentesis d/t vol OL Subjective seen on rounds this aM at 930; on bipap ON; still w/ altered MS; palliative care to see pt Review of Systems Review of Systems: Unobtainable due to reduced consciousness Physical Exam Constitutional: well developed, well nourished and + morbidly obese on 02NC, tracks, interacts briefly but w/ marked psychomotor slowing Eyes: EOM intact bilaterally ENMT: Ears: no external ear abnormality Nose: no external nose abnormality Mouth: + dry oral mucous membranes Neck: no nuchal rigidity Respiratory: normal respiratory effort Auscultation: + diminished lung sounds Cardiovascular: Rate/Rhythm: regular rate and regular rhythm Extremities: + edema (improved to trace BL ankles) Gastrointestinal (Abdomen): Inspection/Auscultation: normal bowel sounds Percussion/Palpation: abdomen soft; abdomen nontender Musculoskeletal: Extremities: strength 5/5 throughout Skin: no rashes, warm and dry Neurologic: moves all extremities, awake and + confused Psychiatric: A+Ox3, euthymic affect Insight: + impaired insight Judgement: + limited judgement Genitourinary: patrick Results & Data Vital Signs (Past 12 Hours) Vital Signs Temp Pulse Resp BP Pulse Ox 01/15/19 07:00 67 15 97 01/15/19 06:01 69 15 95 01/15/19 06:00 71 17 123/73 95 01/15/19 05:21 68 14 97 01/15/19 05:01 67 16 97 01/15/19 05:00 75 25 H 112/56 L 97 01/15/19 04:01 74 16 97 01/15/19 04:00 36.7 C 74 17 116/84 97 01/15/19 03:01 71 17 97 01/15/19 03:00 72 19 130/61 97 01/15/19 02:17 76 19 96 01/15/19 02:01 75 19 97 01/15/19 02:00 75 26 H 105/48 L 97 01/15/19 01:01 77 21 97 01/15/19 01:00 77 24 109/47 L 97 01/15/19 00:01 80 16 96 01/15/19 00:00 37.0 C 80 18 113/50 L 97 01/14/19 23:04 80 22 96 01/14/19 23:00 79 17 111/47 L 95 01/14/19 22:00 89 31 H 124/58 L 91 01/14/19 21:01 91 H 23 95 01/14/19 21:00 87 28 H 137/63 90 01/14/19 20:01 89 22 96 01/14/19 20:00 37.2 C 106 H 25 H 118/67 96 Laboratory Results Abnormal lab results 01/14/19 01/14/19 01/14/19 Range/Units 12:04 19:37 20:31 VBG pH 7.34 L 7.33 L (7.36-7.41) VBG pCO2 54 H (38-50) mmHg BUN 81 H (7-18) mg/dl Creatinine 2.91 H (0.6-1.2) mg/dl BUN/Creatinine Ratio 27.9 H (10-20) 01/15/19 01/15/19 Range/Units 04:38 04:38 VBG pH 7.28 L (7.36-7.41) VBG pCO2 61 H (38-50) mmHg BUN 82 H (7-18) mg/dl Creatinine 2.89 H (0.6-1.2) mg/dl BUN/Creatinine Ratio 28.4 H (10-20) Diagnostic Findings cxr 1. Borderline cardiomegaly and slight improvement in the congestive failure/pulmonary edema pattern 2. Moderate right pleural effusion with associated right mid and lower lung zone airspace opacities, likely atelectatic (1) Anemia Anemia type: unspecified type Qualified Code(s): D64.9 - Anemia, unspecified
[2019-01-15] MEDS: carvediloL 3.125 MG TAB PO SCH ×2 (09:19→20:31)
[2019-01-15] MEDS: FUROSEMIDE 40 MG in SYRINGE 0 ML IV SCH ×3 (09:19→20:30)
[2019-01-15] MEDS: FLUTICASONE PROPIONATE NA SPR 16 GM BTL SCH (09:19)
[2019-01-15] MEDS: PANTOprazole 40 MG TAB PO SCH (09:20)
[2019-01-15] MEDS: ISOSORBIDE MONO EXTENDED REL 60 MG TABCR PO SCH (09:20)
[2019-01-15] MEDS: ASPIRIN 81 MG ECTAB PO SCH (09:20)
[2019-01-15] MEDS: ATORVASTATIN 20 MG TAB PO SCH (09:20)
[2019-01-15] MEDS: CHOLECALCIFEROL 1,000 UNITS TAB PO SCH (09:20)
[2019-01-15] MEDS: NYSTATIN POWDER 15GM BTL EXT SCH ×2 (09:21→20:33)
--- NOTE | 2019-01-15 10:38 | Palliative Care Consultation ---
Date of Consultation January 15, 2019 Assessment & Plan (1) Goals of care, counseling/discussion: -68 year old female patient with PMH type 2 diabetes, chronic kidney disease stage III, hyperlipidemia, history of hyponatremia, history of metabolic acidemia, chronic respiratory failure, chronic oxygen use at 2 liters, diastolic CHF, CAD, hypertension, venous insufficiency, morbid obesity, reflux esophagitis, stress incontinence female, arthritis, ankylosing spondylitis, depression, presented to the hospital 6 days ago with weakness and a fall at home. Patient has obesity related hypoventilatory syndrome with CO2 retention. Patient typically lives at home alone, does not wear cpap at night, but as previously stated does wear oxygen. She was initially being treated on the medical floor but began to decompensate with large right pleural effusion. She was sent to ICU with altered mental status and CO2 retention. She had a right sided thoracentesis with removal of 900ml fluid. She remains on the bipap with minimal improvement in respiratory or mental status. Patient reportedly has been noncompliant with the bipap as well, as it causes her discomfort. Patient also has acute on chronic kidney injury-- nephrology following. Patient receiving diuretics for fluid management. Palliative care is consulted to discuss goals of care. -Met with patient this morning in room 104. She is awake, on nasal cannula, but is lethargic and drowsy. She is oriented to person and knew she is in hospital. Could not elaborate on why she is in hospital, did not know the date or time, etc. -Patient unable to participate in goals of care conversation. She gave me permission to speak with her daughters about her care. -Returned to patient's room in afternoon when her two daughters Bettina and Kaitlynn present, as well as patient's sister. patient is back on bipap this afternoon, more lethargic. Patient's family state they were able to speak with Dr. Galicia and have decided to make patient DNR/DNI. -Patient would not find this quality of life to be acceptable if she continues to be lethargic and debilitated. Family is realistic and state that patient would prefer to transition to comfort measures if she is not improving in next 24-48 hours. -Palliative care will follow and assist with medical decision making and discussions about goals of care. (2) Acute metabolic encephalopathy: (3) Acute hypoxemic respiratory failure: (4) Hypercapnia with mixed acid-base disorder: History of Present Illness Reason for Consultation: Goals of care Requesting Physician: Dr. Galicia Attending Physician: Jamel Joseph MD History of Present Illness This 68 year old female patient with PMH type 2 diabetes, chronic kidney disease stage III, hyperlipidemia, history of hyponatremia, history of metabolic acidemia, chronic respiratory failure, chronic oxygen use at 2 liters, diastolic CHF, CAD, hypertension, venous insufficiency, morbid obesity, reflux esophagitis, stress incontinence female, arthritis, ankylosing spondylitis, depression, presented to the hospital 6 days ago with weakness and a fall at home. Patient has obesity related hypoventilatory syndrome with CO2 retention. Patient typically lives at home alone, does not wear cpap at night, but as previously stated does wear oxygen. She was initially being treated on the medical floor but began to decompensate with large right pleural effusion. She was sent to ICU with altered mental status and CO2 retention. She had a right sided thoracentesis with removal of 900ml fluid. She remains on the bipap with minimal improvement in respiratory or mental status. Patient reportedly has been noncompliant with the bipap as well, as it causes her discomfort. Patient also has acute on chronic kidney injury-- nephrology following. Patient receiving diuretics for fluid management. Palliative care is consulted to discuss goals of care. Thank you kindly for this consult. Palliative care team will follow as needed. Allergies Allergy/AdvReac Type Severity Reaction Status Date / Time cephalexin Allergy Severe SHORTNESS Verified 01/08/19 22:53 OF BREATH Iodinated Contrast- Oral and Allergy Severe GI Verified 01/08/19 22:53 IV Dye SYMPTOMS/SOB prednisone AdvReac Intermediate chest Verified 01/08/19 22:53 heaviness Sulfa (Sulfonamide AdvReac Mild VOMITING Verified 01/08/19 22:53 Antibiotics) Home Medications Home Medications Medication Instructions Recorded Confirmed Type aspirin [Aspirin Low Dose] 81 mg PO DAILY 07/05/18 01/08/19 History atorvastatin 20 mg PO DAILY 07/05/18 01/08/19 History carvedilol 6.25 mg PO BID 07/05/18 01/08/19 History cholecalciferol (vitamin D3) 1,000 unit PO DAILY 07/05/18 01/08/19 History [Vitamin D3] fenofibrate micronized 134 mg PO DAILY 07/05/18 01/08/19 History fluticasone propionate [Flonase 1 spray INTRANASAL DAILY 07/05/18 01/08/19 History Allergy Relief] gabapentin 300 mg PO BID 07/05/18 01/08/19 History isosorbide mononitrate 60 mg PO DAILY 07/05/18 01/08/19 History levothyroxine 100 mg PO DAILY 07/05/18 01/08/19 History nitroglycerin 0.4 mg SUBLINGUAL DIRECTED 07/05/18 01/08/19 History nystatin [Nystop] 1 applic TOPICAL BID 07/05/18 01/08/19 History pantoprazole 40 mg PO DAILY 07/05/18 01/08/19 History pioglitazone 30 mg PO DAILY 07/05/18 01/08/19 History sertraline 150 mg PO DAILY 07/05/18 01/08/19 History ranitidine HCl 150 mg PO BID PRN #60 cap 07/07/18 01/08/19 Rx ipratropium bromide 0.5 mg INHALATION Q6R PRN #200 ml 09/12/18 01/08/19 Rx levalbuterol HCl 1.25 mg INHALATION Q6R PRN #200 ea 09/12/18 01/08/19 Rx polyethylene glycol 3350 [Miralax] 17 g PO DAILY PRN #20 ea 09/12/18 01/08/19 Rx torsemide 40 mg PO QAM #30 tab 09/12/18 01/08/19 Rx Patient History Medical History Arrhythmia (Chronic) Diabetes mellitus type 2, controlled (Chronic) Chronic diastolic heart failure (Chronic) CKD (chronic kidney disease), stage III (Chronic) Coronary artery disease (Chronic) Hypothyroidism (Chronic) on synthyroid. Dyslipidemia (Chronic) on stain and fenofibrate. will follow fasting lipid profile Heart disease (Chronic) Hypertension (Chronic) on imdur, coreg, lisinopril,amlodipine. will monitor BP. Kidney disease (Chronic) stage 3.Baseline cr 1.2 to 1.3. 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 Physical Exam Constitutional: + ill appearing and + obese; no acute distress ENMT: external ear and nose normal, oropharynx normal Neck: + thick neck Respiratory: normal respiratory effort (shallow respirations) Auscultation: + diminished lung sounds Cardiovascular: Rate/Rhythm: regular rate and regular rhythm Gastrointestinal (Abdomen): Inspection/Auscultation: abdomen normal to inspection and normal bowel sounds Neurologic: moves all extremities and awake (but is drowsy/lethargic) Results & Data Vital Signs (Past 12 Hours) Vital Signs Temp Pulse Resp BP Pulse Ox 01/15/19 09:00 64 16 115/54 L 97 01/15/19 08:00 36.7 C 73 24 123/53 L 95 01/15/19 07:00 66 18 110/54 L 97 01/15/19 06:01 69 15 95 01/15/19 06:00 71 17 123/73 95 01/15/19 05:21 68 14 97 01/15/19 05:01 67 16 97 01/15/19 05:00 75 25 H 112/56 L 97 01/15/19 04:01 74 16 97 01/15/19 04:00 36.7 C 74 17 116/84 97 01/15/19 03:01 71 17 97 01/15/19 03:00 72 19 130/61 97 01/15/19 02:17 76 19 96 01/15/19 02:01 75 19 97 01/15/19 02:00 75 26 H 105/48 L 97 01/15/19 01:01 77 21 97 01/15/19 01:00 77 24 109/47 L 97 01/15/19 00:01 80 16 96 01/15/19 00:00 37.0 C 80 18 113/50 L 97 01/14/19 23:04 80 22 96 01/14/19 23:00 79 17 111/47 L 95 PG Care Time/CCT Prolonged Care Time Prolonged Care Time: Yes Total Prolonged Care Time: 105 Time Spent Midlevel 105 minutes with >50% of time spent at bedside with patient and family, as well as ICU team, during multiple visits to the room discussing condition and GOC.
--- NOTE | 2019-01-15 11:32 | Procedure Note ---
Procedure Note Date of Service January 15, 2019 Procedure: Ultrasound assisted right thoracentesis INDICATION: Pleural effusion Attending physician: Dr. Galicia Assisting physician: Dr. Chapa In Attendance (Y/N): Y CONSENT: Consent was obtained from Amanda Morgan prior to the procedure. Indications, risks, and benefits were explained at length. PROCEDURE SUMMARY: A time out was performed and the chest x-ray was reviewed, the appropriate side was confirmed and marked. Hands were washed immediately prior to the procedure. The patient was prepped and draped in a sterile manner using chlorhexidine scrub after the appropriate level was percussed and confirmed by ultrasound. 1% lidocaine aspirated into a 10cc syringe and was used to anesthesize the skin, subcutaneous tissue, superior aspect of the rib periosteum in between being advanced with negative pressure. Pleural fluid was returned into the syringe at deepest insertion. Needle was removed and a 10-blade scalpel was used to hafsa the skin at the insertion site. Needle-catheter set was then readvanced until pleural fluid was returned. The thoracentesis catheter was then threaded without difficulty. 900cc lyons, turbid colored fluid was removed without difficulty. The catheter was then removed while patient was exhaling. No immediate complications were noted during the procedure. A post-procedure chest x-ray was obtained and did not show evidence of pneumothorax. The fluid was for studies. Estimated blood loss is <5cc. Supervising Physician Co-Signing Physician Notes I was present for and assisted with this entire procedure. Coding CPT Codes Pulmonary/Thoracic - Pulmonary and Thoracic: Thoracentesis w imaging ([id number]) Pulmonary/Thoracic - Pulmonary and Thoracic: US, Chest, real time with imaging documentation ([id number]) Resident Activity Tracking Resident Involvement: Resident Care Provided Care Provided: Adult [facility]
--- NOTE | 2019-01-15 11:34 | XRay Report ---
SINGLE VIEW CHEST CLINICAL HISTORY: Status post thoracentesis FINDINGS: An AP, portable, upright chest radiograph is compared to study performed the same day 019. The examination is degraded by portable technique. The heart is enlarged. There is pulmonary va scular congestion with evidence of interstitial edema. There are right larger left pleural effusions with associated bibasilar consolidation. The right pleural effusion has decreased in size from today' s earlier examination. Fluid is again seen along the right minor fissure. No pneumothorax is identifi ed. The skeletal structures are osteopenic. The bony thorax is grossly intact. IMPRESSION: 1. Cardiomegaly with evidence of congestive failure 2. No pneumothorax is seen post procedure. 3. There are right larger than left pleural effusions. The right pleural effusion has decreased in si ze from today's earlier examination. Electronically signed by: Syd Klein M.D. 01/15/2019 11:33 AM
[2019-01-15 13:34] LABS: Appearance Pleural Fluid CLOUDY; Color Pleural Fluid YELLOW; Mononuclear WBC Pleural 80.6 %; Polynuclear WBC Pleural 19.4 %; RBC Pleural Fluid (A) < 3000 /uL; Source Pleural Fluid RIGHT LUNG; WBC Pleural Fluid (A) 923 /uL
[2019-01-15 14:12] LABS: Total Protein Pleural Fluid 3.3 g/dl
--- NOTE | 2019-01-15 15:30 | Hospitalist Progress Note ---
Date of Service January 15, 2019 Assessment & Plan (1) ALISTAIR (acute kidney injury): Patient is a 68 yr female who presents with fall and bruise in her buttock region and back region. Acute on Chronic Hypoxic/Hypercapnic respiratory failure Right Pleural Effusion Pulmonary edema Acute on chronic diastolic CHF--POA S/P Thoracentesis X 2 ECHO reviewed Appreciate Bender Hand/Pulmonology/Nephrology Input Monitor I/Os, daily weight, fluid restriction Hold p.o. torsemide Continue IV diuresis--Lasix 40mg TID Monitor volume status and renal function Hold gabapentin till mental status improved Aspiration precautions Continue BiPAP as tolerated Palliative care consulted to address goals of care Acute Metabolic encephalopathy CT head: No acute intracranial abnormality Likely multifactorial--Hypercapnia, renal failure, elevated ammonia levels UA not suggestive of UTI Appreciate Neurology Input Reorient frequently to avoid delirium No significant improvement with BiPAP Hypokalemia: Hypomagnesemia In setting of chronic Torsemide use Replace electrolytes as needed monitor Child Advocate Fall Ambulatory dysfunction Normal CPK levels Imaging studies negative for fractures PT/OT ALISTAIR on CKD III: Renal USD:Limited visualization of the left kidney. No hydronephrosis. Echogenicity of the right kidney suggests medical renal disease. Nonvisualization of the bladder. Hepatomegaly as on prior CT. Baseline Cr ~1.5 Cr:2.4>2.2>2.6>2.9>> 2.89 Appreciate Nephrology Input Monitor renal function while on IV diuretics May need dialysis if continues to deteriorate Normocytic Anemia: Baseline Hb around 10 Monitor Hb Possible hematoma in buttock region Anemia work up--normal vitamin B12, folate levels, serum iron, ferritin Monitor CBC DM II: A1C: 5.7 Hold p.o. medication Continue ISS monitor BGs H/O CAD S/P stents Continue aspirin, Imdur, Coreg, statin Chronic respiratory failure On 2 liters of Supplemental oxygen HTN: Continue Imdur, Coreg Monitor BP Depression Continue Zoloft Hypothyroidism: Continue Levothyroxine Hyperlipidemia: Continue statin GERD: Continue Protonix. H/O hyponatremia: Currently stable. Monitor sodium levels DVT Px: Heparin SQ Code Status DNI/DNR Disposition: Monitor in ICU PT/OT: Recommends SNF Subjective Patient is seen and examined at bedside Patient had thoracentesis today No significant improvement of Mental status on BiPAP Denies any chest pain, SOB On BiPAP PRN Discussed with ICU team today on IV diuretics Review of Systems Review of Systems: All systems reviewed & are unremarkable except as noted in HPI & below Physical Exam Physical Exam: Physical Exam: Vitals signs as noted above General Appearance:Obese, no apparent distress, lethargic Head: normocephalic, Atraumatic Eyes: normal inspection, EOMI Neck: supple, Trachea midline Respiratory/Chest: Decreased breath sounds, Right sided crackles Cardiovascular: S1, S2, No murmur Abdomen/GI:Soft, Non tender, Bowel sounds present Extremities/Musculoskelatal:normal inspection, LE edema Neurologic/Psych:AAOX3, grossly no focal neurological deficits Skin: normal color, warm Results & Data Vital Signs (Past 12 Hours) Vital Signs Temp Pulse Resp BP Pulse Ox 01/15/19 15:00 65 17 124/57 L 95 01/15/19 14:01 61 97 01/15/19 14:00 62 106/48 L 97 01/15/19 13:25 62 97 01/15/19 13:00 62 99/48 L 97 01/15/19 12:00 36.8 C 64 111/52 L 98 01/15/19 11:20 67 97/46 L 97 01/15/19 11:15 66 118/57 L 98 01/15/19 11:05 65 112/53 L 98 01/15/19 11:00 68 116/55 L 97 01/15/19 10:00 67 128/59 L 95 01/15/19 09:00 64 16 115/54 L 97 01/15/19 08:00 36.7 C 73 24 123/53 L 95 01/15/19 07:00 66 18 110/54 L 97 01/15/19 06:01 69 15 95 01/15/19 06:00 71 17 123/73 95 01/15/19 05:21 68 14 97 01/15/19 05:01 67 16 97 01/15/19 05:00 75 25 H 112/56 L 97 01/15/19 04:01 74 16 97 01/15/19 04:00 36.7 C 74 17 116/84 97 Laboratory Results [facility] 01/14/19 01/15/19 19:37 04:38 Sodium 139 140 Potassium 4.0 3.8 Chloride 100 100 Carbon Dioxide 28 30 BUN 81 H 82 H Creatinine 2.91 H 2.89 H Glucose 72 80 Calcium 9.0 8.5
[2019-01-15] MEDS: SERTRALINE HCL 50 MG TABLET PO SCH (20:31)
[2019-01-16] MEDS: INSULIN ASPART 100 UNITS/ML 3 ML PEN SC SCH ×2 (00:21→06:10)
[2019-01-16 04:54] LABS: Hematocrit (blood only) 28.4 % (37-47); Hemoglobin 8.8 g/dL (12.0-16.0); Mean Corpuscular Hemoglobin 27.3 pg (25-34); Mean Corpuscular Volume 88.2 fL (80-100); Mean Platelet Volume 9.1 fL (7.4-10.4); Platelet Count 253 K/uL (130-400); RDW Coefficient of Variation 16.8 % (11.5-14.5); RDW Standard Deviation 54.7 fL (36.4-46.3); Red Blood Count 3.22 M/uL (4.2-5.4)
[2019-01-16 05:17] LABS: BUN Creatinine Ratio 31.2 (10-20); Calcium 8.5 mg/dl (8.5-10.1); Creatinine Clr Calc Pharmacy 22.8 ml/min; Est GFR (Non-African American) 16.4; Potassium 3.7 mmol/L (3.5-5.1)
--- NOTE | 2019-01-16 05:27 | Critical Care Progress Note ---
Date of Service January 16, 2019 Assessment & Plan (1) Admitted to intensive care unit: Reason Critically Ill: 68yo female with a PMHx of T2DM, CKD, CAD, hypothyroidism, HLD, HTN, and arrythmia admitted to [facility] following a fall in the setting of anemia and was admitted to ICU for acute respiratory failure with poor BiPaP compliance in the past. Goals of Care: Family and pt endorses comfort care goals, and declines BiPaP. Pt stable for transfer to floor. Neuro - [facility] ICU: POSITIVE Acute Metabolic Encephalopathy 2/2 respiratory acidosis -VBG improved while on BiPAP, however after discussion with family they and her mother would not want aggressive or mechanical interventions. Declined BiPAP overnight. She is easily arousable to voice this morning, but is not oriented to place or date. - Gabapentin held - Able to swallow meds with bedside swallow this AM - CT-H with motion artifact, no naf oberved Cardiac - Chronic Diastolic Heart Failure - ECHO: 60% G3awopdzath dysfunction & suspect cor pulmonale - Fluid restrict 1.5L, 2g salt daily - Lasix as below, nephrology following - I: 130 cc, oh: 2426 cc per 24 hours. 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 Patient felt clinically improved following. . Discussion regarding goals of care as above GI - Protonix 40 mg p.o. daily PPX Diet advanced, passed bedside swallow this morning. Mental status improved this morning. RENAL/LYTES - ALISTAIR on CKD Sodium 141, potassium 3.7, creatinine downtrending to 2.8 from 2.89 Nephrology following Recommend continuing Lasix 40 mg 3 times daily - No concerns at this time. - UA negative 01/13 ENDO - T2DM -8394 this morning - Aspart SSI, ICU hyperglycemia protocol - BSG AC/HS + BMP daily Hypothyroidism P.o. 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 INTEGUMENTARY - No acute concerns LINES/IV ACCESS - PIVs intact. DVT PROPHYLAXIS - Heparin 5000 TID Disposition: Patient goals mostly comfort care oriented on discussion with patient and her family. Anticipate downgrade today. Thank you for allowing me to contribute resident care to this patient. For further documentation please see Dr. Galicia's note. (2) Goals of care, counseling/discussion: (3) Encephalopathy: (4) Morbid obesity with BMI of 50.0-59.9, adult: (5) Acute metabolic encephalopathy: (6) Pleural effusion due to CHF (congestive heart failure): (7) ALISTAIR (acute kidney injury): (8) Generalized weakness: (9) Diabetes mellitus type 2, controlled: (10) Chronic diastolic heart failure: (11) CKD (chronic kidney disease), stage III: (12) Coronary artery disease: Supervising Physician Co-Signing Physician Notes Patient seen and examined. EMR reviewed. Imaging studies reviewed. Discussed with patient and ICU nurse at bedside as well as with family practice resident. Agree with his assessment and plan as noted with the following recommendations. The patient appears clinically improved this morning. She is awake alert and able to answer questions appropriately. She agrees that she wants to focus on comfort measures at this point time and does not wish to pursue any additional attempts at noninvasive positive pressure ventilation. Would continue diuresis. We can follow the patient clinically and I would consider potential repeat thoracentesis for palliative measures if needed but the patient had increasing pain with removal of only 600 cc of fluid yesterday and I suspect the fluid may rapidly reaccumulate. She appears to be responding to diuretics with stable kidney function currently. I feel the patient is appropriate to transfer to the floor. I will continue to follow her for pulmonary issues peripherally. Monty Patel was seen at bedside this morning. She is not in any acute distress, is on 2 L of nasal cannula.. She responds to normal tone of voice this morning, and is oriented to name. Is not oriented to date, and initially believes she is in [place] but reorients to [place] after minute. She reports she feels comfortable in bed, and is not in any pain at time of visit. She has no shortness of breath, chest pain, chest pressure, lightheadedness, dizziness, nausea/vomiting/diarrhea/constipation. She has no questions or concerns at time of visit. Addendum: On nursing revisit approximately 8 AM she was more alert to voice, and was oriented to name, place, and year. Review of Systems Review of Systems: Constitutional: Denies fever, chills. Endorses fatigue Eyes: Denies double vision, vision change, eye pain ENT: Denies sore throat, cough Cardiovascular: Denies chest pain, chest pressure, palpitations. Is 'not sure' if her legs are more swollen than normal. Respiratory: Denies shortness of breath, cough, sputum production, difficulty breathing Gastrointestinal: Denies abdominal pain, nausea, vomiting, constipation, diarrhea Genitourinary: Denies dysuria Musculoskeletal: Denies muscle aches/pain, joint aches/pain. Endorses overall fatigue. Integumentary:Denies rash, bruising. Endorses some soreness on the bridge of her nose from the BiPaP. Neurological: Denies headache, numbness, focal weakness Physical Exam Physical Exam: General: A&Ox1. Not oriented to date or place. Arouses easily to voice this morning. HEENT: Atraumatic, normocephalic. Pulm: Bilateral dependent rales, upper lobes clear but diminished bilaterally. Symmetrical chest rise. Cardiac: heart sounds distant RRR, -mrg. Radial pulses intact and symmetrical. Abdominal: Obese, nontender, nondistended, soft. BS present. Extremities: Warm, dry. Pitting edema through the lower extremity bilaterally. Trace hand edema bilaterally. Results & Data Vital Signs (Past 12 Hours) Vital Signs Temp Pulse Resp BP Pulse Ox 01/15/19 22:01 70 20 93 01/15/19 22:00 71 19 139/49 L 94 01/15/19 21:01 69 17 93 01/15/19 21:00 69 20 126/58 L 92 01/15/19 20:01 67 15 93 01/15/19 20:00 36.6 C 72 21 139/68 94 01/15/19 19:00 68 13 123/56 L 93 01/15/19 18:00 70 18 121/51 L 93 PG Care Time/CCT Total # of Minutes Spent Total Time Spent with Patient: Total time spent is greater than 50% in coordination of care (as documented) at patient's floor/unit and/or counseling patient: Resident Activity Tracking Resident Involvement: Resident Care Provided Care Provided: Adult [facility] Medicine
[2019-01-16] MEDS: HEPARIN SOD 5,000 UNIT/0.5 ML VIAL SQ SCH ×3 (06:10→21:22)
[2019-01-16] MEDS: LEVOTHYROXINE SODIUM 100 MCG TABLET PO SCH (06:10)
--- NOTE | 2019-01-16 08:11 | Pulmonology Progress Note ---
Date of Service January 16, 2019 Results & Data Vital Signs (Past 12 Hours) Vital Signs Temp Pulse Resp BP Pulse Ox 01/16/19 06:01 66 16 96 01/16/19 06:00 66 16 138/60 96 01/16/19 05:01 71 19 95 01/16/19 05:00 65 13 134/60 95 01/16/19 04:01 69 19 95 01/16/19 04:00 36.7 C 69 21 131/64 94 01/16/19 03:01 67 21 95 01/16/19 03:00 67 17 126/58 L 94 01/16/19 02:01 64 16 94 01/16/19 02:00 66 16 128/59 L 94 01/16/19 01:01 64 19 95 01/16/19 01:00 64 17 114/52 L 94 01/16/19 00:01 65 16 94 01/16/19 00:00 36.7 C 63 15 124/58 L 94 01/15/19 23:01 65 12 93 01/15/19 23:00 67 24 131/61 94 01/15/19 22:01 70 20 93 01/15/19 22:00 71 19 139/49 L 94 01/15/19 21:01 69 17 93 01/15/19 21:00 69 20 126/58 L [address] chest wo con CT DOSE: 938.13 mGy.cm HISTORY: Dyspnea pneumonia TECHNIQUE: Multiaxial CT images of the chest were performed without contrast. A dose lowering technique was utilized adhering to the principles of ALARA. COMPARISON: 07/07/2018 FINDINGS: Interval development of a large right effusion. There are components of right lower lobe atelectasis and volume loss. Similar but less prominent findings identified involving the right middle lobe. Left lung is grossly clear. Pulmonary vasculature is prominent. Mild cardiomegaly. Calcification of the thoracic arterial vasculature. IMPRESSION: 1. Large right effusion. 2. Compressive atelectasis of components of the right lower and right middle lobes. 3. Prominent pulmonary vasculature suggesting a component of pulmonary arterial hypertension. 4. Moderate Cardiomegaly. The above report was generated using voice recognition software. It may contain grammatical, syntax or spelling errors. Electronically signed by: Heri Lima M.D. 01/09/2019 6:32 AM Dictated: 01/09/19627 Transcribed: 01/09/19627 PG Care Time/CCT Total # of Minutes Spent Total Time Spent with Patient: Total time spent is greater than 50% in coordination of care (as documented) at patient's floor/unit and/or counseling patient:
[2019-01-16] MEDS: carvediloL 3.125 MG TAB PO SCH ×2 (08:57→21:19)
[2019-01-16] MEDS: FLUTICASONE PROPIONATE NA SPR 16 GM BTL SCH (08:57)
[2019-01-16] MEDS: ASPIRIN 81 MG ECTAB PO SCH (08:57)
[2019-01-16] MEDS: ISOSORBIDE MONO EXTENDED REL 60 MG TABCR PO SCH (08:57)
[2019-01-16] MEDS: PANTOprazole 40 MG TAB PO SCH (08:57)
[2019-01-16] MEDS: FUROSEMIDE 40 MG in SYRINGE 0 ML IV SCH (08:57)
[2019-01-16] MEDS: ATORVASTATIN 20 MG TAB PO SCH (08:57)
[2019-01-16] MEDS: CHOLECALCIFEROL 1,000 UNITS TAB PO SCH (08:57)
[2019-01-16] MEDS: NYSTATIN POWDER 15GM BTL EXT SCH ×2 (08:58→21:19)
--- NOTE | 2019-01-16 09:39 | Hospitalist Progress Note ---
Date of Service January 16, 2019 Assessment & Plan (1) Acute on chronic respiratory failure with hypoxemia: Acute on Chronic Hypoxic/Hypercapnic respiratory failure Presented with severe hypoxemia, hypercarbia, Possible secondary to acute on chronic diastolic CHF present on admission, Required intermittent BiPAP Large right-sided pleural effusion Status post thoracentesis x22 ECHO reviewed Appreciate Paint Tinter/Pulmonology/Nephrology Input Palliative care consulted to address goals of care -appreciate input Patient understands poor prognosis, Does not want any invasive procedures, does not want to be placed back on BiPAP Wants to be comfortable only Patient will be transferred out of intensive care unit to medical floor, goal of care will be directed to comfort care/hospice And patient's market decline in functional status we may need referral to skilled nursing with hospice care Service following for discharge planning (2) ALISTAIR (acute kidney injury): ALISTAIR on CKD III: Renal USD:Limited visualization of the left kidney. No hydronephrosis. Echogenicity of the right kidney suggests medical renal disease. Nonvisualization of the bladder. Hepatomegaly as on prior CT. Baseline Cr ~1.5 Cr:2.4>2.2>2.6>2.9>> 2.89 Appreciate Nephrology Input Patient's clinical status continues to decline, Patient is willing for hospice care, transition to comfort measures only Not a candidate for dialysis, patient also declines any invasive procedure We will update nephrology team (3) Acute metabolic encephalopathy: Acute Metabolic encephalopathy Likely multifactorial--Hypercapnia, renal failure, elevated ammonia levels CT head: No acute intracranial abnormality UA not suggestive of UTI Patient appears to be more oriented, today to participate in her medical treatment plan and goals of care Wants to be comfortable only, avoid BiPAP, oxygen via nasal cannula only care transition to hospice, Patient is agreeable for pain medication utilization for air hunger shortness of breath Palliative care following appreciate input DVT Px: Heparin SQ Code Status DNI/DNR Disposition: Patient is being transferred to medical floor, Plan to transition care to skilled nursing with hospice, if patient remains clinically stable in next 24-48 hours Subjective Patient seen and ICU room 104, Off BiPAP on oxygen via nasal cannula, appears to be awake and alert, Denies of any shortness of breath, no chest heaviness, no cough Patient is afebrile, denies of any abdominal pain, Quintanilla draining clear yellow urine Palliative care teamMirna was present at bedside as well Discussed goal of care, She does not want to be placed back on BiPAP Wants to be comfortable, Does not want any invasive procedure Understands and agrees to transition to hospice care Patient also verbalized understanding given significant decline in functional status, she may not be able to return back home with her 05/12 care Willing for transfer to skilled nursing with hospice when clinically appropriate Review of Systems Review of Systems: All systems reviewed & are unremarkable except as noted in HPI & below Physical Exam Constitutional: + ill appearing and + obese; no acute distress Elderly, chronically ill-appearing, no apparent distress noted, Eyes: sclerae not anicteric ENMT: external ear and nose normal, oropharynx normal Neck: trachea midline, no thyromegaly Respiratory: no respiratory distress and no cough Auscultation: + diminished lung sounds, + crackles (Bibasilar Rales) and + rales; no wheezes Cardiovascular: Rate/Rhythm: regular rate and regular rhythm Gastrointestinal (Abdomen): Percussion/Palpation: abdomen soft; abdomen nontender Musculoskeletal: Extremities: no cyanosis and no clubbing Generalized weakness, Skin: no rashes, warm and dry Neurologic: PERRL, EOMI, accommodation nl, no face palsy, no dysarthria Psychiatric: Orientation: alert Speech: normal rate/rhythm/volume of speech Affect: + flat affect Oriented to place and person Results & Data Vital Signs (Past 12 Hours) Vital Signs Temp Pulse Resp BP Pulse Ox 01/16/19 08:00 66 01/16/19 06:01 66 16 96 01/16/19 06:00 66 16 138/60 96 01/16/19 05:01 71 19 95 01/16/19 05:00 65 13 134/60 95 01/16/19 04:01 69 19 95 01/16/19 04:00 36.7 C 69 21 131/64 94 01/16/19 03:01 67 21 95 01/16/19 03:00 67 17 126/58 L 94 01/16/19 02:01 64 16 94 01/16/19 02:00 66 16 128/59 L 94 01/16/19 01:01 64 19 95 01/16/19 01:00 64 17 114/52 L 94 01/16/19 00:01 65 16 94 01/16/19 00:00 36.7 C 63 15 124/58 L 94 01/15/19 23:01 65 12 93 01/15/19 23:00 67 24 131/61 94 01/15/19 22:01 70 20 93 01/15/19 22:00 71 19 139/49 L 94
[2019-01-16] MEDS ORDERED: MoRPHine SULFATE 10 MG/0.5 ML UDP PO PRN (10:05)
[2019-01-16] MEDS ORDERED: MoRPHine SULFATE 2 MG/ML CARP IV PRN (10:05)
--- NOTE | 2019-01-16 10:36 | Palliative Care Progress Note ---
Date of Service January 16, 2019 Assessment & Plan (1) Goals of care, counseling/discussion: -Amanda refused bipap over night and was placed on 2LNC. She is more alert and oriented today. She denies complaints, we discussed goals of care with Dr. Meyer present as well. -Patient stated she does not want to have the bipap mask put back on, and she understands what that means. Patient's goal is for comfort and to allow nature to take its course. -Plan after hospitalization is for patient to go to SNF, likely skilled first with a transition to hospice. -POLST form would be helpful to have prior to discharge. Will return to the room this afternoon to see if daughters are present to assist with completing POLST. (2) Acute metabolic encephalopathy: (3) Acute hypoxemic respiratory failure: (4) Hypercapnia with mixed acid-base disorder: Subjective Amanda refused bipap over night and was placed on 2LNC. She is more alert and oriented today. She denies complaints, we discussed goals of care with Dr. Meyer present as well. Review of Systems Review of Systems: Denies pain, SOB, N/V. Does c/o weakness Results & Data Vital Signs (Past 12 Hours) Vital Signs Temp Pulse Resp BP Pulse Ox 01/16/19 09:00 67 21 131/52 L 98 01/16/19 08:00 36.6 C 68 21 134/54 L 98 01/16/19 07:00 69 14 124/49 L 95 01/16/19 06:01 66 16 96 01/16/19 06:00 66 16 138/60 96 01/16/19 05:01 71 19 95 01/16/19 05:00 65 13 134/60 95 01/16/19 04:01 69 19 95 01/16/19 04:00 36.7 C 69 21 131/64 94 01/16/19 03:01 67 21 95 01/16/19 03:00 67 17 126/58 L 94 01/16/19 02:01 64 16 94 01/16/19 02:00 66 16 128/59 L 94 01/16/19 01:01 64 19 95 01/16/19 01:00 64 17 114/52 L 94 01/16/19 00:01 65 16 94 01/16/19 00:00 36.7 C 63 15 124/58 L 94 01/15/19 23:01 65 12 93 01/15/19 23:00 67 24 131/61 94 Time Spent Midlevel 35 minutes with >50% of the time spent at bedside with patient and IDT discussing goals and plan of care.
--- NOTE | 2019-01-16 13:03 | Hospitalist Progress Note ---
Date of Service January 16, 2019 Subjective Spoke with patient's daughter: Bettina phone #[phone] Discussed regarding patient's current status, transition to hospice care Family in agreement Previous referral made to [facility] for skilled Discussed with case management, transfer to [facility] likely as skilled first then transition to hospice if patient remains clinically stable in next 24-48 hours Patient will be on p.o. Lasix, will need to be on chronic Quintanilla catheter and discharge Elidia Meyer MD Results & Data Vital Signs (Past 12 Hours) Vital Signs Temp Pulse Pulse Resp BP BP Pulse Ox 01/16/19 11:43 36.5 C 69 18 99/60 L 95 01/16/19 09:00 67 21 131/52 L 98 01/16/19 08:00 36.6 C 68 21 134/54 L 98 01/16/19 07:00 69 14 124/49 L 95 01/16/19 06:01 66 16 96 01/16/19 06:00 66 16 138/60 96 01/16/19 05:01 71 19 95 01/16/19 05:00 65 13 134/60 95 01/16/19 04:01 69 19 95 01/16/19 04:00 36.7 C 69 21 131/64 94 01/16/19 03:01 67 21 95 01/16/19 03:00 67 17 126/58 L 94 01/16/19 02:01 64 16 94 01/16/19 02:00 66 16 128/59 L 94
[2019-01-16] MEDS: ACETAMINOPHEN 325 MG TAB PO PRN (15:52)
[2019-01-16] MEDS: FUROSEMIDE 80 MG TAB PO SCH (15:53)
[2019-01-16] MEDS ORDERED: FUROSEMIDE 40 MG TAB PO SCH (17:00)
[2019-01-16] MEDS: SERTRALINE HCL 50 MG TABLET PO SCH (21:19)
[2019-01-17] MEDS: HEPARIN SOD 5,000 UNIT/0.5 ML VIAL SQ SCH ×3 (05:12→21:09)
[2019-01-17] MEDS: carvediloL 3.125 MG TAB PO SCH ×2 (08:49→20:49)
[2019-01-17] MEDS: ISOSORBIDE MONO EXTENDED REL 60 MG TABCR PO SCH (08:50)
[2019-01-17] MEDS: FLUTICASONE PROPIONATE NA SPR 16 GM BTL SCH (08:50)
[2019-01-17] MEDS: NYSTATIN POWDER 15GM BTL EXT SCH ×2 (08:50→21:02)
[2019-01-17] MEDS: FUROSEMIDE 80 MG TAB PO SCH ×2 (08:50→17:00)
--- NOTE | 2019-01-17 11:41 | Palliative Care Progress Note ---
Date of Service January 17, 2019 Assessment & Plan (1) Goals of care, counseling/discussion: -Plan is for patient to return to [facility] on comfort/hospice care. -Patient has no complaints today. Is comfortable. Stable for discharge per attending physician. -Palliative care will sign off. Please reconsult us if there are any further palliative care needs. -No family at bedside today to do POLST form. -Patient has PRN Roxanol ordered as needed, but has no received a dose as of yet. (2) Acute metabolic encephalopathy: (3) Acute hypoxemic respiratory failure: (4) Hypercapnia with mixed acid-base disorder: Subjective A little more drowsy today, but awake and no complaints. Review of Systems Review of Systems: Denies pain, SOB, N/V. Physical Exam Constitutional: + ill appearing and + obese; no acute distress ENMT: external ear and nose normal, oropharynx normal Neck: + thick neck Respiratory: normal respiratory effort (shallow respirations) Auscultation: + diminished lung sounds Cardiovascular: Rate/Rhythm: regular rate and regular rhythm Gastrointestinal (Abdomen): Inspection/Auscultation: abdomen normal to inspection and normal bowel sounds Neurologic: moves all extremities and awake (but is drowsy/lethargic) Results & Data Vital Signs (Past 12 Hours) Vital Signs Temp Pulse Resp BP Pulse Ox 01/17/19 08:47 73 149/75 H 01/17/19 07:35 37.0 C 74 18 149/74 H 91 Time Spent Midlevel 25 minutes with >50% of the time spent at bedside with patient and attending physician discussing plan of care.
--- NOTE | 2019-01-17 15:56 | Hospitalist Progress Note ---
Date of Service January 17, 2019 Assessment & Plan (1) Acute on chronic respiratory failure with hypoxemia: Patient status remains a stable, on nasal cannula, Continues to feel very tired and weak Does not want any aggressive intervention, Willing to transition care to long term with skilled initially and letter transfer to hospice as needed Acute on Chronic Hypoxic/Hypercapnic respiratory failure Presented with severe hypoxemia, hypercarbia, Possible secondary to acute on chronic diastolic CHF present on admission, Required intermittent BiPAP Large right-sided pleural effusion Status post thoracentesis x2 ECHO reviewed Appreciate Insurance Salesperson/Pulmonology/Nephrology Input Palliative care consulted to address goals of care -appreciate input Patient understands poor prognosis, Does not want any invasive procedures, does not want to be placed back on BiPAP Wants to be comfortable only Patient was transferred out of intensive care unit to medical floor, goal of care is directed to comfort care/hospice (2) ALISTAIR (acute kidney injury): ALISTAIR on CKD III: Renal USD:Limited visualization of the left kidney. No hydronephrosis. Echogenicity of the right kidney suggests medical renal disease. Nonvisualization of the bladder. Hepatomegaly as on prior CT. Baseline Cr ~1.5 Cr:2.4>2.2>2.6>2.9>> 2.89 Appreciate Nephrology Input Patient's clinical status continues to decline, Patient is willing for hospice care, transition to comfort measures only Not a candidate for dialysis, patient also declines any invasive procedure (3) Acute metabolic encephalopathy: Acute Metabolic encephalopathy Likely multifactorial--Hypercapnia, renal failure, elevated ammonia levels CT head: No acute intracranial abnormality Mental status gradually improved to baseline, alert and awake oriented to place and person, Patient decided not to go for any invasive procedure, CODE STATUS DNR/DNI as per patient's wish, Wants to be comfortable only, avoid BiPAP, oxygen via nasal cannula only DVT Px: Heparin SQ Code Status DNI/DNR Disposition: Patient is medically stable to transition to [facility] for SNF later transition to hospice Subjective Patient found to be more tired, lethargic today opens eyes to voice, Head on eventful night, remains his nasal cannula, no sign of respiratory distress noted No fever or chills, vitals remained stable Physical Exam Constitutional: + ill appearing and + obese; no acute distress Eyes: sclerae not anicteric ENMT: external ear and nose normal, oropharynx normal Neck: trachea midline, no thyromegaly Respiratory: no respiratory distress and no cough Auscultation: + diminished lung sounds, + crackles (Bibasilar Rales) and + rales; no wheezes Cardiovascular: Rate/Rhythm: regular rate and regular rhythm Gastrointestinal (Abdomen): Percussion/Palpation: abdomen soft; abdomen nontender Musculoskeletal: Extremities: no cyanosis and no clubbing Skin: no rashes, warm and dry Neurologic: PERRL, EOMI, accommodation nl, no face palsy, no dysarthria Psychiatric: Orientation: alert Speech: normal rate/rhythm/volume of speech Affect: + flat affect Results & Data Vital Signs (Past 12 Hours) Vital Signs Temp Pulse Resp BP Pulse Ox 01/17/19 15:23 36.7 C 67 17 171/80 H 95 01/17/19 08:47 73 149/75 H 01/17/19 07:35 37.0 C 74 18 149/74 H 91
[2019-01-17] MEDS: SERTRALINE HCL 50 MG TABLET PO SCH (20:49)
[2019-01-18] MEDS: HEPARIN SOD 5,000 UNIT/0.5 ML VIAL SQ SCH ×3 (05:44→22:07)
[2019-01-18] MEDS: carvediloL 3.125 MG TAB PO SCH ×2 (07:57→22:03)
[2019-01-18] MEDS: FUROSEMIDE 80 MG TAB PO SCH ×2 (07:57→16:10)
[2019-01-18] MEDS: ISOSORBIDE MONO EXTENDED REL 60 MG TABCR PO SCH (07:57)
[2019-01-18] MEDS: FLUTICASONE PROPIONATE NA SPR 16 GM BTL SCH (07:57)
[2019-01-18] MEDS: NYSTATIN POWDER 15GM BTL EXT SCH ×2 (07:58→22:05)
--- NOTE | 2019-01-18 18:40 | Hospitalist Progress Note ---
Date of Service January 18, 2019 Assessment & Plan (1) Acute on chronic respiratory failure with hypoxemia: Patient status remains a stable, on nasal cannula, Continues to feel very tired and weak Does not want any aggressive intervention, Willing to transition care to [facility] with skilled initially and letter transfer to hospice as needed Acute on Chronic Hypoxic/Hypercapnic respiratory failure Presented with severe hypoxemia, hypercarbia, Possible secondary to acute on chronic diastolic CHF present on admission, Required intermittent BiPAP Large right-sided pleural effusion Status post thoracentesis x2 ECHO reviewed Appreciate Credit Counselor/Pulmonology/Nephrology Input Palliative care consulted to address goals of care -appreciate input Patient understands poor prognosis, Does not want any invasive procedures, does not want to be placed back on BiPAP Wants to be comfortable only Patient was transferred out of intensive care unit to medical floor, goal of care is directed to comfort care/hospice (2) ALISTAIR (acute kidney injury): ALISTAIR on CKD III: Renal USD:Limited visualization of the left kidney. No hydronephrosis. Echogenicity of the right kidney suggests medical renal disease. Nonvisualization of the bladder. Hepatomegaly as on prior CT. Baseline Cr ~1.5 Cr:2.4>2.2>2.6>2.9>> 2.89 Appreciate Nephrology Input Patient's clinical status continues to decline, Patient is willing for hospice care, transition to comfort measures only Not a candidate for dialysis, patient also declines any invasive procedure Appreciate input from physical therapy recommends patient for skilled rehab, Plan to transfer to [facility] for SNF later transition to hospice care as needed (3) Acute metabolic encephalopathy: Acute Metabolic encephalopathy Likely multifactorial--Hypercapnia, renal failure, elevated ammonia levels CT head: No acute intracranial abnormality Mental status gradually improved to baseline, alert and awake oriented to place and person, Patient decided not to go for any invasive procedure, CODE STATUS DNR/DNI as per patient's wish, Wants to be comfortable only, avoid BiPAP, oxygen via nasal cannula only DVT Px: Heparin SQ Code Status DNI/DNR Disposition: Patient is medically stable to transition to [facility] for SNF later transition to hospice Subjective Continue to be more tired and weak, felt nauseous earlier, relieved after PRN Zofran, PT evaluation done earlier recommend skilled rehab Physical Exam Constitutional: + ill appearing and + obese; no acute distress Eyes: sclerae not anicteric ENMT: external ear and nose normal, oropharynx normal Neck: trachea midline, no thyromegaly Respiratory: no respiratory distress and no cough Auscultation: + diminished lung sounds, + crackles (Bibasilar Rales) and + rales; no wheezes Cardiovascular: Rate/Rhythm: regular rate and regular rhythm Gastrointestinal (Abdomen): Percussion/Palpation: abdomen soft; abdomen nontender Musculoskeletal: Extremities: no cyanosis and no clubbing Skin: no rashes, warm and dry Neurologic: PERRL, EOMI, accommodation nl, no face palsy, no dysarthria Psychiatric: Orientation: alert Speech: normal rate/rhythm/volume of speech Affect: + flat affect Results & Data Vital Signs (Past 12 Hours) Vital Signs Temp Pulse Pulse Resp BP Pulse Ox 01/18/19 15:50 37.0 C 67 18 145/77 H 96 01/18/19 07:56 36.7 C 69 18 150/82 H 93
[2019-01-18] MEDS: SERTRALINE HCL 50 MG TABLET PO SCH (22:04)
[2019-01-19] MEDS: HEPARIN SOD 5,000 UNIT/0.5 ML VIAL SQ SCH ×3 (05:30→21:14)
[2019-01-19] MEDS: NYSTATIN POWDER 15GM BTL EXT SCH ×2 (08:03→21:21)
[2019-01-19] MEDS: FLUTICASONE PROPIONATE NA SPR 16 GM BTL SCH (08:03)
[2019-01-19] MEDS: FUROSEMIDE 80 MG TAB PO SCH ×2 (08:04→16:38)
[2019-01-19] MEDS: carvediloL 3.125 MG TAB PO SCH ×2 (08:04→21:14)
[2019-01-19] MEDS: ISOSORBIDE MONO EXTENDED REL 60 MG TABCR PO SCH (08:04)
[2019-01-19] MEDS ORDERED: LORazepam 0.5 MG TAB PO PRN (10:07)
--- NOTE | 2019-01-19 16:05 | Hospitalist Progress Note ---
Date of Service January 19, 2019 Assessment & Plan (1) Acute on chronic respiratory failure with hypoxemia: Patient status remains a stable, on nasal cannula, Continues to feel very tired and weak Does not want any aggressive intervention, Skilled rehab referral made to [facility], awaiting insurance authorization Acute on Chronic Hypoxic/Hypercapnic respiratory failure Presented with severe hypoxemia, hypercarbia, Possible secondary to acute on chronic diastolic CHF present on admission, Required intermittent BiPAP Large right-sided pleural effusion Status post thoracentesis x2 ECHO reviewed Appreciate Jute Bag Sewer/Pulmonology/Nephrology Input Palliative care consulted to address goals of care -appreciate input Patient understands poor prognosis, Plan to go to [facility] with's skilled care later can be transition to hospice palliative care if indicated (2) ALISTAIR (acute kidney injury): ALISTAIR on CKD III: Renal USD:Limited visualization of the left kidney. No hydronephrosis. Echogenicity of the right kidney suggests medical renal disease. Nonvisualization of the bladder. Hepatomegaly as on prior CT. Baseline Cr ~1.5 Cr:2.4>2.2>2.6>2.9>> 2.89 Appreciate Nephrology Input Patient's clinical status continues to decline, Patient is willing for hospice care, transition to comfort measures only Not a candidate for dialysis, patient also declines any invasive procedure Appreciate input from physical therapy recommends patient for skilled rehab, Plan to transfer to [facility] for SNF later transition to hospice care as needed (3) Acute metabolic encephalopathy: Acute Metabolic encephalopathy Likely multifactorial--Hypercapnia, renal failure, elevated ammonia levels CT head: No acute intracranial abnormality Mental status gradually improved to baseline, alert and awake oriented to place and person, Patient decided not to go for any invasive procedure, CODE STATUS DNR/DNI as per patient's wish, Wants to be comfortable only, avoid BiPAP, oxygen via nasal cannula only DVT Px: Heparin SQ Code Status DNI/DNR Disposition: Patient is medically stable to transition to [facility] for SNF Subjective No new complaint today, Breathing status stable, no worsening of shortness of breath orthopnea, no cough No nausea vomiting or abdominal pain, fever Appetite fair Physical Exam Constitutional: + ill appearing and + obese; no acute distress Eyes: sclerae not anicteric ENMT: external ear and nose normal, oropharynx normal Neck: trachea midline, no thyromegaly Respiratory: no respiratory distress and no cough Auscultation: + diminished lung sounds, + crackles (Bibasilar Rales) and + rales; no wheezes Cardiovascular: Rate/Rhythm: regular rate and regular rhythm Gastrointestinal (Abdomen): Percussion/Palpation: abdomen soft; abdomen nontender Musculoskeletal: Extremities: no cyanosis and no clubbing Skin: no rashes, warm and dry Neurologic: PERRL, EOMI, accommodation nl, no face palsy, no dysarthria Psychiatric: Orientation: alert Speech: normal rate/rhythm/volume of speech Affect: + flat affect Results & Data Vital Signs (Past 12 Hours) Vital Signs Temp Pulse Pulse Resp BP BP Pulse Ox 01/19/19 14:56 36.9 C 59 L 16 122/71 99 01/19/19 07:25 37.1 C 67 20 112/66 96
[2019-01-19] MEDS: ONDANSETRON INJ 2 MG/ML 2 ML VIAL IV PRN (21:14)
[2019-01-19] MEDS: SERTRALINE HCL 50 MG TABLET PO SCH (21:14)
[2019-01-20] MEDS: HEPARIN SOD 5,000 UNIT/0.5 ML VIAL SQ SCH ×3 (05:36→21:38)
[2019-01-20] MEDS: NYSTATIN POWDER 15GM BTL EXT SCH ×2 (07:58→20:45)
[2019-01-20] MEDS: FUROSEMIDE 80 MG TAB PO SCH ×2 (07:59→16:46)
[2019-01-20] MEDS: carvediloL 3.125 MG TAB PO SCH ×2 (07:59→20:44)
[2019-01-20] MEDS: FLUTICASONE PROPIONATE NA SPR 16 GM BTL SCH (08:00)
[2019-01-20] MEDS: ONDANSETRON INJ 2 MG/ML 2 ML VIAL IV PRN (15:38)
[2019-01-20] MEDS ORDERED: PROMETHAZINE HCL 12.5 MG in SODIUM CHLORIDE 0.9% 50 ML IV STA (16:17)
--- NOTE | 2019-01-20 17:49 | Hospitalist Progress Note ---
Date of Service January 20, 2019 Assessment & Plan (1) Acute on chronic respiratory failure with hypoxemia: Patient status remains a stable, on nasal cannula, Continues to feel very tired and weak Does not want any aggressive intervention, Skilled rehab referral made to [facility], awaiting insurance authorization Acute on Chronic Hypoxic/Hypercapnic respiratory failure Respiratory status remains stable for past few days Presented with severe hypoxemia, hypercarbia, Possible secondary to acute on chronic diastolic CHF present on admission, Required intermittent BiPAP Large right-sided pleural effusion Status post thoracentesis x2 ECHO reviewed Appreciate Finish Saw Operator/Pulmonology/Nephrology Input Palliative care consulted to address goals of care -appreciate input Patient understands poor prognosis, Plan to go to [facility] with's skilled care later can be transition to hospice palliative care if indicated (2) ALISTAIR (acute kidney injury): ALISTAIR on CKD III: Renal USD:Limited visualization of the left kidney. No hydronephrosis. Echogenicity of the right kidney suggests medical renal disease. Nonvisualization of the bladder. Hepatomegaly as on prior CT. Baseline Cr ~1.5 Cr:2.4>2.2>2.6>2.9>> 2.89 Appreciate Nephrology Input Patient's clinical status continues to decline, Patient is willing for hospice care, transition to comfort measures only Not a candidate for dialysis, patient also declines any invasive procedure Appreciate input from physical therapy recommends patient for skilled rehab, Plan to transfer to [facility] for SNF later transition to hospice care as needed (3) Acute metabolic encephalopathy: Acute Metabolic encephalopathy Likely multifactorial--Hypercapnia, renal failure, elevated ammonia levels CT head: No acute intracranial abnormality Mental status gradually improved to baseline, alert and awake oriented to place and person, Patient decided not to go for any invasive procedure, CODE STATUS DNR/DNI as per patient's wish, Wants to be comfortable only, avoid BiPAP, oxygen via nasal cannula only DVT Px: Heparin SQ Code Status DNI/DNR Disposition: Patient is medically stable to transition to [facility] for SNF Subjective Complaints of leg swelling, calf pain bilaterally Doppler ultrasound negative for DVT Respiratory status remains stable No worsening of tachypnea, wheeze or cough No fever or chills, awake and alert conversing appropriately, no sign of distress Awaiting acceptance to skilled rehab at [facility] Physical Exam Constitutional: + ill appearing and + obese; no acute distress Eyes: sclerae not anicteric ENMT: external ear and nose normal, oropharynx normal Neck: trachea midline, no thyromegaly Respiratory: no respiratory distress and no cough Auscultation: + diminished lung sounds, + crackles (Bibasilar Rales) and + rales; no wheezes Cardiovascular: Rate/Rhythm: regular rate and regular rhythm Gastrointestinal (Abdomen): Percussion/Palpation: abdomen soft; abdomen nontender Musculoskeletal: Extremities: no cyanosis and no clubbing Skin: no rashes, warm and dry Neurologic: PERRL, EOMI, accommodation nl, no face palsy, no dysarthria Psychiatric: Orientation: alert Speech: normal rate/rhythm/volume of speech Affect: + flat affect Results & Data Vital Signs (Past 12 Hours) Vital Signs Temp Pulse Pulse Resp BP BP Pulse Ox 01/20/19 16:34 36.8 C 96/48 L 01/20/19 14:51 36.1 C L 68 20 101/49 L 97 01/20/19 07:31 36.7 C 82 20 128/64 96
[2019-01-20] MEDS: SERTRALINE HCL 50 MG TABLET PO SCH (20:44)
[2019-01-21] MEDS: HEPARIN SOD 5,000 UNIT/0.5 ML VIAL SQ SCH ×2 (05:29→14:26)
[2019-01-21 05:38] LABS: Hematocrit (blood only) 30.7 % (37-47); Hemoglobin 9.2 g/dL (12.0-16.0)
--- NOTE | 2019-01-21 08:07 | Ultrasound Report ---
US venous doppler LE BI HISTORY: Pain. Edema. leg pain /swelling COMPARISON STUDY: None. FINDINGS: There is normal compressibility, flow, and augmentation within the bilateral lower extremit y deep venous systems. IMPRESSION: No DVT within the right or left lower extremity. Somewhat compromised exam of the lower leg venous sy stem due to body habitus considerations. The above report was generated using voice recognition software. It may contain grammatical, syntax or spelling errors. Electronically signed by: Heri Lima M.D. 01/21/2019 8:05 AM
[2019-01-21] MEDS: NYSTATIN POWDER 15GM BTL EXT SCH (08:29)
[2019-01-21] MEDS: carvediloL 3.125 MG TAB PO SCH (08:29)
[2019-01-21] MEDS: FUROSEMIDE 80 MG TAB PO SCH (08:29)
[2019-01-21] MEDS: FLUTICASONE PROPIONATE NA SPR 16 GM BTL SCH (08:29)
--- NOTE | 2019-01-21 13:31 | Discharge Summary ---
Date of Service January 21, 2019 Admission HPI Per Admitting Provider DICTATED BY: Damon Dinh MD DATE OF ADMISSION: 01/09/2019 CHIEF COMPLAINT: Fall and weakness. HISTORY OF PRESENT ILLNESS: This is a 68-year-old female with past medical history significant for type 2 diabetes, chronic kidney disease stage III, hyperlipidemia, history of hyponatremia, history of metabolic acidemia, chronic respiratory failure, used to be only on oxygen at nighttime in the past, but since last admission in September with pneumonia she is on oxygen 24/7 2 liters, diastolic CHF, CAD, hypertension, venous insufficiency, morbid obesity, reflux esophagitis, stress incontinence female, arthritis, ankylosing spondylitis, depression who lives alone, presents with fall. The patient says she generally walks with a cane but since last one week, she has become weak and walks using a walker. She lives alone but one of the daughter lives close by, a block away.Last Monday she was getting out of the shower, adjacent to the shower she has a sitting table. The table was little far away and she could not properly sit on the chair, she was sitting on the edge and instead of falling down she slowly lowered herself to the floor. When she could not get up, she tried to crawl to the phone, but she was not successful and she lay on the floor for five and half hours. Her younger daughter usually calls after her work and when she did not sheepskin pickler the phone, she called her other daughter who is close by and she came to check on the patient who had fallen on the floor and she took the neighbor's help to get her up. After getting up, she could not ambulate, but she was not hurting so she did not come to hospital.. The next day she could ambulate okay, but she had bruises on the back and buttock region and it started to get sore on the buttock region and she is not sleeping properly with the soreness. Her home health nurse came in and checked on her and because of ongoing symptoms and bruises on the buttock, she was advised to come to the ER to check her up. In the ER her hemoglobin is 8.8, baseline is around 10. Her potassium was 2.9. She is also having cough for 1 week, once in a while bringing whitish phlegm and getting short of breath on exertion. There is question of pneumonia. The patient denies any fever, chills, no headache, no dizziness, no blurred vision, no earache. She has some runny nose going on since she is on oxygen. No sore throat. She says she swallows okay except for some certain foods like meat and she drinks water to push it down. Her appetite is good. Denies any chest pain, no nausea, no vomiting, no abdominal pain. She says her bowel movements are like mucus but no blood in stools or black stools, not micturating much because she is not eating much, but no dysuria or hematuria. Has rash in her abdominal folds and uses nystatin. Currently, resting comfortable and hemodynamically stable. Principal Diagnosis RESPIRATORY FAILURE /ACUTE ON CHRONIC CONGESTIVE HEART FAILURE Discharge Exam Constitutional + ill appearing and + obese; no acute distress Eyes sclerae not anicteric ENMT external ear and nose normal, oropharynx normal Neck trachea midline, no thyromegaly Respiratory no respiratory distress and no cough Auscultation: + diminished lung sounds, + crackles (Bibasilar Rales) and + rales; no wheezes Cardiovascular Rate/Rhythm: regular rate and regular rhythm Gastrointestinal (Abdomen) Percussion/Palpation: abdomen soft; abdomen nontender Musculoskeletal Extremities: no cyanosis and no clubbing Skin no rashes, warm and dry Neurologic PERRL, EOMI, accommodation nl, no face palsy, no dysarthria Psychiatric Orientation: alert Speech: normal rate/rhythm/volume of speech Affect: + flat affect Discharge Data Allergies Allergy/AdvReac Type Severity Reaction Status Date / Time cephalexin Allergy Severe SHORTNESS Verified 01/08/19 22:53 OF BREATH Iodinated Contrast- Oral and Allergy Severe GI Verified 01/08/19 22:53 IV Dye SYMPTOMS/SOB prednisone AdvReac Intermediate chest Verified 01/08/19 22:53 heaviness Sulfa (Sulfonamide AdvReac Mild VOMITING Verified 01/08/19 22:53 Antibiotics) Consultations 01/09/19 00:28 ED Decision to Admit Stat 01/09/19 02:32 Consult Case Management - Discharge Planning Routine 01/09/19 06:48 Consult Pulmonology Routine 01/09/19 14:55 Consult Nephrology Routine 01/13/19 11:47 Consult Neurology Routine 01/13/19 13:32 Consult Bomb Squad Officer Routine 01/15/19 08:56 Consult Palliative Care Routine Ordered Studies 01/09/19 02:32 CT chest wo con Urgent 01/09/19 08:07 US renal/blad retro comp Routine 01/09/19 14:14 US point of care ultrasound Routine 01/13/19 11:32 CT head/brain wo con Urgent 01/13/19 14:35 US point of care ultrasound Routine 01/15/19 10:44 US point of care ultrasound Routine 01/21/19 16:13 US venous doppler LE Routine Hospital Course (1) Acute on chronic respiratory failure with hypoxemia: Patient status remains a stable, on nasal cannula, Continues to feel very tired and weak Does not want any aggressive intervention, Skilled rehab referral made to [facility], awaiting insurance authorization Acute on Chronic Hypoxic/Hypercapnic respiratory failure Respiratory status remains stable for past few days Presented with severe hypoxemia, hypercarbia, Possible secondary to acute on chronic diastolic CHF present on admission, Required intermittent BiPAP Large right-sided pleural effusion Status post thoracentesis x2 ECHO reviewed Appreciate Bomb Squad Officer/Pulmonology/Nephrology Input Palliative care consulted to address goals of care -appreciate input Patient understands poor prognosis, stable to go to [facility] for SNF today (2) ALISTAIR (acute kidney injury): ALISTAIR on CKD III: Renal USD:Limited visualization of the left kidney. No hydronephrosis. Echogenicity of the right kidney suggests medical renal disease. Nonvisualization of the bladder. Hepatomegaly as on prior CT. Baseline Cr ~1.5 Cr:2.4>2.2>2.6>2.9>> 2.89 Appreciate Nephrology Input Patient's clinical status continues to decline, Patient is willing for hospice care, transition to comfort measures only Not a candidate for dialysis, patient also declines any invasive procedure Appreciate input from physical therapy recommends patient for skilled rehab, Plan to transfer to [facility] for SNF later transition to hospice care as needed (3) Acute metabolic encephalopathy: Acute Metabolic encephalopathy Likely multifactorial--Hypercapnia, renal failure, elevated ammonia levels CT head: No acute intracranial abnormality Mental status gradually improved to baseline, alert and awake oriented to place and person, Patient decided not to go for any invasive procedure, CODE STATUS DNR/DNI as per patient's wish, Wants to be comfortable only, avoid BiPAP, oxygen via nasal cannula only DVT Px: Heparin SQ Code Status DNI/DNR Disposition: Patient is medically stable to transition to [facility] for SNF Total Time Total Time Spent Total Time Spent (In Minutes): approx 35 mins Total Time Includes: Examination of the Patient, Discharge Planning and Medication Reconciliation Discharge Plan Discharge Items Patient Disposition: Transfer Longterm Fac Reason For Visit: WEAKNESS Discharge Diagnosis: RESPIRATORY FAILURE /ACUTE ON CHRONIC CONGESTIVE HEART FAILURE Discharge Goals: Decrease discomfort and Therapeutic intervention Activity: As commented below Activity Comment: TOLERATED Non-emergency contact: Primary Care Provider Call non-emergency contact if: you have any medication questions Follow-up/Referrals: Junior Treadwell MD [Primary Care Provider] - [facility] [Non-Staff] - Diet: Heart Healthy Addtl Provider Instructions: FOLLOW UP WITH PHYSICIAN AT [facility] CONTINUE JAY CATHETER Prescriptions: New morphine concentrate 100 mg/5 mL (20 mg/mL) Solution 0.5 ml PO Q4 PRN (Reason: PAIN) Qty: 35 RF: 0 lorazepam 0.5 mg Tablet 0.5 mg PO Q6 PRN (Reason: ANXIETY) Qty: 30 RF: 0 furosemide 80 mg Tablet 80 mg PO BID 30 Days Qty: 60 RF: 0 Continued carvedilol 6.25 mg tablet 6.25 mg PO BID RF: 0 atorvastatin 20 mg tablet 20 mg PO DAILY RF: 0 sertraline 100 mg tablet 150 mg PO DAILY RF: 0 aspirin [Aspirin Low Dose] 81 mg Tablet,Delayed Release (Dr/Ec) 81 mg PO DAILY RF: 0 fenofibrate micronized 134 mg capsule 134 mg PO DAILY RF: 0 levothyroxine 100 mcg tablet 100 mg PO DAILY RF: 0 pantoprazole 40 mg tablet,delayed release (DR/EC) 40 mg PO DAILY RF: 0 nitroglycerin 0.4 mg Tablet, Sublingual 0.4 mg Sublingual DIRECTED RF: 0 gabapentin 300 mg Capsule 300 mg PO BID RF: 0 nystatin [Nystop] 100,000 unit/gram Powder 1 applic TOPICAL BID RF: 0 pioglitazone 30 mg Tablet 30 mg PO DAILY RF: 0 fluticasone propionate [Flonase Allergy Relief] 50 mcg/actuation [place],Suspension 1 spray INTRANASAL DAILY RF: 0 cholecalciferol (vitamin D3) [Vitamin D3] 1,000 unit Capsule 1,000 unit PO DAILY RF: 0 ranitidine HCl 150 mg capsule 150 mg PO BID PRN (Reason: heartburn) Qty: 60 RF: 1 ipratropium bromide 0.02 % Solution 0.5 mg inhalation Q6R PRN (Reason: shortness of breath or wheezing) Qty: 200 RF: 0 levalbuterol HCl 1.25 mg/0.5 mL Solution For Nebulization 1.25 mg inhalation Q6R PRN (Reason: shortness of breath or wheezing) Qty: 200 RF: 0 polyethylene glycol 3350 [Miralax] 17 gram Powder In Packet 17 g PO DAILY PRN (Reason: constipation) Qty: 20 RF: 0 Discontinued isosorbide mononitrate 60 mg tablet extended release 24 hr 60 mg PO DAILY RF: 0 torsemide 20 mg tablet 40 mg PO QAM Qty: 30 RF: 0 Stand-Alone Forms: [facility] Discharge Orders: Discharge Order (Routine); Ordered 01/21/19 Ordered By: Elidia Meyer Skilled Items Patient informed of condition?: Yes DNR: Yes Discharge Level of Care: Skilled Communicable Disease: No Discharge Prognosis: Stable Admission Data Admit Date/Time: 01/09/19 01:23 Attending Provider: Elidia Meyer Admit Provider: Damon Dinh Primary Care Provider: Junior Treadwell Other Providers: Damon Dinh ; Brandon Spaulding ; Rosa Santana ; Lauri Acuña ; Joselito Jernigan ; [facility] Service: Medical Other Interventions: Discharge Summary Assessment (RN) Last Done: 01/21/19 12:33 DC Date/Time DO NOT enter until pt leaves facility: 01/21/19 15:44
== END 2019-01-21 15:44 | DRG 291 ==
LOC: ED 20:13 → SUATTDRO 01-09 01:23 → 2N 01-09 01:23 → 1E 01-13 12:56 → 3W 01-16 11:53